=== PATIENT | female | born 1945 | race Caucasian/White ===

== ENCOUNTER 2018-01-13 13:06 | Inpatient (IN) ==
--- OUTSIDE RECORDS SUMMARY | 2018-01-13 13:41 | External Medical Summary | Continuity of Care Document ---
:1945 Author Organization [facility] Allergies Active Description Code Type Severity Reaction Onset Reported/ Identified Relationship Clinical to Patient Status Yes CEPHALEXIN 2716 DRUG Low Nausea 11/18/2016 Yes EXENATIDE 91701 DRUG Low Nausea 11/18/2016 Yes PENICILLINS 476 DRUG Low Rash 11/18/2016 Yes PHENOL 3172 DRUG Low Nausea 11/18/2016 Yes ROSIGLITAZON 7789 DRUG Low Rash 11/18/2016 E Yes CEPHALEXIN 2716 DRUG Low Nausea 11/18/2016 Yes EXENATIDE 82091 DRUG Low Nausea 11/18/2016 Yes PENICILLINS 476 DRUG Low Rash 11/18/2016 Yes PHENOL 3172 DRUG Low Nausea 11/18/2016 Yes ROSIGLITAZON 7789 DRUG Low Rash 11/18/2016 E Medications Medication Packaging Start Date Stop Date Route Dosage Sig Tablet 06/11/2016 03/08/2017 650 mg sodium take 1 bicarbonate 650 (one) mg tablet Tablet by Oral route two times per day for 90 days Problems Date Dx Attending Type Code Diagnosis Diagnosed By Coded 05/06/2015 OT 250.00 05/06/2015 OT 397.0 05/06/2015 OT 416.8 05/06/2015 OT 424.0 05/06/2015 OT 443.9 05/06/2015 OT 729.5 05/06/2015 OT 782.3 04/22/2016 D63.1 Anemia in chronic ROB, [place] kidney disease 04/22/2016 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, [place]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 04/22/2016 E55.9 Vitamin D ROB, [place] deficiency, unspecified 04/22/2016 E87.5 Hyperkalemia ROB, [place] 04/22/2016 E87.70 Fluid overload, ROB, [place] unspecified 04/22/2016 F17.200 Nicotine ROB, [place] dependence, unspecified, uncomplicated 04/22/2016 I12.9 Hypertensive ROB, [place] chronic kidney disease with stage 1 through stage 4 chronic kidney disease, or unspecified chronic kidney disease 04/22/2016 N18.3 Chronic kidney SUDARSHAN RIVASM disease, stage 3 (moderate) 11/18/2016 V1 N18.4 Chronic kidney disease, stage 4 (severe) ([facility]) 11/18/2016 V1 N18.4 Chronic kidney disease, stage 4 (severe) ([facility]) 11/18/2016 V1 N18.4 Chronic kidney disease, stage 4 (severe) ([facility]) 11/18/2016 DORA RENDON V1 N18.4 Chronic kidney disease, stage 4 (severe) ([facility]) 01/18/2017 V1 E11.22 Type 2 diabetes mellitus with diabetic chronic kidney disease ([facility]) 01/18/2017 V1 N18.4 Chronic kidney disease, stage 4 (severe) ([facility]) 01/18/2017 V1 Z79.4 alf (current) use of insulin ([facility]) 02/08/2017 V1 D63.1 02/08/2017 V1 E11.22 02/08/2017 V1 N18.3 02/08/2017 V1 N18.4 02/08/2017 V1 N18.9 02/08/2017 V1 Z79.4 02/09/2017 V1 D63.1 02/09/2017 V1 E11.22 02/09/2017 V1 N18.3 02/09/2017 V1 N18.4 02/09/2017 V1 N18.9 02/09/2017 V1 Z79.4 02/19/2017 V1 D63.1 Anemia in chronic kidney disease 02/19/2017 V1 N18.9 Chronic kidney disease, unspecified 02/19/2017 V1 D63.1 Anemia in chronic kidney disease 02/19/2017 V1 N18.3 Chronic kidney disease, stage 3 (moderate) 02/19/2017 V1 N18.9 Chronic kidney disease, unspecified 02/23/2017 V1 D63.1 Anemia in chronic kidney disease 02/23/2017 V1 N18.3 Chronic kidney disease, stage 3 (moderate) 02/23/2017 V1 N18.9 Chronic kidney disease, unspecified 03/05/2017 V1 D63.1 Anemia in chronic kidney disease 03/05/2017 V1 N18.3 Chronic kidney disease, stage 3 (moderate) 03/05/2017 V1 D63.1 Anemia in chronic kidney disease 03/05/2017 V1 N18.3 Chronic kidney disease, stage 3 (moderate) 03/09/2017 V1 D63.1 Anemia in chronic kidney disease 03/09/2017 V1 N18.3 Chronic kidney disease, stage 3 (moderate) 03/19/2017 V1 D63.1 Anemia in chronic kidney disease 03/19/2017 V1 N18.9 Chronic kidney disease, unspecified 03/19/2017 V1 D63.1 Anemia in chronic kidney disease 03/19/2017 V1 N18.3 Chronic kidney disease, stage 3 (moderate) 03/19/2017 V1 N18.9 Chronic kidney disease, unspecified 03/19/2017 V1 D63.1 Anemia in chronic kidney disease 03/19/2017 V1 N18.3 Chronic kidney disease, stage 3 (moderate) 03/19/2017 V1 N18.9 Chronic kidney disease, unspecified 03/19/2017 V1 D63.1 Anemia in chronic kidney disease 03/19/2017 V1 N18.3 Chronic kidney disease, stage 3 (moderate) 03/19/2017 V1 N18.9 Chronic kidney disease, unspecified 03/19/2017 V1 D63.1 Anemia in chronic kidney disease 03/23/2017 V1 D63.1 Anemia in chronic kidney disease 03/23/2017 V1 D63.1 Anemia in chronic kidney disease 03/23/2017 V1 N18.3 Chronic kidney disease, stage 3 (moderate) 03/23/2017 V1 N18.9 Chronic kidney disease, unspecified 03/26/2017 V1 D63.1 Anemia in chronic kidney disease 03/30/2017 V1 D63.1 Anemia in chronic kidney disease 04/01/2017 V1 D63.1 Anemia in chronic kidney disease 04/01/2017 V1 N18.9 Chronic kidney disease, unspecified 04/01/2017 V1 D63.1 Anemia in chronic kidney disease 04/01/2017 V1 N18.3 Chronic kidney disease, stage 3 (moderate) 04/01/2017 V1 N18.9 Chronic kidney disease, unspecified 04/01/2017 V1 D63.1 Anemia in chronic kidney disease 04/01/2017 V1 N18.3 Chronic kidney disease, stage 3 (moderate) 04/01/2017 V1 N18.9 Chronic kidney disease, unspecified 04/01/2017 V1 D63.1 Anemia in chronic kidney disease 04/05/2017 V1 D63.1 Anemia in chronic kidney disease 04/05/2017 V1 D63.1 Anemia in chronic kidney disease 04/05/2017 V1 N18.3 Chronic kidney disease, stage 3 (moderate) 04/05/2017 V1 N18.9 Chronic kidney disease, unspecified 04/08/2017 V1 D63.1 Anemia in chronic kidney disease 04/08/2017 V1 D63.1 Anemia in chronic kidney disease 04/12/2017 V1 D63.1 Anemia in chronic kidney disease 04/15/2017 V1 D63.1 Anemia in chronic kidney disease 04/15/2017 V1 N18.9 Chronic kidney disease, unspecified 04/15/2017 V1 D63.1 Anemia in chronic kidney disease 04/15/2017 V1 N18.9 Chronic kidney disease, unspecified 04/19/2017 V1 D63.1 Anemia in chronic kidney disease 04/19/2017 V1 N18.9 Chronic kidney disease, unspecified 04/29/2017 V1 D63.1 Anemia in chronic kidney disease 04/29/2017 V1 N18.9 Chronic kidney disease, unspecified 04/29/2017 V1 D63.1 Anemia in chronic kidney disease 04/29/2017 V1 N18.3 Chronic kidney disease, stage 3 (moderate) 04/29/2017 V1 N18.9 Chronic kidney disease, unspecified 05/03/2017 V1 D63.1 Anemia in chronic kidney disease 05/03/2017 V1 N18.3 Chronic kidney disease, stage 3 (moderate) 05/03/2017 V1 N18.9 Chronic kidney disease, unspecified 05/13/2017 V1 D63.1 Anemia in chronic kidney disease 05/13/2017 V1 N18.9 Chronic kidney disease, unspecified 05/13/2017 V1 D63.1 Anemia in chronic kidney disease 05/13/2017 V1 N18.3 Chronic kidney disease, stage 3 (moderate) 05/13/2017 V1 N18.9 Chronic kidney disease, unspecified 05/13/2017 V1 D63.1 Anemia in chronic kidney disease 05/13/2017 V1 N18.3 Chronic kidney disease, stage 3 (moderate) 05/13/2017 V1 N18.9 Chronic kidney disease, unspecified 05/13/2017 V1 D63.1 Anemia in chronic kidney disease 05/14/2017 V1 D63.1 Anemia in chronic kidney disease 05/17/2017 V1 D63.1 Anemia in chronic kidney disease 05/17/2017 V1 D63.1 Anemia in chronic kidney disease 05/17/2017 V1 N18.3 Chronic kidney disease, stage 3 (moderate) 05/17/2017 V1 N18.9 Chronic kidney disease, unspecified 05/20/2017 V1 D63.1 Anemia in chronic kidney disease 05/24/2017 V1 D63.1 Anemia in chronic kidney disease 05/27/2017 V1 D63.1 Anemia in chronic kidney disease 05/27/2017 V1 N18.4 Chronic kidney disease, stage 4 (severe) ([facility]) 05/27/2017 V1 D63.1 Anemia in chronic kidney disease 05/31/2017 V1 D63.1 Anemia in chronic kidney disease 05/31/2017 V1 D63.1 Anemia in chronic kidney disease 05/31/2017 V1 N18.4 Chronic kidney disease, stage 4 (severe) ([facility]) 06/03/2017 V1 D63.1 Anemia in chronic kidney disease 06/07/2017 V1 D63.1 Anemia in chronic kidney disease 06/10/2017 V1 D63.1 Anemia in chronic kidney disease 06/10/2017 V1 N18.3 Chronic kidney disease, stage 3 (moderate) 06/10/2017 V1 N18.9 Chronic kidney disease, unspecified 06/10/2017 V1 D63.1 Anemia in chronic kidney disease 06/10/2017 V1 D63.1 Anemia in chronic kidney disease 06/10/2017 V1 N18.9 Chronic kidney disease, unspecified 06/10/2017 V1 D63.1 Anemia in chronic kidney disease 06/10/2017 V1 N18.3 Chronic kidney disease, stage 3 (moderate) 06/10/2017 V1 N18.9 Chronic kidney disease, unspecified 06/10/2017 V1 D63.1 Anemia in chronic kidney disease 06/10/2017 V1 N18.3 Chronic kidney disease, stage 3 (moderate) 06/10/2017 V1 N18.9 Chronic kidney disease, unspecified 06/10/2017 V1 D63.1 Anemia in chronic kidney disease 06/10/2017 V1 D63.1 Anemia in chronic kidney disease 06/10/2017 V1 N18.3 Chronic kidney disease, stage 3 (moderate) 06/10/2017 V1 N18.9 Chronic kidney disease, unspecified 06/10/2017 V1 D63.1 Anemia in chronic kidney disease 07/20/2017 V1 D63.1 Anemia in chronic kidney disease 07/20/2017 V1 D63.1 Anemia in chronic kidney disease 07/20/2017 V1 N18.9 Chronic kidney disease, unspecified 07/20/2017 V1 N18.9 Chronic kidney disease, unspecified 07/20/2017 V1 N18.9 Chronic kidney disease, unspecified 07/20/2017 V1 N18.9 Chronic kidney disease, unspecified 07/20/2017 V1 N18.9 Chronic kidney disease, unspecified 07/20/2017 V1 N18.9 Chronic kidney disease, unspecified 07/20/2017 V1 N18.9 Chronic kidney disease, unspecified 07/20/2017 V1 N18.9 Chronic kidney disease, unspecified 07/20/2017 V1 D64.9 Anemia, unspecified 07/20/2017 V1 D64.9 Anemia, unspecified 07/20/2017 V1 D64.9 Anemia, unspecified 07/20/2017 V1 D64.9 Anemia, unspecified 07/20/2017 V1 D64.9 Anemia, unspecified 07/28/2017 V1 D63.1 Anemia in chronic kidney disease 07/28/2017 V1 N18.3 Chronic kidney disease, stage 3 (moderate) 07/28/2017 V1 N18.9 Chronic kidney disease, unspecified 07/28/2017 V1 D63.1 Anemia in chronic kidney disease 07/28/2017 V1 N18.3 Chronic kidney disease, stage 3 (moderate) 07/28/2017 V1 N18.9 Chronic kidney disease, unspecified 08/04/2017 V1 E11.22 Type 2 diabetes mellitus with diabetic chronic kidney disease ([facility]) 08/04/2017 V1 N18.6 End stage renal disease ([facility]) 08/04/2017 V1 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 ([facility]) 08/04/2017 V1 D64.9 Anemia, unspecified 08/04/2017 V1 N18.9 Chronic kidney disease, unspecified 08/04/2017 V1 E11.22 Type 2 diabetes mellitus with diabetic chronic kidney disease ([facility]) 08/04/2017 V1 N18.6 End stage renal disease ([facility]) 08/04/2017 V1 Z79.4 alf (current) use of insulin ([facility]) 08/11/2017 V1 E11.22 Type 2 diabetes mellitus with diabetic chronic kidney disease ([facility]) 08/11/2017 V1 N18.6 End stage renal disease ([facility]) 08/11/2017 V1 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 [place] 08/11/2017 V1 E11.22 Type 2 diabetes mellitus with diabetic chronic kidney disease ([facility]) 08/11/2017 V1 N18.6 End stage renal disease ([facility]) 08/11/2017 V1 Z79.4 alf (current) use of insulin [place] [place] 08/19/2017 DORA RENDON V2 [id number] Shortness of Breath 08/19/2017 DORA RENDON V2 244495 Shortness of Breath 08/19/2017 DORA RENDON V2 220414 Shortness of Breath 08/19/2017 DORA RENDON D63.1 Anemia in chronic kidney disease 08/19/2017 DORA RENDON V1 E11.22 Type 2 diabetes mellitus with diabetic chronic kidney disease ([facility]) 08/19/2017 DORA RENDON V1 N18.3 Chronic kidney disease, stage 3 (moderate) 08/19/2017 DORA RENDON V1 N18.6 End stage renal disease ([facility]) 08/19/2017 DORA RENDON N18.9 Chronic kidney disease, unspecified 08/19/2017 DORA RENDON V1 Z79.4 alf (current) use [place] insulin [place] [place] 08/19/2017 DORA RENDON D63.1 Anemia in chronic kidney disease 08/19/2017 DORA RENDON V1 E11.22 Type 2 diabetes mellitus with diabetic chronic kidney disease ([facility]) 08/19/2017 DORA RENDON V1 N18.3 Chronic kidney disease, stage 3 (moderate) 08/19/2017 DORA RENDON V1 N18.6 End stage renal disease ([facility]) 08/19/2017 DORA RENDON V1 N18.9 Chronic kidney disease, unspecified 08/19/2017 DORA RENDON V1 Z79.4 alf (current) use [place] insulin [place] [place] 08/19/2017 DORA RENDON D63.1 Anemia in chronic kidney disease 08/19/2017 DORA RENDON V1 E11.22 Type 2 diabetes mellitus with diabetic chronic kidney disease ([facility]) 08/19/2017 DORA RENDON J44.1 Chronic obstructive pulmonary disease with (acute) exacerbation ([facility]) 08/19/2017 DORA RENDON V1 N18.3 Chronic kidney disease, stage 3 (moderate) 08/19/2017 DORA RENDON V1 N18.6 End stage renal disease ([facility]) 08/19/2017 DORA RENDON V1 N18.9 Chronic kidney disease, unspecified 08/19/2017 DORA RENDON V1 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 ([facility]) 08/19/2017 DORA RENDON V1 D63.1 Anemia in chronic kidney disease 08/19/2017 DORA RENDON V1 E11.22 Type 2 diabetes mellitus with diabetic chronic kidney disease ([facility]) 08/19/2017 DORA ERNDON J44.1 Chronic obstructive pulmonary disease with (acute) exacerbation ([facility]) 08/19/2017 DORA RENDON V1 N18.3 Chronic kidney disease, stage 3 (moderate) 08/19/2017 DORA RENDON V1 N18.6 End stage renal disease ([facility]) 08/19/2017 DORA RENDON N18.9 Chronic kidney disease, unspecified 08/19/2017 DORA RENDON 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 ([facility]) 08/19/2017 DORA RENDON V1 D63.1 Anemia in chronic kidney disease 08/19/2017 DORA RENDON V1 E11.22 Type 2 diabetes mellitus with diabetic chronic kidney disease ([facility]) 08/19/2017 DORA RENDON J44.1 Chronic obstructive pulmonary disease with (acute) exacerbation ([facility]) 08/19/2017 DORA RENDON V1 N18.3 Chronic kidney disease, stage 3 (moderate) 08/19/2017 DORA RENDON V1 N18.6 End stage renal disease ([facility]) 08/19/2017 DORA RNEDON V1 N18.9 Chronic kidney disease, unspecified 08/19/2017 DORA RENDON V1 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 ([facility]) 08/19/2017 DORA RENDON V1 D63.1 Anemia in chronic kidney disease 08/19/2017 DORA RENDON V1 E11.22 Type 2 diabetes mellitus with diabetic chronic kidney disease ([facility]) 08/19/2017 ROSIN, DORA V1 J44.1 Chronic obstructive pulmonary disease with (acute) exacerbation ([facility]) 08/19/2017 DORA RENDON V1 N18.3 Chronic kidney disease, stage 3 (moderate) 08/19/2017 DORA RENDON V1 N18.6 End stage renal disease ([facility]) 08/19/2017 DORA RENDON V1 N18.9 Chronic kidney disease, unspecified 08/19/2017 DORA RENDON V1 Z79.4 alf (current) use of insulin ([facility]) 08/19/2017 DORA RENDON V1 D63.1 Anemia in chronic kidney disease 08/19/2017 DORA RENDON V1 E11.22 Type 2 diabetes mellitus with diabetic chronic kidney disease ([facility]) 08/19/2017 DORA RENDON J44.1 Chronic obstructive pulmonary disease with (acute) exacerbation ([facility]) 08/19/2017 DORA RENDON V1 N18.3 Chronic kidney disease, stage 3 (moderate) 08/19/2017 DORA RENDON V1 N18.6 End stage renal disease ([facility]) 08/19/2017 DORA RENDON N18.9 Chronic kidney disease, unspecified 08/19/2017 DORA RENDON V1 Z79.4 alf (current) use of insulin ([facility]) 08/20/2017 DORA RENDON V1 D63.1 Anemia in chronic kidney disease 08/20/2017 DORA RENDON V1 E11.22 Type 2 diabetes mellitus with diabetic chronic kidney disease ([facility]) 08/20/2017 DORA RENDON V1 J44.1 Chronic obstructive pulmonary disease with (acute) exacerbation ([facility]) 08/20/2017 DORA RENDON V1 N18.3 Chronic kidney disease, stage 3 (moderate) 08/20/2017 DORA RENDON V1 N18.6 End stage renal disease ([facility]) 08/20/2017 DORA RENDON V1 N18.9 Chronic kidney disease, unspecified 08/20/2017 DORA RENDON V1 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 ([facility]) 08/20/2017 DORA RENDON V1 D63.1 Anemia in chronic kidney disease 08/20/2017 DORA RENDON V1 E11.22 Type 2 diabetes mellitus with diabetic chronic kidney disease ([facility]) 08/20/2017 ROSIN, ODRA V1 J44.1 Chronic obstructive pulmonary disease with (acute) exacerbation ([facility]) 08/20/2017 DORA RENDON V1 N18.3 Chronic kidney disease, stage 3 (moderate) 08/20/2017 DORA RENDON V1 N18.6 End stage renal disease ([facility]) 08/20/2017 DORA RENDON V1 N18.9 Chronic kidney disease, unspecified 08/20/2017 DORA RENDON V1 Z79.4 alf (current) use of insulin ([facility]) 08/20/2017 DORA RENDON V1 D63.1 Anemia in chronic kidney disease 08/20/2017 DORA RENDON V1 E11.22 Type 2 diabetes mellitus with diabetic chronic kidney disease ([facility]) 08/20/2017 DORA RENDON J44.1 Chronic obstructive pulmonary disease with (acute) exacerbation ([facility]) 08/20/2017 DORA RENDON V1 N18.3 Chronic kidney disease, stage 3 (moderate) 08/20/2017 DORA RENDON V1 N18.6 End stage renal disease ([facility]) 08/20/2017 DORA RENDON N18.9 Chronic kidney disease, unspecified 08/20/2017 DORA RENDON Z79.4 alf (current) use of insulin ([facility]) 08/20/2017 DORA RENDON V1 D63.1 Anemia in chronic kidney disease 08/20/2017 DORA RENDON V1 E11.22 Type 2 diabetes mellitus with diabetic chronic kidney disease ([facility]) 08/20/2017 DORA RENDON J44.1 Chronic obstructive pulmonary disease with (acute) exacerbation ([facility]) 08/20/2017 DORA RENDON V1 N18.3 Chronic kidney disease, stage 3 (moderate) 08/20/2017 DORA RENDON V1 N18.6 End stage renal disease ([facility]) 08/20/2017 DORA RENDON V1 N18.9 Chronic kidney disease, unspecified 08/20/2017 DORA RENDON V1 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 ([facility]) 08/20/2017 DORA RENDON V1 D63.1 Anemia in chronic kidney disease 08/20/2017 DORA RENDON V1 E11.22 Type 2 diabetes mellitus with diabetic chronic kidney disease ([facility]) 08/20/2017 ROSIN, DORA V1 J44.1 Chronic obstructive pulmonary disease with (acute) exacerbation ([facility]) 08/20/2017 DORA RENDON V1 N18.3 Chronic kidney disease, stage 3 (moderate) 08/20/2017 DORA RENDON V1 N18.6 End stage renal disease ([facility]) 08/20/2017 DORA RENDON V1 N18.9 Chronic kidney disease, unspecified 08/20/2017 DROA RENDON V1 Z79.4 alf (current) use of insulin ([facility]) 08/20/2017 DORA RENDON V1 D63.1 Anemia in chronic kidney disease 08/20/2017 DORA RENDON V1 E11.22 Type 2 diabetes mellitus with diabetic chronic kidney disease ([facility]) 08/20/2017 DORA RENDON J44.1 Chronic obstructive pulmonary disease with (acute) exacerbation ([facility]) 08/20/2017 DORA RENDON N18.3 Chronic kidney disease, stage 3 (moderate) 08/20/2017 DORA RENDON V1 N18.6 End stage renal disease ([facility]) 08/20/2017 DORA RENDON N18.9 Chronic kidney disease, unspecified 08/20/2017 DORA RENDON Z79.4 alf (current) use of insulin ([facility]) 08/20/2017 DORA RENDON D63.1 Anemia in chronic kidney disease 08/20/2017 DORA RENDON E11.22 Type 2 diabetes mellitus with diabetic chronic kidney disease ([facility]) 08/20/2017 DORA RENDON J44.1 Chronic obstructive pulmonary disease with (acute) exacerbation ([facility]) 08/20/2017 DORA RENDON V1 N18.3 Chronic kidney disease, stage 3 (moderate) 08/20/2017 DORA RENDON V1 N18.6 End stage renal disease ([facility]) 08/20/2017 DORA RENDON V1 N18.9 Chronic kidney disease, unspecified 08/20/2017 DORA RENDON 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 ([facility]) 08/21/2017 DORA RENDON V1 D63.1 Anemia in chronic kidney disease 08/21/2017 DORA RENDON V1 E11.22 Type 2 diabetes mellitus with diabetic chronic kidney disease ([facility]) 08/21/2017 DORA RENDON J44.1 Chronic obstructive pulmonary disease with (acute) exacerbation ([facility]) 08/21/2017 DORA RENDON V1 N18.3 Chronic kidney disease, stage 3 (moderate) 08/21/2017 DORA RENDON V1 N18.6 End stage renal disease ([facility]) 08/21/2017 DORA RENDON V1 N18.9 Chronic kidney disease, unspecified 08/21/2017 DORA RENDON Z79.4 alf (current) use of insulin ([facility]) 08/21/2017 DORA RENDON D63.1 Anemia in chronic kidney disease 08/21/2017 DORA RENDON V1 E11.22 Type 2 diabetes mellitus with diabetic chronic kidney disease ([facility]) 08/21/2017 DORA RENDON J44.1 Chronic obstructive pulmonary disease with (acute) exacerbation ([facility]) 08/21/2017 DORA RENDON N18.3 Chronic kidney disease, stage 3 (moderate) 08/21/2017 DORA RENDON N18.6 End stage renal disease ([facility]) 08/21/2017 DORA RENDON N18.9 Chronic kidney disease, unspecified 08/21/2017 DORA RENDON 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 ([facility]) 08/21/2017 DORA RENDON D63.1 Anemia in chronic kidney disease 08/21/2017 DORA RENDON E11.22 Type 2 diabetes mellitus with diabetic chronic kidney disease ([facility]) 08/21/2017 DORA RENDON J44.1 Chronic obstructive pulmonary disease with (acute) exacerbation ([facility]) 08/21/2017 DORA RENDON N18.3 Chronic kidney disease, stage 3 (moderate) 08/21/2017 DORA RENDON V1 N18.6 End stage renal disease ([facility]) 08/21/2017 DORA RENDON V1 N18.9 Chronic kidney disease, unspecified 08/21/2017 DORA RENDON 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 ([facility]) 08/22/2017 DORA RENDON V1 D63.1 Anemia in chronic kidney disease 08/22/2017 DORA RENDON V1 E11.22 Type 2 diabetes mellitus with diabetic chronic kidney disease ([facility]) 08/22/2017 DORA RENDON J44.1 Chronic obstructive pulmonary disease with (acute) exacerbation [facility] [facility] 08/22/2017 DORA RENDON N18.3 Chronic kidney disease, stage 3 (moderate) 08/22/2017 DORA RENDON V1 N18.6 End stage renal disease ([facility]/HCC) 08/22/2017 DORA RENDON N18.9 Chronic kidney disease, unspecified 08/22/2017 DORA RENDON Z79.4 alf (current) use of insulin ([facility]) 08/22/2017 DORA RENDON D63.1 Anemia in chronic kidney disease 08/22/2017 DORA RENDON V1 E11.22 Type 2 diabetes mellitus with diabetic chronic kidney disease ([facility]) 08/22/2017 DORA RENDON J44.1 Chronic obstructive pulmonary disease with (acute) exacerbation ([facility]) 08/22/2017 DORA RENDON N18.3 Chronic kidney disease, stage 3 (moderate) 08/22/2017 DORA RENDON N18.6 End stage renal disease ([facility]) 08/22/2017 DORA RENDON N18.9 Chronic kidney disease, unspecified 08/22/2017 DORA RENDON Z79.4 alf (current) use of insulin ([facility]) 08/22/2017 DORA RENDON D63.1 Anemia in chronic kidney disease 08/22/2017 DORA RENDON E11.22 Type 2 diabetes mellitus with diabetic chronic kidney disease ([facility]) 08/22/2017 DORA RENDON J44.1 Chronic obstructive pulmonary disease with (acute) exacerbation ([facility]) 08/22/2017 DORA RENDON N18.3 Chronic kidney disease, stage 3 (moderate) 08/22/2017 DORA RENDON V1 N18.6 End stage renal disease ([facility]/HCC) 08/22/2017 DORA RENDON N18.9 Chronic kidney disease, unspecified 08/22/2017 DORA RENDON 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 ([facility]) 08/23/2017 DORA RENDON V1 D63.1 Anemia in chronic kidney disease 08/23/2017 DORA RENDON V1 E11.22 Type 2 diabetes mellitus with diabetic chronic kidney disease ([facility]/HCC) 08/23/2017 DORA RENDON J44.1 Chronic obstructive pulmonary disease with (acute) exacerbation ([facility]) 08/23/2017 DORA RENDON V1 N18.3 Chronic kidney disease, stage 3 (moderate) 08/23/2017 DORA RENDON V1 N18.6 End stage renal disease ([facility]/HCC) 08/23/2017 DORA RENDON V1 N18.9 Chronic kidney disease, unspecified 08/23/2017 DORA RENDON 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 ([facility]) 08/23/2017 DORA RENDON V1 D63.1 Anemia in chronic kidney disease 08/23/2017 DORA RENDON V1 E11.22 Type 2 diabetes mellitus with diabetic chronic kidney disease ([facility]) 08/23/2017 DORA RENDON J44.1 Chronic obstructive pulmonary disease with (acute) exacerbation ([facility]) 08/23/2017 DORA RENDON N18.3 Chronic kidney disease, stage 3 (moderate) 08/23/2017 DORA RENDON N18.6 End stage renal disease ([facility]) 08/23/2017 DORA RENDON N18.9 Chronic kidney disease, unspecified 08/23/2017 DORA RENDON Z79.4 alf (current) use of insulin ([facility]) 08/23/2017 DORA RENDON N18.4 Chronic kidney disease, stage 4 (severe) ([facility]) 08/23/2017 DORA RENDON V1 D63.1 Anemia in chronic kidney disease 08/23/2017 DORA RENDON V1 E11.22 Type 2 diabetes mellitus with diabetic chronic kidney disease ([facility]) 08/23/2017 DORA RENDON J44.1 Chronic obstructive pulmonary disease with (acute) exacerbation ([facility]) 08/23/2017 DORA RENDON N18.3 Chronic kidney disease, stage 3 (moderate) 08/23/2017 DORA RENDON V1 N18.6 End stage renal disease ([facility]) 08/23/2017 DROA RENDON V1 N18.9 Chronic kidney disease, unspecified 08/23/2017 DORA RENDON 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 ([facility]) 08/23/2017 DORA RENDON V1 D63.1 Anemia in chronic kidney disease 08/23/2017 DORA RENDON E11.22 Type 2 diabetes mellitus with diabetic chronic kidney disease ([facility]/HCC) 08/23/2017 DORA RENDON J44.1 Chronic obstructive pulmonary disease with (acute) exacerbation ([facility]) 08/23/2017 DORA RENDON N18.3 Chronic kidney disease, stage 3 (moderate) 08/23/2017 DORA RENDON V1 N18.6 End stage renal disease ([facility]/HCC) 08/23/2017 DORA RENDON N18.9 Chronic kidney disease, unspecified 08/23/2017 DORA RENDON 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 ([facility]) 08/23/2017 DORA RENDON V1 D63.1 Anemia in chronic kidney disease 08/23/2017 DORA RENDON V1 E11.22 Type 2 diabetes mellitus with diabetic chronic kidney disease ([facility]/HCC) 08/23/2017 DORA RENDON J44.1 Chronic obstructive pulmonary disease with (acute) exacerbation ([facility]) 08/23/2017 DORA RENDON N18.3 Chronic kidney disease, stage 3 (moderate) 08/23/2017 DORA RENDON V1 N18.6 End stage renal disease ([facility]) 08/23/2017 DORA RENDON N18.9 Chronic kidney disease, unspecified 08/23/2017 DORA RENDON 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 ([facility]) 08/24/2017 DORA RENDON D63.1 Anemia in chronic kidney disease 08/24/2017 DORA RENDON E11.22 Type 2 diabetes mellitus with diabetic chronic kidney disease ([facility]/HCC) 08/24/2017 DORA RENDON J44.1 Chronic obstructive pulmonary disease with (acute) exacerbation ([facility]) 08/24/2017 DORA RENDON V1 N18.3 Chronic kidney disease, stage 3 (moderate) 08/24/2017 DORA RENDON V1 N18.6 End stage renal disease ([facility]/HCC) 08/24/2017 DORA RENDON V1 N18.9 Chronic kidney disease, unspecified 08/24/2017 DORA RENDON V1 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 ([facility]) 08/24/2017 DORA RENDON V1 D63.1 Anemia in chronic kidney disease 08/24/2017 DORA RENDON E11.22 Type 2 diabetes mellitus with diabetic chronic kidney disease ([facility]/HCC) 08/24/2017 DORA RENDON J44.1 Chronic obstructive pulmonary disease with (acute) exacerbation ([facility]) 08/24/2017 DORA RENDON V1 N18.3 Chronic kidney disease, stage 3 (moderate) 08/24/2017 DORA RENDON V1 N18.6 End stage renal disease ([facility]/HCC) 08/24/2017 DORA RENDON N18.9 Chronic kidney disease, unspecified 08/24/2017 DROA RENDON V1 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 ([facility]) 08/24/2017 DORA RENDON V1 D63.1 Anemia in chronic kidney disease 08/24/2017 DORA RENDON V1 E11.22 Type 2 diabetes mellitus with diabetic chronic kidney disease ([facility]) 08/24/2017 DORA RENDON J44.1 Chronic obstructive pulmonary disease with (acute) exacerbation ([facility]) 08/24/2017 DORA RENDON V1 N18.3 Chronic kidney disease, stage 3 (moderate) 08/24/2017 DORA RENDON V1 N18.6 End stage renal disease ([facility]) 08/24/2017 DORA RENDON N18.9 Chronic kidney disease, unspecified 08/24/2017 DORA RENDON Z79.4 alf (current) use of insulin ([facility]) 08/24/2017 DORA RENDON V1 D63.1 Anemia in chronic kidney disease 08/24/2017 DORA RENDON E11.22 Type 2 diabetes mellitus with diabetic chronic kidney disease ([facility]/HCC) 08/24/2017 DORA RENDON J44.1 Chronic obstructive pulmonary disease with (acute) exacerbation ([facility]) 08/24/2017 DORA RENDON V1 N18.3 Chronic kidney disease, stage 3 (moderate) 08/24/2017 DORA RENDON V1 N18.6 End stage renal disease ([facility]/HCC) 08/24/2017 DORA RENDON V1 N18.9 Chronic kidney disease, unspecified 08/24/2017 DORA RENDON V1 Z79.4 alf (current) use of insulin ([facility]) 08/24/2017 V1 D63.1 Anemia in chronic kidney disease 08/24/2017 V1 D63.1 Anemia in chronic kidney disease 08/24/2017 V1 D63.1 Anemia in chronic kidney disease 08/24/2017 V1 D63.1 Anemia in chronic kidney disease 08/24/2017 V1 D63.1 Anemia in chronic kidney disease 08/24/2017 DORA RENDON V1 N18.4 Chronic kidney disease, stage 4 (severe) ([facility]) 08/24/2017 V1 N18.4 Chronic kidney disease, stage 4 (severe) ([facility]) 08/24/2017 V1 N18.4 Chronic kidney disease, stage 4 (severe) ([facility]) 08/24/2017 V1 N18.4 Chronic kidney disease, stage 4 (severe) ([facility]) 08/24/2017 V1 N18.4 Chronic kidney disease, stage 4 (severe) ([facility]) 08/24/2017 V1 N18.4 Chronic kidney disease, stage 4 (severe) ([facility]) 09/13/2017 V1 E11.22 Type 2 diabetes mellitus with diabetic chronic kidney disease ([facility]) 09/13/2017 V1 N18.6 End stage renal disease ([facility]) 09/13/2017 V1 Z79.4 alf (current) use of insulin ([facility]) 09/13/2017 V1 D63.1 Anemia in chronic kidney disease 09/13/2017 V1 D64.9 Anemia, unspecified 09/13/2017 V1 N18.9 Chronic kidney disease, unspecified 09/13/2017 V1 E11.22 Type 2 diabetes mellitus with diabetic chronic kidney disease ([facility]) 09/13/2017 V1 N18.6 End stage renal disease ([facility]) 09/13/2017 V1 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 ([facility]) 09/13/2017 V1 D63.1 Anemia in chronic kidney disease 09/16/2017 V1 D63.1 Anemia in chronic kidney disease 09/16/2017 V1 D64.9 Anemia, unspecified 09/16/2017 V1 N18.9 Chronic kidney disease, unspecified 09/20/2017 V1 D64.9 Anemia, unspecified 09/20/2017 V1 N18.9 Chronic kidney disease, unspecified 09/20/2017 V1 D64.9 Anemia, unspecified 09/20/2017 V1 N18.9 Chronic kidney disease, unspecified 09/22/2017 V1 D50.9 Iron deficiency anemia, unspecified 09/22/2017 V1 D50.9 Iron deficiency anemia, unspecified 09/22/2017 V1 D50.9 Iron deficiency anemia, unspecified 09/22/2017 V1 D50.9 Iron deficiency anemia, unspecified 09/27/2017 V1 N18.9 Chronic kidney disease, unspecified 10/04/2017 V1 D63.1 Anemia in chronic kidney disease 10/04/2017 V1 E11.22 Type 2 diabetes mellitus with diabetic chronic kidney disease ([facility]/HCC) 10/04/2017 V1 N18.3 Chronic kidney disease, stage 3 (moderate) 10/04/2017 V1 N18.6 End stage renal disease ([facility]/HCC) 10/04/2017 V1 N18.9 Chronic kidney disease, unspecified 10/04/2017 V1 Z79.4 alf (current) use of insulin ([facility]) 10/04/2017 V1 D50.9 Iron deficiency anemia, unspecified 10/04/2017 V1 D63.1 Anemia in chronic kidney disease 10/04/2017 V1 N18.9 Chronic kidney disease, unspecified 10/04/2017 V1 D63.1 Anemia in chronic kidney disease 10/04/2017 V1 E11.22 Type 2 diabetes mellitus with diabetic chronic kidney disease ([facility]) 10/04/2017 V1 N18.3 Chronic kidney disease, stage 3 (moderate) 10/04/2017 V1 N18.6 End stage renal disease ([facility]) 10/04/2017 V1 N18.9 Chronic kidney disease, unspecified 10/04/2017 V1 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 ([facility]) 10/04/2017 V1 D63.1 Anemia in chronic kidney disease 10/11/2017 V1 E11.22 Type 2 diabetes mellitus with diabetic chronic kidney disease ([facility]) 10/11/2017 V1 N18.6 End stage renal disease ([facility]) 10/11/2017 V1 Z79.4 alf (current) use [place] 10/11/2017 V1 N18.9 Chronic kidney disease, unspecified 10/11/2017 V1 E11.22 Type 2 diabetes mellitus with diabetic chronic kidney disease ([facility]) 10/11/2017 V1 N18.6 End stage renal disease ([facility]) 10/11/2017 V1 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 (CMS/HCC) Procedures Code Description [place] [address] Office or DAVIN RIVAS 05/22/2016 other outpatient visit for the evaluation and management of an established patient, which <section xmlns="urn:hl7-org:v3" xmlns:xsi="http://www.[employer].org/ 2000/XMLSchema-instance"> <templateId root=" [id number]" /> <templateId root=" [id number]" /> <code codeSystemName=" LOINC" codeSystem="[id number]" code="41986-4&quot ; displayName="Results" /> <title>Results</title> &lt ;text> <table> <thead> <tr> <th& gt;Test</th> <th>Result</th> <th>Range </th> </tr> </thead> <tbody> &lt ;tr> <th colspan="10">Prot+CreatU (Random) - 09:30</th> </tr> <tr> <td> Creatinine, Urine</td> <td>47.9 mg/dL</td> & lt;td>Not Estab.</td> </tr> <tr> &lt ;td>Protein,Total,Urine</td> <td>17.2 mg/dL</td> <td>Not Estab.</td> </tr> <tr> <td>Protein/Creat Ratio</td> <td>359 mg/g creat&lt ;/td> <td>0-200</td> </tr> <tr> <th colspan="10">CBC With Platelet and Differential - :41</th> </tr> <tr> <td> Hematocrit (HCT)</td> <td>27.3 %</td> <td>37.0-47.0</td> </tr> <tr> & lt;td>Hemoglobin (Hgb)</td> <td>8.5 G/DL</td> <td>12.0-16.0</td> </tr> <tr> <td>WBC</td> <td>9.9 K/UL</td> &lt ;td>4.8-10.8</td></tr> <tr> <th colspan= "10">Creatinine, Serum - 04/15/1611:41</th> </tr&gt ; <tr> <td>Creatinine, Serum</td> &lt ;td>2.1 </td> <td>0.6-1.4</td> </tr> <tr> <th colspan="10">GFR, Estimated - 11:41</th> </tr> <tr> <td>eGFR&lt ;/td> <td>24.35 ML/MIN</td> <td>> 60</td> </tr> <tr> <th colspan=&quot ;10">Potassium (K), Serum - 04/15/16 11:41</th> </tr&gt ; <tr> <td>Potassium (K), Serum</td> <td& gt;5.4 MEQ/L</td> <td>3.2-5.2</td> </tr&gt ; <tr> <th colspan="10">PTH (Parathyroid Hormone) - 04/15/16 11:41</th> </tr> <tr> <td>PTH, Intact</td> <td>131 PG/ML</td> <td>9.0-78.0</td> </tr> <tr> <th colspan="10">Vitamin D, 25-Hydroxy - 04/15/16 11:41</ th> </tr> <tr> <td>Vitamin D,25-Hydroxy</ td> <td>24.1 NG/ML</td> <td>25-80</td& gt; </tr> <tr> <th colspan="10"& gt;[place]/CR ratio - 04/15/16 11:41</th> </tr> & lt;tr> <td>Creatinine, Random U</td> <td> 47.9 MG/DL</td> <td>NRG</td> </tr> <tr> <td>Protein,Total, Rdm U</td> <td> 17.2 MG/DL</td> <td>NRG</td> </tr> <tr> <td>Protein/Creat Ratio</td> <td& gt;359 </td> <td>NRG</td> </tr> & lt;tr> <th colspan="10">GFR, Estimated - 04/15/16 11 :43</th> </tr> <tr> <td>eGFR</ td> <td>24.76 ML/MIN</td> <td>>60& lt;/td> </tr> <tr> <th colspan="10& quot;>Creatinine, Serum - 04/15/16 11:43</th> </tr> <tr> <td>Creatinine, Serum</td> <td> 2.1 </td> <td>0.6-1.4</td> </tr> < tr> <th colspan="10">CBC With Platelet and Differential - 04/15/16 11:43</th> </tr> <tr> <td>Hematocrit (HCT)</td> <td>29.1 %& lt;/td> <td>37.0-47.0</td> </tr> &lt ;tr> <td>Hemoglobin (Hgb)</td> <td>9.1 G/ DL</td> <td>12.0-16.0</td> </tr> <tr> <td>WBC</td> <td>9.0 K/UL</td& gt; <td>4.8-10.8</td> </tr> <tr> <th colspan="10">Potassium (K), Serum - 04/15/16 11:43</ th> </tr> <tr> <td>Potassium (K), Serum</td> <td>5.2 MEQ/L</td> <td>3.2- 5.2</td> </tr> <tr> <th colspan=& quot;10">CBC With Platelet and Differential - 04/15/16 11:44</th> </tr> <tr> <td>Hematocrit (HCT)</td > <td>30.3 %</td> <td>37.0-47.0& lt;/td> </tr> <tr> <td>Hemoglobin (Hgb)< /td> <td>9.5G/DL</td> <td>12.0-16.0</ td> </tr> <tr> <td>WBC</td> & lt;td>7.8 K/UL</td> <td>4.8-10.8</td> </ tr> <tr> <th colspan="10">Creatinine, Serum - 04/15/16 11:44</th> </tr> <tr> <td>Creatinine, Serum</td> <td>1.6 </td> <td>0.6-1.4</td> </tr> <tr> & lt;th colspan="10">GFR, Estimated - 04/15/16 11:44</th> </tr> <tr> <td>eGFR</td> &lt ;td>36.84ML/MIN</td> <td>>60</td> & lt;/tr> <tr> <th colspan="10">Potassium (K), Serum - 04/15/16 11:44</th> </tr> <tr> <td>Potassium (K), Serum</td> <td>4.5 MEQ/L</td&gt ; <td>3.2-5.2</td> </tr> <tr> <th colspan="10">GFR, Estimated - 04/15/16 11:46</th& gt; </tr> <tr> <td>eGFR</td> <td>35.89 ML/MIN</td> <td>>60</td&gt ; </tr> <tr> <th colspan="10"&gt ;Creatinine, Serum - 04/15/16 11:46</th> </tr> <tr& gt; <td>Creatinine, Serum</td> <td>1.6 </ td> <td>0.6-1.4</td> </tr> <tr&gt ; <th colspan="10">CBC With Platelet and Differential - 04/15/16 11:46</th> </tr> <tr> <td >Hematocrit (HCT)</td> <td>31.4 %</td> <td>37.0-47.0</td> </tr> <tr> <td>Hemoglobin (Hgb)</td> <td>9.8 G/DL</td> <td>12.0-16.0</td> </tr><tr> < td>WBC</td> <td>8.8 K/UL</td> <td> 4.8-10.8</td> </tr> <tr> <th colspan ="10">Potassium (K), Serum - 04/15/16 11:46</th> </ tr> <tr> <td>Potassium (K), Serum</td> <td>4.7 MEQ/L</td> <td>3.2-5.2</td> </tr> <tr> <th colspan="10">CBC WithPlatelet and Differential - 04/15/16 11:47</th> </tr> <tr> <td>Hematocrit (HCT)</td> <td& gt;31.0 %</td> <td>37.0-47.0</td> < /tr> <tr> <td>Hemoglobin (Hgb)</td> <td>9.6 G/DL</td> <td>12.0-16.0</td> </tr> <tr> <td>WBC</td> <td& gt;9.0 K/UL</td><td>4.8-10.8</td> </tr> & lt;tr> <th colspan="10">Creatinine, Serum - 11:47</th> </tr> <tr> <td> Creatinine, Serum</td> <td>1.7 </td> <td& gt;0.6-1.4</td> </tr> <tr> <th colspan="10">GFR, Estimated - 04/15/16 11:47</th> < /tr> <tr> <td>eGFR</td> <td> 32.78 ML/MIN</td> <td>>60</td> </tr& gt; <tr> <th colspan="10">Potassium (K), Serum - 04/15/16 11:47</th> </tr> <tr> <td>Potassium (K), Serum</td> <td>4.3 MEQ/L</td> <td>3.2-5.2</td> </tr> <tr> & lt;th colspan="10">Prot+CreatU (Random) - 09/09/16 08:40</th&gt ; </tr> <tr> <td>Creatinine, Urine</ td> <td>71.4 mg/dL</td> <td>Not Estab.&lt ;/td> </tr> <tr> <td>Protein,Total, Urine</td> <td>29.9 mg/dL</td> <td>Not Estab.</td> </tr> <tr> <td> Protein/Creat Ratio</td> <td>419 mg/g creat</td> <td>0-200</td> </tr> <tr> & lt;th colspan="10">CBC WITH DIFFERENTIAL REFLEX MANUAL DIFF - 02/19 07:32</th> </tr> <tr> <td> Hemoglobin</td> <td>11.5 g/dL</td> <td&gt ;11.9-16.3</td> </tr> <tr> <td> Hematocrit</td> <td>36.2 %</td> < td>37.0-47.7</td> </tr> <tr> <td& gt;RDW Red Cell Distr Width</td> <td>16.6 %</td& gt; <td>12.3-15.9</td> </tr> <tr&gt ; <td>Lymphocytes Absolute</td> <td>1.7 10*3 /uL</td> <td>1.1-3.7</td> </tr> & lt;tr> <td>Monocytes Absolute</td> <td>0.8 10*3/ uL</td> <td>0.3-0.9</td> </tr> & lt;tr> <td>Eosinophils Absolute</td> <td> 0.6 10*3/uL</td> <td>0.0-0.5</td> </tr> <tr> <td>Basophils Absolute</td> &lt ;td>0.1 10*3/uL</td> <td>0.0-0.1</td> </ tr> <tr> <td>Neutrophils %</td>< td>67 %</td> <td /> </tr> & lt;tr> <td>Lymphocytes %</td> <td>18 & #37;</td> <td /> </tr> <tr> <td>Monocytes %</td> <td>8 %</td&gt ; <td /> </tr> <tr> <td> Eosinophils %</td> <td>6 %</td> <td /> </tr> <tr> <td> Basophils %</td> <td>1 %</td> < td /> </tr> <tr> <td>Neutrophils Absolute& lt;/td> <td>6.25 10*3/uL</td> <td>1.70- 7.10</td> </tr> <tr> <td>MCH Mean Cell Hemoglobin</td> <td>29.9 pg</td> & lt;td>26.7-33.1</td> </tr> <tr> <td&gt ;MCHC Mean Cell Hgb Conc</td> <td>31.8 g/dL</td> <td>31.1-35.3</td> </tr> <tr> <td>MCV Mean Cell Volume</td> <td>94 fL</td&gt ; <td>81-97</td> </tr> <tr> <td>MPV Mean Platelet Volume</td> <td>9.6 fL< /td> <td /> </tr> <tr> < td>Platelet Count</td> <td>161 10*3/uL</td> & lt;td>150-400</td> </tr> <tr> <td >RBC Red Blood Count</td> <td>3.85 10*6/uL</td> <td>4.11-5.63</td> </tr> <tr> <td>WBC White Blood Count</td> <td>9.3 10*3/uL& lt;/td> <td>3.7-11.1</td> </tr> < tr> <th colspan="10">RENAL FUNCTION PANEL - 07:32</th> </tr> <tr> <td>BUN: Creatinine Ratio</td> <td>27 </td> <td&gt ;6-25</td> </tr> <tr> <td>Anion Gap</td> <td>9 </td> <td>6-18</td& gt; </tr> <tr> <td>BUN Urea Nitrogen</td& gt; <td>48 mg/dL</td> <td>6-24</td> </tr> <tr> <td>CO2 Carbon Dioxide</td > <td>26 mmol/L</td> <td>20-30</td&gt ; </tr> <tr> <td>Creatinine</td>& lt;td>1.75 mg/dL</td> <td>0.53-1.26</td> & lt;/tr> <tr> <td>Potassium</td> & lt;td>4.3 mmol/L</td> <td>3.5-5.1</td> < /tr> <tr> <td>Sodium</td> <td> 137 mmol/L</td> <td>136-145</td> </tr> <tr> <td>Chloride</td> <td>106 mmol/ L</td> <td>96-111</td> </tr> <tr> <td>Phosphorous</td> <td>4.2 mg/dL</td&gt ; <td>2.5-4.9</td> </tr> <tr> <td>Glucose</td> <td>101 mg/dL</td> <td>70-99</td> </tr> <tr> &lt ;td>Calcium</td> <td>9.2 mg/dL</td> < td>8.3-10.1</td> </tr> <tr> <td& gt;GFR Glomerular Filtration Rate</td> <td>28.9 mL/min/ 1.73m*2</td> <td>>60.0</td> </tr&gt ; <tr> <td>Albumin</td> <td>3.7 g/dL& lt;/td> <td>3.2-4.6</td> </tr> < tr> <th colspan="10">IRON AND TIBC - 02/19/17 07:32& lt;/th> </tr> <tr> <td>Iron Level&lt ;/td> <td>41 ug/dL</td> <td>21-156</td > </tr> <tr> <td>TIBC Iron Binding Capacity</td> <td>346 ug/dL</td> <td>250-450&lt ;/td> </tr> <tr> <td>Iron, &#37 ; Saturation</td> <td>12 %</td> < td>15-50</td> </tr> <tr> <th colspan="10">CBC WITH DIFFERENTIAL REFLEX MANUAL DIFF - 03/05/17 08 :23</th> </tr> <tr> <td> Hemoglobin</td> <td>11.4 g/dL</td> <td&gt ;11.9-16.3</td> </tr> <tr> <td> Hematocrit</td> <td>35.2 %</td> < td>37.0-47.7</td> </tr> <tr> <td& gt;RDW Red Cell Distr Width</td> <td>16.8 %</td> <td>12.3-15.9</td> </tr> <tr> <td>Lymphocytes Absolute</td> <td>1.8 10*3/uL&lt ;/td> <td>1.1-3.7</td> </tr> <tr& gt; <td>Monocytes Absolute</td> <td>0.8 10*3 /uL</td> <td>0.3-0.9</td> </tr> & lt;tr> <td>Eosinophils Absolute</td> <td> 0.6 10*3/uL</td> <td>0.0-0.5</td> </tr> <tr> <td>Basophils Absolute</td> <td& gt;0.0 10*3/uL</td> <td>0.0-0.1</td> </tr& gt; <tr> <td>Neutrophils %</td> <td>68 %</td> <td /> </tr> & lt;tr> <td>Lymphocytes %</td> <td&gt ;18 %</td> <td /> </tr> <tr& gt; <td>Monocytes %</td> <td>9 & #37;</td> <td /> </tr> <tr> & lt;td>Eosinophils %</td> <td>6 %</td& gt; <td /> </tr> <tr> <td& gt;Basophils %</td> <td>0 %</td> <td /> </tr> <tr> <td> Neutrophils Absolute</td> <td>6.58 10*3/uL</td> <td>1.70-7.10</td> </tr> <tr> <td>MCH Mean Cell Hemoglobin</td> <td>30.6 pg</ td> <td>26.7-33.1</td> </tr> <tr> <td>MCHC MeanCell Hgb Conc</td> <td>32.4 g/dL </td> <td>31.1-35.3</td> </tr> & lt;tr> <td>MCV Mean Cell Volume</td><td>94 fL</ td> <td>81-97</td> </tr> <tr> <td>MPV Mean Platelet Volume</td> <td>9.7 fL& lt;/td> <td /> </tr> <tr> & lt;td>Platelet Count</td> <td>179 10*3/uL</td> & lt;td>150-400</td> </tr> <tr> <td >RBC Red Blood Count</td> <td>3.73 10*6/uL</td> <td>4.11-5.63</td> </tr> <tr> <td>WBCWhite Blood Count</td> <td>9.8 10*3/uL& lt;/td> <td>3.7-11.1</td> </tr> < tr> <th colspan="10">RENAL FUNCTION PANEL - 08:23</th> </tr> <tr> <td>BUN: Creatinine Ratio</td> <td>32 </td> <td&gt ;6-25</td> </tr> <tr> <td>Anion Gap</td> <td>10 </td> <td>6-18</td& gt; </tr> <tr> <td>BUN UreaNitrogen< /td> <td>65 mg/dL</td> <td>6-24</td&gt ;</tr> <tr> <td>CO2 Carbon Dioxide</td> <td>26mmol/L</td> <td>20-30</td> </tr> <tr> <td>Creatinine</td> <td>2.04 mg/dL</td> <td>0.53-1.26</td> </tr> <tr> <td>Potassium</td> <td>4.5 mmol/L</td> <td>3.5-5.1</td> </tr> <tr> <td>Sodium</td> & lt;td>137 mmol/L</td> <td>136-145</td> < /tr> <tr> <td>Chloride</td> <td>106 mmol/L</td> <td>96-111</td> </tr> <tr> <td>Phosphorous</td> <td>5.0 mg /dL</td> <td>2.5-4.9</td> </tr> & lt;tr> <td>Glucose</td> <td>123 mg/dL</ td> <td>70-99</td> </tr><tr> <td>Calcium</td> <td>9.0 mg/dL</td> <td>8.3-10.1</td> </tr> <tr> < td>GFR Glomerular Filtration Rate</td> <td>24.0 mL/min/ 1.73m*2</td> <td>>60.0</td> </tr&gt ; <tr> <td>Albumin</td> <td> 3.8 g/dL</td> <td>3.2-4.6</td> </tr> <tr> <th colspan="10">IRON AND TIBC - 08:23</th> </tr> <tr> <td> Iron Level</td> <td>55 ug/dL</td> <td> 21-156</td> </tr> <tr> <td>TIBC Iron Binding Capacity</td> <td>363 ug/dL</td> <td>250-450</td> </tr> <tr> & lt;td>Iron, % Saturation</td> <td>15 %& lt;/td> <td>15-50</td> </tr> <tr&gt ; <th colspan="10">CBC - 03/19/17 09:02</th> </tr> <tr> <td>Hemoglobin</td> <td>10.7 g/dL</td> <td>11.9-16.3</td> </tr> <tr> <td>Hematocrit</td> <td>33.8 %</td> <td>37.0-47.7</td&gt ; </tr> <tr> <td>RDW Red Cell Distr Width</td> <td>17.4 %</td> <td> 12.3-15.9</td> </tr> <tr> <td> MCH Mean Cell Hemoglobin</td> <td>30.1 pg</td> <td>26.7-33.1</td> </tr> <tr> <td>MCHC Mean Cell Hgb Conc</td> <td>31.7 g/dL</ td> <td>31.1-35.3</td> </tr> <tr& gt; <td>MCV Mean Cell Volume</td> <td>95 fL& lt;/td> <td>81-97</td> </tr> <tr&gt ; <td>MPV Mean Platelet Volume</td> <td> 10.1 fL</td> <td /> </tr> <tr> <td>Platelet Count</td> <td>197 10*3/uL</ td> <td>150-400</td> </tr> <tr&gt ; <td>RBC Red Blood Count</td> <td>3.5610*6/ uL</td> <td>4.11-5.63</td> </tr> <tr> <td>WBC White Blood Count</td> <td>9.0 10*3/uL</td> <td>3.7-11.1</td> </tr> <tr> <th colspan="10">CBC - 04/01/17 08:30& lt;/th> </tr> <tr> <td>Hemoglobin&lt ;/td> <td>10.5 g/dL</td> <td>11.9-16.3&lt ;/td></tr> <tr> <td>Hematocrit</td> <td>33.4 %</td> <td>37.0-47.7</td > </tr> <tr><td>RDW Red Cell Distr Width</ td> <td>18.2 %</td> <td>12.3-15.9 </td> </tr> <tr> <td>MCH Mean Cell Hemoglobin</td> <td>30.6 pg</td> <td >26.7-33.1</td> </tr> <tr> <td> MCHC Mean Cell Hgb Conc</td> <td>31.4 g/dL</td> <td>31.1-35.3</td> </tr> <tr> <td>MCV Mean Cell Volume</td> <td>97 fL</td&gt ; <td>81-97</td> </tr> <tr> <td>MPV Mean Platelet Volume</td> <td>9.7 fL< /td> <td /> </tr> <tr> <td> Platelet Count</td> <td>213 10*3/uL</td> <td >150-400</td> </tr> <tr> <td> RBC Red Blood Count</td> <td>3.43 10*6/uL</td> <td>4.11-5.63</td> </tr> <tr> <td>WBC White Blood Count</td> <td>10.1 10*3/uL</td> <td>3.7-11.1</td> </tr> <tr> <th colspan="10">RENAL FUNCTION PANEL - 04/01/17 08:30< /th> </tr> <tr> <td>BUN:Creatinine Ratio</td> <td>25 </td> <td>6-25</ td> </tr> <tr> <td>Anion Gap</td> <td>11 </td> <td>6-18</td> </tr& gt; <tr> <td>BUN Urea Nitrogen</td> & lt;td>44 mg/dL</td> <td>6-24</td> </tr& gt; <tr> <td>CO2 Carbon Dioxide</td> <td& gt;28 mmol/L</td> <td>20-30</td> </tr> <tr> <td>Creatinine</td> <td>1.74 mg/ dL</td> <td>0.53-1.26</td> </tr> <tr& gt; <td>Potassium</td> <td>4.4 mmol/L</td > <td>3.5-5.1</td> </tr> <tr> <td>Sodium</td> <td>138 mmol/L</td> & lt;td>136-145</td> </tr> <tr> <td& gt;Chloride</td> <td>103 mmol/L</td> <td> 96-111</td> </tr> <tr> <td> Phosphorous</td> <td>5.1 mg/dL</td> <td& gt;2.5-4.9</td> </tr> <tr> <td> Glucose</td> <td>129 mg/dL</td> <td>70 -99</td> </tr> <tr> <td>Calcium& lt;/td> <td>9.2 mg/dL</td> <td>8.3-10.1& lt;/td> </tr> <tr> <td>GFR Glomerular Filtration Rate</td> <td>29.1 mL/min/1.73m*2< /td> <td>>60.0</td> </tr> < tr> <td>Albumin</td> <td>3.5 g/dL</td& gt; <td>3.2-4.6</td> </tr> <tr> <th colspan="10">CBC WITH DIFFERENTIAL REFLEX MANUAL DIFF - 08:41</th> </tr> <tr> <td> Hemoglobin</td> <td>11.3 g/dL</td> <td>11.9- 16.3</td> </tr> <tr> <td> Hematocrit</td> <td>36.3 %</td> < td>37.0-47.7</td> </tr> <tr> <td> RDW Red Cell Distr Width</td> <td>17.8 %</td&gt ; <td>12.3-15.9</td> </tr> <tr> <td>Lymphocytes Absolute</td> <td>1.8 10*3/ uL</td> <td>1.1-3.7</td> </tr> < tr> <td>Monocytes Absolute</td> <td>0.9 10*3/uL</td> <td>0.3-0.9</td> </tr> <tr> <td>Eosinophils Absolute</td> < td>0.6 10*3/uL</td> <td>0.0-0.5</td> </ tr> <tr> <td>Basophils Absolute</td> <td>0.0 10*3/uL</td> <td>0.0-0.1</td> </ tr> <tr> <td>Neutrophils %</td> <td>64 %</td> <td /> </tr&gt ; <tr> <td>Lymphocytes %</td> <td>20 %</td> <td /> </tr> <tr> <td>Monocytes %</td> < td>10 %</td> <td /> </tr> & lt;tr> <td>Eosinophils %</td> <td&gt ;6 %</td> <td /> </tr> <tr& gt; <td>Basophils %</td> <td>0 & #37;</td> <td /> </tr> <tr> <td>Neutrophils Absolute</td> <td>6.06 10*3/uL& lt;/td> <td>1.70-7.10</td> </tr> &lt ;tr> <td>MCH Mean Cell Hemoglobin</td> <td>30.0 pg</td> <td>26.7-33.1</td> </tr> <tr> <td>MCHC Mean Cell HgbConc</td> <td& gt;31.1 g/dL</td> <td>31.1-35.3</td> </tr> <tr> <td>MCV Mean Cell Volume</td> < td>96 fL</td> <td>81-97</td> </tr> <tr> <td>MPV Mean Platelet Volume</td> <td>9.3 fL</td> <td /> </tr> & lt;tr> <td>Platelet Count</td> <td>228 10 *3/uL</td> <td>150-400</td> </tr> <tr> <td>RBC Red Blood Count</td> <td&gt ;3.77 10*6/uL</td> <td>4.11-5.63</td> </tr> <tr> <td>WBC White Blood Count</td> < td>9.4 10*3/uL</td> <td>3.7-11.1</td> </ tr> <tr> <th colspan="10">CBC - 08:24</th> </tr> <tr> <td> Hemoglobin</td> <td>10.8 g/dL</td> <td&gt ;11.9-16.3</td> </tr> <tr> <td> Hematocrit</td> <td>35.3 %</td> < td>37.0-47.7</td> </tr> <tr> <td& gt;RDW Red Cell Distr Width</td> <td>17.4 %</td& gt; <td>12.3-15.9</td> </tr> <tr&gt ; <td>MCH Mean Cell Hemoglobin</td> <td>30.2 pg< /td> <td>26.7-33.1</td> </tr> <tr > <td>MCHC Mean Cell Hgb Conc</td> <td> 30.6 g/dL</td> <td>31.1-35.3</td> </tr> <tr> <td>MCVMean Cell Volume</td> & lt;td>99 fL</td> <td>81-97</td> </tr> <tr> <td>MPV Mean Platelet Volume</td> <td>9.8 fL</td> <td /> </tr> & lt;tr> <td>Platelet Count</td> <td>175 10 *3/uL</td> <td>150-400</td> </tr> <tr> <td>RBC Red Blood Count</td> <td> 3.58 10*6/uL</td> <td>4.11-5.63</td> </tr& gt; <tr> <td>WBC White Blood Count</td> & lt;td>10.2 10*3/uL</td> <td>3.7-11.1</td> & lt;/tr> <tr> <th colspan="10">CBC - 07/18 07:46</th> </tr> <tr> <td> Hemoglobin</td> <td>10.4 g/dL</td> <td&gt ;11.9-16.3</td> </tr> <tr> <td> Hematocrit</td> <td>32.8 %</td> < td>37.0-47.7</td> </tr><tr> <td>RDW Red Cell Distr Width</td> <td>17.7 %</td> <td>12.3-15.9</td> </tr> <tr> <td>MCH Mean Cell Hemoglobin</td> <td>30.4 pg&lt ;/td> <td>26.7-33.1</td> </tr> < tr> <td>MCHC Mean Cell Hgb Conc</td> <td> 31.7 g/dL</td> <td>31.1-35.3</td> </tr> <tr> <td>MCV Mean Cell Volume</td> & lt;td>96 fL</td> <td>81-97</td> </tr&gt ; <tr> <td>MPV Mean Platelet Volume</td> <td>9.1 fL</td> <td /> </tr> < tr> <td>Platelet Count</td> <td>187 10*3/ uL</td> <td>150-400</td> </tr> & lt;tr> <td>RBC Red Blood Count</td> <td>3.42 10*6/ uL</td> <td>4.11-5.63</td> </tr> <tr> <td>WBC White Blood Count</td> <td& gt;9.8 10*3/uL</td> <td>3.7-11.1</td> </tr& gt; <tr> <th colspan="10">CBC WITH DIFFERENTIAL REFLEX MANUAL DIFF - 05/27/17 08:06</th> </tr> <tr> <td>Hemoglobin</td> <td> 10.2 g/dL</td> <td>11.9-16.3</td> </tr> <tr> <td>Hematocrit</td> <td>33.6 & amp;#37;</td> <td>37.0-47.7</td> </tr> <tr> <td>RDW Red Cell Distr Width</td> <td >17.4 %</td> <td>12.3-15.9</td> </tr> <tr> <td>Lymphocytes Absolute</td> & lt;td>1.6 10*3/uL</td> <td>1.1-3.7</td> </ tr> <tr> <td>Monocytes Absolute</td> <td>0.9 10*3/uL</td> <td>0.3-0.9</td> </tr> <tr> <td>Eosinophils Absolute</td&gt ; <td>0.5 10*3/uL</td><td>0.0-0.5</td> & lt;/tr> <tr> <td>Basophils Absolute</td> <td>0.0 10*3/uL</td> <td>0.0-0.1</td>& lt;/tr> <tr> <td>Neutrophils %</td&gt ; <td>62 %</td> <td /> </ tr> <tr> <td>Lymphocytes %</td> <td>20 %</td> <td /> </tr> <tr> <td>Monocytes %</td> &lt ;td>11 %</td> <td /> </tr> & lt;tr> <td>Eosinophils %</td> <td&gt ;7 %</td> <td /> </tr> <tr&gt ; <td>Basophils %</td> <td>1 &# 37;</td> <td /> </tr> <tr> <td>Neutrophils Absolute</td> <td>5.01 10*3/uL&lt ;/td> <td>1.70-7.10</td> </tr> < tr> <td>MCH Mean Cell Hemoglobin</td> <td&gt ;29.5 pg</td> <td>26.7-33.1</td> </tr> <tr> <td>MCHC Mean Cell Hgb Conc</td> <td>30.4 g/dL</td> <td>31.1-35.3</td> </tr> <tr> <td>MCV Mean Cell Volume</td> <td>97 fL</td> <td>81-97</td> </tr > <tr> <td>MPV Mean Platelet Volume</td> <td>8.8 fL</td> <td /> </tr> <tr> <td>Platelet Count</td> <td> 216 10*3/uL</td> <td>150-400</td> </tr> <tr> <td>RBC Red Blood Count</td> & lt;td>3.46 10*6/uL</td> <td>4.11-5.63</td></tr& gt; <tr> <td>WBC White Blood Count</td> <td>8.1 10*3/uL</td> <td>3.7-11.1</td> </tr> <tr> <th colspan="10">RENAL FUNCTION PANEL - 05/27/17 08:06</th> </tr> <tr> <td>BUN:Creatinine Ratio</td> <td>27 </ td> <td>6-25</td> </tr> <tr> <td>Anion Gap</td> <td>14 </td> <td>6-18</td> </tr> <tr> < td>BUN Urea Nitrogen</td> <td>57 mg/dL</td> <td>6-24</td> </tr> <tr> < td>CO2 Carbon Dioxide</td> <td>24 mmol/L</td> <td>20-30</td> </tr> <tr> & lt;td>Creatinine</td> <td>2.13 mg/dL</td> <td>0.53-1.26</td> </tr> <tr> & lt;td>Potassium</td> <td>4.9 mmol/L</td> <td>3.5-5.1</td> </tr> <tr> < td>Sodium</td><td>138 mmol/L</td> <td>136- 145</td> </tr> <tr> <td>Chloride& lt;/td> <td>105 mmol/L</td> <td>96-111&lt ;/td> </tr> <tr> <td>Phosphorous< /td> <td>4.9 mg/dL</td> <td>2.5-4.9</td > </tr> <tr> <td>Glucose</td> <td>118 mg/dL</td><td>70-99</td> </tr&gt ; <tr> <td>Calcium</td> <td> 8.7 mg/dL</td> <td>8.3-10.1</td> </tr> <tr> <td>GFR Glomerular Filtration Rate</td> <td>22.6mL/min/1.73m*2</td> <td>>60.0&lt ;/td> </tr> <tr> <td>Albumin</td& gt; <td>3.6 g/dL</td> <td>3.2-4.6</td&gt ; </tr> <tr> <th colspan="10"&gt ;IRON - 05/27/17 08:06</th> </tr> <tr> <td>Iron Level</td> <td>24 ug/dL</td> <td>21-156</td> </tr> <tr> < th colspan="10">CBC - 06/10/17 08:07</th> </tr> <tr> <td>Hemoglobin</td> <td> 10.3 g/dL</td> <td>11.9-16.3</td> </tr> <tr> <td>Hematocrit</td> <td> 33.0 %</td> <td>37.0-47.7</td> </tr > <tr> <td>RDW Red Cell Distr Width</td> <td>16.5 %</td> <td>12.3-15.9</td& gt; </tr> <tr> <td>MCH Mean Cell Hemoglobin</td> <td>29.6pg</td> <td> 26.7-33.1</td> </tr> <tr> <td> MCHC Mean Cell Hgb Conc</td> <td>31.2 g/dL</td> <td>31.1-35.3</td> </tr> <tr> <td>MCV Mean Cell Volume</td> <td>95 fL</td&gt ; <td>81-97</td> </tr> <tr> <td>MPV Mean Platelet Volume</td> <td>9.1 fL</ td> <td /> </tr> <tr> < td>Platelet Count</td> <td>188 10*3/uL</td> <td>150-400</td> </tr> <tr> & lt;td>RBC Red Blood Count</td> <td>3.48 10*6/uL</td& gt; <td>4.11-5.63</td> </tr> <tr&gt ; <td>WBC White Blood Count</td> <td>9.7 10*3/uL& lt;/td> <td>3.7-11.1</td> </tr> < tr> <th colspan="10">CBC WITH DIFFERENTIAL REFLEX MANUAL DIFF - 07/16/17 08:57</th> </tr><tr> & lt;td>Nucleated RBC</td> <td>0 /100 WBCs</td> <td /> </tr> <tr> <td>Hemoglobin& lt;/td> <td>10.0 g/dL</td> <td>11.9-16.3</td > </tr><tr> <td>Hematocrit</td> <td>32.2 %</td> <td>37.0-47.7</td> </tr> <tr> <td>Lymphocytes Absolute</td > <td>1.4 10*3/uL</td> <td>1.1-3.7</td > </tr> <tr> <td>Monocytes Absolute& lt;/td> <td>0.9 10*3/uL</td> <td>0.3-0.9& lt;/td> </tr> <tr> <td>Eosinophils Absolute</td> <td>0.6 10*3/uL</td> <td>0.0- 0.5</td> </tr> <tr> <td> Basophils Absolute</td> <td>0.1 10*3/uL</td> <td>0.0-0.1</td> </tr> <tr> <td& gt;Neutrophils %</td> <td>68 %</td> <td /> </tr> <tr> <td> Lymphocytes %</td> <td>15 %</td> <td /> </tr> <tr> <td> Monocytes %</td> <td>10 %</td> <td /> </tr> <tr> <td> Eosinophils %</td> <td>7 %</td> <td /> </tr> <tr> <td> Basophils %</td> <td>1 %</td> <td /> </tr> <tr> <td> Neutrophils Absolute</td> <td>6.29 10*3/uL</td> <td>1.70-7.10</td> </tr> <tr> <td>MCH Mean Cell Hemoglobin</td> <td>29.2 pg</ td> <td>26.7-33.1</td> </tr> <tr& gt; <td>MCHC Mean Cell Hgb Conc</td> <td> 31.1 g/dL</td> <td>31.1-35.3</td> </tr> <tr> <td>MCV Mean Cell Volume</td> < td>94 fL</td> <td>81-97</td> </tr> <tr> <td>MPV Mean Platelet Volume</td> <td>11.0 fL</td> <td /> </tr> & lt;tr> <td>Platelet Count</td> <td>215 10 *3/uL</td> <td>150-400</td> </tr> <tr& gt; <td>RBC Red Blood Count</td> <td>3.42 10 *6/uL</td> <td>4.11-5.63</td> </tr> <tr> <td>WBC White Blood Count</td> <td& gt;9.2 10*3/uL</td> <td>3.7-11.1</td> </tr& gt; <tr> <td>Immature Granulocytes % (Auto)& lt;/td> <td>0.3 %</td> <td /> </tr> <tr> <td>Immature Granulocytes Absolute</td> <td>0.03 10*3/uL</td> <td& gt;<0.1</td> </tr> <tr> <td& gt;RDW-SD</td><td>57.1 fL</td> <td>37.1-49.8&lt ;/td> </tr> <tr> <th colspan="10& quot;>COMPREHENSIVE METABOLIC PANEL - 07/16/17 08:57</th> </ tr> <tr> <td>BUN:Creatinine Ratio</td>< td>31 </td> <td>6-25</td> </tr> <tr> <td>Globulin</td> <td>3.7 g/dL</ td> <td>2.2-4.2</td> </tr> <tr&gt ; <td>Anion Gap</td> <td>14 </td> <td>6-18</td> </tr> <tr> <td> Alkaline Phosphatase</td> <td>99 U/L</td> & lt;td>20-125</td> </tr> <tr> <td& gt;ALT Alanine Aminotransferase</td> <td>34 U/L</td> <td>12-78</td> </tr> <tr> <td>AST Aspartate Amino Transferase</td> <td>17 U /L</td> <td>7-37</td> </tr> < tr> <td>BUN Urea Nitrogen</td> <td>58 mg/ dL</td> <td>6-24</td> </tr> < tr> <td>CO2 Carbon Dioxide</td> <td>23 mmol/L& lt;/td> <td>20-30</td> </tr> <tr& gt; <td>Creatinine</td> <td>1.87 mg/dL</ td> <td>0.53-1.26</td> </tr> <tr& gt; <td>Protein Total</td> <td>7.5 g/dL</ td> <td>6.4-8.2</td> </tr> <tr&gt ; <td>Bilirubin Total</td> <td>0.3 mg/dL< /td> <td>0.2-1.2</td> </tr> <tr& gt; <td>Potassium</td> <td>5.1 mmol/L</td > <td>3.5-5.1</td> </tr> <tr> <td>Sodium</td> <td>138 mmol/L</td> <td>136-145</td> </tr> <tr> <td>Chloride</td> <td>106 mmol/L</td> <td>96-111</td> </tr> <tr> &lt ;td>Glucose</td> <td>117 mg/dL</td> < td>70-99</td> </tr> <tr> <td> Calcium</td> <td>8.9 mg/dL</td> <td> 8.3-10.1</td> </tr> <tr> <td>GFR Glomerular Filtration Rate</td> <td>26.5 mL/min/1.73m*2< /td> <td>>60.0</td></tr> <tr> <td>Albumin</td> <td>3.8 g/dL</td> <td>3.2-4.6</td> </tr> <tr> <td>Albumin:Globulin Ratio</td> <td>1.0 </td& gt; <td>0.8-2.0</td> </tr> <tr> <th colspan="10">CHOLESTEROL TOTAL SERUM - 07/16/17 08: 57</th> </tr> <tr> <td> Cholesterol Total</td> <td>160 mg/dL</td> & lt;td>0-199</td> </tr> <tr> <th colspan= "10">HEMOGLOBIN A1C - 07/16/17 08:57</th> </tr> <tr> <td>Hemoglobin A1C</td> <td> 5.8 %</td> <td>4.0-5.6</td> </tr&gt ; <tr> <td>eAG Estimated Ave Glucose</td> <td>120 mg/dL</td> <td /> </tr> & lt;tr> <th colspan="10">CHOLESTEROL LDL DIRECT - 08:57</th> </tr> <tr> <td>LDL Cholesterol Direct Measure</td> <td>74 mg/dL</td> <td /> </tr> <tr> <th colspan=" 10">RENAL FUNCTION PANEL - 07/28/17 08:33</th> </tr> <tr> <td>BUN:Creatinine Ratio</td> & lt;td>29 </td> <td>6-25</td> </tr> <tr> <td>Anion Gap</td> <td>14 &lt ;/td> <td>6-18</td> </tr> <tr&gt ; <td>BUN Urea Nitrogen</td> <td>57 mg/dL&lt ;/td> <td>6-24</td> </tr> <tr&gt ; <td>CO2 Carbon Dioxide</td> <td>21 mmol/L& lt;/td> <td>20-30</td> </tr> <tr& gt; <td>Creatinine</td> <td>1.96 mg/dL</td& gt; <td>0.53-1.26</td> </tr> <tr&gt ; <td>Potassium</td> <td>4.9 mmol/L</td> <td>3.5-5.1</td> </tr> <tr> <td>Sodium</td> <td>137 mmol/L</td> <td>136-145</td> </tr> <tr> &lt ;td>Chloride</td> <td>107 mmol/L</td> < td>96-111</td> </tr> <tr> <td> Phosphorous</td> <td>4.6 mg/dL</td> <td>2.5- 4.9</td> </tr> <tr> <td>Glucose& lt;/td> <td>116 mg/dL</td> <td>70-99</ td> </tr> <tr> <td>Calcium</td&gt ; <td>8.8 mg/dL</td> <td>8.3-10.1</td> </tr> <tr> <td>GFR Glomerular Filtration Rate</td> <td>25.0 mL/min/1.73m*2</td> < td>>60.0</td> </tr> <tr> < td>Albumin</td> <td>3.5 g/dL</td> <td> 3.2-4.6</td> </tr><tr> <th colspan="10 ">CBC WITH DIFFERENTIAL REFLEX MANUAL DIFF - 08/04/17 08:23</th> </tr> <tr> <td>Hemoglobin</td> <td>8.9 g/dL</td> <td>11.9-16.3</td> </tr> <tr> <td>Hematocrit</td> &lt ;td>29.4 %</td> <td>37.0-47.7</td> &lt ;/tr> <tr> <td>RDW Red Cell Distr Width</td&gt ; <td>16.2 %</td> <td>12.3-15.9</ td> </tr> <tr> <td>Lymphocytes Absolute</td> <td>1.5 10*3/uL</td> <td> 1.1-3.7</td> </tr> <tr> <td> Monocytes Absolute</td> <td>0.9 10*3/uL</td> <td>0.3-0.9</td> </tr> <tr> &lt ;td>Eosinophils Absolute</td> <td>0.7 10*3/uL</td&gt ; <td>0.0-0.5</td> </tr> <tr> <td>Basophils Absolute</td> <td>0.1 10*3/uL</td& gt; <td>0.0-0.1</td> </tr><tr> <td>Neutrophils %</td> <td>66 %</ td> <td /> </tr> <tr> < td>Lymphocytes %</td> <td>16 %</td&gt ; <td /> </tr> <tr> <td> Monocytes %</td> <td>10 %</td> <td /> </tr> <tr> <td> Eosinophils %</td> <td>8 %</td> <td /> </tr> <tr> <td> Basophils %</td> <td>1 %</td> <td /> </tr> <tr> <td> Neutrophils Absolute</td> <td>6.32 10*3/uL</td> <td>1.70-7.10</td> </tr> <tr> <td>MCH Mean Cell Hemoglobin</td><td>28.5 pg</td> <td>26.7-33.1</td> </tr> <tr> <td>[facility] Mean Cell Hgb Conc</td> <td>30.3 g/dL&lt ;/td> <td>31.1-35.3</td> </tr> <tr& gt; <td>MCV Mean Cell Volume</td> <td>94 fL& lt;/td> <td>81-97</td> </tr> <tr> <td>MPV Mean Platelet Volume</td> <td>8.6 fL </td> <td /> </tr> <tr> <td>Platelet Count</td> <td>216 10*3/uL</td> <td>150-400</td> </tr> <tr> <td>RBC Red Blood Count</td> <td>3.12 10*6/uL</td> <td>4.11-5.63</td> </tr><tr> & lt;td>WBC White Blood Count</td> <td>9.5 10*3/uL</td& gt; <td>3.7-11.1</td> </tr> <tr> <th colspan="10">CBC WITH DIFFERENTIAL REFLEX MANUAL DIFF - 08/11/17 08:09</th> </tr> <tr> & lt;td>Hemoglobin</td> <td>8.5 g/dL</td> & lt;td>11.9-16.3</td> </tr> <tr> < td>Hematocrit</td> <td>28.2 %</td> <td>37.0-47.7</td> </tr> <tr> <td>RDW Red Cell Distr Width</td> <td>16.6 %</ td> <td>12.3-15.9</td> </tr> <tr& gt; <td>Lymphocytes Absolute</td> <td>1.6 10 *3/uL</td> <td>1.1-3.7</td> </tr> <tr> <td>Monocytes Absolute</td> <td&gt ;0.9 10*3/uL</td> <td>0.3-0.9</td> </tr&gt ; <tr> <td>Eosinophils Absolute</td> & lt;td>0.6 10*3/uL</td> <td>0.0-0.5</td> &lt ;/tr> <tr> <td>Basophils Absolute</td> <td>0.1 10*3/uL</td> <td>0.0-0.1</td> </tr> <tr> <td>Neutrophils %</td&gt ; <td>62 %</td> <td /> </tr> <tr> <td>Lymphocytes %</td> <td>20 %</td> <td /> </tr> <tr> <td>Monocytes %</td> <td& gt;11 %</td> <td /> </tr> <tr& gt; <td>Eosinophils %</td> <td>7 & amp;#37;</td> <td /> </tr> <tr> <td>Basophils %</td> <td>1 % </td> <td /> </tr> <tr> & lt;td>Neutrophils Absolute</td> <td>5.07 10*3/uL</td& gt; <td>1.70-7.10</td> </tr> <tr&gt ; <td>[facility] Mean Cell Hemoglobin</td> <td> 28.3 pg</td> <td>26.7-33.1</td> </tr> <tr> <td>[facility] Mean Cell Hgb Conc</td> < td>30.1 g/dL</td> <td>31.1-35.3</td> </ tr> <tr> <td>MCV Mean Cell Volume</td> &lt ;td>94 fL</td> <td>81-97</td> </tr> <tr> <td>MPV Mean Platelet Volume</td> <td>8.9 fL</td> <td /> </tr> <tr&gt ; <td>Platelet Count</td> <td>230 10*3/uL</td& gt; <td>150-400</td> </tr><tr> <td>RBC Red Blood Count</td> <td>3.00 10*6/uL</td& gt; <td>4.11-5.63</td> </tr> <tr&gt ; <td>WBC White Blood Count</td> <td>8.2 10* 3/uL</td> <td>3.7-11.1</td> </tr> <tr> <th colspan="10">CBC WITH DIFFERENTIAL REFLEX MANUAL DIFF - 08/19/17 22:13</th> </tr> <tr& gt; <td>Hemoglobin</td> <td>8.5 g/dL</td> <td>11.9-16.3</td> </tr> <tr> <td>Hematocrit</td> <td>27.9 %</td&gt ; <td>37.0-47.7</td> </tr><tr> <td>RDW Red Cell Distr Width</td> <td>16.4 %& lt;/td> <td>12.3-15.9</td> </tr> &lt ;tr> <td>Lymphocytes Absolute</td> <td> 0.8 10*3/uL</td> <td>1.1-3.7</td> </tr> <tr> <td>Monocytes Absolute</td> &lt ;td>1.4 10*3/uL</td> <td>0.3-0.9</td> </ tr> <tr> <td>Eosinophils Absolute</td> <td>0.5 10*3/uL</td> <td>0.0-0.5</td> </tr> <tr> <td>Basophils Absolute</td&gt ; <td>0.0 10*3/uL</td> <td>0.0-0.1</td&gt ; </tr> <tr> <td>Neutrophils %& lt;/td> <td>75 %</td> <td /> </tr> <tr> <td>Lymphocytes %</td& gt; <td>7 %</td> <td /> </tr> <tr> <td>Monocytes %</td> &lt ;td>13 %</td> <td /> </tr> & lt;tr> <td>Eosinophils %</td> <td&gt ;4 %</td> <td /> </tr> <tr> <td>Basophils %</td> <td>0 %& lt;/td> <td /> </tr> <tr> & lt;td>Neutrophils Absolute</td> <td>8.22 10*3/uL</td& gt; <td>1.70-7.10</td> </tr> <tr> <td>[facility] MeanCell Hemoglobin</td> <td>28.2 pg&lt ;/td> <td>26.7-33.1</td> </tr> < tr> <td>[facility] Mean Cell Hgb Conc</td> <td>30.5 g/ dL</td> <td>31.1-35.3</td> </tr> <tr> <td>MCV Mean Cell Volume</td> <td&gt ;93 fL</td> <td>81-97</td> </tr> < tr> <td>MPV Mean Platelet Volume</td> <td&gt ;9.0 fL</td> <td /> </tr> <tr> <td>Platelet Count</td> <td>220 10*3/uL</td > <td>150-400</td> </tr> <tr> <td>RBC Red Blood Count</td> <td>3.01 10*6/ uL</td> <td>4.11-5.63</td> </tr> <tr> <td>WBC White Blood Count</td> <td> 11.0 10*3/uL</td> <td>3.7-11.1</td> </tr&gt ; <tr> <th colspan="10">BNP PROBRAIN NATRIURETIC PEPTIDE - 08/19/17 22:13</th> </tr> <tr > <td>BNP Pro Brain Natriuretic Peptide</td> & lt;td>1260 pg/mL</td> <td><=125</td> </tr> <tr> <th colspan="10">CBC WITH DIFFERENTIAL REFLEX MANUAL DIFF - 08/19/17 22:40</th> </tr& gt; <tr> <td>Hemoglobin</td> <td& gt;8.4 g/dL</td> <td>11.9-16.3</td> </tr&gt ; <tr> <td>Hematocrit</td> <td> 27.9 %</td> <td>37.0-47.7</td> </tr > <tr> <td>RDW Red Cell Distr Width</td> <td>16.4 %</td> <td>12.3-15.9</td& gt; </tr> <tr> <td>Lymphocytes Absolute </td> <td>0.9 10*3/uL</td> <td>1.1-3.7 </td> </tr> <tr> <td>Monocytes Absolute</td><td>1.4 10*3/uL</td> <td>0.3-0.9& lt;/td> </tr> <tr> <td>Eosinophils Absolute</td> <td>0.4 10*3/uL</td> <td> 0.0-0.5</td> </tr> <tr> <td> Basophils Absolute</td> <td>0.0 10*3/uL</td> <td>0.0-0.1</td> </tr> <tr> &lt ;td>Neutrophils %</td> <td>75 %</td& gt; <td /> </tr> <tr> <td& gt;Lymphocytes %</td> <td>8 %</td> <td /> </tr> <tr> <td> Monocytes %</td><td>13 %</td> <td /> </tr> <tr> <td>Eosinophils %</ td> <td>4 %</td> <td /> & lt;/tr> <tr> <td>Basophils %</td> <td>0 %</td> <td /> </tr> <tr> <td>Neutrophils Absolute</td> <td>8.30 10*3/uL</td> <td>1.70-7.10</td> </tr> <tr> <td>[facility] Mean Cell Hemoglobin</td> <td>27.9 pg</td> <td>26.7-33.1</td> </tr& gt; <tr> <td>[facility] Mean Cell Hgb Conc</td> <td>30.1 g/dL</td> <td>31.1-35.3</td> </tr> <tr> <td>MCV Mean Cell Volume</td > <td>93 fL</td> <td>81-97</td> </tr> <tr> <td>MPV Mean Platelet Volume& lt;/td> <td>9.7 fL</td> <td /> &lt ;/tr> <tr> <td>Platelet Count</td> <td>231 10*3/uL</td> <td>150-400</td> </tr > <tr> <td>RBC Red Blood Count</td> <td>3.01 10*6/uL</td> <td>4.11-5.63</td> </tr> <tr> <td>WBC White Blood Count</ td> <td>11.1 10*3/uL</td> <td>3.7-11.1&lt ;/td> </tr> <tr> <th colspan="10& quot;>RENAL FUNCTION PANEL - 08/19/17 22:40</th> </tr> & lt;tr> <td>BUN:Creatinine Ratio</td> <td> 27 </td> <td>6-25</td> </tr> < tr> <td>Anion Gap</td> <td>16 </td&gt ; <td>6-18</td> </tr> <tr> & lt;td>BUN Urea Nitrogen</td> <td>47 mg/dL</td> <td>6-24</td> </tr> <tr> & lt;td>CO2 Carbon Dioxide</td> <td>25 mmol/L</td> <td>20-30</td> </tr> <tr> <td>Creatinine</td><td>1.74 mg/dL</td> < td>0.53-1.26</td> </tr> <tr> <td& gt;Potassium</td> <td>4.7 mmol/L</td> <td >3.5-5.1</td> </tr> <tr> <td> Sodium</td> <td>141 mmol/L</td> <td>136- 145</td> </tr> <tr> <td>Chloride</ td> <td>105 mmol/L</td> <td>96-111</td> </tr> <tr> <td>Phosphorous</td> <td>3.5 mg/dL</td> <td>2.5-4.9</td> </tr> <tr> <td>Glucose</td> <td>116 mg/dL</td> <td>70-99</td> </ tr> <tr> <td>Calcium</td> <td& gt;8.9 mg/dL</td> <td>8.3-10.1</td> </tr&gt ; <tr> <td>GFR Glomerular Filtration Rate</td&gt ; <td>28.9 mL/min/1.73m*2</td> <td>> 60.0</td> </tr> <tr> <td>Albumin</td > <td>3.7 g/dL</td> <td>3.2-4.6</td&gt ; </tr> <tr> <th colspan="10"&gt ;IRON - 08/19/17 22:40</th> </tr> <tr> <td>Iron Level</td> <td>23 ug/dL</td> <td>21-156</td> </tr> <tr> < th colspan="10">POC GLUCOMETER - 08/19/17 23:57</th> & lt;/tr> <tr> <td>Glucose Meter (POC)</td> <td>134 mg/dL</td> <td>70-99</td> & lt;/tr> <tr> <th colspan="10">POC GLUCOMETER - 08/20/17 06:21</th></tr> <tr> &lt ;td>Glucose Meter (POC)</td> <td>276 mg/dL</td> <td>70-99</td> </tr> <tr><th colspan="10">POC GLUCOMETER - 08/20/17 11:11</th> < /tr> <tr> <td>Glucose Meter (POC)</td> & lt;td>246 mg/dL</td> <td>70-99</td> </tr > <tr> <th colspan="10">POC GLUCOMETER - 08/20/17 16:52</th> </tr> <tr> <td> Glucose Meter (POC)</td> <td>245 mg/dL</td> <td>70-99</td> </tr> <tr> <th colspan="10">POC GLUCOMETER - 08/20/17 21:21</th> < /tr> <tr> <td>Glucose Meter (POC)</td> <td>362 mg/dL</td> <td>70-99</td> </tr> <tr> <th colspan="10">POC GLUCOMETER - 08/21/17 05:54</th> </tr> <tr> <td>Glucose Meter (POC)</td> <td>282 mg/dL</ td> <td>70-99</td> </tr> <tr> <th colspan="10">CBC WITH DIFFERENTIAL REFLEX MANUAL DIFF - 08/21/17 07:04</th> </tr> <tr> & lt;td>Hemoglobin</td> <td>8.5 g/dL</td> & lt;td>11.9-16.3</td> </tr> <tr> < td>Hematocrit</td> <td>28.0 %</td> <td>37.0-47.7</td> </tr> <tr> <td>RDW Red Cell Distr Width</td> <td>16.7 %& lt;/td> <td>12.3-15.9</td> </tr> &lt ;tr> <td>Lymphocytes Absolute</td> <td> 0.5 10*3/uL</td> <td>1.1-3.7</td> </tr> <tr> <td>Monocytes Absolute</td> &lt ;td>0.6 10*3/uL</td> <td>0.3-0.9</td> </ tr> <tr> <td>Eosinophils Absolute</td> <td>0.0 10*3/uL</td> <td>0.0-0.5</td> </tr> <tr> <td>Basophils Absolute</td& gt; <td>0.0 10*3/uL</td> <td>0.0-0.1</td& gt; </tr> <tr> <td>Neutrophils &#37 ;</td> <td>90 %</td> <td /> </tr> <tr> <td>Lymphocytes %< /td> <td>4 %</td> <td /> & lt;/tr> <tr> <td>Monocytes %</td> <td>6 %</td> <td /> </tr& gt; <tr> <td>Eosinophils %</td> <td>0 %</td> <td /> </tr> <tr> <td>Basophils %</td> < td>0 %</td> <td /> </tr> &lt ;tr> <td>Neutrophils Absolute</td> <td> 9.50 10*3/uL</td> <td>1.70-7.10</td> </tr& gt; <tr> <td>[facility] Mean Cell Hemoglobin</td> <td>28.1 pg</td> <td>26.7-33.1</td> </tr> <tr> <td>[facility] Mean Cell Hgb Conc</td> <td>30.4 g/dL</td> <td>31.1-35.3</td> </tr> <tr> <td>MCV Mean Cell Volume</ td> <td>92 fL</td> <td>81-97</td> </tr> <tr> <td>MPV Mean Platelet Volume </td> <td>9.7 fL</td> <td /> </tr& gt; <tr> <td>Platelet Count</td> < td>250 10*3/uL</td> <td>150-400</td> </ tr> <tr> <td>RBC Red Blood Count</td> <td>3.03 10*6/uL</td> <td>4.11-5.63</td> </tr> <tr> <td>WBC White Blood Count</ td> <td>10.6 10*3/uL</td> <td>3.7-11.1&lt ;/td> </tr> <tr> <th colspan="10& quot;>BNP PROBRAIN NATRIURETIC PEPTIDE - 08/21/17 07:04</th> &lt ;/tr> <tr> <td>BNP Pro Brain Natriuretic Peptide& lt;/td> <td>3171 pg/mL</td> <td><= 125</td> </tr> <tr> <th colspan=& quot;10">RETICULOCYTE COUNT - 08/21/17 07:04</th> </tr> <tr> <td>Reticulocyte Absolute</td> & lt;td>120 10*9/L</td> <td>20-94</td> </ tr> <tr> <td>Reticulocyte %</td> <td>3.9 %</td> <td>0.5-1.6</td> & lt;/tr> <tr> <td>Immature Reticulocyte Fraction& lt;/td> <td>29.9 </td> <td>5.0-18.0</ td> </tr> <tr> <td>Reticulocyte Hemoglobin</td> <td>26.6 pg</td> <td>30.0-41.0 </td> </tr> <tr> <th colspan=" 10">POC GLUCOMETER - 08/21/17 11:11</th> </tr> <tr> <td>Glucose Meter (POC)</td> <td& gt;330mg/dL</td> <td>70-99</td> </tr> <tr> <th colspan="10">POC GLUCOMETER - 17:03</th> </tr> <tr> <td> Glucose Meter (POC)</td> <td>207 mg/dL</td> & lt;td>70-99</td> </tr> <tr> <th colspan="10">POC GLUCOMETER - 08/21/17 21:26</th> < /tr> <tr> <td>Glucose Meter (POC)</td> < td>302 mg/dL</td> <td>70-99</td> </tr&gt ; <tr> <th colspan="10">POC GLUCOMETER - 08/22/17 02:12</th> </tr> <tr> <td& gt;Glucose Meter (POC)</td> <td>208 mg/dL</td> <td>70-99</td> </tr> <tr> < th colspan="10">POC GLUCOMETER - 08/22/17 06:01</th> & lt;/tr> <tr> <td>Glucose Meter (POC)</td> <td>279 mg/dL</td> <td>70-99</td> </tr> <tr> <th colspan="10">CBC WITH DIFFERENTIAL REFLEX MANUAL DIFF- 08/22/17 06:14</th> </tr& gt; <tr> <td>Hemoglobin</td> <td& gt;9.1 g/dL</td> <td>11.9-16.3</td> </tr&gt ; <tr> <td>Hematocrit</td> <td> 29.2 %</td> <td>37.0-47.7</td> </tr > <tr> <td>RDW Red Cell Distr Width</td> <td>16.6 %</td> <td>12.3-15.9</td& gt; </tr> <tr> <td>Lymphocytes Absolute </td> <td>0.4 10*3/uL</td> <td>1.1-3.7 </td> </tr> <tr> <td>Monocytes Absolute</td> <td>0.7 10*3/uL</td> <td&gt ;0.3-0.9</td> </tr> <tr> <td> Eosinophils Absolute</td> <td>0.0 10*3/uL</td> <td>0.0-0.5</td> </tr> <tr> & lt;td>Basophils Absolute</td> <td>0.0 10*3/uL</td&gt ; <td>0.0-0.1</td> </tr> <tr> <td>Neutrophils %</td> <td>93 % </td> <td /> </tr> <tr> <td>Lymphocytes %</td> <td>3 %</td > <td /> </tr> <tr> <td& gt;Monocytes %</td> <td>4 %</td> <td /> </tr> <tr> <td> Eosinophils %</td> <td>0 %</td> <td /> </tr> <tr> <td> Basophils %</td> <td>0 %</td> <td /> </tr> <tr> <td> Neutrophils Absolute</td> <td>14.66 10*3/uL</td> <td>1.70-7.10</td> </tr> <tr> <td>MCH Mean Cell Hemoglobin</td> <td>28.2 pg</td& gt; <td>26.7-33.1</td> </tr><tr> <td>MCHC Mean Cell Hgb Conc</td> <td>31.2 g/dL< /td> <td>31.1-35.3</td> </tr> <tr > <td>MCV Mean Cell Volume</td> <td>90 fL </td> <td>81-97</td> </tr> <tr > <td>MPV Mean Platelet Volume</td> <td>9.3 fL&lt ;/td> <td /> </tr> <tr> &lt ;td>Platelet Count</td> <td>292 10*3/uL</td> <td>150-400</td> </tr> <tr> <td>RBC Red Blood Count</td> <td>3.23 10*6/uL</td&gt ; <td>4.11-5.63</td> </tr> <tr> <td>WBC White Blood Count</td> <td>15.8 10*3/ uL</td> <td>3.7-11.1</td> </tr> & lt;tr> <th colspan="10">BNP PROBRAIN NATRIURETIC PEPTIDE - 08/22/17 06:14</th> </tr> <tr> <td>BNP Pro Brain Natriuretic Peptide</td> <td> 2101 pg/mL</td> <td><=125</td> </tr& gt; <tr> <th colspan="10">POC GLUCOMETER - 08/22/17 11:12</th> </tr> <tr> <td >Glucose Meter (POC)</td> <td>295 mg/dL</td> <td>70-99</td> </tr> <tr> & lt;th colspan="10">POC GLUCOMETER - 08/22/17 17:11</th> </tr><tr> <td>Glucose Meter (POC)</td> <td>252 mg/dL</td> <td>70-99</td> & lt;/tr> <tr> <th colspan="10">POC GLUCOMETER - 08/22/17 21:02</th> </tr> <tr> &lt ;td>Glucose Meter (POC)</td> <td>283 mg/dL</td> <td>70-99</td> </tr> <tr> <th colspan="10">POCGLUCOMETER - 08/23/17 06:11</th> </tr> <tr> <td>Glucose Meter (POC)</td > <td>112 mg/dL</td> <td>70-99</td&gt ; </tr> <tr> <th colspan="10"> CBC WITH DIFFERENTIALREFLEX MANUAL DIFF - 08/23/17 06:43</th> </ tr> <tr> <td>Hemoglobin</td> < td>9.2 g/dL</td> <td>11.9-16.3</td> </tr > <tr> <td>Hematocrit</td> <td& gt;29.9 %</td> <td>37.0-47.7</td> < /tr> <tr> <td>RDW Red Cell Distr Width</td> <td>16.7 %</td> <td>12.3-15.9</td& gt; </tr> <tr> <td>Lymphocytes Absolute </td> <td>1.3 10*3/uL</td> <td>1.1-3.7 </td> </tr> <tr> <td>Monocytes Absolute</td> <td>2.0 10*3/uL</td> <td&gt ;0.3-0.9</td> </tr> <tr> <td> Eosinophils Absolute</td> <td>0.0 10*3/uL</td> <td>0.0-0.5</td> </tr> <tr> < td>Basophils Absolute</td> <td>0.0 10*3/uL</td> <td>0.0-0.1</td> </tr> <tr> <td>Neutrophils %</td> <td>79 %&lt ;/td> <td /> </tr> <tr> &lt ;td>Lymphocytes %</td> <td>8 %</td&gt ; <td /> </tr> <tr> <td> Monocytes %</td> <td>13 %</td> <td /> </tr> <tr><td>Eosinophils & #37;</td> <td>0 %</td> <td/> </tr> <tr> <td>Basophils %</ td> <td>0 %</td> <td /> </tr&gt ; <tr> <td>Neutrophils Absolute</td> <td&gt ;12.02 10*3/uL</td> <td>1.70-7.10</td> </tr > <tr> <td>MCH Mean Cell Hemoglobin</td> <td>28.2 pg</td> <td>26.7-33.1</td> &lt ;/tr> <tr> <td>MCHC Mean Cell Hgb Conc</td&gt ; <td>30.8 g/dL</td> <td>31.1-35.3</td&gt ; </tr> <tr> <td>MCV Mean Cell Volume&lt ;/td> <td>92 fL</td> <td>81-97</td&gt ; </tr> <tr> <td>MPV Mean Platelet Volume</td> <td>9.3 fL</td> <td /> </tr> <tr> <td>Platelet Count</td> <td>286 10*3/uL</td> <td>150-400</td> </tr> <tr> <td>RBC Red Blood Count</td&gt ; <td>3.26 10*6/uL</td> <td>4.11-5.63</td > </tr> <tr> <td>WBC White Blood Count</td> <td>15.3 10*3/uL</td> <td> 3.7-11.1</td> </tr> <tr> <th colspan ="10">BNP PROBRAIN NATRIURETIC PEPTIDE - 08/23/17 06:43</th> </tr> <tr> <td>BNP Pro Brain Natriuretic Peptide</td> <td>1373 pg/mL</td> <td><=125</td> </tr> <tr> <th colspan="10">POC GLUCOMETER - 08/23/17 11:38</th> </tr> <tr> <td>Glucose Meter (POC)</ td> <td>319 mg/dL</td> <td>70-99</td> </tr> <tr> <th colspan="10"> POC GLUCOMETER - 08/23/17 17:20</th> </tr> <tr> <td>Glucose Meter (POC)</td> <td>329 mg/dL</td& gt; <td>70-99</td> </tr> <tr> &lt ;th colspan="10">POC GLUCOMETER - 08/23/17 20:43</th> </tr> <tr> <td>Glucose Meter (POC)</td> <td>400 mg/dL</td> <td>70-99</td> & lt;/tr> <tr> <th colspan="10">POC GLUCOMETER - 08/24/17 06:03</th> </tr> <tr> & lt;td>Glucose Meter (POC)</td> <td>73 mg/dL</td> <td>70-99</td> </tr> <tr> <th colspan="10">CBC WITH DIFFERENTIAL REFLEX MANUAL DIFF - 08/24/17 06:45</th> </tr> <tr> <td& gt;Hemoglobin</td> <td>8.7 g/dL</td> <td& gt;11.9-16.3</td> </tr> <tr> <td> Hematocrit</td> <td>28.6 %</td> <td& gt;37.0-47.7</td> </tr> <tr> <td> RDW Red Cell Distr Width</td> <td>16.9 %</td&gt ; <td>12.3-15.9</td> </tr> <tr> <td>Lymphocytes Absolute</td> <td>1.3 10*3/uL</ td> <td>1.1-3.7</td> </tr> <tr&gt ; <td>Monocytes Absolute</td> <td>1.8 10*3/ uL</td> <td>0.3-0.9</td> </tr> & lt;tr> <td>Eosinophils Absolute</td> <td> 0.0 10*3/uL</td> <td>0.0-0.5</td> </tr> <tr><td>Basophils Absolute</td> <td> 0.0 10*3/uL</td> <td>0.0-0.1</td> </tr> <tr> <td>Neutrophils %</td> <td>70 %</td> <td /> </tr> <tr> <td>Lymphocytes %</td> < td>12 %</td> <td /> </tr> & lt;tr> <td>Monocytes %</td> <td> 18 %</td> <td /> </tr><tr> <td>Eosinophils %</td> <td>0 %& lt;/td> <td /> </tr> <tr> & lt;td>Basophils %</td> <td>0 %</td&gt ; <td /> </tr> <tr> <td> Neutrophils Absolute</td> <td>7.18 10*3/uL</td> <td>1.70-7.10</td> </tr> <tr> <td>MCH Mean Cell Hemoglobin</td> <td>27.8 pg</ td> <td>26.7-33.1</td> </tr> <tr& gt; <td>MCHC Mean Cell Hgb Conc</td> <td> 30.4 g/dL</td> <td>31.1-35.3</td> </tr> <tr> <td>MCV Mean Cell Volume</td> & lt;td>91 fL</td> <td>81-97</td> </tr&gt ; <tr> <td>MPVMean Platelet Volume</td> <td>9.1 fL</td> <td /> </tr> <tr> <td>Platelet Count</td> <td>277 10*3/uL</td> <td>150-400</td> </tr> <tr> <td>RBC Red Blood Count</td> <td >3.13 10*6/uL</td> <td>4.11-5.63</td> </ tr> <tr> <td>WBC White Blood Count</td> <td>10.3 10*3/uL</td> <td>3.7-11.1</td> </tr> <tr> <th colspan="10"> COMPREHENSIVE METABOLIC PANEL - 08/24/17 06:45</th> </tr> <tr> <td>BUN:Creatinine Ratio</td> < td>43 </td> <td>6-25</td> </tr> & lt;tr> <td>Globulin</td> <td>3.4 g/dL< /td> <td>2.2-4.2</td> </tr> <tr> <td>Anion Gap</td> <td>14 </td> & lt;td>6-18</td> </tr> <tr> <td> Alkaline Phosphatase</td> <td>73 U/L</td> < td>20-125</td> </tr> <tr> <td> ALT Alanine Aminotransferase</td> <td>42 U/L</td> <td>12-78</td> </tr> <tr> <td>AST Aspartate Amino Transferase</td> <td>29 U/L& lt;/td> <td>7-37</td> </tr> <tr& gt; <td>BUN Urea Nitrogen</td> <td>91 mg/dL& lt;/td> <td>6-24</td> </tr> <tr> <td>CO2 Carbon Dioxide</td> <td>27 mmol/L</ td> <td>20-30</td> </tr> <tr> <td>Creatinine</td> <td>2.13 mg/dL</td& gt; <td>0.53-1.26</td> </tr> <tr&gt ; <td>Protein Total</td> <td>6.8 g/dL</td > <td>6.4-8.2</td> </tr> <tr> <td>Bilirubin Total</td> <td>0.3 mg/dL</ td> <td>0.2-1.2</td> </tr> <tr&gt ; <td>Potassium</td> <td>4.7 mmol/L</td&gt ; <td>3.5-5.1</td> </tr> <tr> <td>Sodium</td><td>142 mmol/L</td> < td>136-145</td> </tr> <tr> <td&gt ;Chloride</td> <td>106 mmol/L</td> <td&gt ;96-111</td> </tr> <tr> <td> Glucose</td> <td>104 mg/dL</td> <td>70-99& lt;/td> </tr> <tr> <td>Calcium</ td> <td>9.0 mg/dL</td> <td>8.3-10.1</ td> </tr> <tr> <td>GFR Glomerular Filtration Rate</td> <td>22.6 mL/min/1.73m*2</td> <td>>60.0</td> </tr> <tr> <td>Albumin</td> <td>3.4 g/dL</td> <td>3.2-4.6</td> </tr> <tr> <td>Albumin:Globulin Ratio</td> <td>1.0 </td> <td>0.8-2.0</td> </tr> <tr> <th colspan="10">POC GLUCOMETER - 08/24/17 11:37</th&gt ; </tr> <tr> <td>Glucose Meter (POC)&lt ;/td> <td>229 mg/dL</td> <td>70-99</td > </tr> <tr> <th colspan="10" >POC GLUCOMETER- 08/24/17 17:10</th> </tr> <tr& gt; <td>Glucose Meter (POC)</td> <td>179 mg/ dL</td> <td>70-99</td> </tr> < tr> <th colspan="10">POC GLUCOMETER - 08/24/17 20:56 </th> </tr> <tr> <td>Glucose Meter (POC)</td> <td>230 mg/dL</td> <td>70- 99</td> </tr> <tr> <th colspan=&quot ;10">POC GLUCOMETER - 08/25/17 05:43</th> </tr> <tr> <td>Glucose Meter (POC)</td> <td& gt;163 mg/dL</td> <td>70-99</td> </tr> <tr> <th colspan="10">POC GLUCOMETER - 11:28</th> </tr><tr> <td>Glucose Meter (POC)</td> <td>160 mg/dL</td> <td&gt ;70-99</td> </tr> <tr> <th colspan=& quot;10">POC GLUCOMETER - 08/25/17 17:11</th> </tr> <tr> <td>Glucose Meter (POC)</td> <td> 169 mg/dL</td> <td>70-99</td> </tr> <tr> <th colspan="10">POCGLUCOMETER - 20:34</th> </tr> <tr> <td> Glucose Meter (POC)</td> <td>207 mg/dL</td> <td>70-99</td> </tr> <tr> <th colspan="10">POC GLUCOMETER - 08/26/17 05:44</th> < /tr> <tr> <td>Glucose Meter (POC)</td> <td>157 mg/dL</td> <td>70-99</td> </tr> <tr> <th colspan="10">POC GLUCOMETER - 08/26/17 11:31</th> </tr> <tr> <td>Glucose Meter (POC)</td> <td>294 mg/dL</ td> <td>70-99</td> </tr> <tr> <th colspan="10">POC GLUCOMETER - 08/26/17 17:16</ th> </tr> <tr> <td>Glucose Meter ( POC)</td> <td>109 mg/dL</td> <td>70-99 </td> </tr> <tr> <th colspan=" 10">POC GLUCOMETER - 08/26/17 20:53</th> </tr> <tr> <td>Glucose Meter (POC)</td> <td& gt;244 mg/dL</td> <td>70-99</td> </tr> & lt;tr> <th colspan="10">POC GLUCOMETER - 08/27/17 05 :41</th> </tr> <tr> <td>Glucose Meter (POC)</td> <td>180 mg/dL</td> <td& gt;70-99</td> </tr> <tr> <th colspan ="10">POC GLUCOMETER - 08/27/17 11:05</th> </tr&gt ; <tr> <td>Glucose Meter (POC)</td> & lt;td>259 mg/dL</td> <td>70-99</td></tr> <tr> <th colspan="10">POC GLUCOMETER - 08/27 17:08</th> </tr> <tr> <td> Glucose Meter (POC)</td> <td>164 mg/dL</td> & lt;td>70-99</td> </tr> <tr> <th colspan= "10">POC GLUCOMETER - 08/27/17 20:15</th> </tr> <tr> <td>Glucose Meter (POC)</td> <td& gt;219 mg/dL</td> <td>70-99</td> </tr> <tr> <th colspan="10">POC GLUCOMETER - 08/28/17 05:18</th> </tr> <tr> <td>Glucose Meter (POC)</td> <td>171 mg/dL</td> <td& gt;70-99</td> </tr> <tr> <th colspan ="10">POC GLUCOMETER - 08/28/17 11:04</th> </tr&gt ; <tr> <td>Glucose Meter (POC)</td> < td>263 mg/dL</td> <td>70-99</td> </tr&gt ; <tr> <th colspan="10">POC GLUCOMETER - 08/28/17 16:06</th> </tr> <tr> <td& gt;Glucose Meter (POC)</td> <td>118 mg/dL</td> <td>70-99</td> </tr> <tr> &lt ;th colspan="10">POC GLUCOMETER - 08/28/17 21:34</th> </tr> <tr> <td>Glucose Meter (POC)</td> <td>241 mg/dL</td> <td>70-99</td> </tr> <tr> <th colspan="10"> POC GLUCOMETER - 08/29/17 05:40</th> </tr> <tr> <td>Glucose Meter (POC)</td> <td>154 mg/dL</td& gt; <td>70-99</td> </tr> <tr> <th colspan="10">POC GLUCOMETER - 08/29/17 10:43</th& gt; </tr> <tr> <td>Glucose Meter (POC)& lt;/td> <td>175 mg/dL</td> <td>70-99</ td> </tr> <tr> <th colspan="10& quot;>POC GLUCOMETER - 08/29/17 16:24</th> </tr> & lt;tr> <td>Glucose Meter (POC)</td> <td> 147 mg/dL</td> <td>70-99</td> </tr> & lt;tr> <th colspan="10">POC GLUCOMETER - 08/29/17 20 :30</th> </tr> <tr> <td>Glucose Meter (POC)</td> <td>151 mg/dL</td> <td& gt;70-99</td> </tr> <tr> <th colspan ="10">POC GLUCOMETER - 08/30/17 05:33</th> </tr&gt ; <tr> <td>Glucose Meter (POC)</td> & lt;td>161 mg/dL</td> <td>70-99</td> </tr&gt ; <tr> <th colspan="10">COMPREHENSIVE METABOLIC PANEL - 08/30/17 07:59</th> </tr> <tr&gt ; <td>BUN:Creatinine Ratio</td> <td>25 </ td> <td>6-25</td> </tr> <tr> <td>Globulin</td> <td>3.7 g/dL</td> <td>2.2-4.2</td> </tr> <tr> <td>Anion Gap</td> <td>13 </td> & lt;td>6-18</td> </tr> <tr> <td&gt ;Alkaline Phosphatase</td> <td>79 U/L</td> & lt;td>20-125</td> </tr> <tr> <td& gt;ALT Alanine Aminotransferase</td> <td>31 U/L</td> <td>12-78</td> </tr> <tr> <td>AST Aspartate Amino Transferase</td> <td>15 U /L</td> <td>7-37</td> </tr> <tr > <td>BUN Urea Nitrogen</td> <td>39 mg/dL </td> <td>6-24</td> </tr> <tr& gt; <td>CO2 Carbon Dioxide</td> <td>24 mmol/ L</td> <td>20-30</td> </tr> <tr& gt; <td>Creatinine</td> <td>1.53mg/dL</td > <td>0.53-1.26</td> </tr> <tr&gt ; <td>Protein Total</td> <td>6.8 g/dL</td> <td>6.4-8.2</td> </tr> <tr> <td>Bilirubin Total</td> <td>0.4 mg/dL</td> <td>0.2-1.2</td> </tr> <tr> & lt;td>Potassium</td> <td>6.7 mmol/L</td> <td>3.5-5.1</td> </tr> <tr> < td>Sodium</td> <td>136 mmol/L</td> <td& gt;136-145</td> </tr> <tr> <td> Chloride</td> <td>106 mmol/L</td> <td>96-111& lt;/td> </tr> <tr> <td>Glucose</ td> <td>153 mg/dL</td> <td>70-99</td& gt; </tr> <tr> <td>Calcium</td> <td>8.7 mg/dL</td> <td>8.3-10.1</td> &lt ;/tr> <tr> <td>GFR Glomerular Filtration Rate< /td> <td>33.7 mL/min/1.73m*2</td> <td>& amp;gt;60.0</td> </tr> <tr> <td> Albumin</td> <td>3.1 g/dL</td> <td>3.2-4.6& lt;/td> </tr> <tr> <td>Albumin: Globulin Ratio</td> <td>0.8 </td> <td>0.8- 2.0</td> </tr> <tr> <th colspan=& quot;10">SMEAR REVIEW - 08/30/17 07:59</th> </tr> <tr> <td>Platelet Estimate</td> <td& gt;Normal </td> <td>Normal</td> </tr> <tr> <td>Stomatocytes</td> <td>1 + </td> <td>(none)</td> </tr> &lt ;tr> <td>Platelet Morphology</td> <td>Normal </td> <td/> </tr> <tr> & lt;td>White Blood Count Morphology</td> <td>Normal </ td> <td /> </tr> <tr> <td&gt ;Elliptocytes</td> <td>1+ </td> <td>( none)</td> </tr> <tr> <th colspan=& quot;10">POC GLUCOMETER - 08/30/17 11:12</th> </tr> <tr> <td>Glucose Meter(POC)</td> < td>142 mg/dL</td> <td>70-99</td> </tr&gt ; <tr> <th colspan="10">POTASSIUM SERUM - 08/30/17 15:03</th> </tr> <tr> <td& gt;Potassium</td> <td>5.7 mmol/L</td> <td >3.5-5.1</td> </tr> <tr> <th colspan="10">POC GLUCOMETER - 08/30/17 16:59</th> < /tr> <tr> <td>Glucose Meter (POC)</td> <td>139 mg/dL</td> <td>70-99</td> </tr> <tr> <th colspan="10">POC GLUCOMETER - 08/30/17 20:25</th> </tr> <tr> <td>Glucose Meter (POC)</td> <td>295 mg/dL</ td> <td>70-99</td> </tr> <tr> <th colspan="10">POC GLUCOMETER - 08/31/17 05:22</th&gt ; </tr> <tr> <td>Glucose Meter (POC)&lt ;/td> <td>63 mg/dL</td> <td>70-99</td& gt; </tr> <tr> <th colspan="10"& gt;CBC WITH DIFFERENTIAL REFLEX MANUAL DIFF - 08/31/17 06:16</th> & lt;/tr> <tr> <td>Hemoglobin</td> < td>7.9 g/dL</td> <td>11.9-16.3</td> </tr > <tr> <td>Hematocrit</td> <td>26.2 %</td> <td>37.0-47.7</td> </tr> <tr> <td>RDW Red Cell Distr Width</td> & lt;td>16.2 %</td> <td>12.3-15.9</td> </tr> <tr> <td>Lymphocytes Absolute</td& gt; <td>1.1 10*3/uL</td> <td>1.1-3.7</td& gt; </tr> <tr> <td>Monocytes Absolute& lt;/td> <td>1.6 10*3/uL</td> <td>0.3-0.9& lt;/td> </tr> <tr> <td>Eosinophils Absolute</td> <td>0.1 10*3/uL</td> <td&gt ;0.0-0.5</td> </tr> <tr> <td> Basophils Absolute</td> <td>0.0 10*3/uL</td> <td>0.0-0.1</td> </tr> <tr> &lt ;td>Neutrophils %</td> <td>84 %</td& gt; <td /> </tr> <tr> <td& gt;Lymphocytes %</td> <td>7 %</td> <td /> </tr> <tr> <td> Monocytes %</td> <td>9 %</td> <td /> </tr> <tr> <td> Eosinophils %</td> <td>1 %</td> <td /> </tr> <tr> <td>Basophils & amp;#37;</td> <td>0 %</td> <td /& gt; </tr> <tr> <td>Neutrophils Absolute </td> <td>14.46 10*3/uL</td> <td>1.70- 7.10</td> </tr> <tr> <td>MCH Mean Cell Hemoglobin</td> <td>27.6 pg</td> & lt;td>26.7-33.1</td> </tr> <tr> < td>MCHC Mean Cell Hgb Conc</td> <td>30.2 g/dL</td> <td>31.1-35.3</td> </tr> <tr> & lt;td>MCV Mean Cell Volume</td> <td>92 fL</td> <td>81-97</td> </tr> <tr> & lt;td>MPV Mean Platelet Volume</td> <td>9.7 fL</td&gt ; <td /> </tr> <tr> <td> Platelet Count</td> <td>219 10*3/uL</td> &lt ;td>150-400</td> </tr> <tr> <td& gt;RBC Red Blood Count</td> <td>2.86 10*6/uL</td> <td>4.11-5.63</td> </tr> <tr> <td>WBC White Blood Count</td> <td>17.3 10*3/uL& lt;/td> <td>3.7-11.1</td> </tr> < tr> <th colspan="10">COMPREHENSIVE METABOLIC PANEL - 08/31/17 06:16</th> </tr> <tr> <td >BUN:Creatinine Ratio</td> <td>23 </td> & lt;td>6-25</td> </tr> <tr> <td&gt ;Globulin</td> <td>3.6 g/dL</td> <td> 2.2-4.2</td> </tr> <tr> <td> Anion Gap</td> <td>10 </td> <td>6-18& lt;/td> </tr> <tr> <td>Alkaline Phosphatase</td> <td>69 U/L</td> <td>20-125&lt ;/td> </tr> <tr> <td>ALT Alanine Aminotransferase</td> <td>29 U/L</td> <td >12-78</td> </tr> <tr> <td>AST Aspartate Amino Transferase</td> <td>13 U/L</td> & lt;td>7-37</td> </tr> <tr> <td&gt ;BUN Urea Nitrogen</td> <td>41 mg/dL</td> & lt;td>6-24</td> </tr> <tr> <td&gt ;CO2 Carbon Dioxide</td> <td>28 mmol/L</td> <td>20-30</td> </tr> <tr> <td& gt;Creatinine</td> <td>1.79 mg/dL</td> < td>0.53-1.26</td> </tr> <tr> <td& gt;Protein Total</td> <td>6.4 g/dL</td> < td>6.4-8.2</td> </tr> <tr> <td> Bilirubin Total</td> <td>0.3 mg/dL</td> < td>0.2-1.2</td> </tr> <tr> <td> Potassium</td> <td>3.7 mmol/L</td> <td&gt ;3.5-5.1</td> </tr> <tr> <td> Sodium</td> <td>140 mmol/L</td> <td> 136-145</td> </tr> <tr> <td> Chloride</td> <td>106 mmol/L</td> <td> 96-111</td> </tr> <tr> <td> Glucose</td> <td>95 mg/dL</td> <td>70- 99</td> </tr> <tr> <td>Calcium&lt ;/td> <td>8.3 mg/dL</td> <td>8.3-10.1< /td> </tr> <tr> <td>GFR Glomerular Filtration Rate</td> <td>27.9 mL/min/1.73m*2</td> <td>>60.0</td> </tr> <tr> <td>Albumin</td> <td>2.8 g/dL</td> <td>3.2-4.6</td> </tr> <tr> <td& gt;Albumin:Globulin Ratio</td> <td>0.8 </td> <td>0.8-2.0</td> </tr> <tr> &lt ;th colspan="10">POCGLUCOMETER - 08/31/17 11:31</th> & lt;/tr> <tr> <td>Glucose Meter (POC)</td> <td>198 mg/dL</td> <td>70-99</td> </tr> <tr> <th colspan="10">POC GLUCOMETER - 08/31/17 17:04</th> </tr> <tr> <td>Glucose Meter (POC)</td> <td>93 mg/dL</ td> <td>70-99</td> </tr> <tr> <th colspan="10">POC GLUCOMETER - 08/31/17 20:07</th > </tr> <tr> <td>Glucose Meter (POC) </td> <td>263 mg/dL</td> <td>70-99< /td> </tr> <tr> <th colspan="10& quot;>POC GLUCOMETER - 09/01/17 06:00</th> </tr> & lt;tr> <td>Glucose Meter (POC)</td> <td> 176 mg/dL</td> <td>70-99</td> </tr> <tr> <th colspan="10">CBC WITH DIFFERENTIAL REFLEX MANUAL DIFF - 09/01/17 06:54</th> </tr> <tr& gt; <td>Hemoglobin</td> <td>9.3 g/dL</td& gt; <td>11.9-16.3</td> </tr> <tr&gt ; <td>Hematocrit</td> <td>30.2 %< /td> <td>37.0-47.7</td> </tr> <tr > <td>RDW Red Cell Distr Width</td> <td> 15.9 %</td> <td>12.3-15.9</td> </tr > <tr> <td>Lymphocytes Absolute</td> <td>1.0 10*3/uL</td> <td>1.1-3.7</td> </tr> <tr> <td>Monocytes Absolute</td&gt ; <td>1.7 10*3/uL</td> <td>0.3-0.9</td&gt ; </tr> <tr> <td>Eosinophils Absolute& lt;/td> <td>0.1 10*3/uL</td> <td>0.0-0.5& lt;/td> </tr> <tr> <td>Basophils Absolute</td> <td>0.0 10*3/uL</td> <td&gt ;0.0-0.1</td> </tr> <tr> <td> Neutrophils %</td> <td>81 %</td> <td /> </tr> <tr> <td> Lymphocytes %</td> <td>7 %</td> <td /> </tr> <tr> <td> Monocytes %</td> <td>11 %</td> <td /> </tr> <tr> <td> Eosinophils %</td> <td>1 %</td> <td /> </tr> <tr> <td> Basophils %</td> <td>0 %</td> <td /> </tr> <tr> <td> Neutrophils Absolute</td> <td>11.96 10*3/uL</td> <td>1.70-7.10</td> </tr> <tr> <td>MCH Mean Cell Hemoglobin</td> <td>27.7 pg< /td> <td>26.7-33.1</td> </tr> <tr& gt; <td>MCHCMean Cell Hgb Conc</td> <td> 30.8 g/dL</td> <td>31.1-35.3</td> </tr> <tr> <td>MCV Mean Cell Volume</td> <td >90 fL</td> <td>81-97</td> </tr> <tr> <td>MPV Mean Platelet Volume</td> & lt;td>9.7 fL</td> <td /> </tr> <tr> <td>Platelet Count</td> <td>232 10*3/uL</td > <td>150-400</td> </tr> <tr> <td>RBC Red Blood Count</td> <td>3.36 10*6/uL&lt ;/td> <td>4.11-5.63</td> </tr> < tr> <td>WBC White Blood Count</td> <td> 14.8 10*3/uL</td> <td>3.7-11.1</td> </tr&gt ; <tr> <th colspan="10">BASIC METABOLIC PANEL - 09/01/17 06:54</th> </tr> <tr> <td>BUN:Creatinine Ratio</td> <td>21 </td> <td>6-25</td> </tr> <tr> < td>Anion Gap</td> <td>11 </td> <td> 6-18</td> </tr> <tr> <td>BUN Urea Nitrogen</td> <td>41 mg/dL</td> <td& gt;6-24</td> </tr> <tr> <td>CO2 Carbon Dioxide</td> <td>29 mmol/L</td> < td>20-30</td> </tr> <tr> <td> Creatinine</td> <td>1.98 mg/dL</td> <td& gt;0.53-1.26</td> </tr> <tr> <td> Potassium</td> <td>3.5 mmol/L</td> <td>3.5- 5.1</td> </tr> <tr> <td>Sodium&lt ;/td> <td>139 mmol/L</td> <td>136-145< /td> </tr> <tr> <td>Chloride</td& gt; <td>103 mmol/L</td> <td>96-111</td> </tr> <tr> <td>Glucose</td> & lt;td>168 mg/dL</td> <td>70-99</td> </tr > <tr> <td>Calcium</td> <td> 8.5 mg/dL</td> <td>8.3-10.1</td> </tr> <tr> <td>GFR Glomerular Filtration Rate</td> <td>24.7 mL/min/1.73m*2</td> <td>>60.0&lt ;/td> </tr> <tr> <th colspan="10& quot;>POC GLUCOMETER - 09/01/17 11:20</th> </tr> & lt;tr> <td>Glucose Meter (POC)</td> <td> 217 mg/dL</td> <td>70-99</td> </tr> <tr> <th colspan="10">POC GLUCOMETER - 17:06</th> </tr> <tr> <td> Glucose Meter (POC)</td> <td>120 mg/dL</td> < td>70-99</td> </tr> <tr> <th colspan="10">POC GLUCOMETER - 09/01/17 20:47</th> < /tr> <tr> <td>Glucose Meter (POC)</td> <td>232 mg/dL</td> <td>70-99</td> </tr> <tr> <th colspan="10">POC GLUCOMETER - 09/02/17 05:35</th> </tr> <tr> <td>Glucose Meter (POC)</td> <td>145 mg/dL</ td> <td>70-99</td> </tr> <tr> <th colspan="10">POC GLUCOMETER - 09/02/1810:31</th> </tr> <tr> <td>Glucose Meter (POC)< /td> <td>365 mg/dL</td> <td>70-99</td& gt; </tr> <tr> <th colspan="10"> POC GLUCOMETER - 09/02/17 16:48</th> </tr> <tr> <td>Glucose Meter (POC)</td> <td>127 mg/dL&lt ;/td> <td>70-99</td> </tr> <tr&gt ; <th colspan="10">POC GLUCOMETER - 09/03/17 06:19</th& gt; </tr> <tr> <td>Glucose Meter (POC)& lt;/td> <td>159 mg/dL</td> <td>70-99</ td> </tr> <tr> <th colspan="10& quot;>POC GLUCOMETER - 09/03/17 11:21</th> </tr> & lt;tr> <td>Glucose Meter (POC)</td> <td> 284 mg/dL</td> <td>70-99</td> </tr> <tr> <th colspan="10">POC GLUCOMETER - 16:46</th> </tr> <tr> <td> Glucose Meter (POC)</td> <td>187 mg/dL</td> <td>70-99</td> </tr> <tr> <th colspan="10">POC GLUCOMETER- 09/03/17 21:45</th> </ tr> <tr> <td>Glucose Meter (POC)</td> <td>213 mg/dL</td> <td>70-99</td> & lt;/tr> <tr> <th colspan="10">POC GLUCOMETER - 09/04/17 06:32</th> </tr> <tr> <td>Glucose Meter (POC)</td> <td>160 mg/dL</td&gt ; <td>70-99</td> </tr> <tr> <th colspan="10">POC GLUCOMETER - 09/04/17 11:21</th&gt ; </tr> <tr> <td>Glucose Meter (POC)&lt ;/td> <td>255 mg/dL</td> <td>70-99</td > </tr> <tr> <th colspan="10" >POC GLUCOMETER - 09/04/17 16:53</th> </tr><tr> <td>Glucose Meter (POC)</td> <td>155 mg/dL</ td> <td>70-99</td> </tr> <tr> <th colspan="10">POC GLUCOMETER - 09/04/17 21:07</th > </tr> <tr> <td>Glucose Meter (POC)</td& gt; <td>288 mg/dL</td> <td>70-99</td> </tr> <tr> <th colspan="10"> POCGLUCOMETER - 09/05/17 06:10</th> </tr> <tr> <td>Glucose Meter (POC)</td> <td>205 mg/dL& lt;/td> <td>70-99</td> </tr> <tr& gt; <th colspan="10">POC GLUCOMETER - 09/05/17 11:21&lt ;/th> </tr> <tr> <td>Glucose Meter ( POC)</td> <td>300 mg/dL</td> <td>70-99 </td> </tr> <tr> <th colspan=" 10">POC GLUCOMETER - 09/05/17 17:27</th> </tr> <tr> <td>Glucose Meter (POC)</td> <td& gt;243 mg/dL</td> <td>70-99</td> </tr> <tr> <th colspan="10">POC GLUCOMETER - 11/17 21:26</th> </tr> <tr> <td> Glucose Meter (POC)</td> <td>239 mg/dL</td> <td>70-99</td> </tr> <tr> <th colspan="10">POC GLUCOMETER - 09/06/17 06:50</th> < /tr> <tr> <td>Glucose Meter (POC)</td> <td>280 mg/dL</td> <td>70-99</td> </tr& gt; <tr> <th colspan="10">CBC WITH DIFFERENTIAL REFLEX MANUAL DIFF - 09/06/17 09:28</th> </tr> & lt;tr> <td>Hemoglobin</td> <td>10.0 g/dL& lt;/td> <td>11.9-16.3</td> </tr> <tr> <td>Hematocrit</td> <td>32.4 %</ td> <td>37.0-47.7</td></tr> <tr> <td>RDW Red Cell Distr Width</td> <td>15.6 &amp ;#37;</td> <td>12.3-15.9</td> </tr> <tr> <td>Lymphocytes Absolute</td> < td>0.9 10*3/uL</td> <td>1.1-3.7</td> </tr&gt ; <tr> <td>MonocytesAbsolute</td> &lt ;td>1.1 10*3/uL</td> <td>0.3-0.9</td> </tr > <tr> <td>Eosinophils Absolute</td> <td>0.1 10*3/uL</td> <td>0.0-0.5</td> </tr> <tr> <td>Basophils Absolute</td&gt ; <td>0.0 10*3/uL</td> <td>0.0-0.1</td> </tr> <tr> <td>Neutrophils %</td&gt ; <td>84 %</td> <td /> </ tr> <tr> <td>Lymphocytes %</td> <td>7 %</td> <td /> </tr&gt ; <tr> <td>Monocytes %</td> & lt;td>8 %</td> <td /> </tr> <tr> <td>Eosinophils %</td> <td& gt;1 %</td> <td /> </tr> <tr > <td>Basophils%</td> <td>0 & #37;</td> <td /> </tr> <tr> <td>Neutrophils Absolute</td> <td>11.27 10*3/uL& lt;/td> <td>1.70-7.10</td> </tr> &lt ;tr><td>MCH Mean Cell Hemoglobin</td> <td>27.0 pg& lt;/td> <td>26.7-33.1</td> </tr> &lt ;tr> <td>MCHC Mean Cell Hgb Conc</td> <td&gt ;30.9 g/dL</td> <td>31.1-35.3</td> </tr&gt ; <tr> <td>MCV Mean Cell Volume</td> <td>88 fL</td> <td>81-97</td> </tr&gt ; <tr> <td>MPV Mean Platelet Volume</td> <td>9.2 fL</td> <td /> </tr> <tr> <td>Platelet Count</td> <td>309 10*3/uL</td> <td>150-400</td> </tr> <tr> <td>RBC Red Blood Count</td> <td> 3.70 10*6/uL</td> <td>4.11-5.63</td> </tr& gt; <tr> <td>WBC White BloodCount</td> <td>13.4 10*3/uL</td> <td>3.7-11.1</td> </tr> <tr> <th colspan="10"> COMPREHENSIVE METABOLICPANEL - 09/06/17 09:28</th> </tr> <tr> <td>BUN:Creatinine Ratio</td> < td>24 </td> <td>6-25</td> </tr> <tr> <td>Globulin</td> <td>4.5 g/dL </td> <td>2.2-4.2</td> </tr> < tr> <td>Anion Gap</td> <td>13 </td&gt ; <td>6-18</td> </tr> <tr> <td>Alkaline Phosphatase</td> <td>80 U/L</td& gt; <td>20-125</td> </tr> <tr> <td>ALT Alanine Aminotransferase</td> <td>10 U/L</td> <td>12-78</td> </tr> &lt ;tr> <td>AST Aspartate Amino Transferase</td> & lt;td>17 U/L</td> <td>7-37</td> </tr&gt ; <tr> <td>BUN Urea Nitrogen</td> &lt ;td>66 mg/dL</td> <td>6-24</td> </tr&gt ; <tr> <td>CO2 Carbon Dioxide</td> & lt;td>32 mmol/L</td> <td>20-30</td> </tr& gt; <tr> <td>Creatinine</td> <td& gt;2.76 mg/dL</td> <td>0.53-1.26</td> </tr& gt; <tr> <td>Protein Total</td> <td> 7.4 g/dL</td> <td>6.4-8.2</td> </tr> <tr> <td>Bilirubin Total</td> <td>0.3 mg/dL</td> <td>0.2-1.2</td> </tr> <tr> <td>Potassium</td> <td>3.8 mmol /L</td> <td>3.5-5.1</td> </tr> & lt;tr> <td>Sodium</td> <td>134 mmol/L< /td> <td>136-145</td> </tr> <tr> <td>Chloride</td> <td>93 mmol/L</td> <td>96-111</td> </tr> <tr> &lt ;td>Glucose</td> <td>298 mg/dL</td> < td>70-99</td> </tr> <tr> <td> Calcium</td> <td>9.1 mg/dL</td> <td>8.3-10.1& lt;/td> </tr> <tr> <td>GFR Glomerular Filtration Rate</td> <td>16.5 mL/min/1.73m*2< /td> <td>>60.0</td> </tr> &lt ;tr> <td>Albumin</td> <td>2.9 g/dL</td> <td>3.2-4.6</td> </tr> <tr> <td>Albumin:Globulin Ratio</td> <td>0.6 </td > <td>0.8-2.0</td> </tr> <tr> <th colspan="10">POC GLUCOMETER - 09/06/17 11:11</th&gt ; </tr> <tr><td>Glucose Meter (POC)</td> <td>213 mg/dL</td> <td>70-99</td> </tr> <tr> <th colspan="10">POC GLUCOMETER - 09/06/17 17:18</th> </tr> <tr> <td>GlucoseMeter (POC)</td> <td>152 mg/dL</ td> <td>70-99</td> </tr> <tr> <th colspan="10">POC GLUCOMETER - 09/06/17 21:10</th& gt; </tr> <tr> <td>Glucose Meter (POC)& lt;/td> <td>378 mg/dL</td> <td>70-99</ td> </tr> <tr> <th colspan="10" >POC GLUCOMETER - 09/06/17 22:53</th> </tr> <tr& gt; <td>Glucose Meter (POC)</td> <td>168 mg/ dL</td> <td>70-99</td> </tr> < tr> <th colspan="10">POC GLUCOMETER - 09/07/17 01:25& lt;/th> </tr> <tr> <td>Glucose Meter (POC)</td> <td>31 mg/dL</td> <td&gt ;70-99</td> </tr> <tr> <th colspan=& quot;10">POC GLUCOMETER - 09/07/17 02:25</th> </tr> <tr> <td>Glucose Meter (POC)</td> &lt ;td>113 mg/dL</td> <td>70-99</td> </tr& gt; <tr> <th colspan="10">POC GLUCOMETER - 09/07/17 06:19</th> </tr> <tr> <td >Glucose Meter (POC)</td> <td>145 mg/dL</td> <td>70-99</td> </tr> <tr> & lt;th colspan="10">POC GLUCOMETER - 09/07/17 11:24</th> </tr> <tr> <td>Glucose Meter (POC)</td& gt; <td>334 mg/dL</td> <td>70-99</td> </tr> <tr> <th colspan="10"> POC GLUCOMETER - 09/07/17 17:19</th> </tr> <tr> <td>Glucose Meter (POC)</td> <td>263 mg/dL</ td> <td>70-99</td> </tr> <tr> <th colspan="10">POC GLUCOMETER - 09/07/17 20:28</ th></tr> <tr> <td>Glucose Meter (POC)</ td> <td>266 mg/dL</td> <td>70-99</td& gt; </tr> <tr><th colspan="10">POC GLUCOMETER - 09/08/17 03:11</th> </tr> <tr> & lt;td>Glucose Meter (POC)</td> <td>198 mg/dL</td> <td>70-99</td> </tr> <tr> <th colspan="10">POC GLUCOMETER - 09/08/17 05:28</th> </tr> <tr> <td>Glucose Meter (POC)</td&gt ; <td>183 mg/dL</td> <td>70-99</td> </tr> <tr> <th colspan="10"> BASIC METABOLIC PANEL - 09/08/17 06:14</th> </tr> < tr> <td>BUN:Creatinine Ratio</td> <td>30 </td> <td>6-25</td> </tr> <tr& gt; <td>Anion Gap</td> <td>9 </td> <td>6-18</td> </tr> <tr> & lt;td>BUN Urea Nitrogen</td> <td>84 mg/dL</td> <td>6-24</td> </tr> <tr> & lt;td>CO2 Carbon Dioxide</td> <td>33 mmol/L</td> <td>20-30</td> </tr> <tr> <td>Creatinine</td> <td>2.81 mg/dL</td> <td>0.53-1.26</td> </tr> <tr> <td>Potassium</td> <td>3.5 mmol/L</td> <td>3.5-5.1</td> </tr> <tr> <td> Sodium</td> <td>135 mmol/L</td> <td> 136-145</td> </tr> <tr> <td> Chloride</td> <td>97 mmol/L</td> <td> 96-111</td> </tr> <tr> <td>Glucose&lt ;/td> <td>168 mg/dL</td> <td>70-99</td> </tr> <tr> <td>Calcium</td> <td>9.1 mg/dL</td> <td>8.3-10.1</td> & lt;/tr> <tr> <td>GFR Glomerular Filtration Rate< /td> <td>16.2 mL/min/1.73m*2</td> <td>& amp;gt;60.0</td> </tr> <tr> <th colspan="10">SMEAR REVIEW - 09/13/17 09:41</th> </ tr> <tr> <td>Platelet Estimate</td> <td>Normal </td> <td>Normal</td> < /tr> <tr> <td>Hypersegmented Neutrophils</td& gt; <td> </td> <td>(none)</td> </tr> <tr> <td>Polychromasia</td> <td>Present </td> <td>(none)</td> & lt;/tr> <tr> <td>Stomatocytes</td> <td>1+ </td> <td>(none)</td> </tr&gt ; <tr> <td>Target Cells</td> <td>1+ < /td> <td>(none)</td> </tr> <tr&gt ; <td>Teardrops</td> <td> </td> <td>(none)</td> </tr> <tr> < td>White Blood Count Morphology</td> <td>Normal </td& gt; <td /> </tr> <tr> <td> Microcytes</td> <td>2+ </td> <td>(none )</td> </tr> <tr> <td>Enlarged Platelets</td> <td>Present </td> <td>(none)& lt;/td> </tr> <tr> <th colspan="10 ">RENAL FUNCTION PANEL - 09/13/17 09:41</th> </tr> <tr> <td>BUN:Creatinine Ratio</td> <td&gt ;32 </td> <td>6-25</td> </tr> &lt ;tr> <td>Anion Gap</td> <td>11 </td&gt ; <td>6-18</td> </tr> <tr> & lt;td>BUN Urea Nitrogen</td> <td>63 mg/dL</td> <td>6-24</td> </tr> <tr> & lt;td>CO2 Carbon Dioxide</td> <td>30 mmol/L</td> <td>20-30</td> </tr> <tr> <td>Creatinine</td><td>1.94 mg/dL</td> < td>0.53-1.26</td> </tr> <tr> <td& gt;Potassium</td> <td>4.7 mmol/L</td> <td >3.5-5.1</td> </tr> <tr> <td> Sodium</td> <td>137 mmol/L</td> <td>136- 145</td> </tr> <tr> <td>Chloride</ td> <td>101 mmol/L</td> <td>96-111</td> </tr> <tr> <td>Phosphorous</td> <td>3.3 mg/dL</td> <td>2.5-4.9</td> </tr> <tr> <td>Glucose</td> <td>184 mg/dL</td> <td>70-99</td> </ tr> <tr> <td>Calcium</td> <td& gt;9.0 mg/dL</td> <td>8.3-10.1</td> </tr&gt ; <tr> <td>GFR Glomerular Filtration Rate</td&gt ; <td>25.3 mL/min/1.73m*2</td> <td>> 60.0</td> </tr> <tr> <td>Albumin</td > <td>3.0 g/dL</td> <td>3.2-4.6</td&gt ; </tr> <tr> <th colspan="10"&gt ;CBC WITH DIFFERENTIAL REFLEX MANUAL DIFF - 09/20/17 09:02</th> &lt ;/tr> <tr> <td>Hemoglobin</td> &lt ;td>8.3 g/dL</td> <td>11.9-16.3</td> </ tr> <tr> <td>Hematocrit</td> < td>28.4 %</td> <td>37.0-47.7</td> & lt;/tr> <tr> <td>RDW Red Cell Distr Width</td& gt; <td>16.6 %</td> <td>12.3-15.9&lt ;/td> </tr> <tr> <td>Lymphocytes Absolute</td> <td>1.6 10*3/uL</td> <td>1.1- 3.7</td> </tr> <tr> <td> Monocytes Absolute</td> <td>1.2 10*3/uL</td> <td>0.3-0.9</td> </tr> <tr> <td& gt;Eosinophils Absolute</td> <td>0.3 10*3/uL</td> <td>0.0-0.5</td> </tr> <tr> <td>Basophils Absolute</td> <td>0.0 10*3/uL</td&gt ; <td>0.0-0.1</td> </tr> <tr> <td>Neutrophils %</td> <td>65 &#37 ;</td> <td /> </tr> <tr> & lt;td>Lymphocytes %</td> <td>19 %</td > <td /> </tr> <tr> <td& gt;Monocytes %</td> <td>13 %</td> <td /> </tr> <tr> <td> Eosinophils %</td> <td>3 %</td> <td /> </tr> <tr> <td> Basophils %</td> <td>1 %</td> <td /> </tr> <tr> <td> Neutrophils Absolute</td> <td>5.64 10*3/uL</td> <td>1.70-7.10</td> </tr> <tr> <td>MCH Mean Cell Hemoglobin</td> <td>25.9 pg</ td> <td>26.7-33.1</td> </tr> <tr& gt; <td>MCHC Mean Cell Hgb Conc</td> <td> 29.2 g/dL</td> <td>31.1-35.3</td> </tr> <tr> <td>MCV Mean Cell Volume</td> & lt;td>89 fL</td> <td>81-97</td> </tr&gt ; <tr> <td>MPV Mean Platelet Volume</td> <td>8.7 fL</td> <td /> </tr> & lt;tr> <td>Platelet Count</td> <td>314 10 *3/uL</td> <td>150-400</td> </tr> <tr> <td>RBC Red Blood Count</td> <td> 3.20 10*6/uL</td> <td>4.11-5.63</td> </tr& gt; <tr> <td>WBC White Blood Count</td> <td>8.7 10*3/uL</td> <td>3.7-11.1</td> &lt ;/tr> <tr> <th colspan="10"> COMPREHENSIVE METABOLIC PANEL - 02/19/18 09:02</th> </tr> <tr> <td>BUN:Creatinine Ratio</td> < td>21 </td> <td>6-25</td> </tr> <tr> <td>Globulin</td> <td>4.1 g/dL </td> <td>2.2-4.2</td> </tr> < tr> <td>Anion Gap</td> <td>13 </td&gt ; <td>6-18</td> </tr> <tr> <td>Alkaline Phosphatase</td> <td>86 U/L</td& gt; <td>20-125</td> </tr> <tr> <td>ALT Alanine Aminotransferase</td> <td>27 U/L</td> <td>12-78</td> </tr> &lt ;tr> <td>AST Aspartate Amino Transferase</td> & lt;td>19 U/L</td> <td>7-37</td> </tr&gt ; <tr> <td>BUN Urea Nitrogen</td> <td >38 mg/dL</td> <td>6-24</td> </tr> <tr> <td>CO2 Carbon Dioxide</td> < td>23 mmol/L</td> <td>20-30</td> </tr> <tr> <td>Creatinine</td> <td> 1.83 mg/dL</td> <td>0.53-1.26</td> </tr&gt ; <tr><td>Protein Total</td> <td>7.1 g/ dL</td> <td>6.4-8.2</td> </tr> & lt;tr> <td>Bilirubin Total</td> <td>0.2 mg/dL< /td> <td>0.2-1.2</td> </tr> <tr& gt; <td>Potassium</td> <td>4.7 mmol/L</td > <td>3.5-5.1</td> </tr> <tr> <td>Sodium</td> <td>139 mmol/L</td> <td>136-145</td> </tr> <tr> < td>Chloride</td> <td>108 mmol/L</td> <td>96- 111</td> </tr> <tr> <td>Glucose& lt;/td> <td>144 mg/dL</td> <td>70-99</ td> </tr> <tr> <td>Calcium</td> <td>8.7 mg/dL</td> <td>8.3-10.1</td> < /tr> <tr> <td>GFR Glomerular Filtration Rate</ td> <td>27.2 mL/min/1.73m*2</td> <td>&amp ;gt;60.0</td> </tr> <tr> <td> Albumin</td> <td>3.0 g/dL</td> <td>3.2-4.6&lt ;/td> </tr> <tr> <td>Albumin: Globulin Ratio</td> <td>0.7 </td> <td>0.8-2.0 </td> </tr> <tr> <th colspan=" 10">PTH, INTACT WHOLE MOLECULE - 09/20/17 09:02</th> </ tr> <tr> <td>PTH Parathyroid Hormone</td> <td>187.6 pg/mL</td> <td>9.0-78.0</td> </tr> <tr> <th colspan="10"> VITAMIN D 25 HYDROXY - 09/20/17 09:02</th> </tr> < tr> <td>Vitamin D 25-Hydroxy Total</td> <td> 28 ng/mL</td> <td>>29</td> </tr> & lt;tr> <th colspan="10">CULTURE URINE - 09/20/17 14: 02</th> </tr> <tr> <td> Microbiology</td> <td> </td> <td /> </tr> <tr> <th colspan="10"> CBC WITH DIFFERENTIAL REFLEX MANUALDIFF - 09/27/17 09:03</th> </ tr> <tr> <td>Hemoglobin</td> < td>8.0 g/dL</td> <td>11.9-16.3</td> </tr > <tr> <td>Hematocrit</td> <td& gt;27.4 %</td> <td>37.0-47.7</td> < /tr> <tr> <td>RDW Red Cell Distr Width</td&gt ; <td>17.4 %</td> <td>12.3-15.9</ td> </tr> <tr> <td>Lymphocytes Absolute</td> <td>1.7 10*3/uL</td> <td&gt ;1.1-3.7</td> </tr> <tr> <td> Monocytes Absolute</td> <td>1.0 10*3/uL</td> <td>0.3-0.9</td> </tr> <tr> <td> Eosinophils Absolute</td> <td>0.2 10*3/uL</td> <td>0.0-0.5</td> </tr> <tr> & lt;td>Basophils Absolute</td> <td>0.1 10*3/uL</td&gt ; <td>0.0-0.1</td> </tr> <tr> <td>Neutrophils %</td> <td>66 &#37 ;</td> <td /> </tr> <tr> <td>Lymphocytes %</td> <td>20 %< /td> <td /> </tr> <tr> < td>Monocytes %</td> <td>11 %</td> <td /> </tr> <tr> <td> Eosinophils %</td> <td>3 %</td> <td /></tr> <tr> <td>Basophils &amp ;#37;</td> <td>1%</td> <td /> </tr> <tr> <td>Neutrophils Absolute&lt ;/td> <td>5.68 10*3/uL</td> <td>1.70-7.10 </td> </tr> <tr> <td>MCH Mean Cell Hemoglobin</td> <td>25.9 pg</td> <td >26.7-33.1</td> </tr> <tr> <td> MCHC Mean Cell Hgb Conc</td> <td>29.2 g/dL</td> <td>31.1-35.3</td> </tr> <tr> <td>MCV Mean Cell Volume</td> <td>89 fL</td&gt ; <td>81-97</td> </tr> <tr> <td>MPV Mean Platelet Volume</td> <td>8.0 fL</ td> <td /> </tr> <tr> <td> Platelet Count</td> <td>250 10*3/uL</td> &lt ;td>150-400</td> </tr> <tr> <td& gt;RBC Red Blood Count</td> <td>3.09 10*6/uL</td> <td>4.11-5.63</td> </tr> <tr> <td>WBC White Blood Count</td> <td>8.6 10*3/uL& lt;/td> <td>3.7-11.1</td> </tr> < tr><th colspan="10">CBC WITH DIFFERENTIAL REFLEX MANUAL DIFF - 10/04/17 09:15</th> </tr> <tr> <td >Hemoglobin</td> <td>7.9 g/dL</td> <td >11.9-16.3</td> </tr> <tr> <td> Hematocrit</td> <td>27.1 %</td> < td>37.0-47.7</td> </tr> <tr> <td& gt;RDW Red Cell Distr Width</td> <td>19.9 %</td& gt; <td>12.3-15.9</td></tr> <tr> <td>Lymphocytes Absolute</td> <td>1.4 10*3/uL</ td> <td>1.1-3.7</td> </tr> <tr&gt ; <td>Monocytes Absolute</td> <td>0.9 10*3/uL< /td> <td>0.3-0.9</td> </tr> <tr& gt; <td>Eosinophils Absolute</td> <td>0.2 10 *3/uL</td> <td>0.0-0.5</td> </tr> <tr> <td>Basophils Absolute</td> <td&gt ;0.1 10*3/uL</td> <td>0.0-0.1</td> </tr&gt ; <tr><td>Neutrophils %</td> <td&gt ;74 %</td> <td /> </tr> <tr& gt; <td>Lymphocytes %</td> <td>14 &#37 ;</td> <td /> </tr> <tr> < td>Monocytes %</td> <td>9 %</td> <td /> </tr> <tr> <td> Eosinophils %</td> <td>2 %</td> <td /> </tr> <tr> <td>Basophils & #37;</td> <td>1 %</td> <td /> </tr> <tr> <td>Neutrophils Absolute&lt ;/td> <td>6.97 10*3/uL</td> <td>1.70-7.10< /td> </tr> <tr> <td>MCH Mean Cell Hemoglobin</td> <td>26.8 pg</td> <td> 26.7-33.1</td> </tr> <tr> <td> MCHC Mean Cell Hgb Conc</td> <td>29.2 g/dL</td> <td>31.1-35.3</td> </tr> <tr> <td>MCV Mean Cell Volume</td> <td>92 fL</td&gt ; <td>81-97</td> </tr> <tr> &lt ;td>MPV Mean Platelet Volume</td> <td>9.1 fL</td> <td /> </tr> <tr> <td> Platelet Count</td> <td>269 10*3/uL</td> &lt ;td>150-400</td> </tr> <tr> <td& gt;RBC Red Blood Count</td> <td>2.95 10*6/uL</td> <td>4.11-5.63</td> </tr> <tr> <td>WBC White Blood Count</td> <td>9.5 10*3/uL& lt;/td> <td>3.7-11.1</td> </tr> < tr> <th colspan="10">RENAL FUNCTION PANEL - 09:15</th> </tr> <tr> <td>BUN: Creatinine Ratio</td> <td>33 </td> <td&gt ;6-25</td> </tr> <tr> <td>Anion Gap</td> <td>14 </td> <td>6-18</td& gt; </tr> <tr> <td>BUN Urea Nitrogen&lt ;/td> <td>80 mg/dL</td> <td>6-24</td& gt; </tr> <tr> <td>CO2 Carbon Dioxide& lt;/td><td>22 mmol/L</td> <td>20-30</td> </tr> <tr> <td>Creatinine</td> <td>2.42 mg/dL</td> <td>0.53-1.26</td> </tr> <tr> <td>Potassium</td> <td>5.8 mmol/L</td> <td>3.5-5.1</td> </tr> <tr> <td>Sodium</td> < td>137 mmol/L</td> <td>136-145</td> </tr> <tr> <td>Chloride</td> <td>107 mmol/L</td> <td>96-111</td> </tr> <tr> <td>Phosphorous</td> <td>5.3 mg /dL</td> <td>2.5-4.9</td> </tr> & lt;tr> <td>Glucose</td> <td>179 mg/dL< /td> <td>70-99</td> </tr> <tr&gt ; <td>Calcium</td> <td>8.8 mg/dL</td> <td>8.3-10.1</td> </tr> <tr> <td>GFR Glomerular Filtration Rate</td> <td> 19.4 mL/min/1.73m*2</td> <td>>60.0</td> </tr> <tr> <td>Albumin</td> & lt;td>3.5 g/dL</td> <td>3.2-4.6</td> </ tr> <tr> <th colspan="10">IRON - 10/04/17 09:15</th> </tr> <tr> <td>Iron Level</td> <td>31 ug/dL</td> <td>21- 156</td> </tr> <tr> <th colspan=& quot;10">CBC WITH DIFFERENTIAL REFLEX MANUAL DIFF - 10/11/17 08:24</ th> </tr> <tr> <td>Hemoglobin</td > <td>8.0 g/dL</td> <td>11.9-16.3</td& gt; </tr> <tr> <td>Hematocrit</td&gt ; <td>28.0 %</td> <td>37.0-47.7</ td> </tr> <tr> <td>RDW Red Cell Distr Width</td> <td>22.0 %</td> <td& gt;12.3-15.9</td> </tr> <tr> <td> Lymphocytes Absolute</td> <td>1.7 10*3/uL</td> <td>1.1-3.7</td> </tr> <tr> & lt;td>Monocytes Absolute</td> <td>1.0 10*3/uL</td&gt ; <td>0.3-0.9</td> </tr> <tr> <td>Eosinophils Absolute</td> <td>0.3 10*3/uL&lt ;/td> <td>0.0-0.5</td> </tr> <tr> <td>Basophils Absolute</td> <td>0.1 10*3/uL </td> <td>0.0-0.1</td> </tr> < tr> <td>Neutrophils %</td> <td> 70 %</td> <td /> </tr> <tr> <td>Lymphocytes %</td> <td>17 &#37 ;</td> <td /> </tr> <tr> <td>Monocytes %</td> <td>10 %</ td> <td /> </tr> <tr> <td& gt;Eosinophils %</td> <td>3 %</td> <td /> </tr> <tr> <td> Basophils %</td> <td>1 %</td> <td /> </tr> <tr> <td> Neutrophils Absolute</td> <td>6.93 10*3/uL</td> <td>1.70-7.10</td> </tr> <tr> <td>MCH Mean Cell Hemoglobin</td> <td>27.1 pg</ td> <td>26.7-33.1</td> </tr> <tr> <td>MCHC Mean Cell Hgb Conc</td> <td>28.6 g /dL</td> <td>31.1-35.3</td> </tr> <tr> <td>MCV Mean Cell Volume</td> <td>95 fL </td> <td>81-97</td> </tr> <tr > <td>MPV Mean Platelet Volume</td> <td> 8.6 fL</td> <td /> </tr> <tr> &lt ;td>Platelet Count</td> <td>256 10*3/uL</td> & lt;td>150-400</td> </tr><tr> <td>RBC Red Blood Count</td> <td>2.95 10*6/uL</td> & lt;td>4.11-5.63</td> </tr> <tr> < td>WBC White Blood Count</td> <td>10.0 10*3/uL</td&gt ; <td>3.7-11.1</td> </tr> </tbody> </table> </text> <entry> <organizer moodCode=" EVN" classCode="BATTERY"> <templateId root=" 2.16.840.1.060624.10.20.22.4.1" /> <id nullFlavor="NA&quot ; /> <code codeSystem="local" code="160696" displayName="Prot+CreatU (Random)" /> <statusCode code=& quot;completed" /> <component> <observation moodCode="EVN" classCode="OBS"> <templateId root="2.16.840.1.444714.10.20.22.4.2" /> <id nullFlavor ="NA" /> <code codeSystem="local" code=" 252764" displayName="Creatinine, Urine" /> < statusCode code="completed" /> <effectiveTime value=& quot;[id number]" /> <value unit="mg/dL" xsi:type ="PQ" value="47.9" /> <referenceRange> <observationRange> <text>Not Estab.</text& gt; </observationRange> </referenceRange> </observation> </component> <component> &lt ;observation moodCode="EVN" classCode="OBS"> &lt ;templateId root="2.16.840.1.277707.10.20.22.4.2" /> < id nullFlavor="NA" /> <code codeSystem="local&quot ; code="033882" displayName="Protein,Total,Urine" /> <statusCode code="completed" /> <effectiveTime value="[id number]" /> <value unit="mg/dL" xsi:type="PQ" value="17.2" /> <referenceRange > <observationRange> <text>Not Estab.< /text> </observationRange> </referenceRange> </observation> </component> <component> & lt;observation moodCode="EVN" classCode="OBS"> & lt;templateId root="2.16.840.1.593760.10.20.22.4.2" /> &lt ;id nullFlavor="NA" /> <code codeSystem="local& quot; code="176758" displayName="Protein/Creat Ratio" /> <statusCode code="completed" /> <effectiveTime value ="138673717549" /> <value unit="mg/gcreat" xsi:type="PQ" value="359" /> < interpretationCode codeSystem="local" code="H" /> < referenceRange> <observationRange> <text> 0-200</text> </observationRange> </ referenceRange> </observation> </component> </ organizer> </entry> <entry> <organizer moodCode="EVN " classCode="BATTERY"> <templateId root=" 2.16.840.1.467183.10.20.22.4.1" /> <id nullFlavor="NA&quot ; /> <code codeSystem="local" code="033079" displayName="CBC With Platelet and Differential" /> < statusCode code="completed" /> <component> < observation moodCode="EVN" classCode="OBS"> < templateId root="2.16.840.1.761374.10.20.22.4.2" /> < id nullFlavor="NA" /> <code codeSystem="local&quot ; code="001883" displayName="Hematocrit (HCT)" /> < statusCode code="completed" /> <effectiveTime value=& quot;307989613587" /> <value unit="%" xsi: type="PQ" value="27.3" /> < interpretationCode codeSystem="local" code="*" /> & lt;referenceRange> <observationRange> <text& gt;37.0-47.0</text> </observationRange> </ referenceRange> </observation> </component> < component> <observation moodCode="EVN" classCode=" OBS"> <templateId root="2.16.840.1.040986.10.20.22.4.2& quot; /> <id nullFlavor="NA" /> <code codeSystem="local" code="905743" displayName=" Hemoglobin (Hgb)" /> <statusCode code="completed" /> <effectiveTime value="181785897660" /> < value unit="G/DL" xsi:type="PQ" value="8.5" /> <interpretationCode codeSystem="local" code="*&quot ; /> <referenceRange> <observationRange> <text>12.0-16.0</text> </observationRange&gt ; </referenceRange> </observation> </ component> <component> <observation moodCode="EVN& quot; classCode="OBS"> <templateId root=" 2.16.840.1.168224.10.20.22.4.2" /> <id nullFlavor="NA& quot; /> <code codeSystem="local" code="188410& quot; displayName="WBC" /> <statusCode code=" completed" /> <effectiveTime value="[id number]" /> <value unit="K/UL" xsi:type="PQ" value="9.9& quot; /> <referenceRange> <observationRange> <text>4.8-10.8</text> </observationRange > </referenceRange> </observation> </ component> </organizer> </entry> <entry> < organizer moodCode="EVN" classCode="BATTERY"> < templateId root="2.16.840.1.578130.10.20.22.4.1" /> <id nullFlavor="NA" /> <code codeSystem="local" code= "318792" displayName="Creatinine, Serum" /> < statusCode code="completed" /> <component> < observation moodCode="EVN" classCode="OBS"> < templateId root="2.16.840.1.156551.10.20.22.4.2" /> < id nullFlavor="NA" /> <code codeSystem="local&quot ; code="771065" displayName="Creatinine, Serum" /> <statusCode code="completed" /> <effectiveTime value=& quot;669610269832" /> <value unit="" xsi:type=& quot;PQ" value="2.1" /> <interpretationCode codeSystem="local" code="*" /> < referenceRange> <observationRange> <text>0.6- 1.4</text> </observationRange> </ referenceRange> </observation> </component> </ organizer> </entry> <entry> <organizer moodCode="EVN " classCode="BATTERY"> <templateId root=" 2.16.840.1.412997.10.20.22.4.1" /> <id nullFlavor="NA&quot ; /> <code codeSystem="local" code="975068" displayName="GFR, Estimated" /> <statusCode code=" completed" /> <component> <observation moodCode="EVN& quot; classCode="OBS"> <templateId root=" 2.16.840.1.056741.10.20.22.4.2" /> <id nullFlavor="NA& quot; /> <code codeSystem="local" code="081891" displayName="eGFR" /> <statusCode code="completed& quot; /> <effectiveTime value="771718961043" /> <value unit="ML/MIN" xsi:type="PQ" value=" 24.35" /> <interpretationCode codeSystem="local" code="*" /> <referenceRange> < observationRange> <text>>60</text> </observationRange> </referenceRange> </ observation> </component> </organizer> </entry> & lt;entry> <organizer moodCode="EVN" classCode="BATTERY& quot;> <templateId root="2.16.840.1.231980.10.20.22.4.1" /& gt; <id nullFlavor="NA" /> <code codeSystem=" local" code="739129" displayName="Potassium (K), Serum&quot ; /> <statusCode code="completed" /> <component& gt; <observation moodCode="EVN" classCode="OBS"&gt ; <templateId root="2.16.840.1.666992.10.20.22.4.2" /> <id nullFlavor="NA" /> <code codeSystem=& quot;local" code="798592" displayName="Potassium (K), Serum& quot; /> <statusCode code="completed" /> < effectiveTime value="843256332530" /> <value unit=&quot ;MEQ/L" xsi:type="PQ" value="5.4" /> < interpretationCode codeSystem="local" code="*" /> &lt ;referenceRange> <observationRange> <text&gt ;3.2-5.2</text> </observationRange> </ referenceRange> </observation> </component> </ organizer> </entry> <entry> <organizer moodCode="EVN " classCode="BATTERY"> <templateId root=" 2.16.840.1.248570.10.20.22.4.1" /> <id nullFlavor="NA&quot ; /> <code codeSystem="local" code="103207" displayName="PTH (Parathyroid Hormone)" /> <statusCode code=& quot;completed" /> <component> <observation moodCode="EVN" classCode="OBS"> <templateId root="2.16.840.1.951593.10.20.22.4.2" /> <id nullFlavor ="NA" /> <code codeSystem="local" code=" 721779" displayName="PTH, Intact" /> <statusCode code="completed" /> <effectiveTime value=" 703202637436" /> <value unit="PG/ML" xsi:type=& quot;PQ" value="131" /> <interpretationCode codeSystem="local" code="*" /> < referenceRange> <observationRange> <text> 9.0-78.0</text> </observationRange> </ referenceRange> </observation> </component> </ organizer> </entry> <entry> <organizer moodCode="EVN " classCode="BATTERY"> <templateId root=" 2.16.840.1.473988.10.20.22.4.1" /> <id nullFlavor="NA&quot ; /> <code codeSystem="local" code="694681" displayName="Vitamin D, 25-Hydroxy" /> <statusCodecode=& quot;completed" /> <component> <observation moodCode="EVN" classCode="OBS"> <templateId root="2.16.840.1.099005.10.20.22.4.2" /> <id nullFlavor ="NA" /> <code codeSystem="local" code=" 113071" displayName="Vitamin D,25-Hydroxy" /> < statusCode code="completed" /> <effectiveTime value=& quot;723400092585" /> <value unit="NG/ML" xsi:type=& quot;PQ" value="24.1" /> <interpretationCode codeSystem=& quot;local" code="*" /> <referenceRange> <observationRange> <text>25-80</text> </observationRange> </referenceRange> </ observation> </component> </organizer> </entry> & lt;entry> <organizer moodCode="EVN" classCode="BATTERY& quot;> <templateId root="2.16.840.1.164056.10.20.22.4.1" /& gt; <id nullFlavor="NA" /> <code codeSystem=" local" code="141332" displayName="[place]/CR ratio&quot ; /> <statusCode code="completed" /> <component& gt; <observation moodCode="EVN" classCode="OBS"&gt ; <templateId root="2.16.840.1.665868.10.20.22.4.2" /> <id nullFlavor="NA" /> <code codeSystem=& quot;local" code="780921" displayName="Creatinine, Random U& quot; /> <statusCode code="completed" /> & lt;effectiveTime value="411397113424" /> <value unit=& quot;MG/DL" xsi:type="PQ" value="47.9" /> & lt;referenceRange> <observationRange> <text& gt;NRG</text> </observationRange> </referenceRange> </observation> </component> <component> <observation moodCode="EVN" classCode="OBS"> <templateId root="2.16.840.1.075776.10..22.4.2" /> <id nullFlavor="NA" /> <code codeSystem=" local" code="323613" displayName="Protein,Total, Rdm U&quot ; /> <statusCode code="completed" /> < effectiveTime value="030102297469" /> <value unit=&quot ;MG/DL" xsi:type="PQ" value="17.2" /> < referenceRange> <observationRange> <text> NRG</text> </observationRange> </ referenceRange> </observation> </component> < component> <observation moodCode="EVN" classCode=" OBS"> <templateId root="2.16.840.1.999384.10.20.22.4.2& quot; /> <id nullFlavor="NA" /> <code codeSystem="local" code="788255" displayName="Protein/ Creat Ratio" /> <statusCode code="completed" /&gt ; <effectiveTime value="487716996699" /> < value unit="" xsi:type="PQ" value="359" /> <referenceRange> <observationRange> & lt;text>NRG</text> </observationRange> </ referenceRange> </observation> </component> </ organizer> </entry> <entry> <organizer moodCode="EVN " classCode="BATTERY"> <templateId root=" 2.16.840.1.052439.10.20.22.4.1" /> <id nullFlavor="NA&quot ; /> <code codeSystem="local" code="211487" displayName="GFR, Estimated" /> <statusCode code=" completed" /> <component> <observation moodCode=& quot;EVN" classCode="OBS"><templateId root=" 2.16.840.1.328813.10.20.22.4.2" /> <id nullFlavor="NA& quot; /> <code codeSystem="local" code="786748& quot; displayName="eGFR" /> <statusCode code=" completed" /> <effectiveTime value="840308021288" /> <value unit="ML/MIN" xsi:type="PQ" value=& quot;24.76" /> <interpretationCode codeSystem="local& quot; code="*" /> <referenceRange> < observationRange> <text>>60</text> </ observationRange> </referenceRange> </observation&gt ; </component> </organizer> </entry> <entry> <organizer moodCode="EVN" classCode="BATTERY"> <templateId root="2.16.840.1.413616.10.20.22.4.1" /> < id nullFlavor="NA" /> <code codeSystem="local" code="220110" displayName="Creatinine, Serum" /> &lt ;statusCode code="completed" /> <component> < observation moodCode="EVN" classCode="OBS"> < templateId root="2.16.840.1.419780.10.20.22.4.2" /> < id nullFlavor="NA" /> <code codeSystem="local" code= "192675" displayName="Creatinine, Serum" /> < statusCode code="completed" /> <effectiveTime value=& quot;604158458879" /> <value unit="" xsi:type=& quot;PQ" value="2.1" /> <interpretationCode codeSystem="local" code="*" /> < referenceRange> <observationRange> <text> 0.6-1.4</text> </observationRange> </ referenceRange> </observation> </component> </ organizer> </entry> <entry> <organizer moodCode="EVN " classCode="BATTERY"> <templateId root=" 2.16.840.1.759823.10.20.22.4.1" /> <id nullFlavor="NA&quot ; /> <code codeSystem="local" code="574644" displayName="CBC With Platelet and Differential" /> < statusCode code="completed" /> <component> < observation moodCode="EVN" classCode="OBS"> < templateId root="2.16.840.1.526919.10.20.22.4.2" /> < id nullFlavor="NA" /><code codeSystem="local" code=& quot;653532" displayName="Hematocrit (HCT)" /> < statusCode code="completed" /> <effectiveTime value=& quot;224221832466" /> <value unit="%" xsi: type="PQ" value="29.1" /> < interpretationCode codeSystem="local" code="*" /> <referenceRange> <observationRange> < text>37.0-47.0</text> </observationRange> &lt ;/referenceRange> </observation> </component> < component> <observation moodCode="EVN" classCode=" OBS"> <templateId root="2.16.840.1.619441.10.20.22.4.2& quot; /> <id nullFlavor="NA" /> <code codeSystem="local" code="605365" displayName=" Hemoglobin (Hgb)" /> <statusCode code="completed" /> <effectiveTime value="388245366438" /> & lt;value unit="G/DL" xsi:type="PQ" value="9.1" /& gt; <interpretationCode codeSystem="local" code="*& quot; /> <referenceRange> <observationRange> <text>12.0-16.0</text> </observationRange > </referenceRange> </observation> </ component> <component> <observation moodCode="EVN& quot; classCode="OBS"> <templateId root=" 2.16.840.1.374142.10.20.22.4.2" /> <id nullFlavor="NA&quot ; /> <code codeSystem="local" code="512114" displayName="WBC" /> <statusCode code="completed& quot;/> <effectiveTime value="030603413655" /> <value unit="K/UL" xsi:type="PQ" value="9.0& quot; /> <referenceRange> <observationRange> <text>4.8-10.8</text> </observationRange> </referenceRange> </observation> </component& gt; </organizer> </entry> <entry> <organizer moodCode="EVN" classCode="BATTERY"> <templateId root="2.16.840.1.868521.10.20.22.4.1" /> <id nullFlavor=" NA" /> <code codeSystem="local" code="524070&quot ; displayName="Potassium (K), Serum" /> <statusCode code=& quot;completed" /> <component> <observation moodCode="EVN" classCode="OBS"> <templateId root="2.16.840.1.300001.10.20.22.4.2" /> <id nullFlavor ="NA" /> <code codeSystem="local" code=" 811356" displayName="Potassium (K), Serum" /> < statusCode code="completed" /> <effectiveTime value=& quot;315157861702" /> <value unit="MEQ/L" xsi:type ="PQ" value="5.2" /> <referenceRange> <observationRange> <text>3.2-5.2</text> </observationRange> </referenceRange> < /observation> </component> </organizer> </entry> <entry> <organizer moodCode="EVN" classCode="BATTERY& quot;> <templateId root="2.16.840.1.625771.10.20.22.4.1" /& gt; <id nullFlavor="NA" /> <code codeSystem=" local" code="612280" displayName="CBC With Platelet and Differential" /> <statusCode code="completed" /> <component> <observation moodCode="EVN"classCode=& quot;OBS"> <templateId root=" 2.16.840.1.145813.10.20.22.4.2" /> <id nullFlavor="NA& quot; /> <code codeSystem="local" code="991624& quot; displayName="Hematocrit (HCT)" /> <statusCode code="completed" /> <effectiveTime value=" 156228843994" /><value unit="%" xsi:type="PQ& quot; value="30.3" /> <interpretationCode codeSystem=& quot;local" code="*" /> <referenceRange> <observationRange> <text>37.0-47.0</text>& lt;/observationRange> </referenceRange> </ observation> </component> <component> < observation moodCode="EVN" classCode="OBS"> < templateId root="2.16.840.1.817966.10.20.22.4.2" /> < id nullFlavor="NA" /> <code codeSystem="local&quot ; code="387274" displayName="Hemoglobin (Hgb)" /> <statusCode code="completed" /> <effectiveTime value="424731298565" /> <value unit="G/DL" xsi:type="PQ" value="9.5" /> < interpretationCode codeSystem="local" code="*" /> <referenceRange> <observationRange> < text>12.0-16.0</text> </observationRange> < /referenceRange> </observation> </component> &lt ;component> <observation moodCode="EVN" classCode=" OBS"> <templateId root="2.16.840.1.698838.10.20.22.4.2& quot; /> <id nullFlavor="NA" /> <code codeSystem="local" code="439365" displayName="WBC&quot ; /> <statusCode code="completed" /> < effectiveTime value="435034159527" /> <value unit=&quot ;K/UL" xsi:type="PQ" value="7.8" /> < referenceRange> <observationRange> <text>4.8-10.8& lt;/text> </observationRange> </referenceRange& gt; </observation> </component> </organizer> & lt;/entry> <entry> <organizer moodCode="EVN" classCode ="BATTERY"> <templateId root=" 2.16.840.1.498721.10.20.22.4.1" /> <id nullFlavor="NA&quot ; /> <code codeSystem="local" code="165366" displayName="Creatinine,Serum" /> <statusCode code=" completed" /> <component><observation moodCode="EVN& quot; classCode="OBS"> <templateId root=" 2.16.840.1.802177.10.20.22.4.2" /> <id nullFlavor="NA& quot; /> <code codeSystem="local" code="176111" displayName="Creatinine, Serum" /> <statusCode code=& quot;completed" /> <effectiveTime value="768233202453& quot; /> <value unit="" xsi:type="PQ" value=& quot;1.6" /> <interpretationCode codeSystem="local&quot ; code="*"/> <referenceRange> < observationRange> <text>0.6-1.4</text> & lt;/observationRange> </referenceRange> </ observation> </component> </organizer> </entry> & lt;entry> <organizer moodCode="EVN" classCode="BATTERY& quot;> <templateId root="2.16.840.1.747806.10.20.22.4.1" /& gt; <id nullFlavor="NA" /> <code codeSystem=" local" code="809274" displayName="GFR, Estimated" /> <statusCode code="completed" /> <component> & lt;observation moodCode="EVN" classCode="OBS"> & lt;templateId root="2.16.840.1.576234.10.20.22.4.2" /> &lt ;id nullFlavor="NA" /> <code codeSystem="local& quot; code="876380" displayName="eGFR" /> < statusCode code="completed" /> <effectiveTime value=& quot;980449483267" /> <value unit="ML/MIN" xsi:type=& quot;PQ" value="36.84" /> <interpretationCode codeSystem=& quot;local" code="*" /> <referenceRange> <observationRange> <text>>60</text> </observationRange> </referenceRange> </ observation> </component> </organizer> </entry> & lt;entry> <organizer moodCode="EVN" classCode="BATTERY& quot;> <templateId root="2.16.840.1.552590.10.20.22.4.1" /& gt; <id nullFlavor="NA" /> <code codeSystem=" local" code="193664" displayName="Potassium (K), Serum&quot ; /> <statusCode code="completed" /> <component& gt; <observation moodCode="EVN" classCode="OBS"&gt ; <templateId root="2.16.840.1.382602.10.20.22.4.2"/> <id nullFlavor="NA" /> <code codeSystem=& quot;local"code="626545" displayName="Potassium (K), Serum& quot; /> <statusCode code="completed" /> & lt;effectiveTime value="787848715423" /> <value unit="MEQ /L" xsi:type="PQ" value="4.5" /> < referenceRange> <observationRange> <text> 3.2-5.2</text> </observationRange> </ referenceRange> </observation> </component> </ organizer> </entry> <entry> <organizer moodCode="EVN " classCode="BATTERY"> <templateId root=" 2.16.840.1.413968.10.20.22.4.1" /> <id nullFlavor="NA&quot ; /> <code codeSystem="local" code="164588" displayName="GFR, Estimated" /> <statusCode code=" completed" /> <component> <observation moodCode=& quot;EVN" classCode="OBS"> <templateId root=" 2.16.840.1.237371.10.20.22.4.2"/> <id nullFlavor="NA& quot; /> <code codeSystem="local"code="350999&quot ; displayName="eGFR" /> <statusCode code=" completed" /> <effectiveTime value="738814503880" /> <value unit="ML/MIN" xsi:type="PQ" value=& quot;35.89" /> <interpretationCode codeSystem="local& quot; code="*" /> <referenceRange> < observationRange> <text>>60</text> </observationRange> </referenceRange> </ observation> </component> </organizer> </entry> & lt;entry> <organizer moodCode="EVN" classCode="BATTERY& quot;> <templateId root="2.16.840.1.990017.10.20.22.4.1" /& gt; <id nullFlavor="NA" /> <code codeSystem="local " code="743222" displayName="Creatinine, Serum" /> <statusCode code="completed" /> <component> <observation moodCode="EVN" classCode="OBS"> <templateId root="2.16.840.1.823977.10.20.22.4.2" /> <idnullFlavor="NA" /> <code codeSystem=" local" code="030860" displayName="Creatinine, Serum" /& gt; <statusCode code="completed"/> < effectiveTime value="498817161435" /> <value unit=&quot ;" xsi:type="PQ" value="1.6" /> < interpretationCode codeSystem="local" code="*" /> <referenceRange> <observationRange> < text>0.6-1.4</text> </observationRange> </ referenceRange> </observation> </component> </ organizer> </entry> <entry> <organizer moodCode="EVN " classCode="BATTERY"> <templateId root=" 2.16.840.1.207883.10.20.22.4.1" /> <id nullFlavor="NA&quot ; /> <code codeSystem="local" code="718134" displayName="CBC With Platelet and Differential" /> < statusCode code="completed" /> <component> < observation moodCode="EVN" classCode="OBS"> < templateId root="2.16.840.1.803906.10.20.22.4.2" /> < id nullFlavor="NA" /> <code codeSystem="local&quot ; code="164134" displayName="Hematocrit (HCT)" /> <statusCode code="completed" /> <effectiveTime value="517812234129" /> <value unit="%& quot; xsi:type="PQ" value="31.4" /> < interpretationCode codeSystem="local" code="*" /> <referenceRange> <observationRange> < text>37.0-47.0</text> </observationRange> < /referenceRange> </observation> </component> &lt ;component> <observation moodCode="EVN" classCode=" OBS"> <templateId root="2.16.840.1.391247.10.20.22.4.2& quot; /> <id nullFlavor="NA" /> <code codeSystem="local" code="680730" displayName=" Hemoglobin (Hgb)" /> <statusCode code="completed" /> <effectiveTime value="246872223011" /> & lt;value unit="G/DL" xsi:type="PQ" value="9.8" /& gt; <interpretationCode codeSystem="local" code="*& quot; /> <referenceRange> <observationRange> <text>12.0-16.0</text> </observationRange> </referenceRange> </observation> </component&gt ; <component> <observation moodCode="EVN" classCode="OBS"> <templateId root=" 2.16.840.1.216974.10.20.22.4.2" /> <id nullFlavor="NA& quot; /> <code codeSystem="local" code="323373& quot; displayName="WBC" /> <statusCode code=" completed" /> <effectiveTime value="207583155069" /> <value unit="K/UL" xsi:type="PQ" value=& quot;8.8" /> <referenceRange> < observationRange> <text>4.8-10.8</text> & lt;/observationRange> </referenceRange> </ observation> </component> </organizer> </entry> & lt;entry> <organizer moodCode="EVN" classCode="BATTERY& quot;> <templateId root="2.16.840.1.436851.10.20.22.4.1" /& gt; <id nullFlavor="NA" /> <code codeSystem=" local" code="112157" displayName="Potassium (K), Serum&quot ; /><statusCode code="completed" /> <component> <observation moodCode="EVN" classCode="OBS"> <templateId root="2.16.840.1.797448.10.20.22.4.2" /> <id nullFlavor="NA" /> <code codeSystem=" local" code="054834" displayName="Potassium (K), Serum&quot ; /> <statusCode code="completed" /> < effectiveTime value="111613567342" /> <value unit=&quot ;MEQ/L" xsi:type="PQ" value="4.7"/> < referenceRange> <observationRange> <text> 3.2-5.2</text> </observationRange> </ referenceRange> </observation> </component> </ organizer> </entry> <entry> <organizer moodCode="EVN " classCode="BATTERY"> <templateId root=" 2.16.840.1.408849.10.20.22.4.1" /> <id nullFlavor="NA&quot ; /> <code codeSystem="local" code="844028" displayName="CBC With Platelet and Differential" /> < statusCode code="completed" /> <component> < observation moodCode="EVN" classCode="OBS"> < templateId root="2.16.840.1.410257.10.20.22.4.2" /> < id nullFlavor="NA" /> <code codeSystem="local" code=& quot;629249" displayName="Hematocrit (HCT)" /> < statusCode code="completed" /> <effectiveTime value=& quot;817297211375" /> <value unit="%" xsi: type="PQ" value="31.0" /> < interpretationCode codeSystem="local" code="*" /> <referenceRange> <observationRange> < text>37.0-47.0</text> </observationRange> &lt ;/referenceRange> </observation> </component> < component> <observation moodCode="EVN" classCode=" OBS"> <templateId root="2.16.840.1.368022.10.20.22.4.2& quot; /> <id nullFlavor="NA" /> <code codeSystem="local" code="373398" displayName=" Hemoglobin (Hgb)" /> <statusCode code="completed" /> <effectiveTime value="446422126729" /> & lt;value unit="G/DL" xsi:type="PQ" value="9.6" /& gt; <interpretationCode codeSystem="local" code="*& quot; /> <referenceRange> <observationRange> <text>12.0-16.0</text> </ observationRange> </referenceRange> </observation&gt ; </component> <component> <observation moodCode=& quot;EVN" classCode="OBS"> <templateId root=" 2.16.840.1.117705.10.20.22.4.2" /> <id nullFlavor="NA& quot; /> <code codeSystem="local" code="734745& quot; displayName="WBC" /> <statusCode code=" completed" /> <effectiveTime value="133079671783" /> <value unit="K/UL" xsi:type="PQ" value=& quot;9.0" /> <referenceRange> <observationRange&gt ; <text>4.8-10.8</text> </ observationRange> </referenceRange> </observation&gt ; </component></organizer> </entry> <entry> & lt;organizer moodCode="EVN" classCode="BATTERY"> &lt ;templateId root="2.16.840.1.286911.10.20.22.4.1" /> <id nullFlavor="NA" /> <code codeSystem="local" code= "105744" displayName="Creatinine, Serum" /> < statusCode code="completed" /> <component> < observation moodCode="EVN" classCode="OBS"> < templateId root="2.16.840.1.597624.10.20.22.4.2" /> < id nullFlavor="NA" /> <code codeSystem="local&quot ; code="387051" displayName="Creatinine, Serum" /> <statusCode code="completed" /> <effectiveTime value="136776285564" /> <value unit="" xsi: type="PQ" value="1.7" /> <interpretationCode codeSystem="local" code="*" /> < referenceRange> <observationRange> <text> 0.6-1.4</text> </observationRange> </referenceRange& gt; </observation> </component> </organizer>&lt ;/entry> <entry> <organizer moodCode="EVN" classCode=& quot;BATTERY"> <templateId root=" 2.16.840.1.366519.10.20.22.4.1" /> <id nullFlavor="NA&quot ; /> <code codeSystem="local" code="259178" displayName="GFR, Estimated" /> <statusCode code=" completed" /> <component> <observation moodCode=& quot;EVN" classCode="OBS"> <templateId root=" 2.16.840.1.725029.10.20.22.4.2" /> <id nullFlavor="NA& quot; /> <code codeSystem="local" code="420141& quot; displayName="eGFR" /> <statusCode code=" completed" /> <effectiveTime value="171332395607" /> <value unit="ML/MIN" xsi:type="PQ" value=& quot;32.78" /> <interpretationCode codeSystem="local& quot; code="*" /> <referenceRange> < observationRange> <text>>60</text> </observationRange> </referenceRange> </ observation> </component> </organizer> </entry> & lt;entry> <organizer moodCode="EVN" classCode="BATTERY& quot;> <templateIdroot="2.16.840.1.271935.10.20.22.4.1" /& gt; <id nullFlavor="NA" /> <code codeSystem="local " code="967928" displayName="Potassium (K), Serum" /&gt ; <statusCode code="completed" /> <component> <observation moodCode="EVN" classCode="OBS"> <templateId root="2.16.840.1.588469.10.20.22.4.2" /> <id nullFlavor="NA" /><code codeSystem="local&quot ; code="524263" displayName="Potassium (K), Serum" /> <statusCode code="completed" /> < effectiveTime value="156994262155" /> <value unit=&quot ;MEQ/L" xsi:type="PQ" value="4.3" /> < referenceRange> <observationRange> <text>3.2-5.2& lt;/text> </observationRange> </referenceRange& gt; </observation> </component> </organizer> & lt;/entry> <entry> <organizer moodCode="EVN" classCode ="BATTERY"> <templateId root=" 2.16.840.1.927140.10.20.22.4.1" /> <id nullFlavor="NA&quot ; /> <code codeSystem="local" code="054056" displayName="Prot+CreatU (Random)" /> <statusCode code=& quot;completed" /> <component> <observation moodCode=& quot;EVN" classCode="OBS"> <templateId root=" 2.16.840.1.845670.10.20.22.4.2" /> <id nullFlavor="NA& quot; /> <code codeSystem="local" code="678728" displayName="Creatinine, Urine" /> <statusCode code=& quot;completed" /> <effectiveTime value="991334923257& quot; /> <value unit="mg/dL" xsi:type="PQ" value="71.4" /> <referenceRange> < observationRange> <text>Not Estab.</text> < /observationRange> </referenceRange> </observation& gt; </component> <component> <observation moodCode="EVN" classCode="OBS"> <templateId root="2.16.840.1.498323.10.20.22.4.2" /> <id nullFlavor ="NA" /> <code codeSystem="local" code=" 296738" displayName="Protein,Total,Urine" /> < statusCode code="completed" /> <effectiveTime value=& quot;020912366347" /> <value unit="mg/dL" xsi:type ="PQ" value="29.9" /> <referenceRange> <observationRange> <text>Not Estab.</text> </observationRange> </referenceRange> </ observation> </component> <component> < observation moodCode="EVN" classCode="OBS"> < templateId root="2.16.840.1.776828.10.20.22.4.2" /> < id nullFlavor="NA" /> <code codeSystem="local&quot ; code="382679" displayName="Protein/Creat Ratio" /> <statusCode code="completed" /> < effectiveTime value="841303767247" /> <value unit=&quot ;mg/gcreat" xsi:type="PQ" value="419" /> & lt;interpretationCode codeSystem="local" code="H" /> <referenceRange> <observationRange> & lt;text>0-200</text> </observationRange> < /referenceRange> </observation> </component> </ organizer> </entry> <entry> <organizer moodCode="EVN " classCode="BATTERY"> <templateId root=" 2.16.840.1.335089.10.20.22.4.1" /> <id nullFlavor="NA&quot ; /> <code codeSystem="local" code="ULF8469E" displayName="CBC WITH DIFFERENTIAL REFLEX MANUAL DIFF" /> < statusCode code="completed" /> <component> < observation moodCode="EVN" classCode="OBS"> < templateId root="2.16.840.1.696353.10.20.22.4.2" /> < id nullFlavor="NA" /> <code codeSystem="local" code="HGB" displayName="Hemoglobin" /> < statusCode code="completed" /> <effectiveTime value=& quot;908020515321" /> <value unit="g/dL" xsi:type= "PQ" value="11.5" /> <interpretationCode codeSystem="local" code="L" /> < referenceRange> <observationRange> <text> 11.9-16.3</text> </observationRange> </ referenceRange> </observation> </component> < component> <observation moodCode="EVN" classCode=" OBS"> <templateId root="2.16.840.1.042864.10.20.22.4.2& quot; /> <id nullFlavor="NA" /> <code codeSystem="local" code="HCT" displayName="Hematocrit& quot; /> <statusCode code="completed" /> & lt;effectiveTime value="602391476908" /> <value unit="&amp ;#37;" xsi:type="PQ" value="36.2" />< interpretationCode codeSystem="local" code="L" /> <referenceRange> <observationRange> < text>37.0-47.7</text> </observationRange> </ referenceRange> </observation> </component> < component> <observation moodCode="EVN" classCode=" OBS"> <templateId root="2.16.840.1.261008.10.20.22.4.2& quot; /> <id nullFlavor="NA" /> <code codeSystem="local" code="RDW" displayName="RDW Red Cell Distr Width" /> <statusCode code="completed" /> <effectiveTime value="134035461104" /> & lt;value unit="%" xsi:type="PQ" value="16.6& quot; /> <interpretationCode codeSystem="local" code=& quot;H" /> <referenceRange> <observationRange> <text>12.3-15.9</text> </observationRange > </referenceRange> </observation> </ component> <component> <observation moodCode="EVN&quot ; classCode="OBS"> <templateId root=" 2.16.840.1.734225.10.20.22.4.2" /> <id nullFlavor="NA& quot; /> <code codeSystem="local" code="LYMPAB& quot; displayName="Lymphocytes Absolute" /> < statusCode code="completed" /> <effectiveTime value=&quot ;233210478631" /> <value unit="10*3/uL" xsi:type=& quot;PQ" value="1.7" /> <referenceRange>< observationRange> <text>1.1-3.7</text> & lt;/observationRange> </referenceRange> </ observation> </component> <component> < observation moodCode="EVN" classCode="OBS">< templateId root="2.16.840.1.588526.10.20.22.4.2" /> < id nullFlavor="NA" /> <code codeSystem="local&quot ; code="MONOAB" displayName="Monocytes Absolute" /> <statusCode code="completed" /><effectiveTime value=& quot;628108216528" /> <value unit="10*3/uL" xsi: type="PQ" value="0.8" /> <referenceRange> <observationRange> <text>0.3-0.9</text& gt; </observationRange> </referenceRange> & lt;/observation> </component> <component> < observation moodCode="EVN" classCode="OBS"> < templateId root="[id number]" /> < id nullFlavor="NA" /> <code codeSystem="local&quot ; code="EOSAB" displayName="Eosinophils Absolute" /> <statusCode code="completed" /> < effectiveTime value="[id number]" /> <value unit=&quot ;10*3/uL" xsi:type="PQ" value="0.6" /> < interpretationCode codeSystem="local" code="H" /> <referenceRange> <observationRange> <text&gt ;0.0-0.5</text> </observationRange> </ referenceRange> </observation> </component> < component> <observation moodCode="EVN" classCode=" OBS"> <templateId root="[id number]& quot; /> <id nullFlavor="NA" /> <code codeSystem="local" code="BASOAB" displayName=" Basophils Absolute" /> <statusCode code="completed&quot ; /> <effectiveTime value="079999655502" /> <value unit="10*3/uL" xsi:type="PQ" value="0.1& quot; /> <referenceRange> <observationRange>& lt;text>0.0-0.1</text> </observationRange> & lt;/referenceRange> </observation> </component> <component> <observation moodCode="EVN" classCode=& quot;OBS"> <templateId root=" 2.16.840.1.371884.10.20.22.4.2" /> <id nullFlavor="NA& quot; /> <code codeSystem="local" code="NEUTRO& quot; displayName="Neutrophils %" /> < statusCode code="completed" /> <effectiveTime value=& quot;884977685526" /> <value unit="%" xsi: type="PQ" value="67" /> <referenceRange> <observationRange> <text /> </ observationRange> </referenceRange> </observation&gt ; </component> <component> <observation moodCode ="EVN" classCode="OBS"> <templateId root=& quot;2.16.840.1.758584.10..22.4.2" /> <id nullFlavor=&quot ;NA" /> <code codeSystem="local" code="LYMP& quot; displayName="Lymphocytes %" /> < statusCodecode="completed" /> <effectiveTime value=& quot;355470530052" /> <value unit="%" xsi:type= "PQ" value="18" /> <referenceRange> < observationRange> <text /> </ observationRange> </referenceRange> </observation&gt ; </component> <component> <observation moodCode ="EVN" classCode="OBS"> <templateId root=& quot;2.16.840.1.153640.10..22.4.2" /> <id nullFlavor=&quot ;NA" /> <code codeSystem="local" code="MONO& quot; displayName="Monocytes %" /> <statusCode code="completed" /> <effectiveTime value=" 171113435654" /> <value unit="%" xsi:type= "PQ" value="8" /> <referenceRange> <observationRange> <text /> </ observationRange> </referenceRange> </observation> </component> <component> <observation moodCode=& quot;EVN" classCode="OBS"> <templateId root=" 2.16.840.1.786645.10..22.4.2" /> <id nullFlavor="NA& quot;/> <code codeSystem="local" code="EOS" displayName="Eosinophils %" /> <statusCode code ="completed" /> <effectiveTime value="464012206389 " /> <value unit="%" xsi:type="PQ& quot; value="6" /> <referenceRange> < observationRange> <text /> </ observationRange> </referenceRange> </observation&gt ; </component> <component> <observation moodCode ="EVN" classCode="OBS"> <templateId root=& quot;2.16.840.1.417451.10.20.22.4.2" /> <id nullFlavor=&quot ;NA" /> <code codeSystem="local" code="BASO& quot; displayName="Basophils %" /> <statusCode code="completed" /> <effectiveTime value=" 399384529528" /> <value unit="%" xsi:type= "PQ" value="1" /> <referenceRange> <observationRange> <text /> </ observationRange> </referenceRange> </observation&gt ; </component> <component> <observation moodCode ="EVN" classCode="OBS"> <templateId root=& quot;2.16.840.1.345952.10.20.22.4.2"/> <id nullFlavor=" NA" /> <code codeSystem="local"code="NEUTROAB " displayName="Neutrophils Absolute" /> < statusCodecode="completed" /> <effectiveTime value=& quot;768157178072" /> <value unit="10*3/uL" xsi:type=& quot;PQ" value="6.25" /> <referenceRange> &lt ;observationRange> <text>1.70-7.10</text> </observationRange> </referenceRange> </ observation> </component> <component> < observation moodCode="EVN" classCode="OBS"> < templateId root="2.16.840.1.271431.10..22.4.2" /> < id nullFlavor="NA" /> <code codeSystem="local&quot ; code="MCH" displayName="MCH Mean Cell Hemoglobin" /> <statusCode code="completed" /> < effectiveTime value="991152452788" /> <value unit="pg& quot; xsi:type="PQ" value="29.9" /> < referenceRange> <observationRange> <text> 26.7-33.1</text> </observationRange> </ referenceRange> </observation> </component> < component> <observation moodCode="EVN" classCode=" OBS"> <templateId root="2.16.840.1.116328.10.20.22.4.2& quot; /> <id nullFlavor="NA" /> <code codeSystem="local" code="MCHC" displayName="MCHC Mean Cell Hgb Conc" /> <statusCode code="completed" /& gt; <effectiveTime value="949168611890" /> &lt ;value unit="g/dL" xsi:type="PQ" value="31.8" /&gt ; <referenceRange> <observationRange> <text>31.1-35.3</text> </observationRange> & lt;/referenceRange> </observation> </component> <component> <observation moodCode="EVN" classCode=& quot;OBS"> <templateId root=" 2.16.840.1.814885.10.20.22.4.2" /> <id nullFlavor="NA" /& gt; <code codeSystem="local" code="MCV" displayName="MCV Mean Cell Volume" /> <statusCode code= "completed" /> <effectiveTime value="327507059481& quot; /> <value unit="fL" xsi:type="PQ" value ="94" /> <referenceRange> < observationRange> <text>81-97</text> < /observationRange> </referenceRange> </observation& gt; </component> <component> <observation moodCode ="EVN" classCode="OBS"> <templateId root=" 2.16.840.1.528395.10..22.4.2" /> <id nullFlavor="NA& quot; /> <code codeSystem="local" code="MPV" displayName="MPV Mean Platelet Volume" /> <statusCode code="completed" /> <effectiveTime value=" 644292284553" /> <value unit="fL" xsi:type=" PQ" value="9.6" /> <referenceRange> <observationRange> <text /> </ observationRange> </referenceRange> </observation&gt ; </component> <component> <observation moodCode=" EVN" classCode="OBS"> <templateId root=" 2.16.840.1.930073.10.20.22.4.2" /> <id nullFlavor="NA& quot; /> <code codeSystem="local" code="PLT" displayName="Platelet Count" /> <statusCode code=" completed" /> <effectiveTime value="269837268430" /> <value unit="10*3/uL" xsi:type="PQ" value= "161" /> <referenceRange> < observationRange> <text>150-400</text> </ observationRange> </referenceRange> </observation&gt ; </component> <component> <observation moodCode ="EVN" classCode="OBS"> <templateId root=& quot;2.16.840.1.903727.10.20.22.4.2" /> <id nullFlavor=&quot ;NA" /> <code codeSystem="local" code="RBC& quot; displayName="RBC Red Blood Count" /> <statusCode code="completed" /> <effectiveTime value=" 631461037883" /> <value unit="10*6/uL" xsi:type=& quot;PQ" value="3.85" /> <interpretationCode codeSystem="local" code="L" /> <referenceRange& gt; <observationRange> <text>4.11-5.63</ text> </observationRange> </referenceRange> </observation> </component> <component> <observation moodCode="EVN" classCode="OBS"> <templateId root="2.16.840.1.778540.10.20.22.4.2" /> <id nullFlavor="NA" /> <code codeSystem=" local" code="WBC" displayName="WBC White Blood Count" / > <statusCode code="completed" /> < effectiveTime value="979139450188" /> <value unit="10 *3/uL" xsi:type="PQ" value="9.3" /> < referenceRange> <observationRange> <text> 3.7-11.1</text> </observationRange> </ referenceRange> </observation> </component> </ organizer> </entry> <entry> <organizer moodCode="EVN " classCode="BATTERY"> <templateId root=" 2.16.840.1.584164.10.20.22.4.1" /> <id nullFlavor="NA&quot ; /> <code codeSystem="local" code="RENAL" displayName="RENAL FUNCTION PANEL" /> <statusCode code=& quot;completed" /> <component> <observation moodCode="EVN" classCode="OBS"> <templateId root="2.16.840.1.217975.10.20.22.4.2" /> <id nullFlavor ="NA" /> <code codeSystem="local" code=" BUNCREAT" displayName="BUN:Creatinine Ratio" /> < statusCode code="completed" /> <effectiveTime value=& quot;836203795893" /> <value unit="" xsi:type=& quot;PQ" value="27" /> <interpretationCode codeSystem=& quot;local" code="H" /> <referenceRange> <observationRange> <text>6-25</text> </ observationRange> </referenceRange> </observation&gt ; </component> <component> <observation moodCode ="EVN" classCode="OBS"> <templateId root=& quot;2.16.840.1.275186.10.20.22.4.2" /> <id nullFlavor=&quot ;NA" /> <code codeSystem="local" code=" ANIONGAP" displayName="Anion Gap" /> <statusCode code="completed" /> <effectiveTime value=" 307769873770" /> <value unit="" xsi:type="PQ& quot; value="9" /> <referenceRange> < observationRange> <text>6-18</text> </ observationRange> </referenceRange> </observation&gt ; </component> <component> <observation moodCode ="EVN" classCode="OBS"> <templateId root=& quot;2.16.840.1.741021.10.20.22.4.2" /> <id nullFlavor=&quot ;NA" /> <code codeSystem="local" code="BUN& quot; displayName="BUN Urea Nitrogen" /> <statusCode code="completed" /> <effectiveTime value=" 244773067655" /> <value unit="mg/dL" xsi:type=& quot;PQ" value="48" /> <interpretationCode codeSystem="local" code="H" /> < referenceRange> <observationRange> <text>6-24</text > </observationRange> </referenceRange> </observation> </component> <component> &lt ;observation moodCode="EVN" classCode="OBS"> &lt ;templateId root="2.16.840.1.447673.10..22.4.2" /> < id nullFlavor="NA" /> <code codeSystem="local&quot ; code="CO2" displayName="CO2 Carbon Dioxide" /> < statusCode code="completed" /> <effectiveTime value=& quot;184805040013" /> <value unit="mmol/L" xsi: type="PQ" value="26" /> <referenceRange> <observationRange> <text>20-30</text> </observationRange> </referenceRange> & lt;/observation> </component> <component> < observation moodCode="EVN" classCode="OBS"> < templateId root="2.16.840.1.882304.10..22.4.2" /> < id nullFlavor="NA" /> <code codeSystem="local&quot ; code="CREAT" displayName="Creatinine" /> < statusCode code="completed" /> <effectiveTime value=& quot;572851944564" /><value unit="mg/dL" xsi:type="PQ& quot; value="1.75" /> <interpretationCode codeSystem=& quot;local" code="H" /> <referenceRange> <observationRange> <text>0.53-1.26</text> </observationRange> </referenceRange> &lt ;/observation> </component> <component> < observation moodCode="EVN" classCode="OBS"> < templateId root="2.16.840.1.636520.10.20.22.4.2" /> < id nullFlavor="NA" /> <code codeSystem="local&quot ; code="K" displayName="Potassium" /> < statusCode code="completed" /> <effectiveTime value=" 672513602089" /> <value unit="mmol/L" xsi:type=& quot;PQ" value="4.3" /> <referenceRange> <observationRange> <text>3.5-5.1</text> </observationRange> </referenceRange> </ observation> </component> <component> < observation moodCode="EVN" classCode="OBS"> < templateId root="2.16.840.1.659267.10.20.22.4.2" /> < id nullFlavor="NA" /> <code codeSystem="local&quot ; code="NA" displayName="Sodium" /> < statusCode code="completed" /> <effectiveTime value=& quot;971937005631" /> <value unit="mmol/L" xsi: type="PQ" value="137" /> <referenceRange> <observationRange> <text>136-145</text> </observationRange> </referenceRange> </ observation> </component> <component> < observation moodCode="EVN" classCode="OBS"> < templateId root="2.16.840.1.025879.10.20.22.4.2" /> < id nullFlavor="NA" /> <code codeSystem="local&quot ; code="CL" displayName="Chloride" /> < statusCode code="completed" /> <effectiveTime value=& quot;583774984159" /> <value unit="mmol/L" xsi: type="PQ" value="106" /> <referenceRange> <observationRange> <text>96-111</text&gt ; </observationRange> </referenceRange> & lt;/observation> </component> <component> < observation moodCode="EVN" classCode="OBS"> < templateId root="2.16.840.1.656558.10.20.22.4.2" /> < id nullFlavor="NA" /> <code codeSystem="local&quot ; code="PHOS" displayName="Phosphorous" /> < statusCode code="completed" /> <effectiveTime value=& quot;917392211498" /> <value unit="mg/dL" xsi:type ="PQ" value="4.2" /> <referenceRange> <observationRange> <text>2.5-4.9</text> </observationRange> </referenceRange> </ observation> </component> <component> < observation moodCode="EVN" classCode="OBS"> < templateId root="2.16.840.1.081581.10.20.22.4.2" /> <id nullFlavor="NA" /> <code codeSystem="local" code="GLU" displayName="Glucose" /> < statusCode code="completed" /> <effectiveTime value=& quot;873595530073" /> <value unit="mg/dL" xsi:type ="PQ" value="101" /> <interpretationCode codeSystem="local" code="H" /> < referenceRange> <observationRange> <text> 70-99</text> </observationRange></referenceRange> </observation> </component> <component> & lt;observation moodCode="EVN" classCode="OBS"> & lt;templateId root="2.16.840.1.765044.10.20.22.4.2" /> &lt ;id nullFlavor="NA" /> <code codeSystem="local&quot ; code="CA" displayName="Calcium" /> < statusCode code="completed" /> <effectiveTime value=& quot;362127442228" /> <value unit="mg/dL" xsi:type ="PQ" value="9.2" /> <referenceRange> <observationRange> <text>8.3-10.1</text> </observationRange> </referenceRange> &lt ;/observation> </component> <component> < observation moodCode="EVN" classCode="OBS"> < templateId root="2.16.840.1.322118.10.20.22.4.2" /> < id nullFlavor="NA" /> <code codeSystem="local&quot ; code="GFR" displayName="GFR Glomerular Filtration Rate" /& gt; <statusCode code="completed" /> < effectiveTime value="870114768976" /> <value unit=&quot ;mL/min/1.73m*2" xsi:type="PQ" value="28.9" /> <interpretationCode codeSystem="local" code="L" /&gt ; <referenceRange> <observationRange> <text>>60.0</text> </observationRange> </referenceRange> </observation> </component& gt; <component> <observation moodCode="EVN" classCode="OBS"> <templateId root=" 2.16.840.1.103410.10.20.22.4.2" /> <id nullFlavor="NA& quot; /> <code codeSystem="local" code="ALB" displayName="Albumin" /> <statusCode code=" completed" /> <effectiveTime value="980954400625" /> <value unit="g/dL" xsi:type="PQ" value=& quot;3.7" /> <referenceRange> <observationRange> <text>3.2-4.6</text> </observationRange& gt; </referenceRange> </observation> </ component> </organizer> </entry> <entry> < organizer moodCode="EVN" classCode="BATTERY"> < templateId root="2.16.840.1.522483.10.20.22.4.1" /> <id nullFlavor="NA" /> <code codeSystem="local" code= "IRONTIBC" displayName="IRON AND TIBC" /> < statusCode code="completed" /> <component> < observation moodCode="EVN" classCode="OBS"> < templateId root="2.16.840.1.532799.10.20.22.4.2" /> < id nullFlavor="NA" /> <code codeSystem="local&quot ; code="IRON" displayName="Iron Level" /> < statusCode code="completed" /> <effectiveTime value=& quot;249231822250" /> <value unit="ug/dL" xsi:type ="PQ" value="41" /> <referenceRange> <observationRange> <text>21-156</text> & lt;/observationRange> </referenceRange> </ observation> </component> <component> < observation moodCode="EVN" classCode="OBS"> < templateId root="2.16.840.1.920115.10.20.22.4.2" /> < id nullFlavor="NA" /> <code codeSystem="local&quot ; code="TIBC" displayName="TIBC Iron Binding Capacity" /&gt ; <statusCode code="completed" /> < effectiveTime value="514106541026" /> <value unit=&quot ;ug/dL" xsi:type="PQ" value="346" /> < referenceRange> <observationRange> <text> 250-450</text> </observationRange> </ referenceRange> </observation> </component> < component> <observation moodCode="EVN" classCode=" OBS"> <templateId root="2.16.840.1.806007.10..22.4.2& quot; /> <id nullFlavor="NA" /> <code codeSystem="local" code="FESAT" displayName="Iron, &amp ;#37; Saturation" /> <statusCode code="completed" /> <effectiveTime value="955487768526" /> & lt;value unit="%" xsi:type="PQ" value="12&quot ; /> <interpretationCode codeSystem="local" code=" L" /> <referenceRange> <observationRange> <text>15-50</text> </observationRange> </referenceRange> </observation> </component&gt ; </organizer> </entry> <entry> <organizer moodCode ="EVN" classCode="BATTERY"> <templateId root=& quot;2.16.840.1.704700.10.20.22.4.1" /> <id nullFlavor="NA& quot; /> <code codeSystem="local" code="[id number]&quot ; displayName="CBC WITH DIFFERENTIAL REFLEX MANUAL DIFF" /> & lt;statusCode code="completed" /> <component> &lt ;observation moodCode="EVN" classCode="OBS"> &lt ;templateId root="2.16.840.1.143102.10.20.22.4.2" /> < id nullFlavor="NA" /> <code codeSystem="local&quot ; code="HGB" displayName="Hemoglobin" /> < statusCode code="completed" /> <effectiveTime value=& quot;854229296240" /> <value unit="g/dL" xsi:type= "PQ" value="11.4" /> <interpretationCode codeSystem="local" code="L" /> < referenceRange> <observationRange> <text>11.9-16.3& lt;/text> </observationRange> </referenceRange& gt; </observation> </component> <component> <observation moodCode="EVN" classCode="OBS"> <templateId root="2.16.840.1.654714.10.20.22.4.2" /> & lt;id nullFlavor="NA" /> <code codeSystem="local& quot; code="HCT" displayName="Hematocrit" /> &lt ;statusCode code="completed" /> <effectiveTime value=& quot;681585959521" /> <value unit="%" xsi: type="PQ" value="35.2" /> < interpretationCode codeSystem="local" code="L" /> <referenceRange> <observationRange> <text& gt;37.0-47.7</text> </observationRange> </ referenceRange> </observation> </component> < component> <observation moodCode="EVN" classCode=" OBS"> <templateId root="2.16.840.1.248214.10.20.22.4.2& quot; /> <id nullFlavor="NA" /> <code codeSystem="local" code="RDW" displayName="RDW Red Cell Distr Width" /> <statusCode code="completed" /> <effectiveTime value="161814143261" /> & lt;value unit="%" xsi:type="PQ" value="16.8& quot; /> <interpretationCode codeSystem="local" code=& quot;H" /> <referenceRange> < observationRange> <text>12.3-15.9</text> </observationRange> </referenceRange> </observation > </component> <component> <observation moodCode="EVN" classCode="OBS"> <templateId root="2.16.840.1.383690.10.20.22.4.2" /> <id nullFlavor ="NA" /> <code codeSystem="local" code=" LYMPAB" displayName="Lymphocytes Absolute" /> < statusCode code="completed" /> <effectiveTime value=& quot;774531842266" /> <value unit="10*3/uL" xsi: type="PQ" value="1.8" /> <referenceRange> <observationRange> <text>1.1-3.7</text& gt; </observationRange> </referenceRange></ observation> </component> <component> < observation moodCode="EVN" classCode="OBS"> < templateId root="2.16.840.1.368834.10..22.4.2" /> < id nullFlavor="NA" /> <code codeSystem="local&quot ; code="MONOAB" displayName="Monocytes Absolute" /> <statusCode code="completed" /> <effectiveTime value="907181952687" /> <value unit="10*3/uL&quot ; xsi:type="PQ" value="0.8" /> < referenceRange> <observationRange> <text> 0.3-0.9</text> </observationRange> </ referenceRange> </observation> </component> < component> <observation moodCode="EVN" classCode=" OBS"> <templateId root="2.16.840.1.585318.10..22.4.2& quot; /> <id nullFlavor="NA" /> <code codeSystem="local" code="EOSAB" displayName=" Eosinophils Absolute" /> <statusCode code="completed& quot; /> <effectiveTime value="392951417784" /> <value unit="10*3/uL" xsi:type="PQ" value="0.6 " /> <interpretationCode codeSystem="local" code=" H" /> <referenceRange> <observationRange&gt ; <text>0.0-0.5</text> </observationRange> </referenceRange> </observation> </component& gt; <component> <observation moodCode="EVN" classCode="OBS"> <templateId root=" 2.16.840.1.377068.10.20.22.4.2" /> <id nullFlavor="NA" /&gt ; <code codeSystem="local" code="BASOAB" displayName="Basophils Absolute" /> <statusCode code=& quot;completed" /> <effectiveTime value="858528318889& quot; /> <value unit="10*3/uL" xsi:type="PQ" value="0.0" /> <referenceRange> < observationRange> <text>0.0-0.1</text> & lt;/observationRange> </referenceRange> </ observation> </component> <component> < observation moodCode="EVN" classCode="OBS"> < templateId root="2.16.840.1.905180.10..22.4.2" /> < idnullFlavor="NA" /> <code codeSystem="local&quot ; code="NEUTRO" displayName="Neutrophils %" /> <statusCode code="completed" /> < effectiveTime value="666704369373" /> <value unit=&quot ;%" xsi:type="PQ" value="68" /> &lt ;referenceRange> <observationRange> <text /& gt; </observationRange> </referenceRange> </observation> </component> <component> &lt ;observation moodCode="EVN" classCode="OBS"> &lt ;templateId root="2.16.840.1.318652.10..22.4.2" /> < id nullFlavor="NA" /> <code codeSystem="local&quot ; code="LYMP" displayName="Lymphocytes %" /> <statusCode code="completed" /> < effectiveTime value="745722872410" /> <value unit=&quot ;%" xsi:type="PQ" value="18" /> &lt ;referenceRange> <observationRange> <text /& gt; </observationRange> </referenceRange> </observation> </component> <component> &lt ;observation moodCode="EVN" classCode="OBS"> &lt ;templateId root="2.16.840.1.424567.10.20.22.4.2" /> < id nullFlavor="NA" /> <code codeSystem="local&quot ; code="MONO" displayName="Monocytes %" /> <statusCode code="completed" /> <effectiveTime value="688135211024" /> <value unit="%& quot; xsi:type="PQ" value="9" /> < referenceRange> <observationRange> <text /& gt; </observationRange> </referenceRange> </observation> </component> <component> &lt ;observation moodCode="EVN" classCode="OBS"> &lt ;templateId root="2.16.840.1.570019.10.20.22.4.2" /> < id nullFlavor="NA" /> <code codeSystem="local&quot ; code="EOS" displayName="Eosinophils %" /> <statusCode code="completed" /> <effectiveTime value="898267917574" /> <value unit="%" xsi:type="PQ" value="6" /> <referenceRange> <observationRange> <text /> </ observationRange> </referenceRange> </observation&gt ; </component> <component> <observation moodCode ="EVN" classCode="OBS"> <templateId root=& quot;2.16.840.1.659344.10.20.22.4.2" /> <id nullFlavor=&quot ;NA" /> <code codeSystem="local" code="BASO& quot; displayName="Basophils %" /> <statusCode code="completed" /> <effectiveTime value=" 710937124480" /> <value unit="%" xsi:type= "PQ" value="0" /> <referenceRange> <observationRange> <text /> </ observationRange> </referenceRange> </observation> </component> <component> <observation moodCode=& quot;EVN" classCode="OBS"> <templateId root=" 2.16.840.1.090644.10.20.22.4.2" /> <id nullFlavor="NA& quot; /> <code codeSystem="local" code="NEUTROAB& quot; displayName="Neutrophils Absolute" /> < statusCode code="completed" /> <effectiveTime value=& quot;466111908208" /> <value unit="10*3/uL" xsi: type="PQ" value="6.58" /> <referenceRange&gt ; <observationRange> <text>1.70-7.10</ text> </observationRange> </referenceRange> </observation> </component> <component> & lt;observation moodCode="EVN" classCode="OBS"> & lt;templateId root="2.16.840.1.485008.10.20.22.4.2" /> &lt ;id nullFlavor="NA"/> <code codeSystem="local&quot ; code="MCH" displayName="MCH MeanCell Hemoglobin" /> <statusCode code="completed" /> < effectiveTime value="930245040859" /> <value unit=&quot ;pg" xsi:type="PQ" value="30.6" /> < referenceRange> <observationRange> <text> 26.7-33.1</text> </observationRange> </ referenceRange> </observation> </component> < component> <observation moodCode="EVN" classCode="OBS& quot;> <templateId root="2.16.840.1.605640.10.20.22.4.2&quot ; /> <id nullFlavor="NA" /> <code codeSystem="local" code="MCHC" displayName="MCHC Mean CellHgb Conc" /> <statusCode code="completed" /&gt ; <effectiveTime value="310685098104" /> < value unit="g/dL" xsi:type="PQ" value="32.4" /&gt ; <referenceRange> <observationRange> <text>31.1-35.3</text> </observationRange> </referenceRange> </observation> </component&gt ; <component> <observation moodCode="EVN" classCode="OBS"> <templateId root=" 2.16.840.1.125032.10..22.4.2" /> <id nullFlavor="NA& quot; /> <code codeSystem="local" code="MCV" displayName="MCV Mean Cell Volume" /> <statusCode code= "completed" /> <effectiveTime value="672038532592& quot; /> <value unit="fL" xsi:type="PQ" value ="94" /> <referenceRange> < observationRange> <text>81-97</text> </ observationRange> </referenceRange> </observation&gt ; </component> <component> <observation moodCode ="EVN" classCode="OBS"> <templateId root=& quot;2.16.840.1.684290.10..22.4.2" /> <id nullFlavor=&quot ;NA" /> <code codeSystem="local" code="MPV& quot; displayName="MPV Mean Platelet Volume" /> < statusCode code="completed" /> <effectiveTime value=& quot;105300424485" /> <value unit="fL" xsi:type=& quot;PQ" value="9.7" /> <referenceRange> <observationRange> <text /> </ observationRange> </referenceRange> </observation&gt ; </component> <component> <observation moodCode ="EVN" classCode="OBS"> <templateId root=& quot;2.16.840.1.299698.10.20.22.4.2" /> <id nullFlavor=&quot ;NA" /> <code codeSystem="local" code="PLT& quot; displayName="Platelet Count" /> <statusCode code= "completed" /> <effectiveTime value="207737172230& quot; /> <valueunit="10*3/uL" xsi:type="PQ" value="179" /> <referenceRange> < observationRange> <text>150-400</text></ observationRange> </referenceRange> </observation&gt ; </component> <component> <observation moodCode ="EVN" classCode="OBS"> <templateId root=& quot;2.16.840.1.481971.10.20.22.4.2" /> <id nullFlavor=&quot ;NA" /> <code codeSystem="local" code="RBC& quot; displayName="RBC Red Blood Count" /> <statusCode code="completed" /> <effectiveTime value=" 626068546441" /> <value unit="10*6/uL" xsi:type=& quot;PQ" value="3.73" /> <interpretationCode codeSystem="local" code="L" /> < referenceRange> <observationRange> <text> 4.11-5.63</text> </observationRange> </ referenceRange> </observation> </component> < component> <observation moodCode="EVN" classCode=" OBS"> <templateId root="2.16.840.1.921773.10.20.22.4.2& quot; /> <id nullFlavor="NA" /> <code codeSystem="local" code="WBC" displayName="WBC White Blood Count" /> <statusCode code="completed" /&gt ; <effectiveTime value="125790729548" /> < value unit="10*3/uL" xsi:type="PQ" value="9.8" /& gt; <referenceRange> <observationRange> <text>3.7-11.1</text> </observationRange> </referenceRange> </observation> </component> </organizer> </entry> <entry> <organizer moodCode=& quot;EVN" classCode="BATTERY"> <templateId root=" 2.16.840.1.421881.10.20.22.4.1" /> <id nullFlavor="NA&quot ; /> <code codeSystem="local" code="RENAL" displayName="RENAL FUNCTION PANEL" /> <statusCode code=& quot;completed" /> <component> <observation moodCode="EVN" classCode="OBS"> <templateId root=& quot;2.16.840.1.601219.10.20.22.4.2" /> <id nullFlavor=&quot ;NA" /> <code codeSystem="local" code=" BUNCREAT" displayName="BUN:Creatinine Ratio" /> < statusCode code="completed" /> <effectiveTime value=" 768274707776" /> <value unit="" xsi:type="PQ& quot; value="32" /> <interpretationCode codeSystem=& quot;local" code="H" /> <referenceRange> <observationRange> <text>6-25</text> </observationRange> </referenceRange> </ observation> </component> <component> < observation moodCode="EVN" classCode="OBS"> < templateId root="2.16.840.1.922892.10.20.22.4.2" /> < id nullFlavor="NA" /> <code codeSystem="local&quot ; code="ANIONGAP" displayName="Anion Gap" /> &lt ;statusCode code="completed" /> <effectiveTime value=& quot;529942341879" /> <value unit="" xsi:type=& quot;PQ" value="10" /> <referenceRange> <observationRange> <text>6-18</text> </observationRange> </referenceRange> </ observation> </component> <component> < observation moodCode="EVN" classCode="OBS"> < templateId root="2.16.840.1.443725.10.20.22.4.2" /> < id nullFlavor="NA" /> <code codeSystem="local&quot ; code="BUN" displayName="BUN Urea Nitrogen" /> <statusCode code="completed" /> <effectiveTime value ="593197404355" /> <value unit="mg/dL" xsi:type= "PQ" value="65" /> <interpretationCode codeSystem="local" code="H" /> < referenceRange> <observationRange> <text> 6-24</text> </observationRange> </ referenceRange> </observation> </component> < component> <observation moodCode="EVN" classCode=" OBS"> <templateId root="2.16.840.1.021924.10.20.22.4.2& quot; /> <id nullFlavor="NA" /> <code codeSystem="local" code="CO2" displayName="CO2 Carbon Dioxide" /> <statusCode code="completed" /> <effectiveTime value="778697072592" /> < value unit="mmol/L" xsi:type="PQ" value="26" /&gt ; <referenceRange> <observationRange> < text>20-30</text> </observationRange> </ referenceRange> </observation> </component> < component> <observation moodCode="EVN" classCode=" OBS"><templateId root="2.16.840.1.211173.10.20.22.4.2" /&gt ; <id nullFlavor="NA" /> <code codeSystem=& quot;local" code="CREAT" displayName="Creatinine" /&gt ; <statusCode code="completed" /> < effectiveTime value="221830750361" /> <value unit=&quot ;mg/dL" xsi:type="PQ" value="2.04" /> < interpretationCode codeSystem="local"code="H" /> <referenceRange> <observationRange> <text> 0.53-1.26</text> </observationRange> </ referenceRange> </observation> </component> < component> <observation moodCode="EVN" classCode=" OBS"> <templateId root="2.16.840.1.956904.10.20.22.4.2& quot; /> <id nullFlavor="NA" /> <code codeSystem="local" code="K" displayName="Potassium&quot ; /> <statusCode code="completed" /> < effectiveTime value="985109462483" /> <value unit=&quot ;mmol/L" xsi:type="PQ" value="4.5" /> < referenceRange> <observationRange> <text> 3.5-5.1</text> </observationRange> </ referenceRange> </observation> </component> < component> <observation moodCode="EVN" classCode=" OBS"> <templateId root="2.16.840.1.622626.10.20.22.4.2& quot; /> <id nullFlavor="NA" /> <code codeSystem="local" code="NA" displayName="Sodium" /> <statusCode code="completed" /> < effectiveTime value="290759825580" /> <value unit=&quot ;mmol/L" xsi:type="PQ" value="137" /> < referenceRange> <observationRange> <text> 136-145</text> </observationRange> </referenceRange&gt ; </observation> </component> <component> <observation moodCode="EVN" classCode="OBS"> <templateId root="2.16.840.1.559220.10.20.22.4.2" /> <id nullFlavor="NA" /> <code codeSystem=" local" code="CL" displayName="Chloride" /> <statusCode code="completed" /> <effectiveTime value=& quot;173033986352" /> <value unit="mmol/L" xsi: type="PQ" value="106" /> <referenceRange> <observationRange> <text>96-111</text&gt ; </observationRange> </referenceRange> & lt;/observation> </component> <component> < observation moodCode="EVN" classCode="OBS"> < templateId root="2.16.840.1.902513.10.20.22.4.2" /> < id nullFlavor="NA" /> <code codeSystem="local&quot ; code="PHOS" displayName="Phosphorous" /> < statusCode code="completed" /> <effectiveTime value=& quot;502325498582" /> <value unit="mg/dL" xsi:type ="PQ" value="5.0" /> <interpretationCode codeSystem="local" code="H" /> < referenceRange> <observationRange> <text>2.5-4.9</ text> </observationRange> </referenceRange> </observation> </component> <component> <observation moodCode="EVN" classCode="OBS"> <templateId root="2.16.840.1.654839.10.20.22.4.2" /> <id nullFlavor="NA" /> <code codeSystem=" local" code="GLU" displayName="Glucose" /> <statusCode code="completed" /> <effectiveTime value ="338081124116" /> <value unit="mg/dL" xsi: type="PQ" value="123" /> <interpretationCode codeSystem="local" code="H" /> < referenceRange> <observationRange> <text> 70-99</text> </observationRange> </referenceRange&gt ; </observation> </component> <component> <observation moodCode="EVN" classCode="OBS"> <templateId root="2.16.840.1.355505.10.20.22.4.2" /> < id nullFlavor="NA" /> <code codeSystem="local&quot ; code="CA" displayName="Calcium" /> < statusCode code="completed" /> <effectiveTime value=& quot;867999694488" /> <value unit="mg/dL" xsi:type ="PQ" value="9.0" /> <referenceRange> <observationRange> <text>8.3-10.1</text> </observationRange> </referenceRange> & lt;/observation> </component> <component> < observation moodCode="EVN" classCode="OBS">< templateId root="2.16.840.1.115231.10.20.22.4.2" /> < id nullFlavor="NA" /> <code codeSystem="local&quot ; code="GFR" displayName="GFR Glomerular Filtration Rate" /& gt; <statusCode code="completed" /> < effectiveTime value="362492765244" /> <value unit=&quot ;mL/min/1.73m*2" xsi:type="PQ" value="24.0" /> <interpretationCode codeSystem="local" code="L" /&gt ; <referenceRange> <observationRange> <text>>60.0</text> </observationRange> </referenceRange> </observation> </component > <component> <observation moodCode="EVN" classCode="OBS"> <templateId root=" 2.16.840.1.012144.10.20.22.4.2" /> <id nullFlavor="NA& quot; /> <code codeSystem="local" code="ALB" displayName="Albumin" /> <statusCode code=" completed" /> <effectiveTime value="999829264591" /> <value unit="g/dL" xsi:type="PQ" value=& quot;3.8" /> <referenceRange> < observationRange> <text>3.2-4.6</text> < /observationRange> </referenceRange> </observation& gt; </component> </organizer> </entry> <entry&gt ; <organizer moodCode="EVN" classCode="BATTERY"> <templateId root="2.16.840.1.632707.10.20.22.4.1" /> & lt;id nullFlavor="NA" /> <code codeSystem="local&quot ; code="IRONTIBC" displayName="IRON AND TIBC" /> &lt ;statusCode code="completed" /> <component> < observation moodCode="EVN" classCode="OBS"> < templateId root="2.16.840.1.717209.10.20.22.4.2" /> < id nullFlavor="NA" /> <code codeSystem="local" code="IRON" displayName="Iron Level" /> < statusCode code="completed" /> <effectiveTime value=& quot;566177957409" /> <value unit="ug/dL" xsi:type ="PQ" value="55" /> <referenceRange> <observationRange><text>21-156</text> </ observationRange> </referenceRange> </observation&gt ; </component> <component> <observation moodCode ="EVN" classCode="OBS"> <templateId root=& quot;2.16.840.1.339607.10..22.4.2" /> <id nullFlavor=&quot ;NA" /> <code codeSystem="local" code="TIBC& quot; displayName="TIBC Iron Binding Capacity" /> < statusCode code="completed" /> <effectiveTime value=& quot;486376603126" /> <value unit="ug/dL" xsi:type ="PQ" value="363" /> <referenceRange> <observationRange> <text>250-450</text> </observationRange> </referenceRange> </ observation> </component> <component> < observation moodCode="EVN" classCode="OBS"> < templateId root="2.16.840.1.687978.10.20.22.4.2" /> < id nullFlavor="NA" /> <code codeSystem="local&quot ; code="FESAT" displayName="Iron, % Saturation" /&gt ; <statusCode code="completed" /> < effectiveTime value="488023617629" /> <value unit=&quot ;%" xsi:type="PQ" value="15" /> &lt ;referenceRange> <observationRange> <text&gt ;15-50</text> </observationRange> </ referenceRange> </observation> </component> </ organizer> </entry> <entry> <organizer moodCode="EVN& quot; classCode="BATTERY"> <templateId root=" 2.16.840.1.355391.10.20.22.4.1" /> <id nullFlavor="NA&quot ; /> <code codeSystem="local" code="HEMOGRAM" displayName="CBC" /> <statusCode code="completed&quot ; /> <component> <observation moodCode="EVN" classCode="OBS"> <templateId root=" 2.16.840.1.428156.10.20.22.4.2" /> <id nullFlavor="NA& quot; /> <code codeSystem="local" code="HGB" displayName="Hemoglobin" /> <statusCode code=" completed" /> <effectiveTime value="638832796240" /> <value unit="g/dL" xsi:type="PQ" value=" 10.7" /><interpretationCode codeSystem="local" code="L " /> <referenceRange> <observationRange&gt ; <text>11.9-16.3</text> </observationRange> </referenceRange> </observation> </component& gt; <component> <observation moodCode="EVN" classCode="OBS"> <templateId root=" 2.16.840.1.783787.10.20.22.4.2" /> <id nullFlavor="NA& quot; /> <code codeSystem="local" code="HCT" displayName="Hematocrit" /> <statusCode code=" completed" /> <effectiveTime value="709092606379" /> <value unit="%" xsi:type="PQ" value="33.8" /> <interpretationCode codeSystem=" local" code="L" /> <referenceRange> <observationRange> <text>37.0-47.7</text> </observationRange> </referenceRange> </ observation> </component> <component> < observation moodCode="EVN" classCode="OBS"> < templateId root="2.16.840.1.789819.10.20.22.4.2" /> < id nullFlavor="NA" /> <code codeSystem="local&quot ; code="RDW" displayName="RDW Red Cell Distr Width" /> <statusCode code="completed" /> < effectiveTime value="320101303674" /> <value unit=&quot ;%" xsi:type="PQ" value="17.4" /> & lt;interpretationCode codeSystem="local" code="H" /> <referenceRange> <observationRange> &lt ;text>12.3-15.9</text> </observationRange> & lt;/referenceRange> </observation> </component> <component> <observation moodCode="EVN" classCode=& quot;OBS"> <templateId root=" 2.16.840.1.075668.10.20.22.4.2" /> <id nullFlavor="NA& quot; /> <code codeSystem="local" code="MCH" displayName="MCH Mean Cell Hemoglobin" /> <statusCode code="completed" /> <effectiveTime value=" 209843537593" /> <value unit="pg" xsi:type=" PQ" value="30.1" /> <referenceRange> <observationRange> <text>26.7-33.1</text> & lt;/observationRange> </referenceRange> </ observation> </component> <component> < observation moodCode="EVN" classCode="OBS"> < templateId root="2.16.840.1.272016.10.20.22.4.2" /> < id nullFlavor="NA" /> <code codeSystem="local&quot ; code="MCHC" displayName="MCHC Mean Cell Hgb Conc" /> <statusCode code="completed" /> < effectiveTime value="253507565755" /> <value unit=&quot ;g/dL" xsi:type="PQ" value="31.7" /> < referenceRange> <observationRange> <text>31.1-35.3< /text> </observationRange> </referenceRange> </observation> </component> <component> <observation moodCode="EVN" classCode="OBS"> <templateId root="2.16.840.1.915255.10.20.22.4.2" /> <id nullFlavor="NA" /> <code codeSystem=" local" code="MCV" displayName="MCV Mean Cell Volume" /& gt; <statusCode code="completed" /> < effectiveTime value="632519926084" /> <value unit=&quot ;fL" xsi:type="PQ" value="95" /> < referenceRange> <observationRange> <text> 81-97</text> </observationRange> </ referenceRange> </observation> </component> < component> <observation moodCode="EVN" classCode=" OBS"> <templateId root="2.16.840.1.538071.10.20.22.4.2& quot; /> <id nullFlavor="NA" /> <code codeSystem="local" code="MPV" displayName="MPV Mean Platelet Volume" /> <statusCode code="completed" / > <effectiveTime value="217458534805"/> &lt ;value unit="fL" xsi:type="PQ" value="10.1" /> <referenceRange> <observationRange> & lt;text /> </observationRange> </referenceRange> </observation> </component> <component> & lt;observation moodCode="EVN" classCode="OBS"> & lt;templateId root="2.16.840.1.344623.10.20.22.4.2" /> &lt ;id nullFlavor="NA" /> <code codeSystem="local& quot; code="PLT" displayName="Platelet Count" /> <statusCode code="completed"/> <effectiveTime value="166983381182" /> <value unit="10*3/uL&quot ; xsi:type="PQ" value="197" /> < referenceRange> <observationRange> <text>150- 400</text> </observationRange> </ referenceRange> </observation> </component> < component> <observation moodCode="EVN" classCode=" OBS"> <templateId root="2.16.840.1.748568.10.20.22.4.2& quot; /> <id nullFlavor="NA" /> <code codeSystem="local" code="RBC" displayName="RBC Red Blood Count" /> <statusCode code="completed" /&gt ; <effectiveTime value="590428338148" /> <value unit="10*6/uL" xsi:type="PQ" value="3.56" /> <interpretationCode codeSystem="local" code="L" / > <referenceRange> <observationRange> <text>4.11-5.63</text> </observationRange> & lt;/referenceRange> </observation> </component> <component> <observation moodCode="EVN" classCode=" OBS"> <templateIdroot="2.16.840.1.182579.10.20.22.4.2& quot; /> <id nullFlavor="NA" /> <code codeSystem="local" code="WBC" displayName="WBC White Blood Count" /> <statusCode code="completed" /&gt ; <effectiveTime value="524638436944" /> < value unit="10*3/uL" xsi:type="PQ" value="9.0" /& gt; <referenceRange> <observationRange> <text>3.7-11.1</text> </observationRange> </referenceRange> </observation> </component& gt; </organizer> </entry> <entry> <organizer moodCode="EVN" classCode="BATTERY"> <templateId root= "2.16.840.1.597671.10.20.22.4.1" /> <id nullFlavor="NA " /> <code codeSystem="local" code="HEMOGRAM&quot ; displayName="CBC" /> <statusCode code="completed& quot; /> <component> <observation moodCode="EVN& quot; classCode="OBS"> <templateId root=" 2.16.840.1.883768.10.20.22.4.2" /> <id nullFlavor="NA& quot; /> <code codeSystem="local" code="HGB" displayName="Hemoglobin" /> <statusCode code=" completed" /> <effectiveTime value="102262441204" /> <value unit="g/dL" xsi:type="PQ" value=& quot;10.5" /> <interpretationCode codeSystem="local& quot; code="L" /> <referenceRange> < observationRange> <text>11.9-16.3</text> </observationRange> </referenceRange> </ observation> </component> <component> < observation moodCode="EVN" classCode="OBS"> < templateId root="2.16.840.1.378087.10.20.22.4.2" /> < id nullFlavor="NA" /> <code codeSystem="local&quot ; code="HCT" displayName="Hematocrit" /> < statusCode code="completed" /> <effectiveTime value=& quot;131533477551" /> <value unit="%" xsi: type="PQ" value="33.4" /> < interpretationCode codeSystem="local" code="L" /> <referenceRange> <observationRange> < text>37.0-47.7</text> </observationRange> &lt ;/referenceRange> </observation> </component> & lt;component> <observation moodCode="EVN" classCode=&quot ;OBS"> <templateId root="2.16.840.1.790775.10.20.22.4.2 " /> <id nullFlavor="NA" /> <code codeSystem="local" code="RDW" displayName="RDW Red Cell Distr Width" /> <statusCode code="completed" /> <effectiveTime value="547869515726" /> & lt;value unit="%" xsi:type="PQ" value="18.2& quot; /> <interpretationCode codeSystem="local" code=& quot;H" /> <referenceRange> < observationRange> <text>12.3-15.9</text> </observationRange> </referenceRange> </ observation> </component> <component> < observation moodCode="EVN" classCode="OBS">< templateId root="2.16.840.1.214393.10.20.22.4.2" /> < id nullFlavor="NA" /> <code codeSystem="local&quot ; code="MCH" displayName="MCH Mean Cell Hemoglobin" /> <statusCode code="completed" /> <effectiveTime value="743791563874" /> <value unit="pg" xsi: type="PQ" value="30.6" /> <referenceRange&gt ; <observationRange> <text>26.7-33.1</ text> </observationRange> </referenceRange> </observation> </component> <component> <observation moodCode="EVN" classCode="OBS"> <templateId root="2.16.840.1.255246.10.20.22.4.2" /> <id nullFlavor="NA" /> <code codeSystem=" local" code="MCHC" displayName="MCHCMean Cell Hgb Conc&quot ; /> <statusCode code="completed" /> < effectiveTime value="727766583786" /> <value unit=&quot ;g/dL" xsi:type="PQ" value="31.4" /> < referenceRange> <observationRange> <text> 31.1-35.3</text> </observationRange> </ referenceRange> </observation> </component> < component> <observation moodCode="EVN" classCode=" OBS"> <templateId root="2.16.840.1.274895.10.20.22.4.2& quot; /> <id nullFlavor="NA" /> <code codeSystem="local" code="MCV" displayName="MCV Mean Cell Volume" /> <statusCode code="completed" /&gt ; <effectiveTime value="508781720728" /> < value unit="fL" xsi:type="PQ" value="97" /> <referenceRange> <observationRange> < text>81-97</text> </observationRange> </ referenceRange> </observation> </component> < component> <observation moodCode="EVN" classCode=" OBS"> <templateId root="2.16.840.1.682111.10.20.22.4.2& quot; /> <id nullFlavor="NA" /> <code codeSystem="local" code="MPV" displayName="MPV Mean Platelet Volume" /> <statusCode code="completed" / > <effectiveTime value="442538357670" /> & lt;value unit="fL" xsi:type="PQ" value="9.7" /&gt ; <referenceRange> <observationRange> <text /> </observationRange> </ referenceRange> </observation> </component> < component> <observation moodCode="EVN" classCode=" OBS"> <templateId root="2.16.840.1.584079.10.20.22.4.2& quot; /> <id nullFlavor="NA" /> <code codeSystem="local" code="PLT" displayName="Platelet Count" /> <statusCode code="completed" /> <effectiveTime value="069950956567" /><value unit=" 10*3/uL" xsi:type="PQ" value="213" /> < referenceRange> <observationRange> <text> 150-400</text> </observationRange> </ referenceRange> </observation> </component> < component> <observation moodCode="EVN" classCode=" OBS"> <templateId root="2.16.840.1.300444.10.20.22.4.2& quot; /> <id nullFlavor="NA" /> <code codeSystem="local" code="RBC" displayName="RBC Red Blood Count" /> <statusCode code="completed" /&gt ; <effectiveTime value="761060940474" /> < valueunit="10*6/uL" xsi:type="PQ" value="3.43" /& gt; <interpretationCode codeSystem="local" code="L& quot; /> <referenceRange> <observationRange> <text>4.11-5.63</text> </observationRange> </referenceRange> </observation> </component > <component> <observation moodCode="EVN" classCode="OBS"> <templateId root=" 2.16.840.1.100729.10.20.22.4.2" /> <id nullFlavor="NA& quot; /> <code codeSystem="local" code="WBC" displayName="WBC White Blood Count" /> <statusCode code ="completed" /> <effectiveTime value="290734000077& quot; /> <value unit="10*3/uL" xsi:type="PQ" value="10.1" /> <referenceRange><observationRange > <text>3.7-11.1</text> </ observationRange> </referenceRange> </observation&gt ; </component> </organizer> </entry> <entry> <organizer moodCode="EVN" classCode="BATTERY"> <templateId root="2.16.840.1.175915.10.20.22.4.1" /> < id nullFlavor="NA" /> <code codeSystem="local" code="RENAL" displayName="RENAL FUNCTION PANEL" /> & lt;statusCode code="completed" /> <component> &lt ;observation moodCode="EVN" classCode="OBS"> &lt ;templateId root="2.16.840.1.130577.10.20.22.4.2" /> < id nullFlavor="NA" /> <code codeSystem="local&quot ; code="BUNCREAT" displayName="BUN:Creatinine Ratio" /> <statusCode code="completed" /> < effectiveTime value="868721429873" /> <value unit=&quot ;" xsi:type="PQ" value="25" /> < referenceRange> <observationRange> <text>6-25</ text> </observationRange> </referenceRange> </observation> </component> <component> <observation moodCode="EVN" classCode="OBS"> <templateId root="2.16.840.1.932815.10.20.22.4.2" /> <id nullFlavor="NA" /> <code codeSystem=" local" code="ANIONGAP" displayName="Anion Gap" /> <statusCode code="completed" /> < effectiveTime value="208835269370" /> <value unit=&quot ;" xsi:type="PQ" value="11" /> < referenceRange> <observationRange> <text> 6-18</text> </observationRange> </ referenceRange> </observation> </component> < component> <observation moodCode="EVN" classCode=" OBS"> <templateId root="2.16.840.1.467179.10.20.22.4.2& quot; /> <id nullFlavor="NA" /> <code codeSystem="local" code="BUN" displayName="BUN Urea Nitrogen" /> <statusCode code="completed" /> <effectiveTime value="298465906700" /> < value unit="mg/dL" xsi:type="PQ" value="44" /> <interpretationCode codeSystem="local" code="H&quot ; /> <referenceRange> <observationRange> <text>6-24</text> </observationRange> </referenceRange> </observation> </component& gt; <component> <observation moodCode="EVN" classCode="OBS"> <templateId root=" 2.16.840.1.622675.10.20.22.4.2" /> <id nullFlavor="NA& quot; /> <code codeSystem="local" code="CO2" displayName="CO2 Carbon Dioxide" /> <statusCode code=& quot;completed" /> <effectiveTime value="004637080726& quot; /> <value unit="mmol/L" xsi:type="PQ" value=& quot;28" /> <referenceRange> < observationRange> <text>20-30</text> </ observationRange> </referenceRange> </observation&gt ; </component> <component> <observation moodCode ="EVN" classCode="OBS"> <templateId root=& quot;2.16.840.1.966389.10.20.22.4.2" /> <id nullFlavor="NA& quot; /> <code codeSystem="local" code="CREAT&quot ; displayName="Creatinine" /> <statusCode code=" completed" /> <effectiveTime value="508292399344" /> <value unit="mg/dL" xsi:type="PQ" value=& quot;1.74" /> <interpretationCode codeSystem="local& quot; code="H" /> <referenceRange> < observationRange> <text>0.53-1.26</text> </observationRange> </referenceRange> </ observation> </component> <component> < observation moodCode="EVN" classCode="OBS"> < templateId root="2.16.840.1.290134.10..22.4.2" /> < id nullFlavor="NA" /> <code codeSystem="local&quot ; code="K" displayName="Potassium" /> < statusCode code="completed" /> <effectiveTime value=& quot;525480642816" /> <value unit="mmol/L" xsi: type="PQ" value="4.4" /> <referenceRange> <observationRange> <text>3.5-5.1</text> </observationRange> </referenceRange> &lt ;/observation> </component> <component> < observation moodCode="EVN" classCode="OBS"> < templateId root="2.16.840.1.331733.10..22.4.2" /> < id nullFlavor="NA" /> <code codeSystem="local&quot ; code="NA" displayName="Sodium" /><statusCode code=& quot;completed" /> <effectiveTime value="046789771745& quot; /> <value unit="mmol/L" xsi:type="PQ" value="138" /> <referenceRange> < observationRange> <text>136-145</text> & lt;/observationRange> </referenceRange> </ observation> </component> <component> < observation moodCode="EVN" classCode="OBS"> < templateId root="2.16.840.1.764732.10..22.4.2" /> < id nullFlavor="NA" /> <code codeSystem="local&quot ; code="CL" displayName="Chloride" /> < statusCode code="completed" /> <effectiveTime value=& quot;607331886302" /> <value unit="mmol/L" xsi: type="PQ" value="103" /> <referenceRange> <observationRange> <text>96-111</text&gt ; </observationRange> </referenceRange> </ observation> </component> <component> < observation moodCode="EVN" classCode="OBS"> < templateId root="2.16.840.1.500036.10.20.22.4.2" /> <id nullFlavor="NA" /> <code codeSystem="local" code="PHOS" displayName="Phosphorous" /> < statusCode code="completed"/> <effectiveTime value=& quot;738716322841" /> <value unit="mg/dL" xsi:type ="PQ" value="5.1" /> <interpretationCode codeSystem="local" code="H" /> < referenceRange> <observationRange> <text> 2.5-4.9</text> </observationRange> </ referenceRange> </observation> </component> < component> <observation moodCode="EVN" classCode=" OBS"> <templateId root="2.16.840.1.892662.10.20.22.4.2& quot; /> <id nullFlavor="NA"/> <code codeSystem="local" code="GLU" displayName="Glucose&quot ; /> <statusCode code="completed" /> < effectiveTime value="571017521205" /> <value unit=&quot ;mg/dL" xsi:type="PQ" value="129" /> < interpretationCode codeSystem="local" code="H" /> <referenceRange> <observationRange> < text>70-99</text> </observationRange> </ referenceRange> </observation> </component> < component> <observation moodCode="EVN" classCode=" OBS"> <templateId root="2.16.840.1.780979.10.20.22.4.2& quot; /> <id nullFlavor="NA" /> <code codeSystem="local" code="CA" displayName="Calcium&quot ; /> <statusCode code="completed" /> < effectiveTime value="055931655044" /> <value unit=&quot ;mg/dL" xsi:type="PQ" value="9.2" /> < referenceRange> <observationRange> <text> 8.3-10.1</text> </observationRange> </ referenceRange> </observation> </component> < component> <observation moodCode="EVN" classCode=" OBS"> <templateId root="2.16.840.1.220677.10.20.22.4.2& quot; /> <id nullFlavor="NA" /> <code codeSystem="local" code="GFR" displayName="GFR Glomerular Filtration Rate" /> <statusCode code=" completed" /> <effectiveTime value="894437756770" /> <value unit="mL/min/1.73m*2" xsi:type="PQ&quot ; value="29.1" /> <interpretationCode codeSystem="local& quot; code="L" /> <referenceRange> < observationRange> <text>>60.0</text> &lt ;/observationRange> </referenceRange> </observation& gt; </component> <component> <observation moodCode="EVN" classCode="OBS"> <templateId root="2.16.840.1.115784.10.20.22.4.2" /> <id nullFlavor=" NA" /> <code codeSystem="local" code="ALB& quot; displayName="Albumin" /> <statusCode code=" completed" /> <effectiveTime value="553955126608" /> <value unit="g/dL" xsi:type="PQ" value=& quot;3.5" /> <referenceRange><observationRange> <text>3.2-4.6</text> </observationRange&gt ; </referenceRange> </observation> </ component> </organizer> </entry> <entry> < organizer moodCode="EVN" classCode="BATTERY"> < templateId root="2.16.840.1.290690.10.20.22.4.1" /> <id nullFlavor="NA" /> <code codeSystem="local" code= "[id number]" displayName="CBC WITH DIFFERENTIAL REFLEX MANUAL DIFF& quot; /> <statusCode code="completed" /> < component> <observation moodCode="EVN" classCode=" OBS"> <templateId root="2.16.840.1.356356.10.20.22.4.2& quot; /> <id nullFlavor="NA" /> <code codeSystem="local" code="HGB" displayName="Hemoglobin& quot; /> <statusCode code="completed" /> & lt;effectiveTime value="698042755465" /> <value unit=& quot;g/dL" xsi:type="PQ" value="11.3" /> & lt;interpretationCode codeSystem="local" code="L" /> <referenceRange><observationRange> <text> 11.9-16.3</text> </observationRange> </ referenceRange> </observation> </component> < component> <observation moodCode="EVN" classCode=" OBS"> <templateId root="2.16.840.1.833160.10.20.22.4.2" /& gt; <id nullFlavor="NA" /> <code codeSystem ="local" code="HCT" displayName="Hematocrit" /&gt ; <statusCode code="completed" /> < effectiveTime value="146126628078" /> <value unit=&quot ;%" xsi:type="PQ" value="36.3" /> & lt;interpretationCode codeSystem="local" code="L" /> <referenceRange> <observationRange> < text>37.0-47.7</text> </observationRange> &lt ;/referenceRange> </observation> </component> & lt;component> <observation moodCode="EVN" classCode=&quot ;OBS"> <templateId root="2.16.840.1.537119.10.20.22.4.2 " /> <id nullFlavor="NA" /> <code codeSystem="local" code="RDW" displayName="RDW Red Cell Distr Width" /> <statusCode code="completed" /> <effectiveTime value="131328371282" /> & lt;value unit="%" xsi:type="PQ"value="17.8&quot ; /> <interpretationCode codeSystem="local" code=" H" /> <referenceRange> <observationRange&gt ; <text>12.3-15.9</text> </ observationRange> </referenceRange> </observation> </component> <component> <observation moodCode=& quot;EVN" classCode="OBS"> <templateId root=" 2.16.840.1.958368.10.20.22.4.2" /> <id nullFlavor="NA& quot; /> <code codeSystem="local" code="LYMPAB& quot; displayName="Lymphocytes Absolute" /> <statusCode code= "completed" /> <effectiveTime value="104434519505& quot; /> <value unit="10*3/uL" xsi:type="PQ" value="1.8" /> <referenceRange> < observationRange> <text>1.1-3.7</text> & lt;/observationRange> </referenceRange> </ observation> </component> <component> < observation moodCode="EVN" classCode="OBS"> < templateId root="2.16.840.1.900139.10.20.22.4.2" /> < id nullFlavor="NA" /> <code codeSystem="local&quot ; code="MONOAB" displayName="Monocytes Absolute" /> <statusCode code="completed" /> <effectiveTime value="088644051580" /> <value unit="10*3/uL&quot ; xsi:type="PQ" value="0.9" /> < referenceRange> <observationRange> <text> 0.3-0.9</text> </observationRange> </ referenceRange> </observation> </component> < component> <observation moodCode="EVN" classCode=" OBS"> <templateId root="2.16.840.1.971072.10.20.22.4.2& quot; /> <id nullFlavor="NA" /> <code codeSystem="local" code="EOSAB" displayName=" Eosinophils Absolute" /> <statusCode code="completed& quot; /> <effectiveTime value="181139610982" /> <value unit="10*3/uL" xsi:type="PQ" value="0.6& quot; /> <interpretationCode codeSystem="local" code="H& quot; /> <referenceRange> <observationRange> <text>0.0-0.5</text> </observationRange> </referenceRange> </observation> </component&gt ; <component> <observation moodCode="EVN" classCode="OBS"> <templateId root=" 2.16.840.1.959675.10.20.22.4.2" /><id nullFlavor="NA" /&gt ; <code codeSystem="local" code="BASOAB" displayName="Basophils Absolute" /> <statusCode code=& quot;completed" /> <effectiveTime value="217704154589& quot; /> <value unit="10*3/uL" xsi:type="PQ" value="0.0" /> <referenceRange> < observationRange> <text>0.0-0.1</text> & lt;/observationRange> </referenceRange> </ observation> </component> <component> < observation moodCode="EVN" classCode="OBS"> < templateId root="2.16.840.1.768264.10.20.22.4.2" /> < id nullFlavor="NA" /> <code codeSystem="local&quot ; code="NEUTRO" displayName="Neutrophils %" /> <statusCode code="completed" /> < effectiveTime value="610943457724" /> <value unit=&quot ;%" xsi:type="PQ" value="64" /> &lt ;referenceRange> <observationRange> <text /& gt; </observationRange> </referenceRange> </observation> </component> <component> < observation moodCode="EVN" classCode="OBS"> < templateId root="2.16.840.1.909592.10..22.4.2" /> < id nullFlavor="NA" /> <code codeSystem="local&quot ; code="LYMP" displayName="Lymphocytes %" /> <statusCode code="completed" /> < effectiveTime value="035329782548" /> <value unit=&quot ;%" xsi:type="PQ" value="20" /> &lt ;referenceRange> <observationRange> <text /& gt; </observationRange> </referenceRange> </observation> </component> <component> &lt ;observation moodCode="EVN" classCode="OBS"> &lt ;templateId root="2.16.840.1.768321.10..22.4.2" /> < id nullFlavor="NA" /> <code codeSystem="local&quot ; code="MONO" displayName="Monocytes %" /> <statusCode code="completed" /> <effectiveTime value="832459020629" /> <value unit="%& quot; xsi:type="PQ" value="10" /> < referenceRange> <observationRange> <text /& gt; </observationRange> </referenceRange> </observation> </component> <component> &lt ;observation moodCode="EVN" classCode="OBS"> &lt ;templateId root="2.16.840.1.360706.10.20.22.4.2" /> < id nullFlavor="NA" /> <code codeSystem="local&quot ; code="EOS" displayName="Eosinophils %" /> <statusCode code="completed" /> <effectiveTime value="058961962366" /> <value unit="%" xsi:type="PQ" value="6" /> <referenceRange> <observationRange> <text /> </ observationRange> </referenceRange> </observation&gt ; </component> <component> <observation moodCode ="EVN" classCode="OBS"> <templateId root=& quot;2.16.840.1.457173.10.20.22.4.2" /> <id nullFlavor=&quot ;NA" /> <code codeSystem="local" code="BASO& quot; displayName="Basophils %" /> <statusCode code="completed" /> <effectiveTime value=" 526028636507" /> <value unit="%" xsi:type= "PQ" value="0" /> <referenceRange> <observationRange> <text /> </ observationRange> </referenceRange> </observation> </component> <component> <observation moodCode=& quot;EVN" classCode="OBS"> <templateId root=" 2.16.840.1.576987.10.20.22.4.2" /> <id nullFlavor="NA& quot; /> <code codeSystem="local" code="NEUTROAB& quot; displayName="Neutrophils Absolute" /> < statusCode code="completed" /> <effectiveTime value=& quot;397172589725" /> <value unit="10*3/uL" xsi: type="PQ" value="6.06" /> <referenceRange&gt ; <observationRange> <text>1.70-7.10</ text> </observationRange> </referenceRange> </observation> </component> <component> & lt;observation moodCode="EVN" classCode="OBS"> & lt;templateId root="2.16.840.1.728402.10.20.22.4.2" /> &lt ;id nullFlavor="NA"/> <code codeSystem="local&quot ; code="MCH" displayName="MCH MeanCell Hemoglobin" /> <statusCode code="completed" /> < effectiveTime value="583785659255" /> <value unit=&quot ;pg" xsi:type="PQ" value="30.0" /> < referenceRange> <observationRange> <text> 26.7-33.1</text> </observationRange> </ referenceRange> </observation> </component> < component> <observation moodCode="EVN" classCode="OBS& quot;> <templateId root="2.16.840.1.822747.10.20.22.4.2&quot ; /> <id nullFlavor="NA" /> <code codeSystem="local" code="MCHC" displayName="MCHC Mean CellHgb Conc" /> <statusCode code="completed" /&gt ; <effectiveTime value="744595911532" /> < value unit="g/dL" xsi:type="PQ" value="31.1" /&gt ; <referenceRange> <observationRange> <text>31.1-35.3</text> </observationRange> </referenceRange> </observation> </component&gt ; <component> <observation moodCode="EVN" classCode="OBS"> <templateId root=" 2.16.840.1.819245.10.20.22.4.2" /> <id nullFlavor="NA& quot; /> <code codeSystem="local" code="MCV" displayName="MCV Mean Cell Volume" /> <statusCode code= "completed" /> <effectiveTime value="419692947026& quot; /> <value unit="fL" xsi:type="PQ" value ="96" /> <referenceRange> < observationRange> <text>81-97</text> </ observationRange> </referenceRange> </observation&gt ; </component> <component> <observation moodCode ="EVN" classCode="OBS"> <templateId root=& quot;2.16.840.1.722673.10..22.4.2" /> <id nullFlavor=&quot ;NA" /> <code codeSystem="local" code="MPV& quot; displayName="MPV Mean Platelet Volume" /> < statusCode code="completed" /> <effectiveTime value=& quot;202607852071" /> <value unit="fL" xsi:type=& quot;PQ" value="9.3" /> <referenceRange> <observationRange> <text /> </ observationRange> </referenceRange> </observation&gt ; </component> <component> <observation moodCode ="EVN" classCode="OBS"> <templateId root=& quot;2.16.840.1.193085.10..22.4.2" /> <id nullFlavor=&quot ;NA" /> <code codeSystem="local" code="PLT& quot; displayName="Platelet Count" /> <statusCode code= "completed" /> <effectiveTime value="533416561879& quot; /> <valueunit="10*3/uL" xsi:type="PQ" value="228" /> <referenceRange> < observationRange> <text>150-400</text></ observationRange> </referenceRange> </observation&gt ; </component> <component> <observation moodCode ="EVN" classCode="OBS"> <templateId root=& quot;2.16.840.1.359081.10.20.22.4.2" /> <id nullFlavor=&quot ;NA" /> <code codeSystem="local" code="RBC& quot; displayName="RBC Red Blood Count" /> <statusCode code="completed" /> <effectiveTime value=" 880252607833" /> <value unit="10*6/uL" xsi:type=& quot;PQ" value="3.77" /> <interpretationCode codeSystem="local" code="L" /> < referenceRange> <observationRange> <text> 4.11-5.63</text> </observationRange> </ referenceRange> </observation> </component> < component> <observation moodCode="EVN" classCode=" OBS"> <templateId root="2.16.840.1.144859.10.20.22.4.2& quot; /> <id nullFlavor="NA" /> <code codeSystem="local" code="WBC" displayName="WBC White Blood Count" /> <statusCode code="completed" /&gt ; <effectiveTime value="190404039846" /> < value unit="10*3/uL" xsi:type="PQ" value="9.4" /& gt; <referenceRange> <observationRange> <text>3.7-11.1</text> </observationRange> </referenceRange> </observation> </component> </organizer> </entry> <entry> <organizer moodCode=& quot;EVN" classCode="BATTERY"> <templateId root=" 2.16.840.1.574987.10.20.22.4.1" /> <id nullFlavor="NA&quot ; /> <code codeSystem="local" code="HEMOGRAM" displayName="CBC" /> <statusCode code="completed&quot ; /> <component> <observation moodCode="EVN" classCode="OBS"> <templateId root=" 2.16.840.1.359817.10.20.22.4.2" /> <id nullFlavor="NA& quot; /> <code codeSystem="local" code="HGB" displayName="Hemoglobin" /> <statusCode code=" completed" /> <effectiveTime value="970668550653" /> <value unit="g/dL" xsi:type="PQ" value=& quot;10.8" /> <interpretationCode codeSystem="local& quot; code="L" /> <referenceRange> < observationRange> <text>11.9-16.3</text> </observationRange> </referenceRange> </observation&gt ; </component> <component> <observation moodCode ="EVN" classCode="OBS"> <templateId root=& quot;2.16.840.1.619258.10.20.22.4.2" /> <id nullFlavor=&quot ;NA" /> <code codeSystem="local" code="HCT& quot; displayName="Hematocrit" /> <statusCode code=& quot;completed" /> <effectiveTime value="929604264257& quot; /> <value unit="%" xsi:type="PQ" value="35.3" /> <interpretationCode codeSystem="local& quot; code="L" /> <referenceRange> < observationRange> <text>37.0-47.7</text> < /observationRange> </referenceRange> </observation& gt; </component> <component> <observation moodCode="EVN" classCode="OBS"> <templateId root="2.16.840.1.077560.10.20.22.4.2" /> <id nullFlavor=&quot ;NA" /> <code codeSystem="local" code="RDW& quot; displayName="RDW Red Cell Distr Width" /> < statusCode code="completed" /> <effectiveTime value=& quot;330314746169" /> <value unit="%" xsi: type="PQ" value="17.4" /> < interpretationCode codeSystem="local" code="H" /> <referenceRange> <observationRange> < text>12.3-15.9</text> </observationRange> &lt ;/referenceRange> </observation> </component> & lt;component> <observation moodCode="EVN" classCode=&quot ;OBS"> <templateId root="2.16.840.1.359564.10.20.22.4.2 " /> <id nullFlavor="NA" /> <code codeSystem="local" code="MCH" displayName="MCH Mean Cell Hemoglobin" /> <statusCode code="completed"/& gt; <effectiveTime value="015418676529" /> &lt ;value unit="pg" xsi:type="PQ" value="30.2" /> <referenceRange> <observationRange> < text>26.7-33.1</text> </observationRange> &lt ;/referenceRange> </observation> </component> < component> <observation moodCode="EVN" classCode=" OBS"> <templateId root="2.16.840.1.220909.10.20.22.4.2&quot ; /> <id nullFlavor="NA" /> <code codeSystem="local" code="MCHC" displayName="MCHC Mean Cell Hgb Conc" /> <statusCode code="completed" /& gt; <effectiveTime value="885057006154" /> < value unit="g/dL" xsi:type="PQ" value="30.6" /&gt ; <interpretationCode codeSystem="local" code="L&quot ; /> <referenceRange> <observationRange> <text>31.1-35.3</text> </observationRange&gt ; </referenceRange> </observation> </component> <component> <observation moodCode="EVN" classCode=& quot;OBS"> <templateIdroot=" 2.16.840.1.208990.10.20.22.4.2" /> <id nullFlavor="NA& quot; /> <code codeSystem="local" code="MCV" displayName="MCV Mean CellVolume" /> <statusCode code=& quot;completed" /> <effectiveTime value="302946399507& quot; /> <value unit="fL" xsi:type="PQ" value ="99" /> <interpretationCode codeSystem="local& quot; code="H" /> <referenceRange> < observationRange> <text>81-97</text> < /observationRange> </referenceRange></observation> </component> <component> <observation moodCode=" EVN" classCode="OBS"> <templateId root=" 2.16.840.1.525829.10..22.4.2" /> <id nullFlavor="NA& quot; /> <code codeSystem="local" code="MPV" displayName="MPV Mean Platelet Volume" /><statusCode code=" completed" /> <effectiveTime value="597886934966" /> <value unit="fL" xsi:type="PQ" value=&quot ;9.8" /> <referenceRange> <observationRange > <text /> </observationRange> </ referenceRange> </observation> </component> < component> <observation moodCode="EVN" classCode=" OBS"> <templateId root="2.16.840.1.871343.10.20.22.4.2& quot; /> <id nullFlavor="NA" /> <code codeSystem="local" code="PLT" displayName="Platelet Count" /> <statusCode code="completed" /> <effectiveTime value="060775698107" /> <value unit="10*3/uL" xsi:type="PQ" value="175" /> <referenceRange> <observationRange> & lt;text>150-400</text> </observationRange> & lt;/referenceRange> </observation> </component> <component> <observation moodCode="EVN" classCode=& quot;OBS"> <templateId root=" 2.16.840.1.051589.10.20.22.4.2" /> <id nullFlavor="NA& quot; /> <code codeSystem="local" code="RBC" displayName="RBC Red Blood Count" /> <statusCode code=& quot;completed" /> <effectiveTime value="553206903000& quot; /> <value unit="10*6/uL" xsi:type="PQ" value="3.58" /> <interpretationCode codeSystem=" local" code="L" /> <referenceRange> <observationRange> <text>4.11-5.63</text> </observationRange> </referenceRange> </ observation> </component> <component> < observation moodCode="EVN" classCode="OBS"> < templateId root="2.16.840.1.039086.10..22.4.2" /> < id nullFlavor="NA" /> <code codeSystem="local&quot ; code="WBC" displayName="WBC WhiteBlood Count" /> <statusCode code="completed" /> <effectiveTime value="260879698723" /> <value unit="10*3/uL&quot ; xsi:type="PQ" value="10.2" /> < referenceRange> <observationRange> <text> 3.7-11.1</text> </observationRange> </ referenceRange> </observation> </component> </ organizer> </entry> <entry> <organizer moodCode="EVN " classCode="BATTERY"> <templateId root=" 2.16.840.1.438864.10.20.22.4.1" /> <id nullFlavor="NA&quot ; /> <code codeSystem="local" code="HEMOGRAM" displayName="CBC" /> <statusCode code="completed&quot ; /> <component> <observation moodCode="EVN" classCode="OBS"> <templateId root=" 216.840.1.631543.10.20.22.4.2" /> <id nullFlavor="NA& quot; /> <code codeSystem="local" code="HGB" displayName="Hemoglobin"/> <statusCode code=" completed" /> <effectiveTime value="656305153367" /> <value unit="g/dL" xsi:type="PQ" value=& quot;10.4" /> <interpretationCode codeSystem="local& quot; code="L" /> <referenceRange> < observationRange> <text>11.9-16.3</text> </observationRange> </referenceRange> </ observation> </component> <component> < observation moodCode="EVN" classCode="OBS"> < templateId root="2.16.840.1.479373.10.20.22.4.2" /> < id nullFlavor="NA" /> <code codeSystem="local&quot ; code="HCT" displayName="Hematocrit" /> < statusCode code="completed" /> <effectiveTime value=& quot;391066737140" /> <value unit="%" xsi:type=& quot;PQ" value="32.8" /> <interpretationCode codeSystem="local" code="L" /> < referenceRange> <observationRange> <text> 37.0-47.7</text> </observationRange> </referenceRange&gt ; </observation> </component> <component> <observation moodCode="EVN" classCode="OBS"> <templateId root="2.16.840.1.573993.10.20.22.4.2" /> <id nullFlavor="NA" /> <code codeSystem=" local" code="RDW" displayName="RDW Red Cell Distr Width&quot ; /> <statusCode code="completed" /> < effectiveTime value="164048538351" /> <value unit=&quot ;%" xsi:type="PQ" value="17.7" /> & lt;interpretationCode codeSystem="local" code="H" /> <referenceRange> <observationRange> <text&gt ;12.3-15.9</text> </observationRange> </ referenceRange> </observation> </component> < component> <observation moodCode="EVN" classCode=" OBS"> <templateId root="2.16.840.1.590551.10.20.22.4.2&quot ; /> <id nullFlavor="NA" /> <code codeSystem="local" code="MCH" displayName="MCH Mean Cell Hemoglobin" /> <statusCode code="completed" / > <effectiveTime value="414873445481" /> < value unit="pg" xsi:type="PQ" value="30.4" /> <referenceRange> <observationRange> <text>26.7-33.1</text> </observationRange> </referenceRange> </observation> </component> <component> <observation moodCode="EVN" classCode="OBS"> <templateId root=" 2.16.840.1.201371.10.20.22.4.2" /> <id nullFlavor="NA& quot; /> <code codeSystem="local" code="MCHC&quot ; displayName="MCHC Mean Cell Hgb Conc" /> <statusCode code="completed" /> <effectiveTime value="787124741410&quot ; /> <value unit="g/dL" xsi:type="PQ" value=& quot;31.7" /> <referenceRange> < observationRange> <text>31.1-35.3</text> </observationRange> </referenceRange> </ observation> </component> <component> < observation moodCode="EVN" classCode="OBS"> < templateId root="2.16.840.1.137173.10.20.22.4.2" /> < id nullFlavor="NA" /> <code codeSystem="local&quot ; code="MCV" displayName="MCV Mean Cell Volume" /> <statusCode code="completed" /> <effectiveTime value="038927727748" /> <value unit="fL" xsi: type="PQ" value="96" /> <referenceRange> <observationRange> <text>81-97</text> </observationRange> </referenceRange> & lt;/observation> </component> <component> < observation moodCode="EVN" classCode="OBS"> < templateId root="2.16.840.1.871528.10..22.4.2" /> < id nullFlavor="NA" /> <code codeSystem="local" code=& quot;MPV" displayName="MPV Mean Platelet Volume" /> & lt;statusCode code="completed" /> <effectiveTime value= "490458455280" /> <value unit="fL" xsi:type=& quot;PQ" value="9.1" /> <referenceRange> <observationRange> <text /> </ observationRange> </referenceRange> </observation&gt ; </component> <component> <observation moodCode ="EVN" classCode="OBS"> <templateId root=& quot;2.16.840.1.273302.10.20.22.4.2" /> <id nullFlavor=&quot ;NA" /> <code codeSystem="local" code="PLT& quot; displayName="Platelet Count" /> <statusCodecode=& quot;completed" /> <effectiveTime value="452531663349& quot; /> <value unit="10*3/uL" xsi:type="PQ" value ="187" /><referenceRange> <observationRange&gt ; <text>150-400</text> </observationRange > </referenceRange> </observation> </ component> <component> <observation moodCode="EVN& quot; classCode="OBS"> <templateId root=" 2.16.840.1.701047.10.20.22.4.2" /> <id nullFlavor="NA& quot; /> <code codeSystem="local" code="RBC" displayName="RBC Red Blood Count" /> <statusCode code=& quot;completed" /> <effectiveTime value="400092295724& quot; /> <value unit="10*6/uL" xsi:type="PQ" value="3.42" /> <interpretationCode codeSystem=" local" code="L" /> <referenceRange> & lt;observationRange> <text>4.11-5.63</text> </observationRange> </referenceRange> </ observation> </component> <component> < observation moodCode="EVN" classCode="OBS"> < templateId root="2.16.840.1.878356.10.20.22.4.2" /> < id nullFlavor="NA" /> <code codeSystem="local&quot ; code="WBC" displayName="WBC White Blood Count" /> <statusCode code="completed" /> <effectiveTime value="471647699156" /> <value unit="10*3/uL&quot ; xsi:type="PQ" value="9.8" /> < referenceRange> <observationRange> <text>3.7-11.1 </text> </observationRange> </referenceRange& gt; </observation> </component> </organizer> & lt;/entry> <entry> <organizer moodCode="EVN" classCode ="BATTERY"> <templateId root=" 2.16.840.1.648230.10.20.22.4.1" /> <id nullFlavor="NA" /& gt; <code codeSystem="local" code="[id number]" displayName="CBC WITH DIFFERENTIAL REFLEX MANUAL DIFF" /> < statusCode code="completed" /> <component> < observation moodCode="EVN" classCode="OBS"> < templateId root="2.16.840.1.234812.10..22.4.2" /> < id nullFlavor="NA" /> <code codeSystem="local&quot ; code="HGB" displayName="Hemoglobin" /> < statusCode code="completed" /> <effectiveTime value=& quot;409359197563" /> <value unit="g/dL" xsi:type= "PQ" value="10.2" /> <interpretationCode codeSystem="local" code="L" /> < referenceRange> <observationRange> <text>11.9- 16.3</text> </observationRange> </ referenceRange> </observation> </component> < component> <observation moodCode="EVN" classCode=" OBS"> <templateId root="2.16.840.1.596037.10.20.22.4.2&quot ; /> <id nullFlavor="NA" /> <code codeSystem="local" code="HCT" displayName="Hematocrit& quot; /> <statusCode code="completed" /> & lt;effectiveTime value="260791302945" /> <value unit=& quot;%" xsi:type="PQ" value="33.6" /> <interpretationCode codeSystem="local" code="L" /&gt ; <referenceRange> <observationRange> <text>37.0-47.7</text> </observationRange> </referenceRange> </observation> </component&gt ; <component> <observation moodCode="EVN" classCode="OBS"> <templateId root=" 2.16.840.1.377135.10.20.22.4.2" /> <id nullFlavor="NA& quot; /> <code codeSystem="local" code="RDW" displayName="RDW Red Cell Distr Width" /> <statusCode code="completed" /> <effectiveTime value=" 565257621981" /> <value unit="%" xsi:type= "PQ" value="17.4" /> <interpretationCode codeSystem="local" code="H" /> < referenceRange> <observationRange> <text> 12.3-15.9</text> </observationRange> </ referenceRange> </observation> </component> < component> <observation moodCode="EVN" classCode=" OBS"> <templateId root="2.16.840.1.758311.10.20.22.4.2& quot; /> <id nullFlavor="NA" /> <code codeSystem="local" code="LYMPAB" displayName=" Lymphocytes Absolute" /> <statusCode code="completed&quot ; /> <effectiveTime value="898102302480" /> <value unit="10*3/uL" xsi:type="PQ" value="1.6& quot; /> <referenceRange> <observationRange> <text>1.1-3.7</text> </observationRange& gt; </referenceRange> </observation> </component& gt; <component> <observation moodCode="EVN" classCode="OBS"> <templateId root=" 2.16.840.1.702650.10.20.22.4.2" /> <id nullFlavor="NA& quot; /> <code codeSystem="local" code="MONOAB& quot; displayName="Monocytes Absolute" /><statusCode code=" completed" /> <effectiveTime value="767941084938" /> <value unit="10*3/uL" xsi:type="PQ" value= "0.9"/> <referenceRange> < observationRange> <text>0.3-0.9</text> & lt;/observationRange> </referenceRange> </ observation> </component> <component> < observation moodCode="EVN" classCode="OBS"> < templateId root="2.16.840.1.079968.10.20.22.4.2" /> < id nullFlavor="NA" /> <code codeSystem="local&quot ; code="EOSAB" displayName="Eosinophils Absolute" /> <statusCode code="completed" /> < effectiveTime value="133001645409" /> <value unit=&quot ;10*3/uL" xsi:type="PQ" value="0.5" /> < referenceRange> <observationRange> <text> 0.0-0.5</text> </observationRange> </ referenceRange> </observation> </component> < component> <observation moodCode="EVN" classCode=" OBS"> <templateId root="2.16.840.1.318580.10.20.22.4.2& quot; /> <id nullFlavor="NA" /> <code codeSystem="local" code="BASOAB" displayName=" Basophils Absolute" /> <statusCodecode="completed&quot ; /> <effectiveTime value="238040317300" /> < value unit="10*3/uL" xsi:type="PQ" value="0.0" /& gt;<referenceRange> <observationRange> < text>0.0-0.1</text> </observationRange> </ referenceRange> </observation> </component> < component> <observation moodCode="EVN" classCode=" OBS"> <templateId root="2.16.840.1.785203.10.20.22.4.2& quot; /> <id nullFlavor="NA" /> <code codeSystem="local" code="NEUTRO" displayName=" Neutrophils %" /> <statusCode code="completed& quot; /> <effectiveTime value="435888931949" />< value unit="%" xsi:type="PQ" value="62" /& gt; <referenceRange> <observationRange> <text /> </observationRange> </ referenceRange> </observation> </component> < component> <observation moodCode="EVN" classCode=" OBS"> <templateId root="2.16.840.1.939667.10.20.22.4.2& quot; /> <id nullFlavor="NA" /> <code codeSystem="local" code="LYMP" displayName=" Lymphocytes %" /> <statusCode code="completed& quot; /> <effectiveTime value="917729255783" /> <value unit="%" xsi:type="PQ" value=" 20" /> <referenceRange> <observationRange> <text /> </observationRange> </ referenceRange> </observation> </component> < component> <observation moodCode="EVN" classCode=" OBS"> <templateId root="2.16.840.1.560433.10..22.4.2& quot; /> <id nullFlavor="NA" /> <code codeSystem="local" code="MONO" displayName="Monocytes& amp;#37;" /> <statusCode code="completed" /> <effectiveTime value="008527313187" /> < value unit="%" xsi:type="PQ" value="11" /& gt; <referenceRange> <observationRange> <text /> </observationRange> </ referenceRange> </observation> </component> < component> <observation moodCode="EVN" classCode=" OBS"> <templateId root="2.16.840.1.331388.10..22.4.2& quot; /> <id nullFlavor="NA" /> <code codeSystem="local" code="EOS" displayName="Eosinophils %" /> <statusCode code="completed" /> <effectiveTime value="247916567356" /> <value unit="%" xsi:type="PQ" value="7" /> <referenceRange> <observationRange> & lt;text /> </observationRange> </referenceRange& gt; </observation> </component> <component> <observation moodCode="EVN" classCode="OBS"> <templateId root="2.16.840.1.323159.10.20.22.4.2" /> <id nullFlavor="NA" /> <code codeSystem=&quot ;local" code="BASO" displayName="Basophils %" / > <statusCode code="completed" /> < effectiveTime value="800438589852" /> <value unit=&quot ;%" xsi:type="PQ" value="1" /> < referenceRange> <observationRange> <text /& gt; </observationRange> </referenceRange> </observation> </component> <component> &lt ;observation moodCode="EVN" classCode="OBS"> &lt ;templateId root="2.16.840.1.410898.10.20.22.4.2" /> < id nullFlavor="NA" /> <code codeSystem="local&quot ; code="NEUTROAB" displayName="Neutrophils Absolute" /> <statusCode code="completed" /> < effectiveTime value="556966926218" /> <value unit=&quot ;10*3/uL" xsi:type="PQ" value="5.01" /> &lt ;referenceRange> <observationRange> <text>1.70 -7.10</text> </observationRange> </ referenceRange> </observation> </component> < component> <observation moodCode="EVN" classCode=" OBS"> <templateId root="2.16.840.1.595448.10.20.22.4.2& quot; /> <id nullFlavor="NA" /> <code codeSystem="local" code="MCH" displayName="MCH Mean Cell Hemoglobin" /> <statusCode code="completed" / > <effectiveTime value="179013928604" /> & lt;value unit="pg" xsi:type="PQ" value="29.5" /&gt ; <referenceRange><observationRange> <text& gt;26.7-33.1</text> </observationRange> </ referenceRange> </observation> </component> < component> <observation moodCode="EVN" classCode=" OBS"> <templateId root="2.16.840.1.230294.10.20.22.4.2" /& gt; <id nullFlavor="NA" /> <code codeSystem ="local" code="MCHC" displayName="MCHC Mean Cell Hgb Conc" /> <statusCode code="completed" /> & lt;effectiveTime value="608792078949" /> <value unit=& quot;g/dL"xsi:type="PQ" value="30.4" /> &lt ;interpretationCode codeSystem="local" code="L" /> <referenceRange> <observationRange> < text>31.1-35.3</text> </observationRange> &lt ;/referenceRange> </observation> </component> & lt;component> <observation moodCode="EVN" classCode="OBS& quot;> <templateId root="2.16.840.1.119434.10.20.22.4.2&quot ; /> <id nullFlavor="NA" /> <code codeSystem="local" code="MCV" displayName="MCV Mean Cell Volume" /> <statusCode code="completed" /&gt ; <effectiveTime value="375915384349" /> < value unit="fL" xsi:type="PQ" value="97" /> <referenceRange> <observationRange> <text& gt;81-97</text> </observationRange> </ referenceRange> </observation> </component> < component> <observation moodCode="EVN" classCode=" OBS"> <templateId root="2.16.840.1.220828.10.20.22.4.2& quot; /> <id nullFlavor="NA" /> <code codeSystem="local" code="MPV" displayName="MPV Mean Platelet Volume" /> <statusCode code="completed" / > <effectiveTime value="562729701602" /> & lt;value unit="fL" xsi:type="PQ" value="8.8" /&gt ; <referenceRange> <observationRange> <text /> </observationRange> </ referenceRange> </observation> </component> < component> <observation moodCode="EVN" classCode=" OBS"> <templateId root="2.16.840.1.349280.10.20.22.4.2& quot;/> <id nullFlavor="NA" /> <code codeSystem="local"code="PLT" displayName="Platelet Count" /> <statusCode code="completed" /> <effectiveTime value="959365704147" /> <value unit="10*3/uL" xsi:type="PQ" value="216" /> <referenceRange> <observationRange> & lt;text>150-400</text> </observationRange> </ referenceRange> </observation> </component> < component> <observation moodCode="EVN" classCode=" OBS"> <templateId root="2.16.840.1.507143.10.20.22.4.2& quot; /><id nullFlavor="NA" /> <code codeSystem=& quot;local" code="RBC" displayName="RBC Red Blood Count&quot ; /> <statusCode code="completed" /> < effectiveTime value="111673472193" /> <value unit=&quot ;10*6/uL" xsi:type="PQ" value="3.46" /> &lt ;interpretationCode codeSystem="local" code="L" /> <referenceRange> <observationRange> < text>4.11-5.63</text> </observationRange> &lt ;/referenceRange> </observation> </component> & lt;component> <observation moodCode="EVN" classCode=&quot ;OBS"> <templateId root="2.16.840.1.984599.10.20.22.4.2" /& gt; <id nullFlavor="NA" /> <code codeSystem ="local" code="WBC" displayName="WBC White Blood Count& quot; /> <statusCode code="completed" /> < effectiveTime value="357890552147" /> <value unit=&quot ;10*3/uL" xsi:type="PQ" value="8.1" /> < referenceRange> <observationRange> <text> 3.7-11.1</text> </observationRange> </ referenceRange> </observation> </component> </ organizer> </entry> <entry> <organizer moodCode="EVN " classCode="BATTERY"> <templateId root=" 2.16.840.1.735295.10.20.22.4.1" /> <id nullFlavor="NA&quot ; /> <code codeSystem="local" code="RENAL" displayName="RENAL FUNCTION PANEL" /> <statusCode code=& quot;completed" /> <component> <observation moodCode=& quot;EVN" classCode="OBS"> <templateId root=" 2.16.840.1.121164.10.20.22.4.2" /> <id nullFlavor="NA& quot; /> <code codeSystem="local" code="BUNCREAT& quot; displayName="BUN:Creatinine Ratio" /> < statusCode code="completed" /> <effectiveTime value=& quot;369284985553" /> <value unit="" xsi:type=& quot;PQ" value="27" /> <interpretationCode codeSystem="local" code="H" /> < referenceRange> <observationRange> <text> 6-25</text> </observationRange> </ referenceRange> </observation> </component> < component> <observation moodCode="EVN" classCode=" OBS"> <templateId root="2.16.840.1.076275.10.20.22.4.2& quot; /> <id nullFlavor="NA" /> <code codeSystem ="local" code="ANIONGAP" displayName="Anion Gap" / > <statusCode code="completed" /> < effectiveTime value="400168651898" /> <value unit=&quot ;" xsi:type="PQ" value="14" /> < referenceRange> <observationRange> <text> 6-18</text> </observationRange> </ referenceRange> </observation> </component> < component> <observation moodCode="EVN" classCode=" OBS"> <templateId root="2.16.840.1.019619.10.20.22.4.2& quot; /> <id nullFlavor="NA" /> <code codeSystem="local" code="BUN" displayName="BUN Urea Nitrogen" /> <statusCode code="completed" /> <effectiveTime value="415972103316" /> < value unit="mg/dL" xsi:type="PQ" value="57" /> <interpretationCode codeSystem="local" code="H" /> <referenceRange> <observationRange> <text>6-24</text></observationRange> </ referenceRange> </observation> </component> < component> <observation moodCode="EVN" classCode=" OBS"> <templateId root="2.16.840.1.990739.10.20.22.4.2& quot; /> <id nullFlavor="NA" /> <code codeSystem="local" code="CO2" displayName="CO2 Carbon Dioxide" /> <statusCode code="completed" /> <effectiveTime value="072975630651" /> < value unit="mmol/L" xsi:type="PQ" value="24" /&gt ; <referenceRange> <observationRange> &lt ;text>20-30</text> </observationRange> </ referenceRange> </observation> </component>< component> <observation moodCode="EVN" classCode=" OBS"> <templateId root="2.16.840.1.101817.10.20.22.4.2" /> <id nullFlavor="NA" /> <code codeSystem="local" code="CREAT" displayName="Creatinine " /> <statusCode code="completed" /> & lt;effectiveTime value="779177703796" /> <value unit=& quot;mg/dL" xsi:type="PQ" value="2.13" /> & lt;interpretationCode codeSystem="local" code="H" /> <referenceRange> <observationRange> < text>0.53-1.26</text> </observationRange> &lt ;/referenceRange> </observation> </component> & lt;component> <observation moodCode="EVN" classCode=&quot ;OBS"> <templateId root="2.16.840.1.543931.10.20.22.4.2 " /> <id nullFlavor="NA" /> <code codeSystem="local" code="K" displayName="Potassium&quot ; /> <statusCode code="completed" /> < effectiveTime value="730690010803" /> <value unit=&quot ;mmol/L" xsi:type="PQ" value="4.9" /> < referenceRange> <observationRange> <text> 3.5-5.1</text> </observationRange> </ referenceRange> </observation> </component> < component> <observation moodCode="EVN" classCode=" OBS"> <templateId root="2.16.840.1.420700.10.20.22.4.2& quot; /> <id nullFlavor="NA" /> <code codeSystem="local" code="NA" displayName="Sodium" /> <statusCode code="completed" /> < effectiveTime value="872186648655" /> <value unit=&quot ;mmol/L" xsi:type="PQ" value="138" /> < referenceRange> <observationRange> <text> 136-145</text> </observationRange> </ referenceRange> </observation> </component> < component> <observation moodCode="EVN" classCode=" OBS"> <templateId root="2.16.840.1.266855.10..22.4.2& quot; /> <id nullFlavor="NA" /> <code codeSystem="local" code="CL" displayName="Chloride&quot ; /> <statusCode code="completed" /> < effectiveTime value="998145416284" /> <value unit=&quot ;mmol/L" xsi:type="PQ" value="105" /> < referenceRange> <observationRange> <text>96-111&lt ;/text> </observationRange> </referenceRange&gt ; </observation> </component> <component> <observation moodCode="EVN" classCode="OBS"> &lt ;templateId root="2.16.840.1.039482.10.20.22.4.2" /> < id nullFlavor="NA" /> <code codeSystem="local&quot ; code="PHOS" displayName="Phosphorous" /> < statusCode code="completed" /> <effectiveTime value=& quot;696255956978" /> <value unit="mg/dL" xsi:type ="PQ" value="4.9" /> <referenceRange> <observationRange> <text>2.5-4.9</text> </observationRange> </referenceRange> &lt ;/observation> </component> <component> < observation moodCode="EVN" classCode="OBS"> < templateId root="2.16.840.1.059431.10.20.22.4.2" /> < id nullFlavor="NA" /> <code codeSystem="local" code="GLU" displayName="Glucose" /> < statusCode code="completed" /> <effectiveTime value=& quot;157195421156" /> <value unit="mg/dL" xsi:type ="PQ" value="118" /> <interpretationCode codeSystem="local" code="H" /> < referenceRange> <observationRange> <text> 70-99</text> </observationRange> </ referenceRange> </observation> </component> < component> <observation moodCode="EVN" classCode=" OBS"> <templateId root="2.16.840.1.517255.10.20.22.4.2& quot; /> <id nullFlavor="NA" /> <code codeSystem="local" code="CA" displayName="Calcium&quot ; /> <statusCode code="completed" /> < effectiveTime value="455150837625" /> <value unit=&quot ;mg/dL" xsi:type="PQ" value="8.7" /> < referenceRange> <observationRange> <text> 8.3-10.1</text></observationRange> </referenceRange> </observation> </component> <component> <observation moodCode="EVN" classCode="OBS"> <templateId root="2.16.840.1.623407.10.20.22.4.2" /> <id nullFlavor="NA" /> <code codeSystem=" local" code="GFR" displayName="GFR Glomerular Filtration Rate" /> <statusCode code="completed" /> <effectiveTime value="731912108799" /> <value unit="mL/min/1.73m*2" xsi:type="PQ" value="22.6" / > <interpretationCode codeSystem="local" code="L& quot; /> <referenceRange> <observationRange> <text>>60.0</text> </ observationRange> </referenceRange> </observation&gt ; </component> <component> <observation moodCode ="EVN" classCode="OBS"> <templateId root=& quot;2.16.840.1.598286.10.20.22.4.2" /> <id nullFlavor=&quot ;NA" /> <code codeSystem="local" code="ALB& quot; displayName="Albumin" /> <statusCode code=" completed" /> <effectiveTime value="298614510389" /> <value unit="g/dL" xsi:type="PQ" value=" 3.6" /> <referenceRange> <observationRange& gt; <text>3.2-4.6</text> </ observationRange> </referenceRange> </observation&gt ; </component> </organizer> </entry> <entry> <organizer moodCode="EVN" classCode="BATTERY"> <templateId root="2.16.840.1.337377.10.20.22.4.1" /> < id nullFlavor="NA" /> <code codeSystem="local" code="IRON" displayName="IRON" /> <statusCode code="completed" /> <component> <observation moodCode="EVN" classCode="OBS"> <templateId root="2.16.840.1.044151.10.20.22.4.2" /> <id nullFlavor ="NA" /> <code codeSystem="local" code=" IRON" displayName="Iron Level" /> <statusCode code ="completed" /> <effectiveTime value="378721200253 " /> <value unit="ug/dL" xsi:type="PQ" value="24" /> <referenceRange> < observationRange> <text>21-156</text> </ observationRange> </referenceRange> </observation&gt ; </component> </organizer> </entry> <entry> <organizer moodCode="EVN" classCode="BATTERY"> <templateId root="2.16.840.1.846431.10.20.22.4.1" /> < id nullFlavor="NA" /> <code codeSystem="local" code="HEMOGRAM" displayName="CBC" /> <statusCode code="completed" /> <component> <observation moodCode="EVN" classCode="OBS"> <templateId root="2.16.840.1.303897.10.20.22.4.2" /> <id nullFlavor ="NA" /> <codecodeSystem="local" code=" HGB" displayName="Hemoglobin" /> <statusCode code= "completed" /> <effectiveTime value="037390530562& quot; /> <value unit="g/dL" xsi:type="PQ" value="10.3" /> <interpretationCode codeSystem=" local" code="L" /> <referenceRange> <observationRange> <text>11.9-16.3</text> </observationRange> </referenceRange> </ observation> </component> <component> < observation moodCode="EVN" classCode="OBS"> < templateId root="2.16.840.1.264317.10.20.22.4.2" /> < id nullFlavor="NA" /> <code codeSystem="local&quot ; code="HCT" displayName="Hematocrit" /> < statusCode code="completed" /> <effectiveTime value=& quot;888633877260" /> <value unit="%" xsi: type="PQ" value="33.0" /> < interpretationCode codeSystem="local" code="L" /> <referenceRange> <observationRange> <text> 37.0-47.7</text> </observationRange> </ referenceRange> </observation> </component>< component> <observation moodCode="EVN" classCode=" OBS"> <templateId root="2.16.840.1.433316.10.20.22.4.2" /> <id nullFlavor="NA" /> <code codeSystem="local" code="RDW" displayName="RDW Red Cell Distr Width" /> <statusCode code="completed" /> <effectiveTime value="365042117414" /> < value unit="%" xsi:type="PQ" value="16.5" /> <interpretationCode codeSystem="local" code="H& quot; /> <referenceRange> <observationRange> <text>12.3-15.9</text> </ observationRange> </referenceRange> </observation> </component> <component> <observation moodCode=& quot;EVN" classCode="OBS"> <templateId root=" 2.16.840.1.195521.10.20.22.4.2" /> <id nullFlavor="NA& quot; /> <code codeSystem="local" code="MCH" displayName="MCH Mean Cell Hemoglobin" /> <statusCode code="completed" /> <effectiveTime value=" 718375043673" /> <value unit="pg" xsi:type=" PQ" value="29.6" /> <referenceRange> <observationRange> <text>26.7-33.1</text> </observationRange> </referenceRange> </ observation> </component> <component> < observation moodCode="EVN" classCode="OBS"> < templateId root="2.16.840.1.134477.10..22.4.2" /> < id nullFlavor="NA" /> <code codeSystem="local" code="MCHC" displayName="MCHC Mean Cell Hgb Conc" /> <statusCode code="completed" /> < effectiveTime value="507565661948" /> <value unit=&quot ;g/dL" xsi:type="PQ" value="31.2" /> < referenceRange> <observationRange> <text> 31.1-35.3</text> </observationRange> </ referenceRange> </observation> </component> < component> <observation moodCode="EVN" classCode=" OBS"> <templateId root="2.16.840.1.950829.10..22.4.2& quot; /> <id nullFlavor="NA" /> <code codeSystem ="local" code="MCV" displayName="MCV Mean Cell Volume& quot; /> <statusCode code="completed" /> & lt;effectiveTime value="746271462777" /> <value unit=& quot;fL" xsi:type="PQ" value="95" /> < referenceRange> <observationRange><text>81-97</text > </observationRange> </referenceRange> </observation> </component> <component> &lt ;observation moodCode="EVN" classCode="OBS"> &lt ;templateId root="2.16.840.1.928759.10.20.22.4.2" /> < id nullFlavor="NA" /> <code codeSystem="local&quot ; code="MPV" displayName="MPV Mean Platelet Volume" /> <statusCode code="completed" /> <effectiveTime value="466606374188" /> <value unit="fL" xsi: type="PQ" value="9.1" /> <referenceRange> <observationRange> <text /> < /observationRange> </referenceRange> </observation& gt; </component> <component> <observation moodCode="EVN" classCode="OBS"> <templateId root="2.16.840.1.995057.10.20.22.4.2" /> <id nullFlavor ="NA" /> <code codeSystem="local" code=" PLT" displayName="Platelet Count" /> <statusCode code="completed" /> <effectiveTime value=" 390922928349" /> <value unit="10*3/uL" xsi:type=& quot;PQ" value="188" /> <referenceRange> <observationRange> <text>150-400</text> </observationRange> </referenceRange> </ observation> </component> <component> < observation moodCode="EVN" classCode="OBS"> < templateId root="2.16.840.1.655382.10.20.22.4.2" /> < id nullFlavor="NA" /> <code codeSystem="local&quot ; code="RBC" displayName="RBC Red Blood Count" /> <statusCode code="completed" /> <effectiveTime value="038686940577" /> <value unit="10*6/uL&quot ; xsi:type="PQ" value="3.48" /> < interpretationCode codeSystem="local" code="L" /> <referenceRange> <observationRange> < text>4.11-5.63</text> </observationRange> &lt ;/referenceRange> </observation> </component> & lt;component> <observation moodCode="EVN" classCode=&quot ;OBS"> <templateId root="2.16.840.1.852736.10.20.22.4.2 " /> <id nullFlavor="NA" /> <code codeSystem="local" code="WBC" displayName="WBC White Blood Count" /> <statusCode code="completed" /&gt ; <effectiveTime value="469758208022" /> < value unit="10*3/uL" xsi:type="PQ" value="9.7" /& gt; <referenceRange> <observationRange> <text>3.7-11.1</text> </observationRange> </referenceRange> </observation> </component> </organizer> </entry> <entry> <organizer moodCode=& quot;EVN" classCode="BATTERY"> <templateId root=" 2.16.840.1.966083.10.20.22.4.1" /> <id nullFlavor="NA&quot ; /> <code codeSystem="local" code="EJM1331" displayName="CBC WITH DIFFERENTIAL REFLEX MANUAL DIFF" /> < statusCode code="completed" /> <component> < observation moodCode="EVN" classCode="OBS"> < templateId root="2.16.840.1.843756.10..22.4.2" /> <id nullFlavor="NA" /> <code codeSystem="local" code="NRBC" displayName="Nucleated RBC" /> < statusCode code="completed" /> <effectiveTime value=& quot;433853828152" /> <value unit="/100WBCs" xsi: type="PQ" value="0" /> <referenceRange> <observationRange> <text /> </ observationRange> </referenceRange> </observation> </component> <component> <observation moodCode=& quot;EVN" classCode="OBS"> <templateId root=" 2.16.840.1.846852.10.20.22.4.2" /> <id nullFlavor="NA& quot;/> <code codeSystem="local" code="HGB" displayName="Hemoglobin" /> <statusCode code=" completed" /> <effectiveTime value="715118445809" /> <value unit="g/dL" xsi:type="PQ" value=& quot;10.0" /> <interpretationCode codeSystem="local& quot; code="L" /> <referenceRange> < observationRange> <text>11.9-16.3</text> </observationRange> </referenceRange> </observation&gt ; </component> <component> <observation moodCode ="EVN" classCode="OBS"> <templateId root=& quot;2.16.840.1.099432.10.20.22.4.2" /> <id nullFlavor=&quot ;NA" /> <code codeSystem="local" code="HCT& quot; displayName="Hematocrit" /> <statusCode code=& quot;completed" /> <effectiveTime value="651813090801& quot; /> <value unit="%" xsi:type="PQ&quot ; value="32.2" /> <interpretationCode codeSystem=" local" code="L" /> <referenceRange> <observationRange> <text>37.0-47.7</text> </observationRange> </referenceRange> </ observation></component> <component> <observation moodCode="EVN" classCode="OBS"> <templateId root="2.16.840.1.038026.10.20.22.4.2" /> <id nullFlavor=& quot;NA" /> <code codeSystem="local" code=" LYMPAB" displayName="Lymphocytes Absolute" /> < statusCode code="completed" /> <effectiveTime value=& quot;174628707195" /> <value unit="10*3/uL" xsi: type="PQ" value="1.4" /> <referenceRange> <observationRange> <text>1.1-3.7</text& gt; </observationRange> </referenceRange> </ observation> </component> <component> < observation moodCode="EVN" classCode="OBS"> < templateId root="2.16.840.1.487760.10.20.22.4.2" /> < id nullFlavor="NA" /> <code codeSystem="local&quot ; code="MONOAB" displayName="Monocytes Absolute" /> <statusCode code="completed" /> <effectiveTime value="233878317760" /> <value unit="10*3/uL&quot ; xsi:type="PQ" value="0.9" /> < referenceRange> <observationRange> <text> 0.3-0.9</text> </observationRange> </ referenceRange> </observation> </component> < component> <observation moodCode="EVN" classCode=" OBS"> <templateId root="2.16.840.1.071397.10.20.22.4.2& quot; /> <id nullFlavor="NA" /> <code codeSystem="local" code="EOSAB" displayName=" Eosinophils Absolute" /> <statusCode code="completed& quot;/> <effectiveTime value="596763799821" /> <value unit="10*3/uL" xsi:type="PQ" value="0.6& quot; /> <interpretationCode codeSystem="local" code=& quot;H" /> <referenceRange> < observationRange> <text>0.0-0.5</text> & lt;/observationRange> </referenceRange> </observation& gt; </component> <component> <observation moodCode="EVN" classCode="OBS"> <templateId root="2.16.840.1.610606.10.20.22.4.2" /> <id nullFlavor ="NA" /> <code codeSystem="local" code=" BASOAB" displayName="Basophils Absolute" /> < statusCode code="completed" /> <effectiveTime value=& quot;821974002183" /> <value unit="10*3/uL" xsi: type="PQ" value="0.1" /> <referenceRange> <observationRange> <text>0.0-0.1</text& gt; </observationRange></referenceRange> </ observation> </component> <component> < observation moodCode="EVN" classCode="OBS"> < templateId root="2.16.840.1.355303.10.20.22.4.2" /> < id nullFlavor="NA" /> <code codeSystem="local&quot ; code="NEUTRO" displayName="Neutrophils%" /> <statusCode code="completed" /> < effectiveTime value="410932022274" /> <value unit=&quot ;%" xsi:type="PQ" value="68" /> &lt ;referenceRange> <observationRange> <text /& gt; </observationRange> </referenceRange> </observation> </component> <component> &lt ;observation moodCode="EVN" classCode="OBS"> &lt ;templateId root="2.16.840.1.242003.10.20.22.4.2" /> < id nullFlavor="NA" /> <code codeSystem="local&quot ; code="LYMP" displayName="Lymphocytes %" /> <statusCode code="completed" /> <effectiveTime value="400939045643" /> <value unit="%& quot; xsi:type="PQ" value="15" /> < referenceRange> <observationRange> <text /& gt; </observationRange> </referenceRange> </observation> </component> <component> &lt ;observation moodCode="EVN"classCode="OBS"> < templateId root="2.16.840.1.588778.10..22.4.2" /> < id nullFlavor="NA" /> <code codeSystem="local&quot ; code="MONO" displayName="Monocytes %" /> <statusCode code="completed" /> <effectiveTime value="641477581000" /> <value unit="%" xsi: type="PQ" value="10" /> <referenceRange> <observationRange> <text /> </ observationRange> </referenceRange> </observation&gt ; </component> <component> <observation moodCode ="EVN" classCode="OBS"> <templateId root=& quot;2.16.840.1.952948.10.20.22.4.2" /> <id nullFlavor=&quot ;NA" /> <code codeSystem="local" code="EOS& quot; displayName="Eosinophils %" /> < statusCode code="completed" /> <effectiveTime value=& quot;062314011281" /> <value unit="%" xsi: type="PQ" value="7" /> <referenceRange> <observationRange> <text /> </ observationRange> </referenceRange> </observation> </component> <component> <observation moodCode=" EVN" classCode="OBS"> <templateId root=" 2.16.840.1.758909.10.20.22.4.2" /> <id nullFlavor="NA& quot; /> <code codeSystem="local" code="BASO&quot ; displayName="Basophils %" /> <statusCode code ="completed" /> <effectiveTime value="005780253806 " /> <value unit="%" xsi:type="PQ& quot; value="1" /> <referenceRange> < observationRange> <text /> </ observationRange> </referenceRange> </observation&gt ; </component> <component> <observation moodCode ="EVN" classCode="OBS"> <templateId root=& quot;2.16.840.1.155472.10.20.22.4.2" /> <id nullFlavor=&quot ;NA" /> <code codeSystem="local" code=" NEUTROAB" displayName="Neutrophils Absolute" /> < statusCode code="completed" /> <effectiveTime value=& quot;612544397906" /> <value unit="10*3/uL" xsi: type="PQ" value="6.29" /> <referenceRange&gt ; <observationRange> <text>1.70-7.10</ text> </observationRange> </referenceRange> </observation> </component> <component> <observation moodCode="EVN" classCode="OBS"> <templateId root="2.16.840.1.539085.10.20.22.4.2" /> & lt;id nullFlavor="NA" /> <code codeSystem="local& quot; code="MCH" displayName="MCH Mean Cell Hemoglobin" /&gt ; <statusCode code="completed" /> < effectiveTime value="743804023748" /> <value unit=&quot ;pg" xsi:type="PQ" value="29.2" /> < referenceRange> <observationRange> <text> 26.7-33.1</text> </observationRange> </ referenceRange> </observation> </component> < component> <observation moodCode="EVN" classCode=" OBS"> <templateId root="2.16.840.1.787466.10.20.22.4.2& quot; /> <id nullFlavor="NA" /> <code codeSystem="local" code="MCHC" displayName="MCHC Mean Cell Hgb Conc" /> <statusCode code="completed" /& gt; <effectiveTime value="336616130575" /> &lt ;value unit="g/dL" xsi:type="PQ" value="31.1" /&gt ; <referenceRange> <observationRange> <text>31.1-35.3</text> </observationRange> </referenceRange> </observation> </component&gt ; <component> <observation moodCode="EVN" classCode="OBS"> <templateId root=" 2.16.840.1.977705.10.20.22.4.2" /> <id nullFlavor="NA& quot; /> <code codeSystem="local" code="MCV" displayName="MCV Mean Cell Volume" /> <statusCode code= "completed" /> <effectiveTime value="343120878777& quot; /> <value unit="fL" xsi:type="PQ" value ="94" /> <referenceRange> < observationRange> <text>81-97</text> < /observationRange> </referenceRange> </observation& gt; </component> <component> <observation moodCode= "EVN" classCode="OBS"> <templateId root=&quot ;2.16.840.1.634737.10.20.22.4.2" /> <id nullFlavor="NA& quot; /> <code codeSystem="local" code="MPV" displayName="MPV Mean Platelet Volume" /> <statusCode code="completed" /> <effectiveTime value=" 854211904779" /> <value unit="fL" xsi:type=" PQ" value="11.0" /> <referenceRange> <observationRange> <text /> </ observationRange> </referenceRange> </observation&gt ; </component><component> <observation moodCode=&quot ;EVN" classCode="OBS"> <templateId root=" 2.16.840.1.554142.10..22.4.2" /> <id nullFlavor="NA& quot; /> <code codeSystem="local" code="PLT" displayName="Platelet Count" /> <statusCode code=" completed" /> <effectiveTime value="751742501087" /> <value unit="10*3/uL" xsi:type="PQ" value= "215" /> <referenceRange> < observationRange> <text>150-400</text> & lt;/observationRange> </referenceRange> </observation&gt ; </component> <component> <observation moodCode ="EVN" classCode="OBS"> <templateId root=& quot;2.16.840.1.116867.10.20.22.4.2" /> <id nullFlavor=&quot ;NA" /> <code codeSystem="local" code="RBC& quot; displayName="RBC Red Blood Count" /> <statusCode code="completed" /> <effectiveTime value=" 022976130772" /> <value unit="10*6/uL" xsi:type=& quot;PQ" value="3.42" /> <interpretationCode codeSystem="local" code="L" /> < referenceRange> <observationRange> <text>4.11-5.63& lt;/text> </observationRange> </referenceRange& gt; </observation> </component> <component> <observation moodCode="EVN" classCode="OBS"> <templateId root="2.16.840.1.552751.10.20.22.4.2" /> <id nullFlavor="NA" /> <code codeSystem=&quot ;local" code="WBC" displayName="WBC White Blood Count" /> <statusCode code="completed" /> < effectiveTime value="208681375904" /> <value unit=&quot ;10*3/uL" xsi:type="PQ" value="9.2" /> < referenceRange> <observationRange> <text> 3.7-11.1</text> </observationRange> </ referenceRange> </observation> </component> < component> <observation moodCode="EVN" classCode=" OBS"> <templateId root="2.16.840.1.391829.10.20.22.4.2& quot; /> <id nullFlavor="NA" /> <code codeSystem="local" code="IG" displayName="Immature Granulocytes % (Auto)" /> <statusCode code=" completed" /> <effectiveTime value="809380457188" /> <value unit="%" xsi:type="PQ"value ="0.3" /> <referenceRange> < observationRange> <text /> </observationRange> </referenceRange> </observation> </ component> <component> <observation moodCode="EVN& quot; classCode="OBS"> <templateId root=" 2.16.840.1.232714.10.20.22.4.2" /> <id nullFlavor="NA& quot; /> <code codeSystem="local" code="IGAB&quot ; displayName="Immature Granulocytes Absolute" /> < statusCode code="completed" /> <effectiveTime value=& quot;811512944888" /> <value unit="10*3/uL" xsi: type="PQ" value="0.03" /> <referenceRange&gt ; <observationRange> <text><0.1</ text> </observationRange> </referenceRange> </observation> </component> <component> <observation moodCode="EVN" classCode="OBS"> <templateId root="2.16.840.1.161057.10.20.22.4.2" /> & lt;id nullFlavor="NA" /> <code codeSystem="local& quot; code="9731938504" displayName="RDW-SD" /> <statusCode code="completed" /> <effectiveTime value ="648013213521"/> <value unit="fL" xsi:type=& quot;PQ" value="57.1" /> <interpretationCode codeSystem="local" code="H" /> < referenceRange> <observationRange> <text> 37.1-49.8</text> </observationRange> </ referenceRange> </observation> </component> </ organizer> </entry> <entry> <organizer moodCode="EVN " classCode="BATTERY"> <templateId root=" 2.16.840.1.453573.10.20.22.4.1" /> <id nullFlavor="NA&quot ; /> <code codeSystem="local" code="COMP" displayName="COMPREHENSIVE METABOLIC PANEL" /> <statusCode code="completed" /> <component> <observation moodCode="EVN" classCode="OBS"> <templateId root="2.16.840.1.352742.10.20.22.4.2" /> <id nullFlavor ="NA" /> <code codeSystem="local" code=" BUNCREAT" displayName="BUN:Creatinine Ratio" /> < statusCode code="completed" /> <effectiveTime value=& quot;682300743350"/> <value unit="" xsi:type=&quot ;PQ" value="31" /> <interpretationCode codeSystem=" local" code="H" /> <referenceRange> <observationRange> <text>6-25</text> & lt;/observationRange> </referenceRange> </ observation> </component> <component> < observation moodCode="EVN" classCode="OBS"> < templateId root="2.16.840.1.717036.10..22.4.2" /> < id nullFlavor="NA" /> <code codeSystem="local&quot ; code="GLOB" displayName="Globulin" /> < statusCode code="completed" /> <effectiveTime value=" 128217960024" /> <value unit="g/dL" xsi:type=&quot ;PQ" value="3.7" /> <referenceRange> <observationRange> <text>2.2-4.2</text> </observationRange> </referenceRange> </ observation> </component> <component> < observation moodCode="EVN" classCode="OBS"> < templateId root="2.16.840.1.757539.10.20.22.4.2" /> < id nullFlavor="NA" /> <code codeSystem="local&quot ; code="ANIONGAP" displayName="Anion Gap" /> &lt ;statusCode code="completed" /> <effectiveTime value=& quot;761087650784" /> <value unit="" xsi:type=& quot;PQ" value="14" /> <referenceRange> <observationRange> <text>6-18</text> </observationRange> </referenceRange> </ observation> </component> <component> < observation moodCode="EVN" classCode="OBS"> < templateId root="2.16.840.1.751244.10.20.22.4.2" /> < id nullFlavor="NA" /> <code codeSystem="local&quot ; code="ALKP" displayName="Alkaline Phosphatase" /> <statusCode code="completed" /> <effectiveTime value="195861935271" /> <value unit="U/L" xsi :type="PQ" value="99" /> <referenceRange> <observationRange> <text>20-125</text&gt ; </observationRange> </referenceRange> </ observation> </component> <component> < observation moodCode="EVN" classCode="OBS"> < templateId root="2.16.840.1.759848.10..22.4.2" /> < id nullFlavor="NA" /> <code codeSystem="local&quot ; code="ALT" displayName="ALT Alanine Aminotransferase" /&gt ; <statusCode code="completed" /> < effectiveTime value="309546357270" /> <value unit=&quot ;U/L" xsi:type="PQ" value="34" /> < referenceRange> <observationRange> <text> 12-78</text> </observationRange> </ referenceRange> </observation> </component> < component> <observation moodCode="EVN" classCode=" OBS"> <templateId root="2.16.840.1.601290.10..22.4.2& quot; /> <id nullFlavor="NA" /> <code codeSystem="local" code="AST" displayName="AST Aspartate Amino Transferase" /> <statusCode code="completed&quot ; /> <effectiveTime value="093889405062" /> <value unit="U/L" xsi:type="PQ" value="17" /& gt; <referenceRange> <observationRange> <text>7-37</text> </observationRange> </referenceRange> </observation> </component> <component> <observation moodCode="EVN" classCode ="OBS"> <templateId root=" 2.16.840.1.681652.10.20.22.4.2" /> <id nullFlavor="NA& quot; /> <code codeSystem="local" code="BUN" displayName="BUN Urea Nitrogen" /> <statusCode code=& quot;completed" /> <effectiveTime value="010919380636& quot; /> <value unit="mg/dL" xsi:type="PQ" value=&quot ;58" /> <interpretationCode codeSystem="local" code="H" /> <referenceRange> < observationRange> <text>6-24</text> </ observationRange> </referenceRange> </observation&gt ; </component> <component> <observation moodCode= "EVN" classCode="OBS"> <templateId root=" 2.16.840.1.260089.10.20.22.4.2" /> <id nullFlavor="NA& quot; /> <code codeSystem="local" code="CO2" displayName="CO2 Carbon Dioxide" /> <statusCode code=& quot;completed" /> <effectiveTime value="729175301460&quot ; /> <value unit="mmol/L" xsi:type="PQ" value ="23" /> <referenceRange> < observationRange> <text>20-30</text> < /observationRange> </referenceRange> </observation& gt; </component> <component> <observation moodCode="EVN" classCode="OBS"> <templateId root="2.16.840.1.287085.10.20.22.4.2" /> <id nullFlavor ="NA" /> <code codeSystem="local" code=" CREAT" displayName="Creatinine" /> <statusCode code="completed" /> <effectiveTime value=" 301415128242" /> <value unit="mg/dL" xsi:type=& quot;PQ" value="1.87" /> <interpretationCode codeSystem="local" code="H" /> < referenceRange> <observationRange> <text> 0.53-1.26</text> </observationRange> </ referenceRange> </observation> </component> < component> <observationmoodCode="EVN" classCode="OBS "> <templateId root="09.17.840.1.481473.10.20.22.4.2& quot; /> <id nullFlavor="NA" /> <code codeSystem="local" code="TP" displayName="Protein Total " /> <statusCode code="completed" /> & lt;effectiveTime value="098375670741" /> <value unit=& quot;g/dL" xsi:type="PQ" value="7.5" /> &lt ;referenceRange> <observationRange> <text&gt ;6.4-8.2</text> </observationRange> </ referenceRange> </observation> </component> < component> <observation moodCode="EVN" classCode=" OBS"> <templateId root="2.840.1.290533.10.20.22.4.2& quot; /> <id nullFlavor="NA" /> <code codeSystem="local" code="BILIT" displayName="Bilirubin Total" /> <statusCode code="completed" /> <effectiveTime value="775396892259" /> <value unit=& quot;mg/dL" xsi:type="PQ" value="0.3" /> & lt;referenceRange> <observationRange> <text& gt;0.2-1.2</text> </observationRange> </ referenceRange> </observation> </component> < component> <observation moodCode="EVN" classCode=" OBS"> <templateId root="2.16.840.1.204947.10.20.22.4.2& quot; /> <id nullFlavor="NA" /> <code codeSystem="local" code="K" displayName="Potassium&quot ; /> <statusCode code="completed" /> < effectiveTime value="423719434589" /> <value unit=&quot ;mmol/L" xsi:type="PQ" value="5.1" /> < referenceRange> <observationRange> <text>3.5- 5.1</text> </observationRange> </ referenceRange> </observation> </component> < component> <observation moodCode="EVN" classCode=" OBS"> <templateId root="2.16.840.1.142188.10.20.22.4.2& quot; /> <id nullFlavor="NA" /> <code codeSystem="local" code="NA" displayName="Sodium" /> <statusCode code="completed" /> < effectiveTime value="266691985018" /> <value unit=&quot ;mmol/L" xsi:type="PQ" value="138" /> < referenceRange> <observationRange> <text> 136-145</text> </observationRange> </ referenceRange> </observation> </component> < component> <observation moodCode="EVN" classCode="OBS& quot;> <templateId root="2.16.840.1.460919.10.20.22.4.2&quot ; /> <id nullFlavor="NA" /> <code codeSystem="local" code="CL" displayName="Chloride&quot ; /> <statusCode code="completed" /> < effectiveTime value="997527355331" /> <value unit=&quot ;mmol/L" xsi:type="PQ" value="106" /> < referenceRange> <observationRange> <text> 96-111</text> </observationRange> </ referenceRange> </observation> </component> < component> <observation moodCode="EVN" classCode=" OBS"> <templateId root="2.16.840.1.524086.10.20.22.4.2& quot; /> <id nullFlavor="NA" /> <code codeSystem="local" code="GLU" displayName="Glucose&quot ; /> <statusCode code="completed" /> < effectiveTime value="255802596914" /> <value unit=" mg/dL" xsi:type="PQ" value="117" /> < interpretationCode codeSystem="local" code="H" /> <referenceRange> <observationRange> < text>70-99</text> </observationRange> </ referenceRange> </observation> </component> < component> <observation moodCode="EVN" classCode=" OBS"> <templateId root="2.16.840.1.124605.10.20.22.4.2& quot; /> <id nullFlavor="NA" /> <code codeSystem="local" code="CA"displayName="Calcium" /> <statusCode code="completed" /> < effectiveTime value="295542146161" /> <value unit=&quot ;mg/dL" xsi:type="PQ" value="8.9" /> < referenceRange> <observationRange> <text> 8.3-10.1</text> </observationRange> </ referenceRange> </observation> </component> < component> <observation moodCode="EVN" classCode=" OBS"> <templateId root="2.16.840.1.504162.10.20.22.4.2& quot; /> <id nullFlavor="NA" /> <code codeSystem="local" code="GFR" displayName="GFR Glomerular Filtration Rate" /> <statusCode code=" completed" /> <effectiveTime value="603560289898" /> <value unit="mL/min/1.73m*2" xsi:type="PQ" value ="26.5" /> <interpretationCode codeSystem="local& quot; code="L" /> <referenceRange> < observationRange> <text>>60.0</text> </observationRange> </referenceRange> </ observation> </component> <component> < observation moodCode="EVN" classCode="OBS"> < templateId root="2.16.840.1.968269.10.20.22.4.2" /> < id nullFlavor="NA" /> <code codeSystem="local&quot ; code="ALB" displayName="Albumin" /> < statusCode code="completed" /> <effectiveTime value=& quot;308537179302" /> <value unit="g/dL" xsi:type= "PQ" value="3.8" /> <referenceRange> <observationRange> <text>3.2-4.6</text> </observationRange> </referenceRange> </ observation> </component> <component> < observation moodCode="EVN" classCode="OBS"> < templateId root="2.16.840.1.667841.10.20.22.4.2" /> < id nullFlavor="NA" /> <code codeSystem="local&quot ; code="AGRATIO" displayName="Albumin:Globulin Ratio" /> <statusCode code="completed" /> < effectiveTime value="508949182794" /> <value unit=&quot ;" xsi:type="PQ" value="1.0" /> < referenceRange> <observationRange> <text> 0.8-2.0</text> </observationRange> </ referenceRange> </observation> </component> </ organizer> </entry> <entry> <organizer moodCode="EVN " classCode="BATTERY"> <templateId root=" 2.16.840.1.691566.10.20.22.4.1" /> <id nullFlavor="NA&quot ; /> <code codeSystem="local" code="CHOL" displayName="CHOLESTEROL TOTAL SERUM" /> <statusCode code=& quot;completed" /> <component> <observation moodCode="EVN" classCode="OBS"> <templateId root="2.16.840.1.373084.10..22.4.2" /> <id nullFlavor ="NA" /> <code codeSystem="local" code=" CHOL" displayName="Cholesterol Total" /> < statusCode code="completed" /> <effectiveTime value=& quot;845784221156" /> <value unit="mg/dL" xsi:type ="PQ" value="160" /> <referenceRange> <observationRange> <text>0-199</text> </observationRange> </referenceRange> </ observation> </component> </organizer> </entry> & lt;entry> <organizer moodCode="EVN" classCode="BATTERY& quot;> <templateId root="2.16.840.1.720134.10.20.22.4.1" /& gt; <id nullFlavor="NA" /> <code codeSystem=" local" code="HGBA1C" displayName="HEMOGLOBIN A1C" /&gt ; <statusCode code="completed" /> <component> <observation moodCode="EVN" classCode="OBS"> <templateId root="2.16.840.1.075044.10.20.22.4.2" /> <id nullFlavor="NA" /> <codecodeSystem=" local" code="HA1C" displayName="Hemoglobin A1C" /> <statusCode code="completed" /> <effectiveTime value="242752474833" /> <value unit="%& quot; xsi:type="PQ" value="5.8" /> < interpretationCode codeSystem="local" code="H" /> & lt;referenceRange> <observationRange> <text& gt;4.0-5.6</text> </observationRange> </ referenceRange> </observation> </component> < component> <observation moodCode="EVN" classCode=" OBS"> <templateId root="2.16.840.1.828151.10.20.22.4.2& quot; /> <id nullFlavor="NA" /> <code codeSystem="local" code="ESTAG" displayName="eAG Estimated Ave Glucose" /> <statusCode code="completed& quot; /> <effectiveTime value="526750468923" /> <value unit="mg/dL" xsi:type="PQ" value="120& quot; /> <referenceRange> <observationRange> <text /> </observationRange> </ referenceRange> </observation> </component> </ organizer> </entry> <entry> <organizer moodCode="EVN " classCode="BATTERY"> <templateId root=" 2.16.840.1.323153.10.20.22.4.1" /> <id nullFlavor="NA&quot ; /> <code codeSystem="local" code="LDLD" displayName="CHOLESTEROL LDL DIRECT" /> <statusCode code=& quot;completed" /> <component> <observation moodCode="EVN" classCode="OBS"> <templateId root="2.16.840.1.720785.10.20.22.4.2" /> <id nullFlavor= "NA" /> <code codeSystem="local" code=" LDLD" displayName="LDL Cholesterol Direct Measure" /> <statusCodecode="completed" /> <effectiveTime value="151754810878" /> <value unit="mg/dL" xsi: type="PQ" value="74" /> <referenceRange> <observationRange> <text /> </ observationRange> </referenceRange> </observation&gt ; </component> </organizer> </entry> <entry> <organizer moodCode="EVN" classCode="BATTERY"> <templateId root="2.16.840.1.395929.10.20.22.4.1" /> < id nullFlavor="NA" /> <code codeSystem="local" code="RENAL" displayName="RENAL FUNCTION PANEL" /> & lt;statusCode code="completed" /> <component> &lt ;observation moodCode="EVN" classCode="OBS"> &lt ;templateId root="2.16.840.1.125469.10.20.22.4.2" /> <id nullFlavor="NA" /> <code codeSystem="local" code="BUNCREAT" displayName="BUN:Creatinine Ratio" /> <statusCode code="completed" /> < effectiveTime value="986225105142" /> <value unit=&quot ;" xsi:type="PQ" value="29" /> < interpretationCode codeSystem="local" code="H" /> <referenceRange> <observationRange> < text>6-25</text> </observationRange> </ referenceRange> </observation> </component> < component> <observation moodCode="EVN" classCode=" OBS"> <templateId root="2.16.840.1.533931.10.20.22.4.2& quot; /> <id nullFlavor="NA" /> <code codeSystem="local" code="ANIONGAP" displayName="Anion Gap" /> <statusCode code="completed" /> <effectiveTime value="024014673760" /> <value unit="" xsi:type="PQ" value="14" /> & lt;referenceRange> <observationRange> <text> 6-18</text> </observationRange> </ referenceRange> </observation> </component> < component> <observation moodCode="EVN" classCode=" OBS"> <templateId root="2.16.840.1.642290.10..22.4.2& quot; /> <id nullFlavor="NA" /> <code codeSystem="local" code="BUN" displayName="BUN Urea Nitrogen" /> <statusCode code="completed" /> <effectiveTime value="154321116730" /> < value unit="mg/dL" xsi:type="PQ" value="57" /> <interpretationCode codeSystem="local" code="H&quot ; /> <referenceRange> <observationRange> <text>6-24</text> </observationRange> </referenceRange> </observation> </component> <component> <observation moodCode="EVN" classCode="OBS"> <templateId root=" 2.16.840.1.126310.10.20.22.4.2"/> <id nullFlavor="NA& quot; /> <code codeSystem="local"code="CO2" displayName="CO2 Carbon Dioxide" /> <statusCode code=& quot;completed" /> <effectiveTime value="445175474591& quot; /> <value unit="mmol/L" xsi:type="PQ" value="21" /> <referenceRange> < observationRange> <text>20-30</text> </ observationRange> </referenceRange> </observation&gt ; </component> <component> <observation moodCode ="EVN" classCode="OBS"> <templateId root=& quot;2.16.840.1.211468.10.20.22.4.2" /><id nullFlavor="NA" /> <code codeSystem="local" code="CREAT" displayName="Creatinine" /> <statusCode code=" completed" /> <effectiveTime value="480402186859" /> <value unit="mg/dL" xsi:type="PQ" value=& quot;1.96" /> <interpretationCode codeSystem="local& quot; code="H" /> <referenceRange> < observationRange> <text>0.53-1.26</text> </observationRange> </referenceRange> </observation > </component> <component> <observation moodCode="EVN" classCode="OBS"> <templateId root="2.16.840.1.861223.10.20.22.4.2" /> <id nullFlavor ="NA" /> <code codeSystem="local" code=" K" displayName="Potassium" /> <statusCode code=& quot;completed" /> <effectiveTime value="837085037350& quot; /> <value unit="mmol/L" xsi:type="PQ" value="4.9" /> <referenceRange> < observationRange> <text>3.5-5.1</text> </ observationRange> </referenceRange> </observation&gt ; </component> <component> <observation moodCode ="EVN" classCode="OBS"> <templateId root=& quot;2.16.840.1.655947.10.20.22.4.2" /> <id nullFlavor=&quot ;NA" /> <code codeSystem="local" code="NA& quot; displayName="Sodium" /> <statusCode code=" completed" /> <effectiveTime value="675118694499" /> <value unit="mmol/L" xsi:type="PQ" value=& quot;137" /> <referenceRange> < observationRange> <text>136-145</text> & lt;/observationRange> </referenceRange> </ observation> </component> <component> < observation moodCode="EVN" classCode="OBS"> < templateId root="2.16.840.1.053457.10.20.22.4.2" /> < id nullFlavor="NA" /> <code codeSystem="local&quot ; code="CL" displayName="Chloride" /> < statusCode code="completed" /> <effectiveTime value=& quot;767096816551" /> <value unit="mmol/L" xsi: type="PQ" value="107" /> <referenceRange> <observationRange> <text>96-111</text&gt ; </observationRange> </referenceRange> </ observation> </component> <component> < observation moodCode="EVN" classCode="OBS"> < templateId root="2.16.840.1.030426.10..22.4.2" /> < id nullFlavor="NA" /> <code codeSystem="local&quot ; code="PHOS" displayName="Phosphorous" /> < statusCode code="completed" /> <effectiveTime value=& quot;133183341772" /> <value unit="mg/dL" xsi:type ="PQ" value="4.6" /> <referenceRange> &lt ;observationRange> <text>2.5-4.9</text> & lt;/observationRange> </referenceRange> </ observation> </component> <component> < observation moodCode="EVN" classCode="OBS"> < templateId root="2.16.840.1.684625.10.20.22.4.2" /> < id nullFlavor="NA" /> <code codeSystem="local&quot ; code="GLU" displayName="Glucose" /> < statusCode code="completed" /> <effectiveTime value=& quot;218159526674" /> <value unit="mg/dL" xsi:type ="PQ" value="116" /> <interpretationCode codeSystem="local" code="H" /> < referenceRange> <observationRange> <text>70-99</ text> </observationRange> </referenceRange> </observation> </component> <component> <observation moodCode="EVN" classCode="OBS"> <templateId root="2.16.840.1.542084.10.20.22.4.2" /> <id nullFlavor="NA" /> <code codeSystem=" local" code="CA" displayName="Calcium" /> & lt;statusCode code="completed" /> <effectiveTime value= "490750026997" /> <value unit="mg/dL" xsi: type="PQ" value="8.8" /> <referenceRange> <observationRange> <text>8.3-10.1</text> </observationRange> </referenceRange> </ observation> </component> <component> < observation moodCode="EVN" classCode="OBS"> < templateId root="2.16.840.1.136873.10.20.22.4.2"/> <id nullFlavor="NA" /> <code codeSystem="local" code="GFR" displayName="GFR Glomerular Filtration Rate" /&gt ; <statusCode code="completed" /> < effectiveTime value="470307659218" /> <value unit=&quot ;mL/min/1.73m*2" xsi:type="PQ" value="25.0" /> <interpretationCode codeSystem="local" code="L" /&gt ; <referenceRange> <observationRange> <text>>60.0</text> </observationRange> </referenceRange> </observation> </component > <component> <observation moodCode="EVN" classCode="OBS"> <templateId root=" 2.16.840.1.852695.10.20.22.4.2" /> <id nullFlavor="NA& quot; /> <code codeSystem="local" code="ALB" displayName="Albumin" /> <statusCode code=" completed" /> <effectiveTime value="089338160090" /> <value unit="g/dL" xsi:type="PQ" value=& quot;3.5" /> <referenceRange> < observationRange> <text>3.2-4.6</text> & lt;/observationRange> </referenceRange> </ observation> </component> </organizer> </entry> & lt;entry> <organizer moodCode="EVN" classCode="BATTERY& quot;> <templateId root="2.16.840.1.640632.10.20.22.4.1" /& gt; <id nullFlavor="NA" /> <code codeSystem=" local" code="[id number]" displayName="CBC WITH DIFFERENTIAL REFLEX MANUAL DIFF" /> <statusCode code="completed" /& gt; <component> <observation moodCode="EVN" classCode="OBS"> <templateId root=" 2.16.840.1.511679.10.20.22.4.2" /> <id nullFlavor="NA& quot; /> <code codeSystem="local" code="HGB" displayName="Hemoglobin" /> <statusCode code=" completed" /> <effectiveTime value="864220031950" /><value unit="g/dL" xsi:type="PQ" value="8.9& quot; /> <interpretationCode codeSystem="local" code=& quot;L" /> <referenceRange> < observationRange> <text>11.9-16.3</text> </observationRange> </referenceRange> </ observation> </component> <component> < observation moodCode="EVN" classCode="OBS"> < templateId root="2.16.840.1.812720.10.20.22.4.2" /> < id nullFlavor="NA" /> <code codeSystem="local&quot ; code="HCT" displayName="Hematocrit" /> < statusCode code="completed" /> <effectiveTime value=" 164940827703" /> <value unit="%" xsi:type= "PQ" value="29.4" /> <interpretationCode codeSystem="local" code="L" /> < referenceRange> <observationRange> <text> 37.0-47.7</text> </observationRange></referenceRange& gt; </observation> </component> <component> <observation moodCode="EVN" classCode="OBS"> <templateId root="2.16.840.1.328303.10.20.22.4.2" /> <id nullFlavor="NA" /> <code codeSystem=" local" code="RDW" displayName="RDW Red Cell Distr Width&quot ; /> <statusCode code="completed" /> < effectiveTime value="716876465572" /> <value unit=&quot ;%" xsi:type="PQ" value="16.2" /> & lt;interpretationCode codeSystem="local"code="H" /> <referenceRange> <observationRange> <text> 12.3-15.9</text> </observationRange> </ referenceRange> </observation> </component> < component> <observation moodCode="EVN" classCode=" OBS"> <templateId root="2.16.840.1.838923.10.20.22.4.2& quot; /> <id nullFlavor="NA" /> <code codeSystem="local" code="LYMPAB" displayName=" Lymphocytes Absolute"/> <statusCode code="completed& quot; /> <effectiveTime value="268680321353" /> <value unit="10*3/uL" xsi:type="PQ" value="1.5 " /> <referenceRange> <observationRange&gt ; <text>1.1-3.7</text> </observationRange> </referenceRange> </observation> </component> <component> <observationmoodCode="EVN" classCode=& quot;OBS"> <templateId root=" 2.16.840.1.451897.10.20.22.4.2" /> <id nullFlavor="NA& quot; /> <code codeSystem="local" code="MONOAB& quot; displayName="Monocytes Absolute" /> <statusCode code ="completed" /> <effectiveTime value="582176667509 " /> <value unit="10*3/uL" xsi:type="PQ&quot ; value="0.9" /> <referenceRange> < observationRange> <text>0.3-0.9</text> & lt;/observationRange> </referenceRange> </observation> </component> <component> <observation moodCode= "EVN" classCode="OBS"> <templateId root=&quot ;2.16.840.1.398393.10..22.4.2" /> <id nullFlavor="NA& quot; /> <code codeSystem="local" code="EOSAB&quot ; displayName="Eosinophils Absolute" /><statusCode code=" completed" /> <effectiveTime value="898228497047" /> <value unit="10*3/uL" xsi:type="PQ" value= "0.7"/> <interpretationCode codeSystem="local&quot ; code="H" /><referenceRange> <observationRange > <text>0.0-0.5</text> </ observationRange> </referenceRange> </observation&gt ; </component> <component> <observation moodCode ="EVN" classCode="OBS"> <templateId root=& quot;2.16.840.1.325848.10.20.22.4.2" /> <id nullFlavor=&quot ;NA" /> <code codeSystem="local" code="BASOAB " displayName="Basophils Absolute" /> <statusCode code="completed" /> <effectiveTime value=" 319979307505" /> <value unit="10*3/uL" xsi:type=& quot;PQ" value="0.1" /> <referenceRange> <observationRange> <text>0.0-0.1</text> </observationRange> </referenceRange> </ observation> </component> <component> < observation moodCode="EVN" classCode="OBS"> < templateId root="2.16.840.1.986157.10.20.22.4.2" /> <id nullFlavor="NA" /> <code codeSystem="local" code="NEUTRO" displayName="Neutrophils %" /> <statusCode code="completed" /> < effectiveTime value="974655450416" /> <value unit=&quot ;%" xsi:type="PQ" value="66" /> &lt ;referenceRange> <observationRange> <text /& gt; </observationRange> </referenceRange> </observation> </component><component> < observation moodCode="EVN" classCode="OBS"> < templateId root="2.16.840.1.379634.10.20.22.4.2" /> < id nullFlavor="NA" /> <code codeSystem="local&quot ; code="LYMP" displayName="Lymphocytes %" /> <statusCode code="completed" /> <effectiveTime value="164808526133" /> <value unit="%& quot; xsi:type="PQ" value="16" /> < referenceRange> <observationRange> <text /& gt; </observationRange> </referenceRange> </observation> </component> <component> < observation moodCode="EVN" classCode="OBS"> < templateId root="2.16.840.1.762352.10.20.22.4.2" /> < id nullFlavor="NA" /> <code codeSystem="local" code="MONO" displayName="Monocytes %" /> <statusCode code="completed" /> <effectiveTime value="421570749496" /> <value unit="%& quot; xsi:type="PQ" value="10" /> < referenceRange> <observationRange> <text /> </observationRange> </referenceRange> </ observation> </component> <component> < observation moodCode="EVN" classCode="OBS"> < templateId root="2.16.840.1.892759.10.20.22.4.2" /> < id nullFlavor="NA" /> <code codeSystem="local&quot ; code="EOS" displayName="Eosinophils %" /> <statusCode code="completed" /> <effectiveTime value="126005807375" /> <value unit="%& quot; xsi:type="PQ" value="8" /> < referenceRange> <observationRange> <text /& gt; </observationRange> </referenceRange> & lt;/observation> </component> <component> < observation moodCode="EVN" classCode="OBS"> < templateId root="2.16.840.1.785581.10..22.4.2" /> <id nullFlavor="NA" /> <code codeSystem="local" code="BASO" displayName="Basophils %" /> <statusCode code="completed" /> <effectiveTime value="889166965843" /> <value unit="%& quot; xsi:type="PQ" value="1" /> < referenceRange> <observationRange> <text /& gt; </observationRange> </referenceRange> </observation> </component> <component> &lt ;observation moodCode="EVN" classCode="OBS"> < templateId root="2.16.840.1.724113.10.20.22.4.2" /> < id nullFlavor="NA" /> <code codeSystem="local&quot ; code="NEUTROAB" displayName="Neutrophils Absolute" /> <statusCode code="completed" /> <effectiveTime value="160330181830" /> <value unit="10*3/uL&quot ; xsi:type="PQ" value="6.32" /> < referenceRange> <observationRange> <text> 1.70-7.10</text> </observationRange> </ referenceRange> </observation> </component> < component> <observation moodCode="EVN" classCode=" OBS"> <templateId root="2.16.840.1.201497.10.20.22.4.2" /& gt; <id nullFlavor="NA" /> <code codeSystem ="local" code="MCH" displayName="MCH Mean Cell Hemoglobin" /> <statusCode code="completed" /> <effectiveTime value="687368181959" /> <value unit="pg" xsi:type="PQ" value="28.5" /> <referenceRange> <observationRange> < text>26.7-33.1</text> </observationRange> &lt ;/referenceRange> </observation> </component> & lt;component> <observation moodCode="EVN" classCode=&quot ;OBS"> <templateId root="2.16.840.1.445335.10.20.22.4.2 " /> <id nullFlavor="NA" /> <code codeSystem="local" code="MCHC" displayName="MCHC Mean Cell Hgb Conc" /> <statusCode code="completed" /& gt; <effectiveTime value="794282028716" /> &lt ;value unit="g/dL" xsi:type="PQ" value="30.3" /&gt ; <interpretationCode codeSystem="local" code="L&quot ; /> <referenceRange> <observationRange> <text>31.1-35.3</text> </observationRange> </referenceRange> </observation> </component& gt; <component> <observation moodCode="EVN" classCode="OBS"> <templateId root=" 2.16.840.1.048663.10.20.22.4.2" /> <id nullFlavor="NA& quot; /> <code codeSystem="local" code="MCV" displayName="MCV Mean Cell Volume" /> <statusCode code= "completed" /> <effectiveTime value="994467517691& quot; /> <value unit="fL" xsi:type="PQ" value ="94" /> <referenceRange> < observationRange> <text>81-97</text> < /observationRange> </referenceRange> </observation> </component> <component> <observation moodCode=& quot;EVN" classCode="OBS"> <templateId root=" 2.16.840.1.352454.10..22.4.2" /> <id nullFlavor="NA& quot; /> <code codeSystem="local" code="MPV" displayName="MPV Mean Platelet Volume" /> <statusCode code=& quot;completed" /> <effectiveTime value="431878891480& quot; /> <value unit="fL" xsi:type="PQ" value ="8.6" /> <referenceRange> < observationRange> <text /> </observationRange > </referenceRange> </observation> </ component> <component> <observation moodCode="EVN& quot; classCode="OBS"> <templateId root=" 2.16.840.1.988100.10.20.22.4.2" /> <id nullFlavor="NA&quot ; /> <code codeSystem="local" code="PLT" displayName="Platelet Count" /> <statusCode code=" completed" /> <effectiveTime value="513503372132" /> <value unit="10*3/uL" xsi:type="PQ" value= "216" /> <referenceRange> < observationRange> <text>150-400</text> & lt;/observationRange> </referenceRange> </ observation> </component> <component> < observation moodCode="EVN" classCode="OBS"> < templateId root="2.16.840.1.969332.10.20.22.4.2" /> < id nullFlavor="NA" /> <code codeSystem="local&quot ; code="RBC" displayName="RBC Red Blood Count" /> <statusCode code="completed" /> <effectiveTime value="958850634802" /> <value unit="10*6/uL&quot ; xsi:type="PQ" value="3.12" /> < interpretationCode codeSystem="local" code="L" /> <referenceRange> <observationRange> < text>4.11-5.63</text> </observationRange> < /referenceRange> </observation> </component> &lt ;component> <observation moodCode="EVN" classCode=" OBS"> <templateId root="2.16.840.1.187789.10.20.22.4.2& quot; /> <id nullFlavor="NA" /> <code codeSystem="local" code="WBC" displayName="WBC White Blood Count" /> <statusCode code="completed" /&gt ; <effectiveTime value="688549308263" /> < value unit="10*3/uL" xsi:type="PQ" value="9.5" /& gt; <referenceRange> <observationRange> <text>3.7-11.1</text> </observationRange> & lt;/referenceRange> </observation> </component> & lt;/organizer></entry> <entry> <organizer moodCode=" EVN" classCode="BATTERY"> <templateId root=" 2.16.840.1.620158.10.20.22.4.1" /> <id nullFlavor="NA&quot ; /> <code codeSystem="local" code="[id number]" displayName="CBC WITH DIFFERENTIAL REFLEX MANUAL DIFF" /> < statusCode code="completed" /> <component> < observation moodCode="EVN" classCode="OBS"> < templateId root="216.840.1.043477.10..22.4.2" /> < id nullFlavor="NA" /> <code codeSystem="local&quot ; code="HGB" displayName="Hemoglobin" /> < statusCode code="completed" /> <effectiveTime value=& quot;020660081576" /> <value unit="g/dL" xsi:type= "PQ" value="8.5" /> <interpretationCode codeSystem="local" code="L" /> < referenceRange> <observationRange> <text> 11.9-16.3</text> </observationRange> </ referenceRange> </observation> </component> < component> <observation moodCode="EVN" classCode=" OBS"> <templateId root="2.16.840.1.184068.10.20.22.4.2& quot; /> <id nullFlavor="NA" /> <code codeSystem="local" code="HCT" displayName="Hematocrit& quot; /> <statusCode code="completed" /> & lt;effectiveTime value="202208261492" /> <value unit=& quot;%" xsi:type="PQ"value="28.2" /> <interpretationCode codeSystem="local" code="L" /> <referenceRange> <observationRange> <text>37.0-47.7</text> </observationRange> </referenceRange> </observation> </component> <component> <observation moodCode="EVN" classCode= "OBS"> <templateId root=" 2.16.840.1.629888.10.20.22.4.2" /> <id nullFlavor="NA& quot; /> <code codeSystem="local" code="RDW" displayName="RDW Red Cell Distr Width" /> <statusCode code=& quot;completed" /> <effectiveTime value="737901933623& quot; /> <value unit="%" xsi:type="PQ&quot ; value="16.6" /> <interpretationCode codeSystem=" local" code="H" /> <referenceRange> & lt;observationRange> <text>12.3-15.9</text> </observationRange> </referenceRange> </ observation> </component> <component> < observation moodCode="EVN" classCode="OBS"> < templateId root="2.16.840.1.782381.10.20.22.4.2" /> < id nullFlavor="NA" /> <code codeSystem="local&quot ; code="LYMPAB" displayName="Lymphocytes Absolute" /> <statusCode code="completed" /> < effectiveTime value="415443386455" /> <value unit=" 10*3/uL" xsi:type="PQ" value="1.6" /> < referenceRange> <observationRange> <text> 1.1-3.7</text> </observationRange> </ referenceRange> </observation> </component> < component> <observation moodCode="EVN" classCode=" OBS"> <templateId root="2.16.840.1.683937.10.20.22.4.2& quot;/> <id nullFlavor="NA" /> <code codeSystem="local"code="MONOAB" displayName="Monocytes Absolute" /> <statusCode code="completed" /> <effectiveTime value="490361972106" /> <value unit=& quot;10*3/uL" xsi:type="PQ" value="0.9" /> <referenceRange> <observationRange> <text >0.3-0.9</text> </observationRange> </ referenceRange> </observation> </component> < component> <observation moodCode="EVN" classCode=" OBS"> <templateId root="2.16.840.1.531651.10.20.22.4.2& quot; /> <id nullFlavor="NA" /> <code codeSystem="local" code="EOSAB" displayName=" Eosinophils Absolute" /> <statusCode code="completed& quot; /> <effectiveTime value="459212344556" /> <value unit="10*3/uL" xsi:type="PQ" value="0.6 " /> <interpretationCode codeSystem="local" code=& quot;H" /> <referenceRange> <observationRange& gt; <text>0.0-0.5</text> </ observationRange> </referenceRange> </observation&gt ; </component> <component> <observation moodCode=& quot;EVN" classCode="OBS"> <templateId root=" 2.16.840.1.951569.10.20.22.4.2" /> <id nullFlavor="NA& quot; /> <code codeSystem="local" code="BASOAB& quot; displayName="Basophils Absolute" /> <statusCode code="completed" /> <effectiveTime value=" 327710601728" /> <value unit="10*3/uL" xsi:type=& quot;PQ" value="0.1" /> <referenceRange>< observationRange> <text>0.0-0.1</text> & lt;/observationRange> </referenceRange> </ observation> </component> <component> < observation moodCode="EVN" classCode="OBS">< templateId root="2.16.840.1.207399.10.20.22.4.2" /> < id nullFlavor="NA" /> <code codeSystem="local&quot ; code="NEUTRO" displayName="Neutrophils %" /> <statusCode code="completed" /> <effectiveTime value="064217598015" /> <value unit="%& quot; xsi:type="PQ" value="62" /> < referenceRange> <observationRange> <text /& gt; </observationRange> </referenceRange> </observation> </component> <component> &lt ;observation moodCode="EVN" classCode="OBS"> &lt ;templateId root="2.16.840.1.296029.10.20.22.4.2" /> < id nullFlavor="NA" /> <code codeSystem="local" code= "LYMP" displayName="Lymphocytes %" /> & lt;statusCode code="completed" /> <effectiveTime value= "756514476001" /> <value unit="%" xsi :type="PQ" value="20" /> <referenceRange> <observationRange> <text /> </ observationRange> </referenceRange> </observation> </component> <component> <observation moodCode=" EVN" classCode="OBS"> <templateId root=" 2.16.840.1.334552.10.20.22.4.2" /> <id nullFlavor="NA& quot; /> <code codeSystem="local" code="MONO&quot ; displayName="Monocytes %" /> <statusCode code ="completed" /> <effectiveTime value="384093810860 " /> <value unit="%" xsi:type="PQ& quot; value="11" /> <referenceRange> < observationRange> <text /> </observationRange& gt; </referenceRange> </observation> </component& gt; <component> <observation moodCode="EVN" classCode="OBS"> <templateId root=" 2.16.840.1.725779.10.20.22.4.2" /> <id nullFlavor="NA&quot ; /> <code codeSystem="local" code="EOS" displayName="Eosinophils %" /> <statusCode code ="completed" /> <effectiveTime value="870427354946 " /> <value unit="%" xsi:type="PQ& quot; value="7" /> <referenceRange> < observationRange> <text /> </ observationRange> </referenceRange> </observation&gt ; </component> <component> <observation moodCode ="EVN" classCode="OBS"> <templateId root=" 2.16.840.1.408229.10.20.22.4.2" /> <id nullFlavor="NA& quot; /> <code codeSystem="local" code="BASO&quot ; displayName="Basophils %" /> <statusCode code ="completed" /> <effectiveTime value="691221788527" / > <value unit="%" xsi:type="PQ" value ="1" /> <referenceRange> < observationRange> <text /> </ observationRange> </referenceRange> </observation&gt ; </component> <component> <observation moodCode ="EVN" classCode="OBS"> <templateId root=& quot;2.16.840.1.873070.10.20.22.4.2" /> <id nullFlavor=&quot ;NA" /> <code codeSystem="local" code="NEUTROAB" displayName="Neutrophils Absolute" /> <statusCode code= "completed" /> <effectiveTime value="648943243410& quot; /> <value unit="10*3/uL" xsi:type="PQ" value="5.07" /> <referenceRange> < observationRange> <text>1.70-7.10</text> &lt ;/observationRange> </referenceRange> </observation& gt; </component> <component> <observation moodCode="EVN" classCode="OBS"> <templateId root="2.16.840.1.477031.10.20.22.4.2" /> <id nullFlavor ="NA" /><code codeSystem="local" code="MCH" displayName="MCH Mean Cell Hemoglobin" /> <statusCode code="completed" /> <effectiveTime value=" 409273681526" /> <value unit="pg" xsi:type=" PQ" value="28.3" /> <referenceRange> <observationRange> <text>26.7-33.1</text> < /observationRange> </referenceRange> </observation& gt; </component> <component> <observation moodCode="EVN" classCode="OBS"> <templateId root="2.16.840.1.190104.10.20.22.4.2" /> <id nullFlavor ="NA" /> <code codeSystem="local" code=" MCHC" displayName="MCHC Mean Cell Hgb Conc"/> < statusCode code="completed" /> <effectiveTime value=& quot;548629336772" /> <value unit="g/dL" xsi:type= "PQ" value="30.1" /> <interpretationCode codeSystem="local" code="L" /> < referenceRange> <observationRange> <text> 31.1-35.3</text> </observationRange> </ referenceRange> </observation> </component> < component> <observation moodCode="EVN" classCode=" OBS"> <templateId root="2.16.840.1.222012.10.20.22.4.2& quot; /> <id nullFlavor="NA" /> <code codeSystem="local" code="MCV" displayName="MCV Mean Cell Volume" /> <statusCode code="completed" /&gt ; <effectiveTime value="835577295547" /> < value unit="fL" xsi:type="PQ" value="94" />< referenceRange> <observationRange> <text> 81-97</text> </observationRange> </ referenceRange> </observation> </component> < component> <observation moodCode="EVN" classCode=" OBS"> <templateId root="2.16.840.1.173881.10.20.22.4.2& quot; /> <id nullFlavor="NA" /> <code codeSystem="local" code="MPV" displayName="MPV Mean Platelet Volume" /> <statusCode code="completed" / > <effectiveTime value="724623100676" /> & lt;value unit="fL" xsi:type="PQ" value="8.9" /&gt ; <referenceRange> <observationRange> <text /> </observationRange> </ referenceRange> </observation> </component>< component> <observation moodCode="EVN" classCode=" OBS"> <templateId root="2.16.840.1.383576.10..22.4.2" /> <id nullFlavor="NA" /> <code codeSystem="local" code="PLT" displayName="Platelet Count" /> <statusCode code="completed" /> <effectiveTime value="147094041692" /> <value unit="10*3/uL" xsi:type="PQ" value="230" /> <referenceRange> <observationRange> & lt;text>150-400</text> </observationRange> </ referenceRange> </observation> </component> < component> <observation moodCode="EVN" classCode=" OBS"> <templateId root="2.16.840.1.383494.10.20.22.4.2& quot; /> <id nullFlavor="NA" /> <code codeSystem="local" code="RBC" displayName="RBC Red Blood Count" /> <statusCode code="completed" /&gt ; <effectiveTime value="571482003242" /> < value unit="10*6/uL" xsi:type="PQ" value="3.00" /& gt; <interpretationCode codeSystem="local" code="L& quot; /> <referenceRange> <observationRange> <text>4.11-5.63</text> </observationRange> </referenceRange> </observation> </component&gt ; <component> <observation moodCode="EVN" classCode="OBS"> <templateId root=" 2.16.840.1.758284.10.20.22.4.2" /> <id nullFlavor="NA& quot; /> <code codeSystem="local" code="WBC" displayName="WBC White Blood Count" /> <statusCode code ="completed" /> <effectiveTime value="852390964404 " /> <value unit="10*3/uL" xsi:type="PQ&quot ; value="8.2" /> <referenceRange> < observationRange> <text>3.7-11.1</text> & lt;/observationRange> </referenceRange> </observation > </component> </organizer> </entry> <entry&gt ; <organizer moodCode="EVN" classCode="BATTERY"> <templateId root="2.16.840.1.135923.10.20.22.4.1" /> & lt;id nullFlavor="NA" /> <code codeSystem="local" code ="[id number]" displayName="CBC WITH DIFFERENTIAL REFLEX MANUAL DIFF " /> <statusCode code="completed" /> < component> <observation moodCode="EVN" classCode=" OBS"> <templateId root="2.16.840.1.127928.10.20.22.4.2& quot; /> <id nullFlavor="NA" /> <code codeSystem="local" code="HGB" displayName="Hemoglobin& quot; /> <statusCode code="completed" /> & lt;effectiveTime value="703329410741" /> <value unit=& quot;g/dL" xsi:type="PQ" value="8.5" /> &lt ;interpretationCode codeSystem="local" code="L" /> <referenceRange> <observationRange> < text>11.9-16.3</text> </observationRange> &lt ;/referenceRange> </observation> </component> & lt;component> <observation moodCode="EVN" classCode=&quot ;OBS"> <templateId root="2.16.840.1.850852.10.20.22.4.2 " /> <id nullFlavor="NA" /> <code codeSystem="local" code="HCT" displayName="Hematocrit& quot; /> <statusCode code="completed" /> & lt;effectiveTime value="729921670745" /> <value unit=& quot;%" xsi:type="PQ" value="27.9" /> <interpretationCode codeSystem="local" code="L" /&gt ; <referenceRange> <observationRange> <text>37.0-47.7</text> </observationRange> </referenceRange> </observation> </component&gt ; <component> <observation moodCode="EVN" classCode="OBS"> <templateId root=" [id number]" /> <id nullFlavor="NA& quot; /> <code codeSystem="local" code="RDW" displayName="RDW Red Cell Distr Width" /> <statusCode code="completed" /> <effectiveTime value=" [id number]" /> <value unit="%" xsi:type= "PQ" value="16.4" /> <interpretationCode codeSystem="local" code="H" /> < referenceRange> <observationRange> <text> 12.3-15.9</text> </observationRange> </ referenceRange> </observation> </component> < component> <observation moodCode="EVN" classCode=" OBS"> <templateId root="2.16.840.1.328413.10.20.22.4.2& quot; /> <id nullFlavor="NA" /> <code codeSystem="local" code="LYMPAB" displayName=" Lymphocytes Absolute" /> <statusCode code="completed& quot; /> <effectiveTime value="920024179945" /> <value unit="10*3/uL" xsi:type="PQ" value="0.8 " /> <interpretationCode codeSystem="local" code=& quot;L" /> <referenceRange> < observationRange> <text>1.1-3.7</text> & lt;/observationRange> </referenceRange> </ observation> </component> <component> < observation moodCode="EVN" classCode="OBS"> < templateId root="2.16.840.1.486896.10.20.22.4.2" /> < id nullFlavor="NA" /> <code codeSystem="local&quot ; code="MONOAB" displayName="Monocytes Absolute" /> <statusCode code="completed" /> <effectiveTime value="589631153693" /> <value unit="10*3/uL&quot ; xsi:type="PQ" value="1.4" /> < interpretationCode codeSystem="local" code="H" /> <referenceRange> <observationRange> < text>0.3-0.9</text> </observationRange> </ referenceRange> </observation> </component> < component> <observation moodCode="EVN" classCode=" OBS"> <templateId root="2.16.840.1.052408.10.20.22.4.2& quot; /> <id nullFlavor="NA" /> <code codeSystem="local" code="EOSAB" displayName=" Eosinophils Absolute" /> <statusCode code="completed& quot; /> <effectiveTime value="192880108740" /> <value unit="10*3/uL" xsi:type="PQ" value="0.5 " /> <referenceRange> <observationRange&gt ; <text>0.0-0.5</text> </observationRange> </referenceRange> </observation> </component&gt ; <component> <observation moodCode="EVN" classCode="OBS"> <templateId root=" 2.16.840.1.939280.10.20.22.4.2" /> <id nullFlavor="NA& quot; /> <code codeSystem="local" code="BASOAB& quot; displayName="Basophils Absolute" /> <statusCode code="completed" /> <effectiveTime value=" 632164378024" /> <value unit="10*3/uL" xsi:type=& quot;PQ" value="0.0" /> <referenceRange> <observationRange> <text>0.0-0.1</text> </observationRange> </referenceRange> </ observation> </component> <component> < observation moodCode="EVN" classCode="OBS"> < templateId root="2.16.840.1.193569.10.20.22.4.2" /> < id nullFlavor="NA" /> <code codeSystem="local&quot ; code="NEUTRO" displayName="Neutrophils %" /> <statusCode code="completed" /> <effectiveTime value="988480385864" /> <value unit="%& quot; xsi:type="PQ" value="75" /> < referenceRange> <observationRange> <text /& gt; </observationRange> </referenceRange> </observation> </component> <component> &lt ;observation moodCode="EVN" classCode="OBS"> &lt ;templateId root="2.16.840.1.311175.10.20.22.4.2"/> < id nullFlavor="NA" /> <code codeSystem="local&quot ;code="LYMP" displayName="Lymphocytes %" /> <statusCode code="completed" /> <effectiveTime value="548406994123" /> <value unit="%" xsi: type="PQ" value="7" /> <referenceRange> <observationRange> <text /> </ observationRange> </referenceRange> </observation&gt ; </component> <component> <observation moodCode ="EVN" classCode="OBS"> <templateId root=& quot;2.16.840.1.978889.10.20.22.4.2" /> <id nullFlavor=&quot ;NA" /> <code codeSystem="local" code="MONO& quot; displayName="Monocytes %" /> <statusCode code="completed" /> <effectiveTime value=" 823496350338" /> <value unit="%" xsi:type= "PQ" value="13" /> <referenceRange> & lt;observationRange> <text /> </ observationRange> </referenceRange> </observation> </component> <component> <observation moodCode=" EVN" classCode="OBS"> <templateId root=" 2.16.840.1.017402.10..22.4.2" /> <id nullFlavor="NA& quot; /> <code codeSystem="local" code="EOS" displayName="Eosinophils%" /> <statusCode code= "completed" /> <effectiveTime value="028388471242& quot; /> <value unit="%" xsi:type="PQ&quot ; value="4" /> <referenceRange> < observationRange> <text /> </ observationRange> </referenceRange> </observation&gt ; </component> <component> <observation moodCode ="EVN" classCode="OBS"> <templateId root=& quot;2.16.840.1.908032.10.20.22.4.2" /> <id nullFlavor=&quot ;NA" /> <code codeSystem="local" code="BASO& quot; displayName="Basophils %" /> <statusCode code=& quot;completed" /> <effectiveTime value="438677946869& quot; /> <value unit="%" xsi:type="PQ&quot ; value="0" /> <referenceRange> < observationRange> <text /> </ observationRange> </referenceRange> </observation&gt ; </component> <component> <observation moodCode ="EVN" classCode="OBS"> <templateId root=& quot;2.16.840.1.194937.10.20.22.4.2" /> <id nullFlavor=&quot ;NA" /> <code codeSystem="local" code=" NEUTROAB" displayName="Neutrophils Absolute" /> < statusCode code="completed" /> <effectiveTime value=& quot;788859187366" /> <value unit="10*3/uL" xsi:type=&quot ;PQ" value="8.22" /> <interpretationCode codeSystem="local" code="H" /> < referenceRange> <observationRange> <text> 1.70-7.10</text></observationRange> </referenceRange&gt ; </observation> </component> <component> <observation moodCode="EVN" classCode="OBS"> <templateId root="2.16.840.1.681336.10.20.22.4.2" /> <id nullFlavor="NA" /> <code codeSystem=" local" code="MCH" displayName="MCH Mean Cell Hemoglobin&quot ; /> <statusCode code="completed" /> < effectiveTime value="591122185274" /> <value unit=&quot ;pg" xsi:type="PQ" value="28.2" /> < referenceRange> <observationRange> <text> 26.7-33.1</text> </observationRange> </ referenceRange> </observation> </component> < component> <observation moodCode="EVN" classCode=" OBS"> <templateId root="2.16.840.1.758477.10.20.22.4.2& quot; /> <id nullFlavor="NA" /> <code codeSystem="local" code="MCHC" displayName="MCHC Mean Cell Hgb Conc" /> <statusCode code="completed"/&gt ; <effectiveTime value="369547386330" /> < value unit="g/dL" xsi:type="PQ" value="30.5" /&gt ; <interpretationCode codeSystem="local" code="L&quot ; /> <referenceRange> <observationRange> <text>31.1-35.3</text> </observationRange&gt ; </referenceRange> </observation> </component > <component> <observation moodCode="EVN" classCode="OBS"> <templateId root=" 2.16.840.1.197378.10.20.22.4.2" /> <id nullFlavor="NA& quot; /> <code codeSystem="local" code="MCV" displayName="MCV Mean Cell Volume" /> <statusCode code= "completed" /> <effectiveTime value="334151837375& quot; /> <value unit="fL" xsi:type="PQ" value ="93" /> <referenceRange> < observationRange> <text>81-97</text> < /observationRange> </referenceRange> </observation& gt; </component> <component> <observation moodCode="EVN" classCode="OBS"> <templateId root="2.16.840.1.513315.10.20.22.4.2" /> <id nullFlavor ="NA" /><code codeSystem="local" code="MPV" displayName="MPV Mean Platelet Volume" /> <statusCode code="completed" /> <effectiveTime value=" 028067919465" /> <value unit="fL" xsi:type=" PQ" value="9.0" /> <referenceRange> <observationRange> <text /> </observationRange> </referenceRange> </observation> </component > <component> <observation moodCode="EVN" classCode="OBS"> <templateId root=" 2.16.840.1.399166.10.20.22.4.2" /> <id nullFlavor="NA& quot; /> <code codeSystem="local" code="PLT" displayName="Platelet Count" /> <statusCode code=" completed" /> <effectiveTime value="302862151910" /> <value unit="10*3/uL" xsi:type="PQ" value=" 220" /> <referenceRange> <observationRange& gt; <text>150-400</text> </ observationRange> </referenceRange> </observation&gt ; </component> <component> <observation moodCode= "EVN" classCode="OBS"> <templateId root=&quot ;2.16.840.1.908672.10.20.22.4.2" /> <id nullFlavor="NA& quot; /> <code codeSystem="local" code="RBC" displayName="RBC Red Blood Count" /> <statusCode code=& quot;completed" /> <effectiveTime value="765081482581& quot; /> <value unit="10*6/uL" xsi:type="PQ" value="3.01" /> <interpretationCode codeSystem=" local" code="L" /> <referenceRange> &lt ;observationRange> <text>4.11-5.63</text> </observationRange> </referenceRange> </ observation> </component> <component> < observation moodCode="EVN" classCode="OBS"> < templateId root="2.16.840.1.379778.10..22.4.2" /> < id nullFlavor="NA" /> <code codeSystem="local&quot ; code="WBC" displayName="WBC White Blood Count" /> <statusCode code="completed" /> <effectiveTime value="670433586328" /> <value unit="10*3/uL&quot ; xsi:type="PQ" value="11.0" /> < referenceRange> <observationRange> <text>3.7-11.1 </text> </observationRange> </referenceRange& gt; </observation> </component> </organizer> & lt;/entry> <entry> <organizer moodCode="EVN" classCode ="BATTERY"> <templateId root=" 2.16.840.1.358064.10.20.22.4.1" /> <id nullFlavor="NA" /& gt; <code codeSystem="local" code="BNPPRO" displayName="BNP PROBRAIN NATRIURETIC PEPTIDE" /> < statusCode code="completed" /> <component> < observation moodCode="EVN" classCode="OBS"> < templateId root="2.16.840.1.958168.10.20.22.4.2" /> <id nullFlavor="NA" /> <code codeSystem="local" code="BNPPRO" displayName="BNP Pro Brain Natriuretic Peptide&quot ; /> <statusCode code="completed" /> < effectiveTime value="023887343568" /> <value unit=" pg/mL" xsi:type="PQ" value="1260" /> < interpretationCode codeSystem="local" code="H" /> <referenceRange> <observationRange> < text><=125</text> </observationRange> < /referenceRange> </observation> </component> </ organizer> </entry> <entry> <organizer moodCode="EVN " classCode="BATTERY"> <templateId root=" 2.16.840.1.344063.10.20.22.4.1" /> <id nullFlavor="NA&quot ; /> <code codeSystem="local" code="[id number]" displayName="CBC WITH DIFFERENTIAL REFLEX MANUAL DIFF" /> < statusCode code="completed" /> <component> < observation moodCode="EVN" classCode="OBS"> < templateId root="2..840.1.137183.10..22.4.2" /> < id nullFlavor="NA" /> <code codeSystem="local&quot ; code="HGB" displayName="Hemoglobin" /> < statusCode code="completed" /> <effectiveTime value=& quot;073214155483"/> <value unit="g/dL" xsi:type=& quot;PQ" value="8.4" /> <interpretationCode codeSystem="local" code="L" /> < referenceRange> <observationRange> <text> 11.9-16.3</text> </observationRange> </ referenceRange> </observation></component> < component> <observation moodCode="EVN" classCode=" OBS"> <templateId root="2.16.840.1.002726.10.20.22.4.2& quot; /> <id nullFlavor="NA" /> <code codeSystem="local" code="HCT" displayName="Hematocrit& quot; /> <statusCode code="completed" /> & lt;effectiveTime value="578849488087" /> <value unit=& quot;%" xsi:type="PQ" value="27.9" /> <interpretationCode codeSystem="local" code="L" /&gt ; <referenceRange> <observationRange> <text>37.0-47.7</text> </observationRange> </referenceRange> </observation> </component&gt ; <component> <observation moodCode="EVN" classCode="OBS"> <templateId root=" 2.16.840.1.955335.10.20.22.4.2" /> <id nullFlavor="NA& quot; /> <code codeSystem="local" code="RDW" displayName="RDW Red Cell Distr Width" /> <statusCode code="completed" /> <effectiveTime value="679116742181& quot; /> <value unit="%" xsi:type="PQ&quot ; value="16.4" /> <interpretationCode codeSystem=" local" code="H" /> <referenceRange> <observationRange> <text>12.3-15.9</text> </observationRange></referenceRange> </observation&gt ; </component> <component> <observation moodCode=& quot;EVN" classCode="OBS"> <templateId root=" 2.16.840.1.339111.10.20.22.4.2" /> <id nullFlavor="NA& quot; /> <code codeSystem="local" code="LYMPAB&quot ; displayName="LymphocytesAbsolute" /> <statusCode code ="completed" /> <effectiveTime value="412512490404 " /> <value unit="10*3/uL" xsi:type="PQ&quot ; value="0.9" /> <interpretationCode codeSystem=" local" code="L" /> <referenceRange> <observationRange> <text>1.1-3.7</text> </ observationRange> </referenceRange> </observation&gt ; </component> <component> <observationmoodCode= "EVN" classCode="OBS"> <templateId root=&quot ;2.16.840.1.348560.10.20.22.4.2" /> <id nullFlavor="NA& quot; /> <code codeSystem="local" code="MONOAB& quot; displayName="Monocytes Absolute" /> <statusCode code ="completed" /> <effectiveTime value="824716613926 " /> <value unit="10*3/uL" xsi:type="PQ&quot ; value="1.4" /> <interpretationCode codeSystem=" local" code="H" /> <referenceRange> &lt ;observationRange> <text>0.3-0.9</text> & lt;/observationRange> </referenceRange> </ observation> </component> <component> < observation moodCode="EVN" classCode="OBS"> < templateId root="2.16.840.1.505798.10.20.22.4.2" /> < id nullFlavor="NA" /> <code codeSystem="local&quot ; code="EOSAB" displayName="Eosinophils Absolute" /> <statusCodecode="completed" /> <effectiveTime value="999219306127" /> <value unit="10*3/uL" xsi: type="PQ" value="0.4" /><referenceRange> <observationRange> <text>0.0-0.5</text> </observationRange> </referenceRange> </ observation> </component> <component> < observation moodCode="EVN" classCode="OBS"> < templateId root="2.16.840.1.416992.10.20.22.4.2" /> < id nullFlavor="NA" /> <code codeSystem="local&quot ; code="BASOAB" displayName="Basophils Absolute" /> <statusCode code="completed" /> <effectiveTime value="716091814633" /> <value unit="10*3/uL&quot ; xsi:type="PQ" value="0.0" /> < referenceRange> <observationRange> <text> 0.0-0.1</text> </observationRange> </ referenceRange> </observation> </component> < component> <observation moodCode="EVN" classCode=" OBS"> <templateId root="2.16.840.1.262372.10.20.22.4.2& quot; /> <id nullFlavor="NA" /> <code codeSystem="local" code="NEUTRO" displayName=" Neutrophils %" /> <statusCode code="completed& quot; /> <effectiveTime value="830583764214" /> <value unit="%" xsi:type="PQ" value=" 75" /> <referenceRange> <observationRange& gt; <text /> </observationRange> & lt;/referenceRange> </observation> </component>< component> <observation moodCode="EVN" classCode=" OBS"> <templateId root="2.16.840.1.862595.10.20.22.4.2" /> <id nullFlavor="NA" /> <code codeSystem="local" code="LYMP" displayName=" Lymphocytes %" /> <statusCode code="completed& quot; /> <effectiveTime value="632848944102" /> <value unit="%" xsi:type="PQ" value="8&quot ; /> <referenceRange> <observationRange> <text /> </observationRange> </ referenceRange> </observation> </component> < component><observation moodCode="EVN" classCode="OBS"& gt; <templateId root="2.16.840.1.340977.10.20.22.4.2" /&gt ; <id nullFlavor="NA" /> <code codeSystem=" local" code="MONO" displayName="Monocytes %" /& gt; <statusCode code="completed" /> < effectiveTime value="637013280518" /> <value unit=&quot ;%" xsi:type="PQ" value="13" /> &lt ;referenceRange> <observationRange> <text /> </observationRange> </referenceRange></ observation> </component> <component> < observation moodCode="EVN" classCode="OBS"> < templateId root="2.16.840.1.912836.10.20.22.4.2" /> < id nullFlavor="NA" /> <code codeSystem="local&quot ; code="EOS" displayName="Eosinophils %" /> <statusCode code="completed" /> <effectiveTime value="148191646233" /> <value unit="%& quot; xsi:type="PQ" value="4" /> < referenceRange> <observationRange> <text /& gt; </observationRange> </referenceRange> & lt;/observation></component> <component> < observation moodCode="EVN" classCode="OBS"> < templateId root="2.16.840.1.792306.10.20.22.4.2" /> <id nullFlavor="NA" /> <code codeSystem="local" code="BASO" displayName="Basophils %" /> <statusCode code="completed" /> <effectiveTime value="519631802869" /> <valueunit="%&quot ; xsi:type="PQ" value="0" /> <referenceRange& gt; <observationRange> <text /> & lt;/observationRange> </referenceRange> </ observation> </component> <component> < observation moodCode="EVN" classCode="OBS"> < templateId root="2.16.840.1.323447.10.20.22.4.2" /> < id nullFlavor="NA" /> <code codeSystem="local&quot ; code="NEUTROAB" displayName="Neutrophils Absolute" /> <statusCode code="completed" /> <effectiveTime value="418147292857" /> <value unit="10*3/uL&quot ; xsi:type="PQ" value="8.30" /> < interpretationCode codeSystem="local" code="H" /> <referenceRange> <observationRange> < text>1.70-7.10</text> </observationRange> </ referenceRange> </observation> </component> < component> <observation moodCode="EVN" classCode="OBS& quot;> <templateIdroot="2.16.840.1.616106.10.20.22.4.2&quot ; /> <id nullFlavor="NA" /> <code codeSystem="local" code="MCH" displayName="MCH Mean CellHemoglobin" /> <statusCode code="completed" /& gt; <effectiveTime value="960557296994" /> &lt ;value unit="pg" xsi:type="PQ" value="27.9" /> <referenceRange> <observationRange> <text>26.7-33.1</text> </observationRange> </referenceRange> </observation> </component&gt ; <component> <observation moodCode="EVN" classCode="OBS"> <templateId root=" 2.16.840.1.899786.10.20.22.4.2" /> <id nullFlavor="NA& quot; /> <code codeSystem="local" code="MCHC" displayName="MCHC Mean Cell Hgb Conc" /> <statusCode code="completed" /> <effectiveTime value=" 266158124581" /> <value unit="g/dL" xsi:type=&quot ;PQ"value="30.1" /> <interpretationCode codeSystem ="local" code="L" /> <referenceRange> <observationRange> <text>31.1-35.3</text&gt ; </observationRange> </referenceRange> < /observation> </component> <component> < observation moodCode="EVN" classCode="OBS"> < templateId root="2.16.840.1.719022.10..22.4.2" /> < id nullFlavor="NA" /> <code codeSystem="local&quot ; code="MCV" displayName="MCV Mean Cell Volume" /> < statusCode code="completed" /> <effectiveTime value=& quot;070406323809" /> <value unit="fL" xsi:type=& quot;PQ" value="93" /> <referenceRange> <observationRange> <text>81-97</text> </observationRange> </referenceRange> </ observation> </component> <component> < observation moodCode="EVN" classCode="OBS"> < templateId root="2.16.840.1.521799.10.20.22.4.2" /> < id nullFlavor="NA" /> <code codeSystem="local&quot ; code="MPV" displayName="MPV Mean Platelet Volume" /> <statusCode code="completed" /> < effectiveTime value="865947325069" /> <value unit=" fL" xsi:type="PQ" value="9.7" /> < referenceRange> <observationRange> <text /& gt; </observationRange> </referenceRange> </observation> </component> <component> &lt ;observation moodCode="EVN" classCode="OBS"> &lt ;templateId root="2.16.840.1.574257.10.20.22.4.2" /> < id nullFlavor="NA" /> <code codeSystem="local&quot ; code="PLT" displayName="Platelet Count" /> &lt ;statusCode code="completed" /> <effectiveTime value=&quot ;209459645936" /> <value unit="10*3/uL" xsi:type=& quot;PQ" value="231" /> <referenceRange> <observationRange> <text>150-400</text> </observationRange> </referenceRange> </ observation> </component> <component> < observation moodCode="EVN" classCode="OBS"> < templateId root="2.16.840.1.194339.10.20.22.4.2" /> < id nullFlavor="NA" /> <code codeSystem="local&quot ; code="RBC" displayName="RBC Red Blood Count" /> <statusCode code="completed" /> <effectiveTime value="725940178493" /> <value unit="10*6/uL&quot ; xsi:type="PQ" value="3.01" /> < interpretationCode codeSystem="local" code="L" /> <referenceRange> <observationRange> < text>4.11-5.63</text> </observationRange> &lt ;/referenceRange> </observation> </component> & lt;component> <observation moodCode="EVN" classCode=&quot ;OBS"> <templateId root="2.16.840.1.187431.10.20.22.4.2 " /> <id nullFlavor="NA" /> <code codeSystem="local" code="WBC" displayName="WBC White Blood Count" /> <statusCode code="completed" /&gt ; <effectiveTime value="963876982599" /> < value unit="10*3/uL" xsi:type="PQ" value="11.1" /& gt; <referenceRange> <observationRange> & lt;text>3.7-11.1</text> </observationRange> & lt;/referenceRange> </observation> </component> & lt;/organizer> </entry> <entry> <organizer moodCode=" EVN" classCode="BATTERY"> <templateId root=" 2.16.840.1.093458.10.20.22.4.1" /> <id nullFlavor="NA&quot ; /> <code codeSystem="local" code="RENAL" displayName="RENAL FUNCTION PANEL" /> <statusCode code=& quot;completed" /> <component> <observation moodCode=& quot;EVN" classCode="OBS"> <templateId root=" 2.16.840.1.015888.10.20.22.4.2" /> <id nullFlavor="NA& quot; /> <code codeSystem="local" code="BUNCREAT& quot; displayName="BUN:Creatinine Ratio" /> < statusCode code="completed" /> <effectiveTime value=& quot;209947563063" /> <value unit="" xsi:type=& quot;PQ" value="27" /> <interpretationCode codeSystem="local" code="H" /> < referenceRange> <observationRange> <text> 6-25</text> </observationRange> </ referenceRange> </observation> </component> < component> <observation moodCode="EVN" classCode=" OBS"> <templateId root="2.16.840.1.370500.10.20.22.4.2& quot; /> <id nullFlavor="NA" /> <code codeSystem="local" code="ANIONGAP" displayName="Anion Gap" /> <statusCode code="completed" /> <effectiveTime value="254583523393" /> <value unit="" xsi:type="PQ" value="16" /> & lt;referenceRange> <observationRange> <text& gt;6-18</text> </observationRange> </ referenceRange> </observation> </component> < component> <observation moodCode="EVN" classCode=" OBS"> <templateId root="2.16.840.1.453556.10.20.22.4.2& quot; /> <id nullFlavor="NA" /> <code codeSystem="local" code="BUN" displayName="BUN Urea Nitrogen" /> <statusCode code="completed" /> <effectiveTime value="536719786141" /> < value unit="mg/dL" xsi:type="PQ" value="47" /> <interpretationCode codeSystem="local" code="H&quot ; /> <referenceRange> <observationRange> <text>6-24</text> </observationRange> </referenceRange> </observation> </component& gt; <component> <observation moodCode="EVN" classCode="OBS"> <templateId root=" 2.16.840.1.321980.10.20.22.4.2" /> <id nullFlavor="NA& quot; /> <code codeSystem="local" code="CO2" displayName="CO2 Carbon Dioxide" /> <statusCode code=& quot;completed" /> <effectiveTime value="787031238655& quot; /> <value unit="mmol/L" xsi:type="PQ" value="25" /> <referenceRange> < observationRange> <text>20-30</text> < /observationRange> </referenceRange> </observation& gt; </component> <component> <observation moodCode=& quot;EVN" classCode="OBS"> <templateId root=" 2.16.840.1.612792.10.20.22.4.2" /> <id nullFlavor="NA& quot; /> <code codeSystem="local" code="CREAT" displayName="Creatinine" /> <statusCode code=" completed" /> <effectiveTime value="329505551294" /> <value unit="mg/dL" xsi:type="PQ" value=& quot;1.74" /> <interpretationCode codeSystem="local& quot; code="H"/> <referenceRange> < observationRange> <text>0.53-1.26</text> </observationRange> </referenceRange> </ observation> </component> <component> < observation moodCode="EVN" classCode="OBS"> < templateId root="2.16.840.1.011247.10..22.4.2" /> < id nullFlavor="NA" /> <code codeSystem="local&quot ; code="K" displayName="Potassium" /> < statusCode code="completed" /> <effectiveTime value=& quot;335003142548" /><value unit="mmol/L" xsi:type="PQ " value="4.7" /> <referenceRange> & lt;observationRange> <text>3.5-5.1</text> & lt;/observationRange> </referenceRange> </ observation></component> <component> <observation moodCode="EVN" classCode="OBS"> <templateId root="2.16.840.1.567691.10..22.4.2" /> <id nullFlavor=& quot;NA" /> <code codeSystem="local" code="NA " displayName="Sodium" /> <statusCode code=" completed" /> <effectiveTime value="915739680761" /> <value unit="mmol/L" xsi:type="PQ" value=& quot;141" /> <referenceRange> <observationRange> <text>136-145</text> </observationRange& gt; </referenceRange> </observation> </ component> <component> <observation moodCode="EVN& quot; classCode="OBS"> <templateId root=" 2.16.840.1.230629.10.20.22.4.2" /> <id nullFlavor="NA& quot; /> <code codeSystem="local" code="CL" displayName="Chloride" /> <statusCode code=" completed" /> <effectiveTime value="953771375550" /> <value unit="mmol/L" xsi:type="PQ" value=& quot;105" /> <referenceRange> < observationRange> <text>96-111</text> &lt ;/observationRange> </referenceRange> </observation& gt; </component> <component><observation moodCode=&quot ;EVN" classCode="OBS"> <templateId root=" 2.16.840.1.671304.10.20.22.4.2" /> <id nullFlavor="NA& quot; /> <code codeSystem="local" code="PHOS" displayName="Phosphorous" /> <statusCode code=" completed" /> <effectiveTime value="621391374679" /> <value unit="mg/dL" xsi:type="PQ" value=& quot;3.5" /> <referenceRange> < observationRange> <text>2.5-4.9</text> & lt;/observationRange> </referenceRange> </observation > </component> <component> <observation moodCode="EVN" classCode="OBS"> <templateId root="2.16.840.1.176594.10.20.22.4.2" /> <id nullFlavor ="NA" /> <code codeSystem="local" code=" GLU" displayName="Glucose" /> <statusCode code=& quot;completed" /> <effectiveTime value="574279632701& quot; /> <value unit="mg/dL" xsi:type="PQ" value="116" /> <interpretationCode codeSystem="local&quot ; code="H" /> <referenceRange> < observationRange> <text>70-99</text> </ observationRange> </referenceRange> </observation&gt ; </component> <component> <observation moodCode ="EVN" classCode="OBS"> <templateId root=& quot;2.16.840.1.826966.10.20.22.4.2" /> <id nullFlavor=&quot ;NA" /> <code codeSystem="local" code="CA& quot; displayName="Calcium" /> <statusCode code=" completed" /> <effectiveTime value="878422691392" /&gt ; <value unit="mg/dL" xsi:type="PQ" value=" 8.9" /> <referenceRange> <observationRange& gt; <text>8.3-10.1</text> </ observationRange> </referenceRange> </observation&gt ; </component> <component> <observation moodCode ="EVN" classCode="OBS"> <templateId root=& quot;2.16.840.1.653537.10.20.22.4.2" /> <id nullFlavor=&quot ;NA" /> <code codeSystem="local" code="GFR& quot; displayName="GFR Glomerular Filtration Rate" /> < statusCode code="completed" /> <effectiveTime value=" 532348952974" /> <value unit="mL/min/1.73m*2" xsi: type="PQ" value="28.9" /> < interpretationCode codeSystem="local" code="L" /> <referenceRange> <observationRange> < text>>60.0</text> </observationRange> </referenceRange> </observation> </component> <component> <observation moodCode="EVN" classCode=& quot;OBS"> <templateId root=" 2.16.840.1.885080.10.20.22.4.2" /> <id nullFlavor="NA& quot; /> <code codeSystem="local" code="ALB" displayName="Albumin" /> <statusCode code=" completed" /> <effectiveTime value="490452258169" /> <value unit="g/dL" xsi:type="PQ"value=& quot;3.7" /> <referenceRange> < observationRange> <text>3.2-4.6</text> </ observationRange> </referenceRange> </observation&gt ; </component> </organizer> </entry><entry> <organizer moodCode="EVN" classCode="BATTERY"> & lt;templateId root="2.16.840.1.937794.10.20.22.4.1" /> <id nullFlavor="NA"/> <code codeSystem="local" code=& quot;IRON" displayName="IRON" /> <statusCode code=& quot;completed" /> <component> <observation moodCode="EVN" classCode="OBS"> <templateId root="2.16.840.1.084624.10.20.22.4.2" /> <id nullFlavor ="NA" /> <codecodeSystem="local" code=" IRON" displayName="Iron Level" /><statusCode code=" completed" /> <effectiveTime value="712438587134" /> <value unit="ug/dL" xsi:type="PQ" value=& quot;23" /> <referenceRange> < observationRange> <text>21-156</text> &lt ;/observationRange> </referenceRange> </observation& gt; </component> </organizer> </entry> <entry&gt ; <organizer moodCode="EVN" classCode="BATTERY"> <templateId root="2.16.840.1.280038.10.20.22.4.1" /> & lt;id nullFlavor="NA" /> <code codeSystem="local&quot ; code="GLUPOC" displayName="POC GLUCOMETER" /> < statusCode code="completed" /> <component> < observation moodCode="EVN" classCode="OBS"> < templateId root="2.16.840.1.581818.10.20.22.4.2" /> < id nullFlavor="NA" /> <code codeSystem="local&quot ; code="9153896" displayName="Glucose Meter (POC)" /> <statusCode code="completed" /> < effectiveTime value="509056153675" /> <value unit=&quot ;mg/dL" xsi:type="PQ" value="134" /> < interpretationCode codeSystem="local" code="H" /> <referenceRange> <observationRange> < text>70-99</text> </observationRange> </ referenceRange> </observation></component> </ organizer> </entry> <entry> <organizer moodCode="EVN " classCode="BATTERY"> <templateId root=" 2.16.840.1.674452.10.20.22.4.1" /> <id nullFlavor="NA&quot ; /> <code codeSystem="local" code="GLUPOC" displayName="POC GLUCOMETER" /> <statusCode code=" completed" /> <component> <observation moodCode=& quot;EVN" classCode="OBS"> <templateId root=" 2.16.840.1.158591.10.20.22.4.2" /> <id nullFlavor="NA& quot; /> <code codeSystem="local" code="0450424& quot; displayName="Glucose Meter (POC)" /> <statusCode code="completed" /> <effectiveTime value=" 088566385823" /> <value unit="mg/dL" xsi:type="PQ&quot ; value="276" /> <interpretationCode codeSystem=" local" code="H" /> <referenceRange> <observationRange> <text>70-99</text> </observationRange> </referenceRange> </ observation> </component> </organizer> </entry> & lt;entry> <organizer moodCode="EVN" classCode="BATTERY& quot;> <templateId root="2.16.840.1.505759.10.20.22.4.1" /& gt; <id nullFlavor="NA" /> <code codeSystem=" local" code="GLUPOC" displayName="POC GLUCOMETER" /&gt ; <statusCode code="completed" /> <component> <observation moodCode="EVN" classCode="OBS"> <templateId root="2.16.840.1.130172.10.20.22.4.2" /> <id nullFlavor="NA" /> <code codeSystem=" local" code="3866785" displayName="Glucose Meter (POC)&quot ; /> <statusCode code="completed" /> < effectiveTime value="509658140969" /> <value unit=&quot ;mg/dL" xsi:type="PQ" value="246" /> < interpretationCodecodeSystem="local" code="H" /> <referenceRange> <observationRange> < text>70-99</text> </observationRange> </ referenceRange> </observation> </component> </ organizer> </entry> <entry> <organizer moodCode="EVN " classCode="BATTERY"> <templateId root=" 2.16.840.1.329007.10.20.22.4.1" /> <id nullFlavor="NA&quot ; /> <code codeSystem="local" code="GLUPOC" displayName="POC GLUCOMETER" /> <statusCode code=" completed" /> <component> <observation moodCode=& quot;EVN" classCode="OBS"> <templateId root=" 2.16.840.1.573125.10.20.22.4.2" /> <id nullFlavor="NA& quot; /> <code codeSystem="local" code="1113348& quot; displayName="Glucose Meter (POC)" /> <statusCode code="completed" /> <effectiveTime value="252440696958& quot; /> <value unit="mg/dL"xsi:type="PQ" value="245" /> <interpretationCode codeSystem=" local" code="H" /> <referenceRange> <observationRange> <text>70-99</text> </observationRange> </referenceRange> </ observation> </component> </organizer> </entry> & lt;entry> <organizer moodCode="EVN" classCode="BATTERY& quot;> <templateId root="2.16.840.1.835449.10.20.22.4.1" /> <id nullFlavor="NA" /> <code codeSystem="local " code="GLUPOC" displayName="POC GLUCOMETER" /> <statusCode code="completed" /> <component> & lt;observation moodCode="EVN" classCode="OBS"> & lt;templateIdroot="2.16.840.1.426170.10.20.22.4.2" /> < id nullFlavor="NA" /> <code codeSystem="local&quot ; code="8155458" displayName="Glucose Meter (POC)" /> <statusCode code="completed" /> < effectiveTime value="347625469023" /> <value unit=&quot ;mg/dL" xsi:type="PQ" value="362" /> < interpretationCode codeSystem="local" code="HH" /> <referenceRange> <observationRange> <text>70-99 </text> </observationRange> </referenceRange& gt; </observation> </component> </organizer> & lt;/entry> <entry> <organizer moodCode="EVN" classCode ="BATTERY"> <templateIdroot=" 2.16.840.1.362183.10.20.22.4.1" /> <id nullFlavor="NA&quot ; /> <code codeSystem="local" code="GLUPOC" displayName="POC GLUCOMETER" /> <statusCode code=" completed" /> <component> <observation moodCode=& quot;EVN" classCode="OBS"> <templateId root=" 2.16.840.1.399445.10.20.22.4.2" /> <id nullFlavor="NA& quot; /> <code codeSystem="local" code="6828261& quot; displayName="Glucose Meter (POC)"/> <statusCode code="completed" /> <effectiveTime value=" 803563282756" /> <value unit="mg/dL" xsi:type=& quot;PQ" value="282" /> <interpretationCode codeSystem="local" code="H" /> < referenceRange> <observationRange> <text> 70-99</text> </observationRange> </ referenceRange> </observation> </component> </ organizer> </entry> <entry> <organizer moodCode="EVN " classCode="BATTERY"> <templateId root=" 2.16.840.1.273362.10.20.22.4.1" /> <id nullFlavor="NA&quot ; /> <code codeSystem="local" code="[id number]" displayName="CBC WITH DIFFERENTIAL REFLEX MANUAL DIFF" /> < statusCode code="completed" /> <component> < observation moodCode="EVN" classCode="OBS"> < templateId root="2.16.840.1.898406.10.20.22.4.2" /> < id nullFlavor="NA" /> <code codeSystem="local" code="HGB" displayName="Hemoglobin" /> < statusCode code="completed" /> <effectiveTime value=& quot;592999338030" /> <value unit="g/dL" xsi:type= "PQ" value="8.5" /> <interpretationCode codeSystem="local" code="L" /> < referenceRange> <observationRange> <text> 11.9-16.3</text> </observationRange> </ referenceRange> </observation> </component> < component> <observation moodCode="EVN" classCode=" OBS"> <templateId root="2.16.840.1.143377.10.20.22.4.2& quot; /> <id nullFlavor="NA" /> <code codeSystem="local" code="HCT" displayName="Hematocrit& quot; /> <statusCode code="completed" /> & lt;effectiveTime value="" /> <value unit=& quot;%" xsi:type="PQ" value="28.0" /> <interpretationCode codeSystem="local" code="L" /&gt ; <referenceRange> <observationRange> <text>37.0-47.7</text> </observationRange> </referenceRange> </observation> </component&gt ; <component> <observation moodCode="EVN" classCode="OBS"> <templateId root=" 2.16.840.1.876892.10.20.22.4.2" /> <id nullFlavor="NA& quot; /> <code codeSystem="local" code="RDW" displayName="RDW Red Cell Distr Width" /> <statusCode code="completed" /> <effectiveTime value=" 627570513511" /> <value unit="%" xsi:type= "PQ" value="16.7" /> <interpretationCode codeSystem="local" code="H" /> < referenceRange><observationRange> <text>12.3-15.9&lt ;/text> </observationRange> </referenceRange&gt ; </observation> </component> <component> <observation moodCode="EVN" classCode="OBS"> &lt ;templateId root="2.16.840.1.312976.10.20.22.4.2" /> < id nullFlavor="NA" /> <code codeSystem="local&quot ; code="LYMPAB" displayName="Lymphocytes Absolute" /> <statusCode code="completed" /> <effectiveTime value="893240590389" /> <value unit="10*3/uL&quot ; xsi:type="PQ" value="0.5" /> < interpretationCode codeSystem="local" code="L" /> <referenceRange> <observationRange> < text>1.1-3.7</text> </observationRange> </ referenceRange> </observation> </component> < component> <observation moodCode="EVN" classCode="OBS&quot ;> <templateId root="2.16.840.1.473718.10..22.4.2" /& gt; <id nullFlavor="NA" /> <code codeSystem=& quot;local" code="MONOAB" displayName="Monocytes Absolute& quot; /> <statusCode code="completed" /> & lt;effectiveTime value="" /> <value unit=& quot;10*3/uL" xsi:type="PQ" value="0.6" /> <referenceRange> <observationRange> <text&gt ;0.3-0.9</text> </observationRange> </ referenceRange> </observation> </component> < component> <observation moodCode="EVN" classCode=" OBS"> <templateId root="2.16.840.1.017177.10.20.22.4.2& quot; /> <id nullFlavor="NA" /> <code codeSystem="local" code="EOSAB" displayName=" Eosinophils Absolute" /> <statusCode code="completed& quot; /> <effectiveTime value="" /> <value unit="10*3/uL" xsi:type="PQ" value="0.0 " /> <referenceRange> <observationRange&gt ; <text>0.0-0.5</text> </observationRange> </referenceRange> </observation> </component&gt ; <component> <observation moodCode="EVN" classCode="OBS"> <templateId root=" 2.16.840.1.905400.10..22.4.2" /> <id nullFlavor="NA& quot; /> <codecodeSystem="local" code="BASOAB&quot ; displayName="Basophils Absolute" /> <statusCode code= "completed" /> <effectiveTime value="954935298462& quot; /> <value unit="10*3/uL" xsi:type="PQ" value="0.0" /> <referenceRange> < observationRange> <text>0.0-0.1</text> & lt;/observationRange> </referenceRange> </observation& gt; </component> <component> <observation moodCode="EVN" classCode="OBS"> <templateId root="2.16.840.1.238836.10.20.22.4.2" /> <id nullFlavor ="NA" /> <code codeSystem="local" code=" NEUTRO" displayName="Neutrophils %" /> < statusCode code="completed" /> <effectiveTime value=& quot;" /> <value unit="%" xsi: type="PQ" value="90" /> <referenceRange> <observationRange> <text /> </ observationRange> </referenceRange> </observation&gt ; </component> <component> <observation moodCode ="EVN" classCode="OBS"> <templateId root=& quot;2.16.840.1.048361.10.20.22.4.2" /> <id nullFlavor=&quot ;NA" /> <code codeSystem="local" code="LYMP& quot; displayName="Lymphocytes %" /> < statusCode code="completed" /> <effectiveTime value=& quot;918350602365" /> <value unit="%" xsi:type=& quot;PQ" value="4" /> <referenceRange> <observationRange> <text /> </ observationRange> </referenceRange> </observation&gt ; </component> <component> <observation moodCode ="EVN" classCode="OBS"> <templateId root=& quot;2.16.840.1.316128.10..22.4.2" /> <id nullFlavor=&quot ;NA" /> <code codeSystem="local" code="MONO& quot; displayName="Monocytes %" /> <statusCode code="completed" /> <effectiveTime value=" " /> <value unit="%" xsi:type= "PQ" value="6" /> <referenceRange> < observationRange> <text /> </ observationRange> </referenceRange> </observation> & lt;/component> <component> <observation moodCode="EVN " classCode="OBS"> <templateIdroot=" 2.16.840.1.647279.10..22.4.2" /> <id nullFlavor="NA& quot; /> <code codeSystem="local" code="EOS" displayName="Eosinophils %" /> <statusCode code ="completed" /> <effectiveTime value=" " /> <value unit="%" xsi:type="PQ& quot; value="0" /> <referenceRange> < observationRange> <text /> </ observationRange> </referenceRange> </observation> </component> <component> <observation moodCode= "EVN" classCode="OBS"> <templateId root=&quot ;2.16.840.1.763547.10..22.4.2" /> <id nullFlavor="NA& quot; /> <code codeSystem="local" code="BASO&quot ; displayName="Basophils %" /> <statusCode code=" completed" /> <effectiveTime value="711946550183" /> <value unit="%" xsi:type="PQ" value="0" /> <referenceRange> < observationRange> <text /> </ observationRange> </referenceRange> </observation&gt ; </component> <component> <observation moodCode= "EVN" classCode="OBS"> <templateId root=&quot ;2.16.840.1.826666.10.20.22.4.2" /> <id nullFlavor="NA& quot; /> <code codeSystem="local" code="NEUTROAB& quot; displayName="Neutrophils Absolute" /> < statusCode code="completed" /> <effectiveTime value=& quot;" /><value unit="10*3/uL" xsi:type=" PQ" value="9.50" /> <interpretationCode codeSystem ="local" code="H" /> <referenceRange> <observationRange> <text>1.70-7.10</text&gt ; </observationRange> </referenceRange> & lt;/observation> </component> <component> < observation moodCode="EVN" classCode="OBS"> < templateId root="2.16.840.1.545634.10.20.22.4.2" /> < id nullFlavor="NA" /> <code codeSystem="local&quot ; code="MCH"displayName="MCH Mean Cell Hemoglobin" /> <statusCode code="completed" /> < effectiveTime value="" /> <value unit=&quot ;pg" xsi:type="PQ" value="28.1" /> < referenceRange> <observationRange> <text>26.7 -33.1</text> </observationRange> </ referenceRange> </observation> </component> < component> <observation moodCode="EVN" classCode=" OBS"> <templateId root="2.16.840.1.286298.10.20.22.4.2& quot; /> <id nullFlavor="NA" /> <code codeSystem="local" code="MCHC" displayName="MCHC Mean Cell Hgb Conc" /> <statusCode code="completed" /& gt; <effectiveTime value="801788908410" /> &lt ;value unit="g/dL" xsi:type="PQ" value="30.4" /&gt ; <interpretationCode codeSystem="local" code="L&quot ; /> <referenceRange> <observationRange> <text>31.1-35.3</text> </observationRange&gt ; </referenceRange> </observation> </component& gt; <component> <observation moodCode="EVN" classCode="OBS"> <templateId root=" 2.16.840.1.921235.10.20.22.4.2" /> <id nullFlavor="NA& quot;/> <code codeSystem="local" code="MCV" displayName="MCV MeanCell Volume" /> <statusCode code=& quot;completed" /> <effectiveTime value="& quot; /> <value unit="fL" xsi:type="PQ" value ="92" /> <referenceRange> < observationRange> <text>81-97</text> </ observationRange> </referenceRange> </observation&gt ; </component> <component> <observation moodCode ="EVN" classCode="OBS"> <templateId root=& quot;2.16.840.1.993612.10.20.22.4.2" /> <id nullFlavor=&quot ;NA" /> <code codeSystem="local" code="MPV& quot; displayName="MPV Mean Platelet Volume" /> < statusCode code="completed" /> <effectiveTime value=& quot;" /> <value unit="fL" xsi:type=& quot;PQ" value="9.7" /> <referenceRange> <observationRange> <text /> </observationRange& gt; </referenceRange> </observation> </ component> <component> <observation moodCode="EVN& quot; classCode="OBS"> <templateId root=" 2.16.840.1.405787.10..22.4.2" /> <id nullFlavor="NA& quot; /> <code codeSystem="local" code="PLT" displayName="Platelet Count" /> <statusCode code=" completed" /> <effectiveTime value="218071171573" /> <value unit="10*3/uL" xsi:type="PQ" value=" 250" /> <referenceRange> <observationRange& gt; <text>150-400</text> </ observationRange> </referenceRange> </observation&gt ; </component> <component> <observation moodCode=& quot;EVN" classCode="OBS"> <templateId root=" 2.16.840.1.927052.10.20.22.4.2" /> <id nullFlavor="NA& quot; /> <code codeSystem="local" code="RBC" displayName="RBC Red Blood Count" /> <statusCode code=& quot;completed" /> <effectiveTime value="& quot; /> <value unit="10*6/uL" xsi:type="PQ" value="3.03" /> <interpretationCode codeSystem=" local" code="L" /> <referenceRange> < observationRange> <text>4.11-5.63</text> </observationRange> </referenceRange> </ observation> </component> <component> < observation moodCode="EVN" classCode="OBS"> < templateId root="2.16.840.1.506289.10.20.22.4.2" /> < id nullFlavor="NA" /> <code codeSystem="local&quot ; code="WBC" displayName="WBC White Blood Count" /> <statusCode code="completed" /> <effectiveTime value="" /> <value unit="10*3/uL&quot ; xsi:type="PQ" value="10.6" /> < referenceRange> <observationRange> <text>3.7-11.1& lt;/text> </observationRange> </referenceRange& gt; </observation> </component> </organizer> & lt;/entry> <entry> <organizer moodCode="EVN" classCode ="BATTERY"> <templateId root=" 2.16.840.1.457857.10.20.22.4.1" /><id nullFlavor="NA" /&gt ; <code codeSystem="local" code="BNPPRO" displayName ="BNP PROBRAIN NATRIURETIC PEPTIDE" /> <statusCode code=& quot;completed" /> <component> <observation moodCode="EVN" classCode="OBS"> <templateId root="2.16.840.1.748036.10.20.22.4.2" /> <id nullFlavor=& quot;NA" /> <code codeSystem="local" code=" BNPPRO" displayName="BNP Pro Brain Natriuretic Peptide" /> <statusCode code="completed" /> < effectiveTime value="105293998284" /> <value unit="pg /mL" xsi:type="PQ" value="3171" /> < interpretationCode codeSystem="local" code="H" /> <referenceRange> <observationRange> < text><=125</text> </observationRange> </ referenceRange> </observation> </component> </ organizer> </entry> <entry> <organizer moodCode="EVN " classCode="BATTERY"> <templateId root=" 2.16.840.1.921352.10.20.22.4.1" /> <id nullFlavor="NA&quot ; /> <code codeSystem="local" code="RETIC" displayName="RETICULOCYTE COUNT" /> <statusCode code=" completed" /> <component> <observation moodCode=& quot;EVN" classCode="OBS"> <templateId root=" 2.16.840.1.546053.10.20.22.4.2" /> <id nullFlavor="NA& quot; /> <code codeSystem="local" code="RETICABS& quot; displayName="Reticulocyte Absolute" /> < statusCode code="completed" /> <effectiveTime value=& quot;199276393000" /> <value unit="10*9/L" xsi:type=& quot;PQ" value="120" /> <interpretationCode codeSystem="local" code="H" /> < referenceRange> <observationRange> <text> 20-94</text> </observationRange> </ referenceRange> </observation> </component> < component> <observation moodCode="EVN" classCode=" OBS"> <templateId root="2.16.840.1.651521.10.20.22.4.2& quot; /> <id nullFlavor="NA" /> <code codeSystem="local" code="RETIC%" displayName=" Reticulocyte %" /> <statusCode code="completed& quot; /> <effectiveTime value="341158760246" /> <valueunit="%" xsi:type="PQ" value=" 3.9" /> <interpretationCode codeSystem="local" code="H" /> <referenceRange> < observationRange> <text>0.5-1.6</text> & lt;/observationRange> </referenceRange> </ observation> </component> <component> < observation moodCode="EVN" classCode="OBS"> < templateId root="2.16.840.1.658696.10.20.22.4.2" /> < id nullFlavor="NA" /> <code codeSystem="local&quot ; code="IRF" displayName="Immature Reticulocyte Fraction" /& gt; <statusCode code="completed"/> < effectiveTime value="098319129127" /> <value unit=&quot ;" xsi:type="PQ" value="29.9" /> < interpretationCode codeSystem="local" code="H" /> <referenceRange> <observationRange> < text>5.0-18.0</text> </observationRange> </ referenceRange> </observation> </component> < component> <observation moodCode="EVN" classCode=" OBS"> <templateId root="2.16.840.1.298556.10.20.22.4.2& quot; /> <id nullFlavor="NA" /> <code codeSystem="local" code="2205519864" displayName=" Reticulocyte Hemoglobin" /> <statusCode code="completed " /> <effectiveTime value="762420619214" /> <value unit="pg" xsi:type="PQ" value="26.6& quot; /> <interpretationCode codeSystem="local" code=& quot;L" /> <referenceRange> < observationRange> <text>30.0-41.0</text> </ observationRange> </referenceRange> </observation&gt ; </component> </organizer> </entry> <entry> <organizer moodCode="EVN" classCode="BATTERY"> <templateId root="2.16.840.1.112936.10.20.22.4.1" /> < id nullFlavor="NA" /> <code codeSystem="local" code="GLUPOC" displayName="POC GLUCOMETER" /> < statusCode code="completed" /> <component>< observation moodCode="EVN" classCode="OBS"> < templateId root="2.16.840.1.775449.10.20.22.4.2" /> < id nullFlavor="NA" /> <code codeSystem="local" code ="9853042" displayName="Glucose Meter (POC)" /> <statusCode code="completed" /> <effectiveTime value ="182465364989" /> <value unit="mg/dL" xsi: type="PQ" value="330" /> <interpretationCode codeSystem="local" code="H" /> < referenceRange> <observationRange> <text> 70-99</text> </observationRange> </ referenceRange> </observation> </component> </ organizer> </entry> <entry> <organizer moodCode="EVN& quot; classCode="BATTERY"> <templateId root=" 2.16.840.1.117964.10.20.22.4.1" /> <id nullFlavor="NA&quot ; /> <code codeSystem="local" code="GLUPOC" displayName="POC GLUCOMETER" /> <statusCode code=" completed" /> <component> <observation moodCode=& quot;EVN" classCode="OBS"> <templateId root=" 2.16.840.1.247671.10.20.22.4.2" /> <id nullFlavor="NA& quot; /> <code codeSystem="local" code="8294836& quot; displayName="Glucose Meter (POC)" /> <statusCode code="completed" /> <effectiveTime value=" 018035400379" /> <value unit="mg/dL" xsi:type=& quot;PQ" value="207" /> <interpretationCode codeSystem="local" code="H" /> <referenceRange&gt ; <observationRange> <text>70-99</text&gt ; </observationRange> </referenceRange> & lt;/observation> </component> </organizer> </entry&gt ; <entry> <organizer moodCode="EVN" classCode=" BATTERY"> <templateId root="2.16.840.1.374831.10.20.22.4.1& quot; /> <id nullFlavor="NA" /> <code codeSystem ="local" code="GLUPOC" displayName="POC GLUCOMETER&quot ; /> <statusCode code="completed" /> <component& gt; <observation moodCode="EVN" classCode="OBS"&gt ; <templateId root="2.16.840.1.258546.10.20.22.4.2" /> <id nullFlavor="NA" /> <code codeSystem=& quot;local" code="6076530" displayName="Glucose Meter (POC)& quot; /> <statusCode code="completed" /> & lt;effectiveTime value="106087623280" /> <value unit=& quot;mg/dL" xsi:type="PQ" value="302" /> < interpretationCode codeSystem="local" code="H" /> <referenceRange> <observationRange> < text>70-99</text> </observationRange> </ referenceRange> </observation> </component> </ organizer> </entry> <entry> <organizer moodCode="EVN " classCode="BATTERY"> <templateId root=" 2.16.840.1.262948.10.20.22.4.1" /> <id nullFlavor="NA&quot ; /> <code codeSystem="local" code="GLUPOC" displayName="POC GLUCOMETER" /> <statusCode code=" completed" /> <component> <observation moodCode=& quot;EVN" classCode="OBS"> <templateId root=" 2.16.840.1.971252.10.20.22.4.2" /> <id nullFlavor="NA&quot ; /> <code codeSystem="local" code="7908090" displayName="Glucose Meter (POC)" /> <statusCode code=& quot;completed" /> <effectiveTime value="052716842130& quot; /> <value unit="mg/dL" xsi:type="PQ" value="208" /> <interpretationCode codeSystem=" local" code="H" /> <referenceRange> < observationRange> <text>70-99</text> < /observationRange> </referenceRange> </observation& gt; </component> </organizer> </entry> <entry&gt ; <organizer moodCode="EVN" classCode="BATTERY"> <templateId root="2.16.840.1.433392.10.20.22.4.1" /> <id nullFlavor="NA" /> <code codeSystem="local" code= "GLUPOC" displayName="POC GLUCOMETER" /> < statusCode code="completed" /> <component> < observation moodCode="EVN" classCode="OBS"> < templateId root="[id number]" /> < id nullFlavor="NA" /> <code codeSystem="local&quot ; code="6053718" displayName="Glucose Meter (POC)" /> <statusCode code="completed" /> < effectiveTime value="[id number]" /> <value unit=&quot ;mg/dL" xsi:type="PQ" value="279" /> < interpretationCode codeSystem="local" code="H" /> <referenceRange> <observationRange> < text>70-99</text> </observationRange> </ referenceRange> </observation> </component> </ organizer> </entry> <entry> <organizer moodCode="EVN& quot; classCode="BATTERY"> <templateId root=" 2.16.840.1.452895.10.20.22.4.1" /> <id nullFlavor="NA&quot ; /> <code codeSystem="local" code="[id number]" displayName="CBC WITH DIFFERENTIAL REFLEX MANUAL DIFF" /> < statusCode code="completed" /> <component> < observation moodCode="EVN" classCode="OBS"> < templateId root="2.16.840.1.817077.10.20.22.4.2" /><id nullFlavor="NA" /> <code codeSystem="local" code="HGB" displayName="Hemoglobin" /> < statusCode code="completed" /> <effectiveTime value=& quot;148499568391" /> <value unit="g/dL" xsi:type= "PQ" value="9.1" /> <interpretationCode codeSystem="local" code="L" /> < referenceRange> <observationRange> <text> 11.9-16.3</text> </observationRange> </ referenceRange> </observation> </component> < component> <observation moodCode="EVN" classCode=" OBS"> <templateId root="2.16.840.1.990251.10.20.22.4.2& quot; /> <id nullFlavor="NA" /> <code codeSystem="local" code="HCT" displayName="Hematocrit& quot; /> <statusCode code="completed" /> & lt;effectiveTime value="" /> <value unit=& quot;%" xsi:type="PQ" value="29.2" /> <interpretationCode codeSystem="local" code="L" /&gt ; <referenceRange> <observationRange> <text>37.0-47.7</text> </observationRange> </referenceRange> </observation> </component> <component> <observation moodCode="EVN" classCode="OBS"> <templateId root=" 2.16.840.1.631767.10.20.22.4.2" /> <id nullFlavor="NA& quot; /> <code codeSystem="local" code="RDW" displayName="RDW Red Cell Distr Width" /> <statusCode code= "completed" /> <effectiveTime value="653127529125& quot; /> <value unit="%" xsi:type="PQ&quot ; value="16.6" /> <interpretationCode codeSystem=" local" code="H" /> <referenceRange> & lt;observationRange> <text>12.3-15.9</text> </observationRange> </referenceRange> </ observation> </component> <component> < observation moodCode="EVN" classCode="OBS"> < templateId root="2.16.840.1.257929.10.20.22.4.2" /> < id nullFlavor="NA" /> <code codeSystem="local&quot ; code="LYMPAB" displayName="Lymphocytes Absolute" /> <statusCode code="completed" /> < effectiveTime value="638474598401" /> <value unit=&quot ;10*3/uL" xsi:type="PQ" value="0.4" /> < interpretationCode codeSystem="local" code="L" /> <referenceRange> <observationRange> < text>1.1-3.7</text> </observationRange> </ referenceRange> </observation> </component> < component> <observation moodCode="EVN" classCode=" OBS"> <templateId root="2.16.840.1.242903.10..22.4.2& quot; /> <id nullFlavor="NA" /> <code codeSystem= "local" code="MONOAB" displayName="Monocytes Absolute& quot; /> <statusCode code="completed" /> & lt;effectiveTime value="835642870426" /> <value unit=& quot;10*3/uL" xsi:type="PQ" value="0.7" /> <referenceRange> <observationRange> <text >0.3-0.9</text> </observationRange> </ referenceRange> </observation> </component> < component> <observation moodCode="EVN" classCode=" OBS"> <templateId root="2.16.840.1.120878.10.20.22.4.2& quot; /> <idnullFlavor="NA" /> <code codeSystem="local" code="EOSAB" displayName=" Eosinophils Absolute" /> <statusCode code="completed& quot; /> <effectiveTime value="690358990545" /> <value unit="10*3/uL" xsi:type="PQ" value="0.0 " /> <referenceRange> <observationRange> <text>0.0-0.5</text> </observationRange&gt ; </referenceRange> </observation> </ component> <component> <observation moodCode="EVN& quot; classCode="OBS"> <templateId root=" 2.16.840.1.119973.10.20.22.4.2" /> <id nullFlavor="NA& quot; /> <code codeSystem="local" code="BASOAB& quot; displayName="Basophils Absolute" /> <statusCode code="completed" /> <effectiveTime value=" 129575760074" /> <value unit="10*3/uL" xsi:type=& quot;PQ" value="0.0" /> <referenceRange> < observationRange> <text>0.0-0.1</text> & lt;/observationRange> </referenceRange> </ observation> </component> <component> < observation moodCode="EVN" classCode="OBS"> < templateId root="2.16.840.1.792335.10.20.22.4.2" /> < id nullFlavor="NA" /> <code codeSystem="local&quot ; code="NEUTRO" displayName="Neutrophils %" /> <statusCode code="completed" /> <effectiveTime value="457681744967" /> <value unit="%& quot; xsi:type="PQ" value="93" /> < referenceRange> <observationRange> <text /& gt; </observationRange> </referenceRange> </observation> </component> <component>< observation moodCode="EVN" classCode="OBS"> < templateId root="2.16.840.1.356385.10.20.22.4.2" /> < id nullFlavor="NA" /> <code codeSystem="local" code ="LYMP" displayName="Lymphocytes %" /> & lt;statusCode code="completed" /> <effectiveTime value= "552066957785" /> <value unit="%" xsi :type="PQ" value="3" /> <referenceRange> <observationRange> <text /> </ observationRange> </referenceRange> </observation> </component> <component> <observation moodCode=" EVN" classCode="OBS"> <templateId root=" 2.16.840.1.341724.10.20.22.4.2" /> <id nullFlavor="NA& quot; /> <code codeSystem="local" code="MONO&quot ; displayName="Monocytes %" /> <statusCode code ="completed" /> <effectiveTime value="866558336469 " /> <value unit="%" xsi:type="PQ& quot; value="4" /> <referenceRange> < observationRange> <text /> </observationRange& gt; </referenceRange> </observation></component& gt; <component> <observation moodCode="EVN" classCode="OBS"> <templateId root=" 2.16.840.1.657370.10.20.22.4.2" /> <id nullFlavor="NA" /> <code codeSystem="local" code="EOS" displayName="Eosinophils %" /> <statusCode code ="completed" /> <effectiveTime value="790418274944 " /> <value unit="%" xsi:type="PQ& quot; value="0" /> <referenceRange> < observationRange> <text /> </ observationRange> </referenceRange> </observation&gt ; </component> <component> <observation moodCode ="EVN" classCode="OBS"> <templateId root=" 2.16.840.1.136355.10.20.22.4.2" /> <id nullFlavor="NA& quot; /> <code codeSystem="local" code="BASO&quot ; displayName="Basophils %" /> <statusCode code ="completed" /> <effectiveTime value="066936680382" /& gt; <value unit="%" xsi:type="PQ" value= "0" /> <referenceRange> < observationRange> <text /> </ observationRange> </referenceRange> </observation&gt ; </component> <component> <observation moodCode ="EVN" classCode="OBS"> <templateId root=& quot;2.16.840.1.196854.10.20.22.4.2" /> <id nullFlavor=&quot ;NA" /><code codeSystem="local" code="NEUTROAB" displayName="Neutrophils Absolute" /> <statusCode code= "completed" /> <effectiveTime value="446153232171& quot; /> <value unit="10*3/uL" xsi:type="PQ" value="14.66" /> <interpretationCode codeSystem=" local" code="H" /> <referenceRange> <observationRange> <text>1.70-7.10</text> </observationRange> </referenceRange> </ observation> </component> <component> < observation moodCode="EVN" classCode="OBS"> < templateId root="2.16.840.1.449300.10.20.22.4.2" /> < id nullFlavor="NA" /> <code codeSystem="local&quot ; code="MCH" displayName="MCH Mean Cell Hemoglobin" /> <statusCode code="completed" /> <effectiveTime value="837615761417" /> <value unit="pg" xsi: type="PQ" value="28.2" /> <referenceRange&gt ; <observationRange> <text>26.7-33.1</ text> </observationRange> </referenceRange>& lt;/observation> </component> <component> < observation moodCode="EVN" classCode="OBS"> < templateId root="2.16.840.1.700843.10.20.22.4.2" /> < id nullFlavor="NA" /> <code codeSystem="local&quot ; code="MCHC" displayName="MCHC Mean Cell Hgb Conc" />&lt ;statusCode code="completed" /> <effectiveTime value=& quot;922651094544" /> <value unit="g/dL" xsi:type= "PQ" value="31.2" /> <referenceRange> <observationRange> <text>31.1-35.3</text&gt ; </observationRange> </referenceRange> & lt;/observation> </component> <component> < observation moodCode="EVN" classCode="OBS"> < templateId root="2.16.840.1.506986.10..22.4.2" /> < id nullFlavor="NA" /> <code codeSystem="local&quot ; code="MCV" displayName="MCV Mean Cell Volume" /> <statusCode code="completed" /> <effectiveTime value="047944290149" /> <value unit="fL" xsi: type="PQ" value="90" /><referenceRange> <observationRange> <text>81-97</text> </observationRange> </referenceRange> </ observation> </component> <component> < observation moodCode="EVN" classCode="OBS"> < templateId root="2.16.840.1.747372.10..22.4.2" /> <id nullFlavor="NA" /> <code codeSystem="local" code="MPV" displayName="MPV Mean Platelet Volume" /> <statusCode code="completed" /> < effectiveTime value="804267936554" /> <value unit=&quot ;fL" xsi:type="PQ" value="9.3" /> < referenceRange> <observationRange> <text /& gt; </observationRange> </referenceRange> </observation> </component><component> < observation moodCode="EVN" classCode="OBS"> < templateId root="2.16.840.1.307315.10..22.4.2" /> < id nullFlavor="NA" /> <code codeSystem="local&quot ; code="PLT" displayName="Platelet Count" /> &lt ;statusCode code="completed" /> <effectiveTime value=& quot;474472672766" /> <value unit="10*3/uL" xsi: type="PQ" value="292" /> <referenceRange> <observationRange> <text>150-400</text& gt; </observationRange> </referenceRange> < /observation> </component> <component> < observation moodCode="EVN" classCode="OBS"> < templateId root="2.16.840.1.830582.10..22.4.2" /> < id nullFlavor="NA" /> <code codeSystem="local&quot ; code="RBC" displayName="RBC Red Blood Count" /> <statusCode code="completed" /> <effectiveTime value="450277078758" /> <value unit="10*6/uL&quot ; xsi:type="PQ" value="3.23" /> < interpretationCode codeSystem="local" code="L" /> <referenceRange> <observationRange> <text>4.11 -5.63</text> </observationRange> </ referenceRange> </observation> </component> < component> <observation moodCode="EVN" classCode=" OBS"> <templateId root="2.16.840.1.578350.10.20.22.4.2& quot; /> <id nullFlavor="NA" /> <code codeSystem="local" code="WBC" displayName="WBC White Blood Count" /> <statusCode code="completed" /&gt ; <effectiveTime value="738816942190" /> < value unit="10*3/uL" xsi:type="PQ" value="15.8" /& gt; <interpretationCode codeSystem="local" code="H& quot; /> <referenceRange> <observationRange> <text>3.7-11.1</text> </observationRange > </referenceRange> </observation> </ component> </organizer> </entry> <entry> < organizer moodCode="EVN" classCode="BATTERY"> < templateId root="2.16.840.1.837264.10.20.22.4.1" /> <id nullFlavor="NA" /> <code codeSystem="local" code= "BNPPRO" displayName="BNP PROBRAIN NATRIURETIC PEPTIDE" /&gt ; <statusCode code="completed" /> <component> <observation moodCode="EVN" classCode="OBS"> <templateId root="2.16.840.1.237231.10.20.22.4.2" /> <id nullFlavor="NA" /> <code codeSystem=" local" code="BNPPRO" displayName="BNP Pro Brain Natriuretic Peptide" /> <statusCode code="completed" /> <effectiveTime value="147119041785" /> < value unit="pg/mL" xsi:type="PQ" value="2101" /&gt ; <interpretationCode codeSystem="local" code="H&quot ; /> <referenceRange> <observationRange> < text><=125</text> </observationRange> </referenceRange> </observation> </component> & lt;/organizer> </entry> <entry> <organizer moodCode=&quot ;EVN" classCode="BATTERY"> <templateId root=" 2.16.840.1.603644.10.20.22.4.1" /> <id nullFlavor="NA&quot ; /> <code codeSystem="local" code="GLUPOC" displayName="POC GLUCOMETER" /> <statusCode code=" completed" /> <component> <observation moodCode=& quot;EVN" classCode="OBS"> <templateId root=" 2.16.840.1.412815.10.20.22.4.2" /> <id nullFlavor="NA& quot; /> <code codeSystem="local" code="9071094" displayName="Glucose Meter (POC)" /> <statusCode code=& quot;completed" /> <effectiveTime value="896619932080& quot; /> <value unit="mg/dL" xsi:type="PQ" value="295" /> <interpretationCode codeSystem=" local" code="H" /> <referenceRange> <observationRange> <text>70-99</text> </observationRange> </referenceRange> </ observation> </component> </organizer> </entry> & lt;entry> <organizer moodCode="EVN" classCode="BATTERY& quot;> <templateId root="2.16.840.1.553275.10.20.22.4.1" /& gt; <id nullFlavor="NA" /> <code codeSystem=" local" code="GLUPOC" displayName="POC GLUCOMETER" /&gt ; <statusCode code="completed" /> <component> <observation moodCode="EVN" classCode="OBS"> <templateId root="2.16.840.1.990248.10.20.22.4.2" /> <id nullFlavor="NA" /> <code codeSystem=" local" code="4598340" displayName="Glucose Meter (POC)&quot ; /> <statusCode code="completed" /> < effectiveTime value="233895718307" /> <value unit=&quot ;mg/dL" xsi:type="PQ" value="252" /> < interpretationCode codeSystem="local" code="H" /> < referenceRange> <observationRange> <text> 70-99</text> </observationRange> </ referenceRange> </observation> </component> </ organizer> </entry> <entry> <organizer moodCode="EVN " classCode="BATTERY"> <templateId root=" 2.16.840.1.013277.10.20.22.4.1" /> <id nullFlavor="NA&quot ; /> <code codeSystem="local" code="GLUPOC" displayName="POC GLUCOMETER" /> <statusCode code=" completed" /> <component> <observation moodCode=& quot;EVN" classCode="OBS"> <templateId root=" 2.16.840.1.255107.10.20.22.4.2" /> <id nullFlavor="NA& quot; /> <code codeSystem="local" code="1494850& quot; displayName="Glucose Meter (POC)" /> <statusCode code="completed" /> <effectiveTime value=" 523202677820" /> <value unit="mg/dL" xsi:type=" PQ" value="283" /> <interpretationCode codeSystem=" local" code="H" /> <referenceRange> <observationRange> <text>70-99</text> </observationRange> </referenceRange> </ observation> </component> </organizer> </entry> & lt;entry> <organizer moodCode="EVN" classCode="BATTERY& quot;> <templateId root="2.16.840.1.009408.10.20.22.4.1" /& gt; <id nullFlavor="NA" /> <code codeSystem=" local" code="GLUPOC" displayName="POC GLUCOMETER" /&gt ; <statusCode code="completed" /> <component> <observation moodCode="EVN" classCode="OBS"> <templateId root="2.16.840.1.746029.10.20.22.4.2" /> & lt;id nullFlavor="NA" /> <code codeSystem="local& quot; code="7582407" displayName="Glucose Meter (POC)" /&gt ; <statusCode code="completed" /> < effectiveTime value="921486693102" /> <value unit=&quot ;mg/dL" xsi:type="PQ" value="112" /> < interpretationCode codeSystem="local" code="H" /> <referenceRange> <observationRange> <text>70 -99</text> </observationRange> </ referenceRange> </observation> </component> </ organizer> </entry> <entry> <organizer moodCode="EVN " classCode="BATTERY"> <templateId root=" 2.16.840.1.939890.10.20.22.4.1" /> <id nullFlavor="NA&quot ; /> <code codeSystem="local" code="[id number]" displayName="CBC WITH DIFFERENTIAL REFLEX MANUAL DIFF" /> < statusCode code="completed" /> <component> < observation moodCode="EVN" classCode="OBS"> < templateId root="2.16.840.1.029651.10.20.22.4.2" /> < id nullFlavor="NA" /> <code codeSystem="local&quot ; code="HGB" displayName="Hemoglobin" /> < statusCode code="completed" /> <effectiveTime value=& quot;888679711952" /> <value unit="g/dL" xsi:type= "PQ" value="9.2" /> <interpretationCode codeSystem="local" code="L" /> < referenceRange><observationRange> <text>11.9-16.3&lt ;/text> </observationRange> </referenceRange&gt ; </observation> </component> <component> <observation moodCode="EVN" classCode="OBS"> &lt ;templateId root="2.16.840.1.886912.10.20.22.4.2" /> < id nullFlavor="NA" /> <code codeSystem="local&quot ; code="HCT" displayName="Hematocrit" /> < statusCode code="completed" /> <effectiveTime value=& quot;089545623066" /> <value unit="%" xsi: type="PQ" value="29.9" /> < interpretationCode codeSystem="local" code="L" /> <referenceRange> <observationRange> <text& gt;37.0-47.7</text> </observationRange> </ referenceRange> </observation> </component> < component> <observation moodCode="EVN" classCode=" OBS"> <templateId root="2.16.840.1.145303.10.20.22.4.2& quot; /> <id nullFlavor="NA" /> <code codeSystem="local" code="RDW" displayName="RDW Red Cell Distr Width" /> <statusCode code="completed" /> <effectiveTime value="443510947392" /> & lt;value unit="%" xsi:type="PQ"value="16.7&quot ; /> <interpretationCode codeSystem="local" code=" H" /> <referenceRange> <observationRange&gt ; <text>12.3-15.9</text> </ observationRange> </referenceRange> </observation> </component> <component> <observation moodCode=& quot;EVN" classCode="OBS"> <templateId root=" 2.16.840.1.530904.10.20.22.4.2" /> <id nullFlavor="NA& quot; /> <code codeSystem="local" code="LYMPAB& quot; displayName="Lymphocytes Absolute" /> <statusCode code= "completed" /> <effectiveTime value="760710088235& quot; /> <value unit="10*3/uL" xsi:type="PQ" value="1.3" /> <referenceRange> < observationRange> <text>1.1-3.7</text> & lt;/observationRange> </referenceRange> </ observation> </component> <component> < observation moodCode="EVN" classCode="OBS"> < templateId root="2.16.840.1.201861.10.20.22.4.2" /> < id nullFlavor="NA" /> <code codeSystem="local&quot ; code="MONOAB" displayName="Monocytes Absolute" /> <statusCode code="completed" /> <effectiveTime value="529226592044" /> <value unit="10*3/uL&quot ; xsi:type="PQ" value="2.0" /> < interpretationCode codeSystem="local" code="H" /> <referenceRange> <observationRange> < text>0.3-0.9</text> </observationRange> </ referenceRange> </observation> </component> < component> <observation moodCode="EVN" classCode=" OBS"> <templateId root="2.16.840.1.760215.10.20.22.4.2& quot; /> <id nullFlavor="NA" /> <code codeSystem="local" code="EOSAB" displayName=" Eosinophils Absolute" /> <statusCode code="completed& quot; /> <effectiveTime value="689881261873" /> <value unit="10*3/uL" xsi:type="PQ" value="0.0 " /> <referenceRange> <observationRange&gt ; <text>0.0-0.5</text> </observationRange> </referenceRange> </observation> </component& gt; <component> <observation moodCode="EVN" classCode="OBS"> <templateId root=" 2.16.840.1.656580.10.20.22.4.2" /><id nullFlavor="NA" /&gt ; <code codeSystem="local" code="BASOAB" displayName="Basophils Absolute" /> <statusCode code=& quot;completed" /> <effectiveTime value="863232996733& quot; /> <value unit="10*3/uL" xsi:type="PQ" value="0.0" /> <referenceRange> < observationRange> <text>0.0-0.1</text> & lt;/observationRange> </referenceRange> </ observation> </component> <component> < observation moodCode="EVN" classCode="OBS"> < templateId root="2.16.840.1.529110.10.20.22.4.2" /> < id nullFlavor="NA" /> <code codeSystem="local&quot ; code="NEUTRO" displayName="Neutrophils %" /> <statusCode code="completed" /> < effectiveTime value="725600835101" /> <value unit=&quot ;%" xsi:type="PQ" value="79" /> &lt ;referenceRange> <observationRange> <text /& gt; </observationRange> </referenceRange> </observation> </component> <component> < observation moodCode="EVN" classCode="OBS"> < templateId root="2.16.840.1.421368.10.20.22.4.2" /> < id nullFlavor="NA" /> <code codeSystem="local&quot ; code="LYMP" displayName="Lymphocytes %" /> <statusCode code="completed" /> < effectiveTime value="058304673204" /> <value unit=&quot ;%" xsi:type="PQ" value="8" /> < referenceRange> <observationRange> <text /& gt; </observationRange> </referenceRange> </observation> </component> <component> &lt ;observation moodCode="EVN" classCode="OBS"> &lt ;templateId root="2.16.840.1.885066.10.20.22.4.2" /> < id nullFlavor="NA" /> <code codeSystem="local&quot ; code="MONO" displayName="Monocytes %" /> <statusCode code="completed" /> <effectiveTime value="908282597887" /> <value unit="%& quot; xsi:type="PQ" value="13" /> < referenceRange> <observationRange> <text /& gt; </observationRange> </referenceRange> </observation> </component> <component> &lt ;observation moodCode="EVN" classCode="OBS"> &lt ;templateId root="2.16.840.1.726255.10.20.22.4.2" /> < id nullFlavor="NA" /> <code codeSystem="local&quot ; code="EOS" displayName="Eosinophils %" /> <statusCode code="completed" /> <effectiveTime value="786262036697" /> <value unit="%" xsi:type="PQ" value="0" /> <referenceRange> <observationRange> <text /> </ observationRange> </referenceRange> </observation&gt ; </component> <component> <observation moodCode ="EVN" classCode="OBS"> <templateId root=& quot;09.17.840.1.182887.10.20.22.4.2" /> <id nullFlavor=&quot ;NA" /> <code codeSystem="local" code="BASO& quot; displayName="Basophils %" /> <statusCode code="completed" /> <effectiveTime value=" 918919766149" /> <value unit="%" xsi:type= "PQ" value="0" /> <referenceRange> <observationRange> <text /> </ observationRange> </referenceRange> </observation> </component> <component> <observation moodCode=& quot;EVN" classCode="OBS"> <templateId root=" 2840.1.633463.10.20.22.4.2" /> <id nullFlavor="NA& quot;/> <code codeSystem="local" code="NEUTROAB& quot; displayName="Neutrophils Absolute" /> < statusCode code="completed" /> <effectiveTime value=& quot;311730082153" /> <value unit="10*3/uL" xsi: type="PQ" value="12.02" /> < interpretationCode codeSystem="local" code="H" /> <referenceRange> <observationRange> <text >1.70-7.10</text> </observationRange> </ referenceRange> </observation> </component> < component> <observation moodCode="EVN" classCode=" OBS"> <templateId root="2.16.840.1.865157.10.20.22.4.2& quot; /> <id nullFlavor="NA" /><code codeSystem=& quot;local" code="MCH" displayName="MCH Mean Cell Hemoglobin " /> <statusCode code="completed" /> & lt;effectiveTime value="238459314551" /> <value unit=& quot;pg" xsi:type="PQ" value="28.2" /> < referenceRange> <observationRange> <text>26.7-33.1& lt;/text> </observationRange> </referenceRange& gt; </observation> </component> <component> <observation moodCode="EVN" classCode="OBS"> <templateId root="2.16.840.1.884868.10.20.22.4.2" /> <id nullFlavor="NA" /> <code codeSystem=&quot ;local" code="MCHC" displayName="MCHC Mean Cell Hgb Conc& quot;/> <statusCode code="completed" /> &lt ;effectiveTime value="597161459247" /> <value unit=& quot;g/dL" xsi:type="PQ" value="30.8" /> & lt;interpretationCode codeSystem="local" code="L" /> <referenceRange> <observationRange> & lt;text>31.1-35.3</text> </observationRange> </referenceRange> </observation> </component> <component> <observation moodCode="EVN" classCode=& quot;OBS"> <templateId root=" 2.16.840.1.787242.10.20.22.4.2" /> <id nullFlavor="NA& quot; /> <code codeSystem="local" code="MCV" displayName="MCV Mean Cell Volume" /> <statusCode code= "completed" /> <effectiveTime value="503411450659& quot; /> <value unit="fL" xsi:type="PQ" value ="92" /><referenceRange> <observationRange> <text>81-97</text> </observationRange&gt ; </referenceRange> </observation> </component > <component> <observation moodCode="EVN" classCode="OBS"> <templateId root=" 2.16.840.1.990457.10.20.22.4.2" /> <id nullFlavor="NA& quot; /> <code codeSystem="local" code="MPV" displayName="MPV Mean Platelet Volume" /> <statusCode code="completed" /> <effectiveTime value=" 529669574101" /> <value unit="fL" xsi:type=" PQ" value="9.3" /> <referenceRange> <observationRange> <text /> </ observationRange> </referenceRange> </observation&gt ; </component><component> <observation moodCode=&quot ;EVN" classCode="OBS"> <templateId root=" 2.16.840.1.819867.10.20.22.4.2" /> <id nullFlavor="NA& quot; /> <code codeSystem="local" code="PLT" displayName="Platelet Count" /> <statusCode code=" completed" /> <effectiveTime value="857123690024" /> <value unit="10*3/uL" xsi:type="PQ" value= "286" /> <referenceRange> < observationRange> <text>150-400</text> & lt;/observationRange> </referenceRange> </observation&gt ; </component> <component> <observation moodCode ="EVN" classCode="OBS"> <templateId root=& quot;2.16.840.1.539591.10.20.22.4.2" /> <id nullFlavor=&quot ;NA" /> <code codeSystem="local" code="RBC& quot; displayName="RBC Red Blood Count" /> <statusCode code="completed" /> <effectiveTime value=" 560931339754" /> <value unit="10*6/uL" xsi:type=& quot;PQ" value="3.26" /> <interpretationCode codeSystem="local" code="L" /> < referenceRange> <observationRange> <text>4.11-5.63& lt;/text> </observationRange> </referenceRange& gt; </observation> </component> <component> <observation moodCode="EVN" classCode="OBS"> <templateId root="2.16.840.1.646529.10.20.22.4.2" /> <id nullFlavor="NA" /> <code codeSystem=&quot ;local" code="WBC" displayName="WBC White Blood Count" /> <statusCode code="completed" /> < effectiveTime value="875507758676" /> <value unit=&quot ;10*3/uL" xsi:type="PQ" value="15.3" /> &lt ;interpretationCode codeSystem="local" code="H" /> <referenceRange> <observationRange> < text>3.7-11.1</text> </observationRange> < /referenceRange> </observation> </component> </ organizer> </entry> <entry> <organizer moodCode="EVN " classCode="BATTERY"> <templateId root=" 2.16.840.1.799900.10.20.22.4.1" /> <id nullFlavor="NA&quot ; /> <code codeSystem="local" code="BNPPRO" displayName="BNP PROBRAIN NATRIURETIC PEPTIDE" /> < statusCode code="completed" /> <component> < observation moodCode="EVN" classCode="OBS"> < templateId root="2.16.840.1.146308.10.20.22.4.2" /> < id nullFlavor="NA" /> <code codeSystem="local&quot ; code="BNPPRO" displayName="BNP Pro Brain Natriuretic Peptide& quot; /> <statusCode code="completed" /> & lt;effectiveTime value="536784927519" /> <value unit=& quot;pg/mL" xsi:type="PQ" value="1373" /> & lt;interpretationCode codeSystem="local" code="H" /> <referenceRange> <observationRange> <text>& amp;lt;=125</text> </observationRange> </ referenceRange> </observation> </component> </ organizer> </entry> <entry> <organizer moodCode="EVN " classCode="BATTERY"> <templateId root=" 2.16.840.1.086468.10.20.22.4.1" /> <id nullFlavor="NA&quot ; /> <code codeSystem="local" code="GLUPOC" displayName="POC GLUCOMETER" /> <statusCode code=" completed" /> <component> <observation moodCode=& quot;EVN" classCode="OBS"> <templateId root=" 2.16.840.1.387205.10.20.22.4.2" /> <id nullFlavor="NA& quot; /> <code codeSystem="local" code="[id number]" displayName="Glucose Meter (POC)" /> <statusCode code=& quot;completed" /> <effectiveTime value="292330604925& quot; /> <value unit="mg/dL" xsi:type="PQ" value="319" /> <interpretationCode codeSystem=" local" code="H" /> <referenceRange> <observationRange> <text>70-99</text> </observationRange> </referenceRange> </ observation> </component> </organizer> </entry> & lt;entry> <organizer moodCode="EVN" classCode="BATTERY& quot;> <templateId root="2.16.840.1.695189.10.20.22.4.1" /& gt; <id nullFlavor="NA" /> <code codeSystem=" local" code="GLUPOC" displayName="POC GLUCOMETER" /&gt ; <statusCode code="completed" /> <component> <observation moodCode="EVN" classCode="OBS"> <templateId root="2.16.840.1.651404.10.20.22.4.2" /> <id nullFlavor="NA" /> <code codeSystem=" local" code="[id number]" displayName="Glucose Meter (POC)&quot ; /> <statusCode code="completed" /> < effectiveTime value="404919370896" /> <value unit=&quot ;mg/dL" xsi:type="PQ" value="329" /> < interpretationCode codeSystem="local" code="H" /> < referenceRange> <observationRange> <text> 70-99</text> </observationRange> </ referenceRange> </observation> </component> </ organizer> </entry> <entry> <organizer moodCode="EVN " classCode="BATTERY"> <templateId root=" 2.16.840.1.244569.10.20.22.4.1" /> <id nullFlavor="NA&quot ; /> <code codeSystem="local" code="GLUPOC" displayName="POC GLUCOMETER" /> <statusCode code=" completed" /> <component> <observation moodCode=& quot;EVN" classCode="OBS"> <templateId root=" 2.16.840.1.509630.10.20.22.4.2" /> <id nullFlavor="NA& quot; /> <code codeSystem="local" code="[id number]& quot; displayName="Glucose Meter (POC)" /> <statusCode code="completed" /> <effectiveTime value=" 177273075394" /> <value unit="mg/dL" xsi:type=" PQ" value="400" /> <interpretationCode codeSystem=" local" code="HH" /> <referenceRange> <observationRange> <text>70-99</text></ observationRange> </referenceRange> </observation&gt ; </component> </organizer> </entry> <entry> <organizer moodCode="EVN" classCode="BATTERY"> <templateId root="2.16.840.1.433101.10.20.22.4.1" /> < id nullFlavor="NA" /> <code codeSystem="local" code="GLUPOC" displayName="POC GLUCOMETER" /> < statusCode code="completed" /> <component> < observation moodCode="EVN" classCode="OBS"> < templateId root="2.16.840.1.948179.10.20.22.4.2" /> <id nullFlavor="NA" /> <code codeSystem="local" code="8487317" displayName="Glucose Meter (POC)" /> <statusCode code="completed" /> <effectiveTime value="156714139358" /> <value unit="mg/dL" xsi:type="PQ" value="73" /> <referenceRange& gt; <observationRange> <text>70-99</text& gt; </observationRange> </referenceRange> </observation> </component> </organizer> </entry > <entry> <organizer moodCode="EVN" classCode=" BATTERY"> <templateId root="2.16.840.1.472404.10.20.22.4.1& quot; /> <id nullFlavor="NA" /> <code codeSystem ="local" code="[id number]" displayName="CBC WITH DIFFERENTIAL REFLEX MANUAL DIFF" /> <statusCode code=" completed" /> <component> <observation moodCode=& quot;EVN" classCode="OBS"> <templateId root=" 2.16.840.1.141078.10.20.22.4.2" /> <id nullFlavor="NA& quot; /> <code codeSystem="local" code="HGB" displayName="Hemoglobin" /> <statusCode code=" completed" /> <effectiveTime value="991942418399" /> <value unit="g/dL" xsi:type="PQ" value="8.7 " /> <interpretationCode codeSystem="local" code=& quot;L" /> <referenceRange> < observationRange> <text>11.9-16.3</text> </observationRange> </referenceRange> </ observation> </component> <component> < observation moodCode="EVN" classCode="OBS"> < templateId root="2.16.840.1.121166.10.20.22.4.2" /> < id nullFlavor="NA" /> <code codeSystem="local&quot ; code="HCT"displayName="Hematocrit" /> < statusCode code="completed" /> <effectiveTime value=" 942961877584" /> <value unit="%" xsi:type= "PQ" value="28.6" /> <interpretationCode codeSystem="local" code="L" /> < referenceRange> <observationRange> <text> 37.0-47.7</text> </observationRange> </ referenceRange> </observation> </component> < component> <observation moodCode="EVN" classCode=" OBS"> <templateId root="2.16.840.1.846738.10.20.22.4.2& quot; /> <id nullFlavor="NA" /> <code codeSystem="local" code="RDW" displayName="RDW Red Cell Distr Width" /> <statusCode code="completed" /> <effectiveTime value="461362759497" /> & lt;value unit="%" xsi:type="PQ" value="16.9& quot; /> <interpretationCode codeSystem="local" code=& quot;H" /> <referenceRange> < observationRange> <text>12.3-15.9</text> </ observationRange> </referenceRange> </observation&gt ; </component> <component> <observation moodCode ="EVN" classCode="OBS"> <templateId root=& quot;2.16.840.1.108849.10.20.22.4.2" /> <id nullFlavor=&quot ;NA" /> <code codeSystem="local" code="LYMPAB " displayName="Lymphocytes Absolute" /> < statusCode code="completed" /> <effectiveTime value=& quot;058149140944" /> <value unit="10*3/uL" xsi: type="PQ" value="1.3" /> <referenceRange> <observationRange> <text>1.1-3.7</text> </observationRange> </referenceRange> </ observation> </component> <component> < observation moodCode="EVN" classCode="OBS"> < templateId root="2.16.840.1.102345.10.20.22.4.2" /> < id nullFlavor="NA" /> <code codeSystem="local&quot ; code="MONOAB" displayName="Monocytes Absolute" /> <statusCode code="completed" /> <effectiveTime value="866196033664" /> <value unit="10*3/uL&quot ; xsi:type="PQ" value="1.8" /> < interpretationCode codeSystem="local" code="H" /> <referenceRange> <observationRange> < text>0.3-0.9</text> </observationRange> </ referenceRange> </observation> </component> < component> <observation moodCode="EVN" classCode=" OBS"> <templateId root="2.16.840.1.164718.10.20.22.4.2& quot; /> <id nullFlavor="NA" /> <code codeSystem="local" code="EOSAB" displayName=" Eosinophils Absolute" /> <statusCode code="completed& quot; /> <effectiveTime value="896982043273" /> <value unit="10*3/uL" xsi:type="PQ" value="0.0& quot; /> <referenceRange> <observationRange> <text>0.0-0.5</text> </observationRange> </referenceRange> </observation> </component& gt; <component> <observation moodCode="EVN" classCode="OBS"> <templateId root=" 2.16.840.1.011572.10.20.22.4.2"/> <id nullFlavor="NA& quot; /> <code codeSystem="local"code="BASOAB&quot ; displayName="Basophils Absolute" /> <statusCode code= "completed" /> <effectiveTime value="969427518834& quot; /> <value unit="10*3/uL" xsi:type="PQ" value=& quot;0.0" /> <referenceRange> < observationRange> <text>0.0-0.1</text> &lt ;/observationRange> </referenceRange> </observation& gt; </component> <component> <observation moodCode=& quot;EVN" classCode="OBS"> <templateId root=" 2.16.840.1.515118.10.20.22.4.2" /> <id nullFlavor="NA&quot ; /> <code codeSystem="local" code="NEUTRO" displayName="Neutrophils %" /> <statusCode code ="completed" /> <effectiveTime value="866740557355 " /> <value unit="%" xsi:type="PQ& quot; value="70" /> <referenceRange> < observationRange> <text /> </ observationRange> </referenceRange> </observation&gt ; </component> <component> <observation moodCode=& quot;EVN" classCode="OBS"> <templateId root=" 2.16.840.1.718568.10.20.22.4.2" /> <id nullFlavor="NA& quot; /> <code codeSystem="local" code="LYMP&quot ; displayName="Lymphocytes %" /> <statusCode code="completed" /> <effectiveTime value=" 787403721903" /> <value unit="%" xsi:type= "PQ" value="12" /> <referenceRange> < observationRange> <text /> </ observationRange></referenceRange> </observation> &lt ;/component> <component> <observation moodCode="EVN& quot; classCode="OBS"> <templateId root=" 2.16.840.1.946720.10.20.22.4.2" /> <id nullFlavor="NA& quot; /> <code codeSystem="local" code="MONO" displayName="Monocytes %" /> <statusCode code=& quot;completed" /> <effectiveTime value="797699221502& quot; /> <value unit="%" xsi:type="PQ&quot ; value="18" /> <referenceRange> < observationRange> <text /> </ observationRange> </referenceRange> </observation> </component> <component> <observation moodCode=& quot;EVN" classCode="OBS"> <templateId root=" 2.16.840.1.237049.10.20.22.4.2" /> <id nullFlavor="NA& quot; /> <code codeSystem="local" code="EOS" displayName="Eosinophils %" /> <statusCode code=" completed" /> <effectiveTime value="223199150776" /> <value unit="%" xsi:type="PQ" value="0" /> <referenceRange> < observationRange> <text /> </ observationRange> </referenceRange> </observation&gt ; </component> <component> <observation moodCode= "EVN" classCode="OBS"> <templateId root=&quot ;2.16.840.1.959629.10.20.22.4.2" /> <id nullFlavor="NA& quot; /> <code codeSystem="local" code="BASO&quot ; displayName="Basophils %" /> <statusCode code ="completed" /> <effectiveTime value="750082122454 " /> <value unit="%" xsi:type="PQ& quot; value="0" /> <referenceRange> < observationRange> <text /> </ observationRange> </referenceRange> </observation&gt ; </component> <component> <observation moodCode=& quot;EVN" classCode="OBS"> <templateId root=" 2.16.840.1.958592.10.20.22.4.2" /> <id nullFlavor="NA& quot; /> <code codeSystem="local" code="NEUTROAB& quot; displayName="Neutrophils Absolute" /> < statusCode code="completed" /> <effectiveTime value=& quot;519865649028" /> <value unit="10*3/uL" xsi: type="PQ" value="7.18" /> < interpretationCode codeSystem="local" code="H" /> <referenceRange> <observationRange> < text>1.70-7.10</text> </observationRange> </ referenceRange> </observation> </component> < component> <observation moodCode="EVN" classCode=" OBS"> <templateId root="2.16.840.1.058441.10.20.22.4.2& quot; /> <id nullFlavor="NA"/> <code codeSystem="local" code="MCH" displayName="MCH MeanCell Hemoglobin" /> <statusCode code="completed& quot; /> <effectiveTime value="341990283502" /> <value unit="pg" xsi:type="PQ" value="27.8& quot; /> <referenceRange> <observationRange> <text>26.7-33.1</text> </ observationRange> </referenceRange> </observation&gt ; </component> <component> <observation moodCode=& quot;EVN" classCode="OBS"> <templateId root=" 2.16.840.1.291192.10.20.22.4.2" /> <id nullFlavor="NA& quot; /> <code codeSystem="local" code="MCHC" displayName="MCHC Mean CellHgb Conc" /> <statusCode code="completed" /> <effectiveTime value=" 335345756754" /> <value unit="g/dL" xsi:type=&quot ;PQ" value="30.4" /> <interpretationCode codeSystem="local" code="L" /> < referenceRange> <observationRange> <text> 31.1-35.3</text> </observationRange> </ referenceRange> </observation> </component> < component> <observationmoodCode="EVN" classCode="OBS "> <templateId root="2.16.840.1.307717.10.20.22.4.2& quot; /> <id nullFlavor="NA" /> <code codeSystem="local" code="MCV" displayName="MCV Mean Cell Volume" /> <statusCode code="completed" /> <effectiveTime value="450579058615" /> < value unit="fL" xsi:type="PQ" value="91"/> <referenceRange> <observationRange> & lt;text>81-97</text> </observationRange> < /referenceRange> </observation> </component> &lt ;component> <observation moodCode="EVN" classCode=" OBS"> <templateId root="2.16.840.1.026946.10.20.22.4.2& quot; /> <id nullFlavor="NA" /> <code codeSystem="local" code="MPV" displayName="MPV Mean Platelet Volume" /> <statusCode code="completed" / > <effectiveTime value="805175476959" /> & lt;value unit="fL" xsi:type="PQ" value="9.1" /&gt ; <referenceRange> <observationRange> < text /></observationRange> </referenceRange> < /observation> </component> <component> < observation moodCode="EVN" classCode="OBS"> < templateId root="2.16.840.1.994616.10.20.22.4.2" /> < id nullFlavor="NA" /> <code codeSystem="local&quot ; code="PLT" displayName="Platelet Count" /> &lt ;statusCode code="completed" /> <effectiveTime value=& quot;038089496212" /> <value unit="10*3/uL" xsi: type="PQ" value="277" /> <referenceRange> <observationRange> <text>150-400</text> </observationRange> </referenceRange> </ observation> </component><component> <observation moodCode="EVN" classCode="OBS"> <templateId root=& quot;2.16.840.1.345662.10.20.22.4.2" /> <id nullFlavor=&quot ;NA" /> <code codeSystem="local" code="RBC& quot; displayName="RBC Red Blood Count" /> <statusCode code="completed" /> <effectiveTime value="261313654521& quot; /> <value unit="10*6/uL"xsi:type="PQ" value="3.13" /> <interpretationCode codeSystem=" local" code="L" /> <referenceRange> <observationRange> <text>4.11-5.63</text> </observationRange> </referenceRange> </ observation> </component> <component> < observation moodCode="EVN" classCode="OBS"> < templateId root="2.16.840.1.552161.10.20.22.4.2" /> < id nullFlavor="NA" /> <code codeSystem="local" code="WBC" displayName="WBC White Blood Count" /> <statusCode code="completed" /> < effectiveTimevalue="410282800511" /> <value unit=" 10*3/uL" xsi:type="PQ" value="10.3" /> < referenceRange> <observationRange> <text> 3.7-11.1</text> </observationRange> </ referenceRange> </observation> </component> </ organizer> </entry> <entry> <organizer moodCode="EVN " classCode="BATTERY"><templateId root=" 2.16.840.1.760213.10.20.22.4.1" /> <id nullFlavor="NA&quot ; /> <code codeSystem="local" code="COMP" displayName="COMPREHENSIVE METABOLIC PANEL" /> <statusCode code="completed" /> <component> <observation moodCode="EVN" classCode="OBS"> <templateId root="2.16.840.1.929960.10.20.22.4.2" /> <id nullFlavor ="NA" /> <code codeSystem="local" code=" BUNCREAT" displayName="BUN:Creatinine Ratio" /> < statusCode code="completed" /> <effectiveTime value=" 264728648795" /> <value unit="" xsi:type="PQ& quot; value="43" /> <interpretationCode codeSystem=& quot;local" code="H" /> <referenceRange> <observationRange> <text>6-25</text> & lt;/observationRange> </referenceRange> </ observation> </component> <component> < observation moodCode="EVN" classCode="OBS"> < templateId root="2.16.840.1.511617.10..22.4.2" /> < id nullFlavor="NA" /> <code codeSystem="local&quot ; code="GLOB" displayName="Globulin" /> < statusCode code="completed" /> <effectiveTime value=& quot;608178518955" /> <value unit="g/dL" xsi:type= "PQ" value="3.4" /> <referenceRange> <observationRange> <text>2.2-4.2</text> </observationRange> </referenceRange> < /observation> </component> <component> < observation moodCode="EVN" classCode="OBS"> < templateId root="2.16.840.1.654890.10.20.22.4.2" /> < id nullFlavor="NA" /> <code codeSystem="local&quot ; code="ANIONGAP" displayName="Anion Gap" /> &lt ;statusCode code="completed" /> <effectiveTime value=& quot;928862003092" /> <value unit="" xsi:type="PQ&quot ; value="14" /> <referenceRange> < observationRange> <text>6-18</text></ observationRange> </referenceRange> </observation&gt ; </component> <component> <observation moodCode ="EVN" classCode="OBS"> <templateId root=& quot;2.16.840.1.412010.10.20.22.4.2" /> <id nullFlavor=&quot ;NA" /> <code codeSystem="local" code="ALKP& quot; displayName="Alkaline Phosphatase" /> < statusCode code="completed" /> <effectiveTime value=& quot;602042768076" /> <value unit="U/L" xsi:type=& quot;PQ" value="73" /> <referenceRange> & lt;observationRange> <text>20-125</text> </observationRange> </referenceRange> </ observation> </component> <component> < observation moodCode="EVN" classCode="OBS"> < templateId root="2.16.840.1.869809.10..22.4.2" /> < id nullFlavor="NA" /> <code codeSystem="local&quot ; code="ALT" displayName="ALT Alanine Aminotransferase" /&gt ; <statusCode code="completed" /> < effectiveTime value="196155501772" /> <value unit=&quot ;U/L" xsi:type="PQ" value="42" /> < referenceRange> <observationRange> <text> 12-78</text> </observationRange> </ referenceRange> </observation> </component> < component> <observation moodCode="EVN" classCode=" OBS"> <templateId root="2.16.840.1.111665.10..22.4.2& quot; /> <id nullFlavor="NA" /> <code codeSystem="local" code="AST" displayName="AST Aspartate Amino Transferase" /> <statusCode code=" completed" /> <effectiveTime value="361632894480" /& gt; <value unit="U/L" xsi:type="PQ" value=" 29" /> <referenceRange> <observationRange& gt; <text>7-37</text> </observationRange& gt; </referenceRange> </observation> </ component> <component> <observation moodCode="EVN& quot; classCode="OBS"> <templateId root=" 2.16.840.1.980538.10.20.22.4.2" /> <id nullFlavor="NA& quot; /> <code codeSystem="local" code="BUN" displayName="BUN Urea Nitrogen" /> <statusCode code=& quot;completed" /> <effectiveTime value="167564676185& quot; /> <value unit="mg/dL" xsi:type="PQ" value="91" /> <interpretationCode codeSystem=" local" code="H" /> <referenceRange> <observationRange> <text>6-24</text> & lt;/observationRange> </referenceRange> </observation& gt; </component> <component> <observation moodCode="EVN" classCode="OBS"> <templateId root="2.16.840.1.003016.10.20.22.4.2" /> <id nullFlavor ="NA" /> <code codeSystem="local" code=" CO2" displayName="CO2 Carbon Dioxide" /> < statusCode code="completed" /> <effectiveTime value=& quot;171141829068" /> <value unit="mmol/L" xsi: type="PQ" value="27" /> <referenceRange> <observationRange> <text>20-30</text> </observationRange> </referenceRange> & lt;/observation> </component> <component> < observation moodCode="EVN" classCode="OBS"> < templateId root="2.16.840.1.405843.10.20.22.4.2" /> < id nullFlavor="NA" /> <code codeSystem="local&quot ; code="CREAT" displayName="Creatinine" /> < statusCode code="completed" /> <effectiveTime value=& quot;483294556287" /> <value unit="mg/dL" xsi:type ="PQ" value="2.13" /> <interpretationCode codeSystem="local" code="H" /> < referenceRange> <observationRange> <text> 0.53-1.26</text> </observationRange> </ referenceRange> </observation> </component> < component> <observation moodCode="EVN" classCode=" OBS"> <templateId root="2.16.840.1.562608.10.20.22.4.2& quot; /> <id nullFlavor="NA" /> <code codeSystem="local" code="TP" displayName="Protein Total " /> <statusCode code="completed" /> < effectiveTime value="655872742551" /> <value unit=&quot ;g/dL" xsi:type="PQ" value="6.8" /> < referenceRange> <observationRange> <text> 6.4-8.2</text> </observationRange> </ referenceRange> </observation> </component> < component> <observation moodCode="EVN" classCode=" OBS"> <templateId root="2.16.840.1.871777.10.20.22.4.2& quot; /> <id nullFlavor="NA" /> <code codeSystem="local" code="BILIT" displayName="Bilirubin Total" /> <statusCode code="completed" /> <effectiveTime value="205465349702" /> <value unit="mg/dL" xsi:type="PQ" value="0.3" /> <referenceRange> <observationRange> &lt ;text>0.2-1.2</text> </observationRange> < /referenceRange> </observation> </component> &lt ;component><observation moodCode="EVN" classCode="OBS" > <templateId root="2.16.840.1.056882.10.20.22.4.2" /& gt; <id nullFlavor="NA" /> <code codeSystem=&quot ;local" code="K" displayName="Potassium" /> <statusCode code="completed" /> <effectiveTime value ="052454150934" /> <value unit="mmol/L" xsi: type="PQ" value="4.7" /> <referenceRange> <observationRange> <text>3.5-5.1</text& gt; </observationRange> </referenceRange> < /observation> </component> <component> < observation moodCode="EVN" classCode="OBS"> < templateId root="2.16.840.1.661955.10.20.22.4.2" /> < id nullFlavor="NA" /> <code codeSystem="local&quot ; code="NA" displayName="Sodium" /> < statusCode code="completed" /> <effectiveTime value=& quot;026787733394" /> <value unit="mmol/L" xsi:type=& quot;PQ" value="142" /> <referenceRange> <observationRange> <text>136-145</text> </observationRange> </referenceRange> </ observation> </component> <component> < observation moodCode="EVN" classCode="OBS"> < templateId root="2.16.840.1.580082.10.20.22.4.2" /> <id nullFlavor="NA" /> <code codeSystem="local" code="CL" displayName="Chloride" /> < statusCode code="completed" /> <effectiveTime value=& quot;834167244850" /> <value unit="mmol/L" xsi: type="PQ" value="106" /> <referenceRange> <observationRange> <text>96-111</text> </observationRange> </referenceRange> &lt ;/observation> </component> <component> < observation moodCode="EVN" classCode="OBS"> < templateId root="2.16.840.1.050468.10.20.22.4.2" /> < id nullFlavor="NA" /> <code codeSystem="local&quot ; code="GLU" displayName="Glucose" /> < statusCode code="completed" /> <effectiveTime value=& quot;667824440522" /> <value unit="mg/dL" xsi:type ="PQ" value="104" /> <interpretationCode codeSystem="local" code="H" /> < referenceRange> <observationRange> <text>70-99& lt;/text> </observationRange> </referenceRange& gt; </observation> </component> <component> <observation moodCode="EVN" classCode="OBS"> <templateId root="2.16.840.1.745090.10.20.22.4.2" /> <id nullFlavor="NA" /> <code codeSystem=&quot ;local" code="CA" displayName="Calcium" /> <statusCode code="completed" /> <effectiveTime value ="502982865175" /> <value unit="mg/dL" xsi: type="PQ" value="9.0" /> <referenceRange> <observationRange> <text>8.3-10.1</text& gt; </observationRange> </referenceRange> </observation> </component> <component> &lt ;observation moodCode="EVN" classCode="OBS"> &lt ;templateId root="2.16.840.1.990333.10.20.22.4.2" /> < id nullFlavor="NA" /> <code codeSystem="local&quot ; code="GFR" displayName="GFR Glomerular Filtration Rate" /& gt; <statusCode code="completed" /> < effectiveTime value="690354406320" /> <value unit=&quot ;mL/min/1.73m*2" xsi:type="PQ" value="22.6" /> <interpretationCode codeSystem="local" code="L" /&gt ; <referenceRange> <observationRange> &lt ;text>>60.0</text> </observationRange> </referenceRange> </observation> </component> <component> <observation moodCode="EVN" classCode= "OBS"> <templateId root=" 2.16.840.1.068802.10.20.22.4.2" /> <id nullFlavor="NA& quot; /> <code codeSystem="local" code="ALB" displayName="Albumin" /> <statusCode code=" completed" /> <effectiveTime value="864889695142" /> <value unit="g/dL" xsi:type="PQ" value=& quot;3.4" /> <referenceRange> < observationRange> <text>3.2-4.6</text> & lt;/observationRange> </referenceRange> </ observation> </component> <component> < observation moodCode="EVN" classCode="OBS"> < templateId root="2.16.840.1.556255.10..22.4.2" /> < id nullFlavor="NA" /> <code codeSystem="local&quot ; code="AGRATIO" displayName="Albumin:Globulin Ratio" /> <statusCode code="completed" /> < effectiveTime value="626681135953" /> <value unit=&quot ;" xsi:type="PQ" value="1.0" /> < referenceRange> <observationRange> <text>0.8- 2.0</text> </observationRange> </ referenceRange> </observation> </component> </ organizer> </entry> <entry> <organizer moodCode="EVN " classCode="BATTERY"> <templateId root=" 2.16.840.1.408241.10.20.22.4.1" /> <id nullFlavor="NA" /> <code codeSystem="local" code="GLUPOC" displayName="POC GLUCOMETER" /> <statusCode code=" completed" /> <component> <observation moodCode=& quot;EVN" classCode="OBS"> <templateId root=" 2.16.840.1.505063.10.20.22.4.2" /> <idnullFlavor="NA& quot; /> <code codeSystem="local" code="2062025& quot; displayName="Glucose Meter (POC)" /> <statusCode code="completed" /> <effectiveTime value=" 404157294108" /> <value unit="mg/dL" xsi:type=& quot;PQ" value="229" /> <interpretationCode codeSystem="local" code="H" /> < referenceRange> <observationRange> <text> 70-99</text> </observationRange> </ referenceRange> </observation> </component> </ organizer> </entry> <entry> <organizer moodCode="EVN " classCode="BATTERY"> <templateId root=" 2.16.840.1.778530.10.20.22.4.1" /> <id nullFlavor="NA&quot ; /> <code codeSystem="local" code="GLUPOC" displayName="POC GLUCOMETER" /> <statusCode code=" completed" /> <component> <observation moodCode=& quot;EVN" classCode="OBS"> <templateId root=" 2.16.840.1.090873.10.20.22.4.2" /> <id nullFlavor="NA& quot; /> <code codeSystem="local" code="3134856& quot; displayName="Glucose Meter (POC)" /> <statusCode code="completed" /> <effectiveTime value="867797146197&quot ; /> <value unit="mg/dL" xsi:type="PQ" value= "179" /> <interpretationCode codeSystem="local& quot; code="H" /> <referenceRange> < observationRange> <text>70-99</text> < /observationRange> </referenceRange> </observation& gt; </component> </organizer> </entry> <entry&gt ; <organizer moodCode="EVN" classCode="BATTERY"> <templateId root="2.16.840.1.217435.10.20.22.4.1" /> & lt;id nullFlavor="NA" /> <code codeSystem="local&quot ; code="GLUPOC" displayName="POC GLUCOMETER" /> < statusCode code="completed" /> <component> < observation moodCode="EVN" classCode="OBS"> < templateId root="2.16.840.1.610253.10.20.22.4.2" /> < id nullFlavor="NA" /> <code codeSystem="local" code="2089204" displayName="Glucose Meter (POC)" /> <statusCode code="completed" /> <effectiveTime value="140742250530" /> <value unit="mg/dL" xsi:type="PQ" value="230" /> < interpretationCode codeSystem="local" code="H" /> <referenceRange> <observationRange> < text>70-99</text> </observationRange> </ referenceRange> </observation> </component> </ organizer> </entry> <entry> <organizer moodCode="EVN " classCode="BATTERY"> <templateId root=" 2.16.840.1.593639.10.20.22.4.1" /> <id nullFlavor="NA&quot ; /> <code codeSystem="local" code="GLUPOC" displayName="POC GLUCOMETER" /> <statusCode code=" completed" /> <component> <observation moodCode=& quot;EVN" classCode="OBS"> <templateId root=" 2.16.840.1.796695.10.20.22.4.2" /> <id nullFlavor="NA& quot; /> <code codeSystem="local" code="3258870& quot; displayName="Glucose Meter (POC)" /> <statusCode code="completed" /> <effectiveTime value=" 274161736395" /> <value unit="mg/dL" xsi:type=& quot;PQ" value="163" /> <interpretationCode codeSystem="local" code="H" /> <referenceRange > <observationRange> <text>70-99</text > </observationRange> </referenceRange> </observation> </component> </organizer> </ entry> <entry> <organizer moodCode="EVN" classCode=& quot;BATTERY"> <templateId root=" 2.16.840.1.193174.10.20.22.4.1" /> <id nullFlavor="NA&quot ; /> <code codeSystem="local" code="GLUPOC" displayName="POC GLUCOMETER" /> <statusCode code=" completed" /> <component> <observation moodCode=& quot;EVN" classCode="OBS"> <templateId root=" 2.16.840.1.145993.10.20.22.4.2" /> <id nullFlavor="NA& quot; /> <code codeSystem="local" code="8789310& quot; displayName="Glucose Meter (POC)" /> <statusCode code="completed" /> <effectiveTime value=" 852342975560" /> <value unit="mg/dL" xsi:type=& quot;PQ" value="160" /> <interpretationCode codeSystem="local" code="H" /> < referenceRange> <observationRange> <text> 70-99</text> </observationRange> </referenceRange&gt ; </observation> </component> </organizer> &lt ;/entry> <entry> <organizer moodCode="EVN" classCode=& quot;BATTERY"> <templateId root=" 2.16.840.1.643626.10.20.22.4.1" /> <id nullFlavor="NA&quot ; /> <code codeSystem="local" code="GLUPOC" displayName="POC GLUCOMETER" /> <statusCode code=" completed" /> <component> <observation moodCode=& quot;EVN" classCode="OBS"> <templateId root=" 2.16.840.1.068955.10.20.22.4.2" /> <id nullFlavor="NA& quot; /> <code codeSystem="local" code="5066390& quot; displayName="Glucose Meter (POC)" /> <statusCode code="completed" /> <effectiveTime value=" 486048396385" /> <value unit="mg/dL" xsi:type=& quot;PQ" value="169" /> <interpretationCode codeSystem="local" code="H" /> < referenceRange> <observationRange> <text>70- 99</text> </observationRange> </ referenceRange> </observation> </component> </ organizer> </entry> <entry> <organizer moodCode="EVN " classCode="BATTERY"> <templateId root=" 2.16.840.1.091344.10.20.22.4.1" /> <id nullFlavor="NA" / > <code codeSystem="local" code="GLUPOC" displayName="POC GLUCOMETER" /> <statusCode code=" completed"/> <component> <observation moodCode=& quot;EVN" classCode="OBS"> <templateId root=" 2.16.840.1.597911.10.20.22.4.2" /> <id nullFlavor="NA& quot; /> <code codeSystem="local" code="6747452& quot; displayName="Glucose Meter (POC)" /> <statusCode code="completed" /> <effectiveTime value=" 133663696855" /> <value unit="mg/dL" xsi:type=& quot;PQ" value="207" /> <interpretationCode codeSystem="local" code="H" /> < referenceRange> <observationRange> <text> 70-99</text> </observationRange> </referenceRange > </observation> </component> </organizer> </entry> <entry> <organizer moodCode="EVN" classCode="BATTERY"> <templateId root=" 2.16.840.1.205465.10.20.22.4.1" /> <id nullFlavor="NA&quot ; /> <code codeSystem="local" code="GLUPOC" displayName="POC GLUCOMETER" /> <statusCode code=" completed" /> <component> <observation moodCode=& quot;EVN" classCode="OBS"> <templateId root=" 2.16.840.1.731069.10.20.22.4.2" /> <id nullFlavor="NA& quot; /> <code codeSystem="local" code="0611859& quot; displayName="Glucose Meter (POC)" /> <statusCode code="completed" /><effectiveTime value="838970851709&quot ; /> <value unit="mg/dL" xsi:type="PQ" value= "157" /> <interpretationCode codeSystem="local& quot; code="H" /> <referenceRange> < observationRange> <text>70-99</text> </ observationRange> </referenceRange> </observation&gt ; </component> </organizer> </entry> <entry> <organizer moodCode="EVN" classCode="BATTERY"> <templateId root="2.16.840.1.605748.10.20.22.4.1" /> < id nullFlavor="NA" /> <code codeSystem="local" code="GLUPOC" displayName="POC GLUCOMETER" /> < statusCode code="completed" /> <component> < observation moodCode="EVN" classCode="OBS"> < templateId root="2.16.840.1.245347.10.20.22.4.2" /> < id nullFlavor="NA" /> <code codeSystem="local" code="2502949" displayName="Glucose Meter(POC)" /> <statusCode code="completed" /> <effectiveTime value="795653344705" /> <value unit="mg/dL" xsi:type="PQ" value="294" /> < interpretationCode codeSystem="local" code="H" /> <referenceRange> <observationRange> < text>70-99</text> </observationRange> </ referenceRange> </observation> </component> </ organizer> </entry> <entry> <organizer moodCode="EVN& quot; classCode="BATTERY"> <templateId root=" 2.16.840.1.214523.10.20.22.4.1" /> <id nullFlavor="NA&quot ; /> <code codeSystem="local" code="GLUPOC" displayName="POC GLUCOMETER" /> <statusCode code=" completed" /> <component> <observation moodCode=& quot;EVN" classCode="OBS"> <templateId root=" 2.16.840.1.883194.10.20.22.4.2" /> <id nullFlavor="NA& quot; /> <code codeSystem="local" code="2055633& quot; displayName="Glucose Meter (POC)" /> <statusCode code="completed" /> <effectiveTime value=" 541400224280" /> <value unit="mg/dL" xsi:type=& quot;PQ" value="109" /> <interpretationCode codeSystem="local" code="H" /> <referenceRange& gt; <observationRange> <text>70-99</text& gt; </observationRange> </referenceRange> </observation> </component> </organizer> </entry > <entry> <organizermoodCode="EVN" classCode=" BATTERY"> <templateId root="2.16.840.1.734680.10.20.22.4.1& quot; /> <id nullFlavor="NA" /> <code codeSystem ="local" code="GLUPOC" displayName="POC GLUCOMETER&quot ; /> <statusCode code="completed" /> <component& gt; <observation moodCode="EVN" classCode="OBS"&gt ; <templateId root="2.16.840.1.398475.10.20.22.4.2" /> <id nullFlavor="NA" /> <code codeSystem=& quot;local" code="2747507" displayName="Glucose Meter (POC)& quot; /> <statusCode code="completed" /> & lt;effectiveTime value="628459534075" /> <value unit=& quot;mg/dL" xsi:type="PQ" value="244" /> < interpretationCode codeSystem="local" code="H" /> <referenceRange> <observationRange> < text>70-99</text> </observationRange> </ referenceRange> </observation> </component> </ organizer> </entry> <entry> <organizer moodCode="EVN " classCode="BATTERY"> <templateId root=" 2.16.840.1.842965.10.20.22.4.1" /> <id nullFlavor="NA&quot ; /> <code codeSystem="local" code="GLUPOC" displayName="POC GLUCOMETER" /> <statusCode code=" completed" /> <component> <observation moodCode=& quot;EVN" classCode="OBS"> <templateId root=" 2.16.840.1.633826.10.20.22.4.2" /> <id nullFlavor="NA& quot; /> <code codeSystem="local" code="3007854& quot; displayName="Glucose Meter (POC)" /> <statusCode code="completed" /> <effectiveTime value=" 351172920244" /> <value unit="mg/dL" xsi:type=& quot;PQ" value="180" /> <interpretationCode codeSystem="local" code="H" /> < referenceRange> <observationRange> <text>70- 99</text> </observationRange> </ referenceRange> </observation> </component></ organizer> </entry> <entry> <organizer moodCode="EVN " classCode="BATTERY"> <templateId root=" 2.16.840.1.654760.10.20.22.4.1" /> <id nullFlavor="NA" /& gt; <code codeSystem="local" code="GLUPOC" displayName="POC GLUCOMETER" /> <statusCode code=" completed" /> <component> <observation moodCode=& quot;EVN" classCode="OBS"> <templateId root=" 2.16.840.1.095333.10.20.22.4.2" /> <id nullFlavor="NA& quot; /> <code codeSystem="local" code="0253719& quot; displayName="Glucose Meter (POC)" /> <statusCode code="completed" /> <effectiveTime value=" 970760942230" /> <value unit="mg/dL" xsi:type=& quot;PQ" value="259" /> <interpretationCode codeSystem="local" code="H" /> < referenceRange> <observationRange> <text> 70-99</text> </observationRange> </referenceRange& gt; </observation> </component> </organizer> & lt;/entry> <entry> <organizer moodCode="EVN" classCode ="BATTERY"> <templateId root=" 2.16.840.1.006124.10.20.22.4.1" /> <id nullFlavor="NA&quot ; /> <code codeSystem="local" code="GLUPOC" displayName="POC GLUCOMETER" /> <statusCode code=" completed" /> <component> <observation moodCode=& quot;EVN" classCode="OBS"> <templateId root=" 2.16.840.1.348213.10.20.22.4.2" /> <id nullFlavor="NA& quot; /> <code codeSystem="local" code="3010401& quot; displayName="Glucose Meter (POC)" /> <statusCode code="completed" /> <effectiveTime value=" 650007841908" /> <value unit="mg/dL" xsi:type=& quot;PQ" value="164" /> <interpretationCode codeSystem="local" code="H" /> < referenceRange> <observationRange> <text>70 -99</text> </observationRange> </ referenceRange> </observation> </component> </ organizer> </entry> <entry> <organizer moodCode="EVN " classCode="BATTERY"> <templateId root=" 2.16.840.1.844493.10.20.22.4.1" /> <id nullFlavor="NA&quot ; /> <code codeSystem="local" code="GLUPOC" displayName="POC GLUCOMETER" /> <statusCode code=" completed" /> <component> <observation moodCode="EVN& quot; classCode="OBS"> <templateId root=" 2.16.840.1.023447.10.20.22.4.2" /> <id nullFlavor="NA& quot; /> <code codeSystem="local" code="8733240" displayName="Glucose Meter (POC)" /> <statusCode code=& quot;completed" /> <effectiveTimevalue="407240348917& quot; /> <value unit="mg/dL" xsi:type="PQ" value="219" /> <interpretationCode codeSystem=" local" code="H" /> <referenceRange> <observationRange> <text>70-99</text> </observationRange> </referenceRange> </observation&gt ; </component> </organizer> </entry> <entry> <organizer moodCode="EVN" classCode="BATTERY"> & lt;templateId root="2.16.840.1.438366.10.20.22.4.1" /> <id nullFlavor="NA" /> <code codeSystem="local" code= "GLUPOC" displayName="POC GLUCOMETER" /> < statusCode code="completed" /> <component> < observationmoodCode="EVN" classCode="OBS"> < templateId root="2.16.840.1.497648.10.20.22.4.2" /> < id nullFlavor="NA" /> <code codeSystem="local&quot ; code="4744627" displayName="Glucose Meter (POC)" /> <statusCode code="completed" /> < effectiveTime value="089258187257" /> <value unit=&quot ;mg/dL" xsi:type="PQ" value="171" /> < interpretationCode codeSystem="local" code="H" /> & lt;referenceRange> <observationRange> <text& gt;70-99</text> </observationRange> </ referenceRange> </observation> </component> </ organizer> </entry> <entry> <organizer moodCode="EVN " classCode="BATTERY"> <templateId root=" 2.16.840.1.006212.10.20.22.4.1" /> <id nullFlavor="NA&quot ; /> <code codeSystem="local" code="GLUPOC" displayName="POC GLUCOMETER" /> <statusCode code=" completed" /> <component> <observation moodCode=& quot;EVN" classCode="OBS"> <templateId root=" 2.16.840.1.572741.10.20.22.4.2" /> <id nullFlavor="NA& quot; /> <code codeSystem="local" code="3676457& quot; displayName="Glucose Meter (POC)" /> <statusCode code="completed" /> <effectiveTime value=" 362334530607" /> <value unit="mg/dL" xsi:type=& quot;PQ" value="263" /> <interpretationCode codeSystem= "local" code="H" /> <referenceRange> <observationRange> <text>70-99</text> & lt;/observationRange> </referenceRange> </ observation> </component> </organizer> </entry> & lt;entry> <organizer moodCode="EVN" classCode="BATTERY& quot;> <templateId root="2.16.840.1.317284.10.20.22.4.1" /& gt; <id nullFlavor="NA" /> <code codeSystem=" local"code="GLUPOC" displayName="POC GLUCOMETER" /> <statusCode code="completed" /> <component> <observation moodCode="EVN" classCode="OBS"> <templateId root="2.16.840.1.723486.10.20.22.4.2" /> <id nullFlavor="NA" /> <code codeSystem=" local" code="3587435" displayName="Glucose Meter (POC)&quot ; /> <statusCode code="completed" /> < effectiveTime value="704978373112" /> <value unit=&quot ;mg/dL" xsi:type="PQ" value="118" /> < interpretationCode codeSystem="local" code="H" /> <referenceRange> <observationRange> <text& gt;70-99</text> </observationRange> </ referenceRange> </observation> </component> </ organizer> </entry> <entry> <organizer moodCode="EVN " classCode="BATTERY"> <templateId root=" 2.16.840.1.007909.10.20.22.4.1" /> <id nullFlavor="NA" /& gt; <code codeSystem="local" code="GLUPOC" displayName="POC GLUCOMETER" /> <statusCode code=" completed" /> <component> <observation moodCode=& quot;EVN" classCode="OBS"> <templateId root=" 2.16.840.1.741236.10.20.22.4.2" /> <id nullFlavor="NA& quot; /> <code codeSystem="local" code="0404356& quot;displayName="Glucose Meter (POC)" /> <statusCode code="completed"/> <effectiveTime value=" 520965833854" /> <value unit="mg/dL" xsi:type=& quot;PQ" value="241" /> <interpretationCode codeSystem="local" code="H" /> < referenceRange> <observationRange> <text> 70-99</text> </observationRange> </referenceRange& gt; </observation> </component> </organizer> & lt;/entry> <entry> <organizer moodCode="EVN" classCode ="BATTERY"> <templateId root=" 2.16.840.1.123416.10.20.22.4.1" /> <id nullFlavor="NA&quot ; /> <code codeSystem="local" code="GLUPOC" displayName="POC GLUCOMETER" /> <statusCode code=" completed" /> <component> <observation moodCode=& quot;EVN" classCode="OBS"> <templateId root=" 2.16.840.1.100984.10.20.22.4.2" /> <id nullFlavor="NA& quot; /> <code codeSystem="local" code="9233894& quot; displayName="Glucose Meter (POC)" /> <statusCode code="completed" /> <effectiveTime value=" 164182296175" /> <value unit="mg/dL" xsi:type=& quot;PQ" value="154" /> <interpretationCode codeSystem="local" code="H" /> < referenceRange> <observationRange> <text>70- 99</text> </observationRange> </ referenceRange> </observation> </component> </ organizer> </entry> <entry> <organizer moodCode="EVN& quot; classCode="BATTERY"> <templateId root=" 2.16.840.1.150453.10.20.22.4.1" /> <id nullFlavor="NA&quot ; /> <code codeSystem="local" code="GLUPOC" displayName="POC GLUCOMETER" /> <statusCode code=" completed" /> <component><observation moodCode="EVN& quot; classCode="OBS"> <templateId root=" 2.16.840.1.591623.10.20.22.4.2" /> <id nullFlavor="NA& quot; /> <code codeSystem="local" code="6919150" displayName="Glucose Meter (POC)" /> <statusCode code=& quot;completed" /> <effectiveTime value="339484312321& quot; /> <value unit="mg/dL" xsi:type="PQ" value="175" /> <interpretationCode codeSystem=" local" code="H" /> <referenceRange> <observationRange> <text>70-99</text> </observationRange> </referenceRange> </observation> </component> </organizer> </entry> <entry> & lt;organizer moodCode="EVN" classCode="BATTERY"> &lt ;templateId root="2.16.840.1.634920.10.20.22.4.1" /> <id nullFlavor="NA" /> <code codeSystem="local" code= "GLUPOC" displayName="POC GLUCOMETER" /> < statusCode code="completed" /> <component> < observation moodCode="EVN" classCode="OBS"> < templateId root="2.16.840.1.874674.10.20.22.4.2" /> < id nullFlavor="NA" /> <code codeSystem="local&quot ; code="3960331" displayName="Glucose Meter (POC)" /> <statusCode code="completed" /> <effectiveTime value="634037760638" /> <value unit="mg/dL" xsi:type="PQ" value="147" /> < interpretationCode codeSystem="local" code="H" /> & lt;referenceRange> <observationRange> <text& gt;70-99</text> </observationRange> </ referenceRange> </observation> </component> </ organizer> </entry> <entry> <organizer moodCode="EVN " classCode="BATTERY"> <templateId root=" 2.16.840.1.991190.10.20.22.4.1" /> <id nullFlavor="NA&quot ; /> <code codeSystem="local" code="GLUPOC" displayName="POC GLUCOMETER" /> <statusCode code=" completed" /> <component> <observation moodCode=& quot;EVN" classCode="OBS"> <templateId root=" 2.16.840.1.808944.10.20.22.4.2" /> <id nullFlavor="NA& quot; /> <code codeSystem="local" code="7935620& quot; displayName="Glucose Meter (POC)" /> <statusCode code="completed" /> <effectiveTime value=" 553864236093" /> <value unit="mg/dL" xsi:type=& quot;PQ" value="151" /> <interpretationCode codeSystem=& quot;local" code="H" /> <referenceRange> <observationRange> <text>70-99</text> < /observationRange> </referenceRange> </observation& gt; </component> </organizer> </entry> <entry&gt ; <organizer moodCode="EVN" classCode="BATTERY"> <templateId root="2.16.840.1.740317.10.20.22.4.1" /> & lt;id nullFlavor="NA" /> <code codeSystem="local&quot ; code="GLUPOC" displayName="POC GLUCOMETER" /> < statusCode code="completed" /> <component> < observation moodCode="EVN" classCode="OBS"> < templateId root="2.16.840.1.219795.10.20.22.4.2" /> <id nullFlavor="NA" /> <code codeSystem="local" code="9982663" displayName="Glucose Meter (POC)" /> <statusCode code="completed" /> <effectiveTime value="505336910556" /> <value unit="mg/dL" xsi:type="PQ" value="161" /> < interpretationCode codeSystem="local" code="H" /> <referenceRange> <observationRange> <text&gt ;70-99</text> </observationRange> </ referenceRange> </observation> </component> </ organizer> </entry> <entry> <organizer moodCode="EVN " classCode="BATTERY"> <templateId root=" 2.16.840.1.731330.10.20.22.4.1" /> <id nullFlavor="NA" /&gt ; <code codeSystem="local" code="COMP" displayName=& quot;COMPREHENSIVE METABOLIC PANEL" /> <statusCode code=" completed" /> <component> <observation moodCode=& quot;EVN" classCode="OBS"> <templateId root=" 2.16.840.1.395657.10.20.22.4.2" /> <id nullFlavor="NA" /& gt; <code codeSystem="local" code="BUNCREAT" displayName="BUN:Creatinine Ratio" /> <statusCode code= "completed" /> <effectiveTime value="033429602209& quot; /> <value unit="" xsi:type="PQ" value=& quot;25" /> <referenceRange> < observationRange> <text>6-25</text> </ observationRange> </referenceRange> </observation&gt ; </component> <component> <observation moodCode ="EVN" classCode="OBS"> <templateId root=& quot;2.16.840.1.815215.10.20.22.4.2" /> <id nullFlavor=&quot ;NA" /> <code codeSystem="local" code="GLOB& quot; displayName="Globulin" /> <statusCode code=" completed" /> <effectiveTime value="019463148637" /> <value unit="g/dL" xsi:type="PQ" value=& quot;3.7" /> <referenceRange> < observationRange> <text>2.2-4.2</text> & lt;/observationRange> </referenceRange> </observation> </component> <component> <observation moodCode=& quot;EVN" classCode="OBS"> <templateId root=" 2.16.840.1.421018.10.20.22.4.2" /> <id nullFlavor="NA& quot; /> <code codeSystem="local" code="ANIONGAP& quot; displayName="Anion Gap" /> <statusCode code=&quot ;completed" /> <effectiveTime value="472320052322&quot ; /> <value unit="" xsi:type="PQ" value=&quot ;13" /> <referenceRange> <observationRange& gt; <text>6-18</text> </observationRange> </referenceRange> </observation> </component> <component> <observation moodCode="EVN" classCode= "OBS"> <templateId root=" 2.16.840.1.434024.10.20.22.4.2" /> <id nullFlavor="NA& quot; /> <code codeSystem="local" code="ALKP&quot ; displayName="Alkaline Phosphatase" /> <statusCode code=& quot;completed" /> <effectiveTime value="405785317672& quot; /> <value unit="U/L" xsi:type="PQ" value="79"/> <referenceRange> < observationRange> <text>20-125</text> &lt ;/observationRange> </referenceRange> </observation& gt; </component> <component> <observation moodCode="EVN" classCode="OBS"> <templateId root="2.16.840.1.312970.10.20.22.4.2" /> <id nullFlavor ="NA" /> <code codeSystem="local" code=" ALT" displayName="ALT Alanine Aminotransferase" /> & lt;statusCode code="completed" /> <effectiveTime value= "251185278384" /> <value unit="U/L" xsi:type= "PQ" value="31" /> <referenceRange> <observationRange> <text>12-78</text> </observationRange> </referenceRange> </ observation> </component> <component> < observation moodCode="EVN" classCode="OBS"> < templateId root="2.16.840.1.858494.10.20.22.4.2" /> < id nullFlavor="NA" /> <code codeSystem="local&quot ; code="AST" displayName="AST Aspartate Amino Transferase" / > <statusCode code="completed" /> < effectiveTime value="399589985828" /> <value unit=&quot ;U/L" xsi:type="PQ" value="15" /> < referenceRange> <observationRange> <text> 7-37</text> </observationRange> </ referenceRange> </observation> </component> < component> <observation moodCode="EVN" classCode=" OBS"> <templateId root="2.16.840.1.077358.10.20.22.4.2& quot; /> <id nullFlavor="NA" /> <code codeSystem="local" code="BUN" displayName="BUN Urea Nitrogen" /> <statusCode code="completed" /> <effectiveTime value="448656822304" /> < value unit="mg/dL" xsi:type="PQ" value="39" /> <interpretationCode codeSystem="local" code="H&quot ; /> <referenceRange> <observationRange> <text>6-24</text> </observationRange> & lt;/referenceRange> </observation> </component> <component> <observation moodCode="EVN" classCode=& quot;OBS"> <templateId root="2.16.840.1.786634.10.20.22.4.2&quot ; /> <id nullFlavor="NA" /> <code codeSystem="local" code="CO2" displayName="CO2 Carbon Dioxide" /> <statusCode code="completed" /> <effectiveTime value="586694643792" /> < value unit="mmol/L" xsi:type="PQ" value="24" /&gt ; <referenceRange> <observationRange> <text>20-30</text> </observationRange> </ referenceRange> </observation> </component> < component> <observation moodCode="EVN" classCode="OBS "> <templateId root="2.16.840.1.016842.10.20.22.4.2& quot; /> <id nullFlavor="NA" /> <code codeSystem="local" code="CREAT" displayName="Creatinine " /> <statusCode code="completed" /> & lt;effectiveTime value="573786748377" /> <value unit=& quot;mg/dL" xsi:type="PQ" value="1.53" /> & lt;interpretationCode codeSystem="local" code="H" /> <referenceRange> <observationRange> & lt;text>0.53-1.26</text> </observationRange> </referenceRange> </observation> </component> < component> <observation moodCode="EVN" classCode=" OBS"> <templateId root="2.1[id number]& quot; /> <id nullFlavor="NA" /> <code codeSystem="local" code="TP" displayName="Protein Total " /> <statusCode code="completed" /> & lt;effectiveTime value="[id number]" /> <value unit=& quot;g/dL" xsi:type="PQ" value="6.8" /> < referenceRange> <observationRange> <text> 6.4-8.2</text> </observationRange> </ referenceRange> </observation> </component> < component> <observation moodCode="EVN" classCode=" OBS"> <templateId root="[id number]& quot; /> <id nullFlavor="NA" /> <code codeSystem="local" code="BILIT" displayName="Bilirubin Total" /> <statusCode code="completed" /> <effectiveTime value="394298120149" /> <value unit="mg/dL" xsi:type="PQ" value="0.4" /> <referenceRange> <observationRange> &lt ;text>0.2-1.2</text> </observationRange> </ referenceRange> </observation> </component> < component> <observation moodCode="EVN" classCode=" OBS"> <templateId root="2.16.840.1.274738.10.20.22.4.2& quot; /> <id nullFlavor="NA" /> <code codeSystem="local" code="K" displayName="Potassium&quot ; /> <statusCode code="completed" /> < effectiveTime value="416998154685" /> <value unit=&quot ;mmol/L" xsi:type="PQ" value="6.7" /> < interpretationCode codeSystem="local" code="HH" /> <referenceRange> <observationRange> < text>3.5-5.1</text> </observationRange> </ referenceRange> </observation> </component> < component> <observation moodCode="EVN" classCode="OBS& quot;> <templateIdroot="2.16.840.1.924219.10.20.22.4.2&quot ; /> <id nullFlavor="NA" /> <code codeSystem="local" code="NA" displayName="Sodium" /> <statusCode code="completed" /> < effectiveTime value="076310876889" /> <value unit=&quot ;mmol/L" xsi:type="PQ" value="136" /> < referenceRange> <observationRange> <text> 136-145</text> </observationRange> </ referenceRange> </observation> </component> < component> <observation moodCode="EVN" classCode=" OBS"> <templateId root="2.16.840.1.422681.10.20.22.4.2& quot; /> <id nullFlavor="NA" /> <code codeSystem="local" code="CL" displayName="Chloride&quot ; /> <statusCode code="completed" /> < effectiveTime value="890526877442" /> <value unit=&quot ;mmol/L" xsi:type="PQ" value="106" /> < referenceRange> <observationRange> <text> 96-111</text> </observationRange> </ referenceRange> </observation> </component> < component> <observation moodCode="EVN" classCode=" OBS"> <templateId root="2.16.840.1.250622.10.20.22.4.2& quot; /> <id nullFlavor="NA" /> <code codeSystem="local" code="GLU" displayName="Glucose&quot ; /> <statusCode code="completed" /> < effectiveTime value="524907475304" /> <value unit=&quot ;mg/dL" xsi:type="PQ" value="153" /> < interpretationCode codeSystem="local" code="H" /> <referenceRange> <observationRange> < text>70-99</text> </observationRange> </ referenceRange> </observation> </component> < component> <observation moodCode="EVN" classCode=" OBS"> <templateId root="2.16.840.1.383571.10.20.22.4.2& quot; /> <id nullFlavor="NA" /> <code codeSystem="local" code="CA" displayName="Calcium&quot ; /> <statusCode code="completed" /> < effectiveTime value="171609546177" /> <value unit=&quot ;mg/dL" xsi:type="PQ" value="8.7" /> < referenceRange> <observationRange> <text>8.3- 10.1</text> </observationRange> </ referenceRange> </observation> </component> < component> <observation moodCode="EVN" classCode=" OBS"> <templateId root="2.16.840.1.498834.10.20.22.4.2& quot; /> <id nullFlavor="NA" /> <code codeSystem="local" code="GFR" displayName="GFR Glomerular Filtration Rate" /> <statusCode code=" completed" /> <effectiveTime value="321571223255" /> <value unit="mL/min/1.73m*2" xsi:type="PQ&quot ; value="33.7" /> <interpretationCode codeSystem=" local" code="L" /> <referenceRange> <observationRange> <text>>60.0</text> &lt ;/observationRange> </referenceRange> </observation& gt; </component> <component> <observation moodCode="EVN" classCode="OBS"> <templateId root="2.16.840.1.574072.10.20.22.4.2" /> <id nullFlavor ="NA" /> <code codeSystem="local" code=" ALB" displayName="Albumin" /> <statusCode code=" completed" /> <effectiveTime value="172362380144" /> <value unit="g/dL" xsi:type="PQ" value=& quot;3.1" /> <interpretationCode codeSystem="local&quot ; code="L" /> <referenceRange> < observationRange> <text>3.2-4.6</text> & lt;/observationRange> </referenceRange> </ observation> </component> <component> < observation moodCode="EVN" classCode="OBS"> < templateId root="2.16.840.1.406146.10.20.22.4.2" /> <id nullFlavor="NA" /> <code codeSystem="local" code="AGRATIO" displayName="Albumin:Globulin Ratio" /> <statusCode code="completed" /> < effectiveTime value="550820418595" /><value unit="" xsi:type="PQ" value="0.8" /> <referenceRange& gt; <observationRange> <text>0.8-2.0</ text> </observationRange> </referenceRange> &lt ;/observation> </component> </organizer> </entry> <entry> <organizer moodCode="EVN" classCode=" BATTERY"> <templateId root="2.16.840.1.623043.10.20.22.4.1& quot; /> <id nullFlavor="NA" /> <code codeSystem ="local"code="171605" displayName="SMEAR REVIEW" / > <statusCode code="completed" /> <component&gt ; <observation moodCode="EVN" classCode="OBS"> <templateId root="2.16.840.1.698491.10.20.22.4.2" /> <id nullFlavor="NA" /> <code codeSystem=" local" code="PLTEST" displayName="Platelet Estimate" /& gt; <statusCode code="completed" /> < effectiveTime value="608660220363" /> <valueunit=" " xsi:type="PQ" value="Normal" /> < referenceRange> <observationRange> <text> Normal</text> </observationRange> </ referenceRange> </observation> </component> < component> <observation moodCode="EVN" classCode=" OBS"> <templateId root="2.16.840.1.497403.10.20.22.4.2& quot; /> <id nullFlavor="NA" /> <code codeSystem="local" code="ESTOMA"displayName=" Stomatocytes" /> <statusCode code="completed" /&gt ; <effectiveTime value="497752407156" /> < value unit="" xsi:type="PQ" value="1+" /> <interpretationCode codeSystem="local" code="A" /&gt ; <referenceRange> <observationRange> <text>(none)</text> </observationRange> </referenceRange> </observation> </component> <component> <observation moodCode="EVN" classCode ="OBS"> <templateId root=" 2.16.840.1.521116.10..22.4.2" /> <id nullFlavor="NA& quot; /> <code codeSystem="local" code="8302246" displayName="Platelet Morphology" /> <statusCode code=& quot;completed" /> <effectiveTime value="905581930550& quot; /> <value unit="" xsi:type="PQ" value=& quot;Normal" /> <referenceRange> < observationRange> <text /> </observationRange> </referenceRange> </observation> </component&gt ; <component> <observation moodCode="EVN" classCode="OBS"> <templateId root=" 2.16.840.1.117231.10.20.22.4.2" /> <id nullFlavor="NA& quot; /> <code codeSystem="local" code="1520108& quot; displayName="White Blood Count Morphology" /> < statusCode code="completed" /> <effectiveTime value=& quot;451927749696" /> <value unit="" xsi:type=& quot;PQ" value="Normal" /> <referenceRange> <observationRange> <text /> </ observationRange> </referenceRange> </observation&gt ; </component> <component> <observation moodCode=& quot;EVN" classCode="OBS"> <templateId root=" 2..840.1.702153.10.20.22.4.2" /> <id nullFlavor="NA&quot ; /> <code codeSystem="local" code="EELLIPTO&quot ; displayName="Elliptocytes" /> <statusCode code=" completed" /> <effectiveTime value="682266161569" /> <value unit="" xsi:type="PQ" value="1 +" /> <interpretationCode codeSystem="local" code= "A" /> <referenceRange> < observationRange> <text>(none)</text> &lt ;/observationRange> </referenceRange> </observation& gt; </component> </organizer> </entry> <entry&gt ; <organizer moodCode="EVN" classCode="BATTERY"> <templateId root="09.17.840.1.095726.10.20.22.4.1" /> & lt;id nullFlavor="NA" /> <code codeSystem="local&quot ; code="GLUPOC" displayName="POC GLUCOMETER" /> < statusCode code="completed" /> <component> < observation moodCode="EVN" classCode="OBS"> < templateId root="2.16.840.1.353012.10.20.22.4.2" /> < id nullFlavor="NA" /> <code codeSystem="local&quot ; code="0608083" displayName="Glucose Meter (POC)" /> <statusCode code="completed" /> <effectiveTime value="189915767393" /> <value unit="mg/dL" xsi:type="PQ" value="142" /> < interpretationCode codeSystem="local" code="H" /> <referenceRange> <observationRange> < text>70-99</text> </observationRange> </ referenceRange> </observation> </component> </ organizer> </entry> <entry> <organizer moodCode="EVN " classCode="BATTERY"> <templateId root=" 2.16.840.1.223471.10.20.22.4.1" /> <id nullFlavor="NA&quot ; /> <code codeSystem="local" code="K" displayName="POTASSIUM SERUM" /> <statusCode code=" completed" /> <component> <observation moodCode="EVN " classCode="OBS"> <templateId root=" 2.16.840.1.425904.10.20.22.4.2" /> <id nullFlavor="NA& quot; /> <code codeSystem="local" code="K" displayName="Potassium" /> <statusCode code=" completed" /> <effectiveTime value="187165958828" /> <value unit="mmol/L" xsi:type="PQ" value=& quot;5.7" /> <interpretationCode codeSystem="local&quot ; code="H" /> <referenceRange> < observationRange> <text>3.5-5.1</text> & lt;/observationRange> </referenceRange> </ observation> </component> </organizer> </entry> & lt;entry> <organizer moodCode="EVN" classCode="BATTERY& quot;> <templateId root="2.16.840.1.033364.10.20.22.4.1" /& gt; <id nullFlavor="NA" /> <code codeSystem=" local" code="GLUPOC" displayName="POC GLUCOMETER" /&gt ; <statusCode code="completed" /> <component> <observation moodCode="EVN" classCode="OBS"> <templateId root="2.16.840.1.424396.10.20.22.4.2" /> <id nullFlavor="NA" /> <code codeSystem=" local" code="1451544" displayName="Glucose Meter (POC)&quot ; /> <statusCode code="completed" /> < effectiveTime value="619177524417" /> <value unit=&quot ;mg/dL" xsi:type="PQ" value="139" /> < interpretationCode codeSystem="local" code="H" /> <referenceRange> <observationRange> < text>70-99</text> </observationRange> </ referenceRange> </observation> </component> </ organizer> </entry> <entry> <organizer moodCode="EVN " classCode="BATTERY"> <templateId root=" 2.16.840.1.995971.10.20.22.4.1" /> <id nullFlavor="NA&quot ; /> <code codeSystem="local" code="GLUPOC" displayName="POC GLUCOMETER" /> <statusCode code=" completed" /> <component> <observation moodCode=& quot;EVN" classCode="OBS"> <templateId root=" 2.16.840.1.835052.10.20.22.4.2" /> <id nullFlavor="NA& quot; /> <code codeSystem="local" code="7512614& quot; displayName="Glucose Meter (POC)" /> <statusCode code="completed" /> <effectiveTime value=" 229202791752" /><value unit="mg/dL" xsi:type="PQ&quot ; value="295" /> <interpretationCode codeSystem=" local" code="H" /> <referenceRange> <observationRange> <text>70-99</text> </observationRange> </referenceRange> </ observation> </component> </organizer> </entry> & lt;entry> <organizer moodCode="EVN" classCode="BATTERY& quot;> <templateId root="2.16.840.1.102510.10.20.22.4.1" /& gt; <id nullFlavor="NA" /> <code codeSystem=" local" code="GLUPOC" displayName="POC GLUCOMETER" /&gt ; <statusCode code="completed" /> <component> <observation moodCode="EVN" classCode="OBS"> <templateId root="2.16.840.1.387554.10.20.22.4.2" /> <id nullFlavor="NA" /> <code codeSystem=" local" code="9662357" displayName="Glucose Meter (POC)&quot ; /> <statusCode code="completed" /> < effectiveTime value="473053803438" /> <value unit=&quot ;mg/dL" xsi:type="PQ" value="63" /> < interpretationCode codeSystem="local" code="L" /> <referenceRange> <observationRange> < text>70-99</text> </observationRange> </ referenceRange> </observation> </component> </ organizer> </entry> <entry> <organizer moodCode="EVN " classCode="BATTERY"> <templateId root=" 2.16.840.1.060843.10.20.22.4.1" /> <id nullFlavor="NA&quot ; /> <code codeSystem="local" code="JHG2580C" displayName="CBC WITH DIFFERENTIAL REFLEX MANUAL DIFF" /> < statusCode code="completed" /> <component> < observation moodCode="EVN" classCode="OBS"> < templateId root="2.16.840.1.271767.10.20.22.4.2" /> <id nullFlavor="NA" /> <code codeSystem="local" code="HGB" displayName="Hemoglobin" /> < statusCode code="completed" /> <effectiveTime value=& quot;085993269078" /> <value unit="g/dL" xsi:type= "PQ" value="7.9" /> <interpretationCode codeSystem="local" code="L" /> < referenceRange> <observationRange> <text> 11.9-16.3</text> </observationRange> </ referenceRange> </observation> </component> < component> <observation moodCode="EVN" classCode=" OBS"> <templateId root="2.16.840.1.040741.10.20.22.4.2& quot; /> <id nullFlavor="NA" /> <code codeSystem="local" code="HCT" displayName="Hematocrit& quot; /> <statusCode code="completed" /> & lt;effectiveTimevalue="630558265452" /> <value unit=& quot;%" xsi:type="PQ" value="26.2" /> <interpretationCode codeSystem="local" code="L" /&gt ; <referenceRange> <observationRange><text&gt ;37.0-47.7</text> </observationRange> </ referenceRange> </observation> </component> < component> <observation moodCode="EVN" classCode=" OBS"> <templateId root="2.16.840.1.139210.10.20.22.4.2& quot; /> <id nullFlavor="NA" /> <code codeSystem="local" code="RDW" displayName="RDW Red Cell Distr Width" /> <statusCode code="completed" /> <effectiveTime value="171871823510" /> & lt;value unit="%" xsi:type="PQ" value="16.2& quot; /> <interpretationCode codeSystem="local" code=& quot;H" /> <referenceRange> < observationRange> <text>12.3-15.9</text> </observationRange> </referenceRange> </ observation> </component> <component> < observation moodCode="EVN" classCode="OBS"> < templateId root="2.16.840.1.963144.10.20.22.4.2" /> < id nullFlavor="NA" /> <code codeSystem="local&quot ; code="LYMPAB" displayName="Lymphocytes Absolute" /> <statusCode code="completed" /> < effectiveTime value="848253718260"/> <value unit=" 10*3/uL" xsi:type="PQ" value="1.1" /> < referenceRange> <observationRange> <text> 1.1-3.7</text> </observationRange> </ referenceRange> </observation> </component> < component> <observation moodCode="EVN" classCode=" OBS"> <templateId root="2.16.840.1.332623.10.20.22.4.2& quot; /> <id nullFlavor="NA" /> <code codeSystem="local" code="MONOAB" displayName=" Monocytes Absolute" /> <statusCode code="completed&quot ; /> <effectiveTime value="925728241036" /> & lt;value unit="10*3/uL" xsi:type="PQ" value="1.6" /> <interpretationCode codeSystem="local" code="H" /& gt; <referenceRange> <observationRange> <text>0.3-0.9</text> </observationRange> </ referenceRange> </observation> </component> < component> <observation moodCode="EVN" classCode=" OBS"> <templateId root="2.16.840.1.386707.10..22.4.2& quot; /> <id nullFlavor="NA" /> <code codeSystem="local" code="EOSAB" displayName=" Eosinophils Absolute" /> <statusCode code="completed& quot; /> <effectiveTime value="936554616379" /> <value unit="10*3/uL" xsi:type="PQ" value="0.1 " /> <referenceRange> <observationRange&gt ; <text>0.0-0.5</text> </observationRange > </referenceRange> </observation> </ component> <component> <observation moodCode="EVN& quot; classCode="OBS"> <templateId root=" 2.16.840.1.652336.10.20.22.4.2" /> <id nullFlavor="NA& quot; /> <code codeSystem="local" code="BASOAB& quot;displayName="Basophils Absolute" /> <statusCode code="completed" /> <effectiveTime value=" 010840204306" /> <value unit="10*3/uL" xsi:type=& quot;PQ" value="0.0" /> <referenceRange> & lt;observationRange> <text>0.0-0.1</text> </observationRange> </referenceRange> </ observation> </component> <component> < observation moodCode="EVN" classCode="OBS"> < templateId root="2.16.840.1.642601.10.20.22.4.2" /> < id nullFlavor="NA" /> <code codeSystem="local&quot ; code="NEUTRO" displayName="Neutrophils %" /> <statusCode code="completed" /> < effectiveTime value="725412368654" /> <value unit=&quot ;%" xsi:type="PQ" value="84" /> &lt ;referenceRange> <observationRange> <text /> </observationRange></referenceRange> </observation& gt; </component> <component> <observation moodCode= "EVN" classCode="OBS"> <templateId root=&quot ;2.16.840.1.421014.10..22.4.2" /> <id nullFlavor="NA& quot; /> <code codeSystem="local" code="LYMP" displayName="Lymphocytes %" /> <statusCode code ="completed" /> <effectiveTime value="650410836612 " /> <value unit="%" xsi:type="PQ& quot; value="7" /> <referenceRange> < observationRange> <text /> </ observationRange> </referenceRange> </observation> </component> <component> <observation moodCode= "EVN" classCode="OBS"> <templateId root=&quot ;2.16.840.1.705776.10..22.4.2" /> <id nullFlavor="NA& quot; /> <code codeSystem="local" code="MONO&quot ; displayName="Monocytes %" /> <statusCode code=" completed" /> <effectiveTime value="522044865377" /> <value unit="%" xsi:type="PQ" value="9" /> <referenceRange> < observationRange> <text /> </ observationRange> </referenceRange> </observation&gt ; </component> <component> <observation moodCode= "EVN" classCode="OBS"> <templateId root=&quot ;2.16.840.1.428902.10.20.22.4.2" /> <id nullFlavor="NA& quot; /> <code codeSystem="local" code="EOS" displayName="Eosinophils %" /> <statusCode code ="completed" /> <effectiveTime value="009460361992 " /> <value unit="%" xsi:type="PQ& quot; value="1" /> <referenceRange> < observationRange> <text /> </ observationRange> </referenceRange> </observation&gt ; </component> <component> <observation moodCode=& quot;EVN" classCode="OBS"> <templateId root=" 2.16.840.1.712618.10.20.22.4.2" /> <id nullFlavor="NA& quot; /> <code codeSystem="local" code="BASO&quot ; displayName="Basophils %" /> <statusCode code ="completed" /> <effectiveTime value="594928704609& quot; /> <value unit="%" xsi:type="PQ&quot ; value="0" /> <referenceRange> < observationRange> <text /> </ observationRange> </referenceRange> </observation&gt ; </component> <component> <observation moodCode=" EVN" classCode="OBS"> <templateId root=" 2.16.840.1.785043.10.20.22.4.2" /> <id nullFlavor="NA& quot; /> <code codeSystem="local" code="NEUTROAB" displayName="Neutrophils Absolute" /> <statusCode code= "completed" /> <effectiveTime value="755001222891& quot; /> <value unit="10*3/uL" xsi:type="PQ" value="14.46" /> <interpretationCode codeSystem=" local" code="H" /> <referenceRange> <observationRange> <text>1.70-7.10</text> </ observationRange> </referenceRange> </observation&gt ; </component> <component> <observation moodCode ="EVN" classCode="OBS"> <templateId root=& quot;2.16.840.1.855250.10.20.22.4.2" /> <id nullFlavor=&quot ;NA" /> <code codeSystem="local" code="MCH& quot; displayName="MCH Mean Cell Hemoglobin" /> < statusCode code="completed" /> <effectiveTime value=& quot;368731078974" /> <value unit="pg" xsi:type=& quot;PQ" value="27.6" /> <referenceRange> <observationRange> <text>26.7-33.1</text> </observationRange> </referenceRange> </ observation> </component> <component> < observation moodCode="EVN" classCode="OBS"> < templateId root="2.16.840.1.977875.10.20.22.4.2" /> < id nullFlavor="NA" /> <code codeSystem="local&quot ; code="MCHC" displayName="MCHC Mean Cell Hgb Conc" /> <statusCode code="completed" /> <effectiveTime value="939357805497" /> <value unit="g/dL" xsi:type="PQ" value="30.2" /> < interpretationCode codeSystem="local" code="L" /> < referenceRange> <observationRange> <text> 31.1-35.3</text> </observationRange> </ referenceRange> </observation> </component> < component> <observation moodCode="EVN"classCode="OBS "> <templateId root="2.16.840.1.530937.10.20.22.4.2& quot; /> <id nullFlavor="NA" /> <code codeSystem="local" code="MCV" displayName="MCV Mean Cell Volume" /> <statusCode code="completed" /&gt ; <effectiveTime value="536574479108" /> <value unit ="fL" xsi:type="PQ" value="92" /> < referenceRange> <observationRange> <text> 81-97</text> </observationRange> </referenceRange> </observation> </component> <component> <observation moodCode="EVN" classCode="OBS"> <templateId root="2.16.840.1.075161.10.20.22.4.2" /> <id nullFlavor="NA" /> <code codeSystem=" local" code="MPV" displayName="MPV Mean Platelet Volume&quot ; /> <statusCode code="completed" /> < effectiveTime value="850418438937" /> <value unit=&quot ;fL" xsi:type="PQ" value="9.7" /> < referenceRange> <observationRange> <text /& gt; </observationRange> </referenceRange> </observation> </component> <component> &lt ;observation moodCode="EVN" classCode="OBS"> &lt ;templateId root="2.16.840.1.265045.10.20.22.4.2" /> < id nullFlavor="NA" /> <code codeSystem="local&quot ; code="PLT" displayName="Platelet Count" /> &lt ;statusCode code="completed" /> <effectiveTime value=& quot;562785385688" /> <value unit="10*3/uL" xsi: type="PQ" value="219" /> <referenceRange> <observationRange> <text>150-400</text& gt; </observationRange> </referenceRange> </observation> </component> <component>< observation moodCode="EVN" classCode="OBS"> < templateId root="2.16.840.1.699516.10.20.22.4.2" /> < id nullFlavor="NA" /> <code codeSystem="local" code ="RBC" displayName="RBC Red Blood Count" /> < statusCode code="completed" /> <effectiveTime value=& quot;043069752248" /> <value unit="10*6/uL" xsi: type="PQ" value="2.86" /> < interpretationCode codeSystem="local" code="L" /> <referenceRange> <observationRange> < text>4.11-5.63</text> </observationRange> &lt ;/referenceRange> </observation> </component> < component> <observation moodCode="EVN" classCode=" OBS"> <templateId root="2.16.840.1.627328.10.20.22.4.2& quot; /> <id nullFlavor="NA" /> <code codeSystem="local" code="WBC" displayName="WBC White Blood Count" /> <statusCode code="completed" /> <effectiveTime value="386561363044" /> <value unit ="10*3/uL" xsi:type="PQ" value="17.3" /> <interpretationCode codeSystem="local" code="H" /&gt ; <referenceRange> <observationRange> < text>3.7-11.1</text> </observationRange> < /referenceRange> </observation> </component> </ organizer> </entry> <entry> <organizer moodCode="EVN " classCode="BATTERY"> <templateId root=" 2.16.840.1.237817.10.20.22.4.1" /> <id nullFlavor="NA&quot ; /> <code codeSystem="local" code="COMP" displayName="COMPREHENSIVE METABOLIC PANEL" /> <statusCode code= "completed" /> <component> <observation moodCode="EVN" classCode="OBS"> <templateId root="2.16.840.1.068978.10.20.22.4.2" /> <id nullFlavor ="NA" /> <code codeSystem="local" code=" BUNCREAT" displayName="BUN:Creatinine Ratio" /> < statusCode code="completed" /> <effectiveTime value=& quot;158096222251" /> <value unit="" xsi:type=& quot;PQ" value="23" /> <referenceRange> <observationRange> <text>6-25</text> </observationRange> </referenceRange> </ observation> </component> <component> < observation moodCode="EVN" classCode="OBS"> < templateId root="2.16.840.1.032344.10.20.22.4.2" /> < id nullFlavor="NA" /> <code codeSystem="local&quot ; code="GLOB" displayName="Globulin" /> < statusCode code="completed" /> <effectiveTime value=& quot;683636912339" /> <value unit="g/dL" xsi:type= "PQ" value="3.6" /> <referenceRange> <observationRange> <text>2.2-4.2</text> & lt;/observationRange> </referenceRange> </ observation> </component> <component> < observation moodCode="EVN" classCode="OBS"> < templateId root="2.16.840.1.715986.10.20.22.4.2" /> < id nullFlavor="NA" /> <code codeSystem="local&quot ; code="ANIONGAP" displayName="Anion Gap" /> &lt ;statusCode code="completed" /> <effectiveTime value=& quot;426876711037" /> <value unit="" xsi:type=& quot;PQ" value="10" /> <referenceRange> <observationRange> <text>6-18</text> </observationRange> </referenceRange> </ observation> </component> <component> < observation moodCode="EVN" classCode="OBS"> < templateId root="2.16.840.1.793372.10.20.22.4.2" /> < id nullFlavor="NA" /> <code codeSystem="local&quot ; code="ALKP" displayName="Alkaline Phosphatase" /> <statusCode code="completed" /> <effectiveTime value="914226788930" /> <value unit="U/L" xsi :type="PQ" value="69" /> <referenceRange> <observationRange> <text>20-125</text&gt ; </observationRange> </referenceRange> & lt;/observation> </component> <component> < observation moodCode="EVN" classCode="OBS"> < templateId root="2.16.840.1.659486.10.20.22.4.2" /> < id nullFlavor="NA" /> <code codeSystem="local" code="ALT" displayName="ALT Alanine Aminotransferase" /> <statusCode code="completed" /> < effectiveTime value="571699675643" /> <value unit=&quot ;U/L" xsi:type="PQ" value="29" /> < referenceRange> <observationRange> <text>12 -78</text> </observationRange> </ referenceRange> </observation> </component> < component> <observation moodCode="EVN" classCode=" OBS"> <templateId root="2.16.840.1.366052.10.20.22.4.2& quot; /> <id nullFlavor="NA" /> <code codeSystem="local" code="AST" displayName="AST Aspartate Amino Transferase" /> <statusCode code=" completed" /> <effectiveTimevalue="203390376920" / > <value unit="U/L" xsi:type="PQ"value=" 13" /> <referenceRange> <observationRange& gt; <text>7-37</text> </observationRange> </referenceRange> </observation> </component& gt; <component> <observation moodCode="EVN" classCode="OBS"> <templateId root=" 2.16.840.1.069371.10.20.22.4.2" /> <id nullFlavor="NA& quot; /> <codecodeSystem="local" code="BUN" displayName="BUN Urea Nitrogen" /> <statusCode code=" completed" /> <effectiveTime value="983835537251" /> <value unit="mg/dL" xsi:type="PQ" value=& quot;41" /> <interpretationCode codeSystem="local&quot ; code="H" /> <referenceRange> < observationRange> <text>6-24</text> </ observationRange> </referenceRange> </observation&gt ; </component> <component> <observation moodCode ="EVN" classCode="OBS"> <templateId root=& quot;2.16.840.1.645212.10.20.22.4.2" /> <id nullFlavor=&quot ;NA" /> <code codeSystem="local" code="CO2& quot; displayName="CO2 Carbon Dioxide" /> <statusCode code="completed" /> <effectiveTime value=" 006291703719" /> <value unit="mmol/L" xsi:type=& quot;PQ" value="28" /> <referenceRange> <observationRange> <text>20-30</text></ observationRange> </referenceRange> </observation&gt ; </component> <component> <observation moodCode ="EVN" classCode="OBS"> <templateId root=& quot;2.16.840.1.681290.10.20.22.4.2" /> <id nullFlavor=&quot ;NA" /> <code codeSystem="local" code="CREAT& quot; displayName="Creatinine" /> <statusCode code=& quot;completed" /> <effectiveTime value="939586740857& quot; /> <value unit="mg/dL" xsi:type="PQ" value="1.79" /> <interpretationCode codeSystem=" local" code="H" /> <referenceRange> <observationRange> <text>0.53-1.26</text> </observationRange> </referenceRange> </ observation> </component> <component> < observation moodCode="EVN" classCode="OBS"> < templateId root="2.16.840.1.134817.10.20.22.4.2" /> < id nullFlavor="NA" /> <code codeSystem="local&quot ; code="TP" displayName="Protein Total" /> < statusCode code="completed" /> <effectiveTime value=& quot;081566564021" /> <value unit="g/dL" xsi:type= "PQ" value="6.4" /> <referenceRange> <observationRange> <text>6.4-8.2</text> </observationRange> </referenceRange> </ observation> </component> <component> < observation moodCode="EVN" classCode="OBS"> < templateId root="2.16.840.1.393902.10.20.22.4.2" /> < id nullFlavor="NA" /> <code codeSystem="local&quot ; code="BILIT" displayName="Bilirubin Total" /> & lt;statusCode code="completed" /> <effectiveTime value= "990342284634" /> <value unit="mg/dL" xsi: type="PQ" value="0.3" /> <referenceRange> <observationRange> <text>0.2-1.2</text& gt; </observationRange> </referenceRange> </ observation> </component> <component> < observation moodCode="EVN" classCode="OBS"> < templateId root="2.16.840.1.763807.10.20.22.4.2" /> < id nullFlavor="NA" /> <code codeSystem="local&quot ; code="K" displayName="Potassium" /> < statusCode code="completed" /> <effectiveTime value=& quot;588991740309" /> <value unit="mmol/L" xsi:type=& quot;PQ" value="3.7" /> <referenceRange> <observationRange> <text>3.5-5.1</text> </observationRange> </referenceRange> </ observation> </component> <component> < observation moodCode="EVN" classCode="OBS"> < templateId root="2.16.840.1.719479.10.20.22.4.2" /> <id nullFlavor="NA" /> <code codeSystem="local" code="NA" displayName="Sodium" /> < statusCode code="completed" /> <effectiveTime value=& quot;805771080241" /> <value unit="mmol/L" xsi: type="PQ" value="140" /> <referenceRange> <observationRange> <text>136-145</text> </observationRange> </referenceRange> < /observation> </component> <component> < observation moodCode="EVN" classCode="OBS"> < templateId root="2.16.840.1.288276.10.20.22.4.2" /> < id nullFlavor="NA" /> <code codeSystem="local&quot ; code="CL" displayName="Chloride" /> < statusCode code="completed" /> <effectiveTime value=& quot;981453177074" /> <value unit="mmol/L" xsi: type="PQ" value="106" /> <referenceRange> <observationRange> <text>96-111</text&gt ; </observationRange> </referenceRange> & lt;/observation> </component> <component> < observation moodCode="EVN" classCode="OBS"> < templateId root="2.16.840.1.118735.10..22.4.2" /> < id nullFlavor="NA" /> <code codeSystem="local" code="GLU" displayName="Glucose" /> < statusCode code="completed" /> <effectiveTime value=& quot;019470934574" /> <value unit="mg/dL" xsi:type ="PQ" value="95" /> <referenceRange> <observationRange> <text>70-99</text> </observationRange> </referenceRange> </ observation> </component> <component> < observation moodCode="EVN" classCode="OBS"> < templateId root="2.16.840.1.608886.10.20.22.4.2" /> < id nullFlavor="NA" /> <code codeSystem="local&quot ; code="CA" displayName="Calcium" /> < statusCodecode="completed" /> <effectiveTime value=& quot;535156242029" /> <value unit="mg/dL" xsi:type=& quot;PQ" value="8.3" /> <referenceRange> <observationRange> <text>8.3-10.1</text> </observationRange> </referenceRange> < /observation> </component> <component> < observation moodCode="EVN" classCode="OBS"> < templateId root="2.16.840.1.874454.10.20.22.4.2" /> < id nullFlavor="NA" /> <code codeSystem="local&quot ; code="GFR" displayName="GFR Glomerular Filtration Rate" /& gt; <statusCodecode="completed" /> < effectiveTime value="718570563249" /> <value unit="mL/ min/1.73m*2" xsi:type="PQ" value="27.9" /> & lt;interpretationCode codeSystem="local" code="L" /> <referenceRange> <observationRange> & lt;text>>60.0</text> </observationRange> </referenceRange> </observation> </component> <component> <observation moodCode="EVN" classCode= "OBS"> <templateId root=" 2.16.840.1.676572.10.20.22.4.2" /> <id nullFlavor="NA& quot; /> <code codeSystem="local" code="ALB" displayName="Albumin" /> <statusCode code=" completed" /> <effectiveTime value="717874302299" /> <value unit="g/dL" xsi:type="PQ" value=& quot;2.8" /> <interpretationCode codeSystem="local&quot ; code="L" /> <referenceRange> < observationRange> <text>3.2-4.6</text> & lt;/observationRange> </referenceRange> </observation& gt; </component> <component> <observation moodCode="EVN" classCode="OBS"> <templateId root="2.16.840.1.272828.10.20.22.4.2" /> <id nullFlavor ="NA" /> <code codeSystem="local" code=" AGRATIO" displayName="Albumin:Globulin Ratio" /> < statusCode code="completed" /> <effectiveTime value=& quot;210595367309" /> <value unit="" xsi:type=& quot;PQ" value="0.8" /> <referenceRange> <observationRange> <text>0.8-2.0</text> </observationRange> </referenceRange> </ observation> </component> </organizer> </entry> & lt;entry> <organizer moodCode="EVN" classCode="BATTERY& quot;> <templateId root="2.16.840.1.152789.10.20.22.4.1" /& gt; <id nullFlavor="NA" /> <code codeSystem=" local" code="GLUPOC" displayName="POC GLUCOMETER" /&gt ; <statusCode code="completed" /> <component> <observation moodCode="EVN" classCode="OBS"> <templateId root="2.16.840.1.036869.10.20.22.4.2" /> <id nullFlavor="NA"/> <code codeSystem=" local" code="7893486" displayName="Glucose Meter (POC)&quot ; /> <statusCode code="completed" /> < effectiveTime value="700218910872" /> <value unit=&quot ;mg/dL" xsi:type="PQ" value="198" /> < interpretationCode codeSystem="local"code="H" /> <referenceRange> <observationRange> <text>70- 99</text> </observationRange> </ referenceRange> </observation> </component> </ organizer> </entry> <entry> <organizer moodCode="EVN " classCode="BATTERY"> <templateId root=" 2.16.840.1.397004.10.20.22.4.1" /> <id nullFlavor="NA&quot ; /> <code codeSystem="local" code="GLUPOC" displayName="POC GLUCOMETER" /> <statusCode code=" completed" /> <component> <observation moodCode=& quot;EVN" classCode="OBS"> <templateId root=" 2.16.840.1.054132.10.20.22.4.2" /> <id nullFlavor="NA& quot; /> <code codeSystem="local" code="1220874& quot; displayName="Glucose Meter (POC)" /> <statusCode code="completed" /> <effectiveTime value=" 576333561622" /> <value unit="mg/dL" xsi:type=& quot;PQ" value="93" /> <referenceRange> <observationRange> <text>70-99</text> </ observationRange> </referenceRange> </observation&gt ; </component> </organizer> </entry> <entry> <organizer moodCode="EVN" classCode="BATTERY"> <templateId root="2.16.840.1.114407.10.20.22.4.1" /> < id nullFlavor="NA" /> <code codeSystem="local" code= "GLUPOC" displayName="POC GLUCOMETER" /> < statusCode code="completed" /> <component> < observation moodCode="EVN" classCode="OBS"> < templateId root="2.16.840.1.755368.10.20.22.4.2" /> < id nullFlavor="NA" /> <code codeSystem="local&quot ; code="6659261" displayName="Glucose Meter (POC)" /> <statusCode code="completed" /> < effectiveTime value="880319256975" /> <value unit=&quot ;mg/dL" xsi:type="PQ" value="263" /> < interpretationCode codeSystem="local" code="H" /> <referenceRange> <observationRange> < text>70-99</text> </observationRange> </ referenceRange> </observation> </component> </ organizer> </entry> <entry> <organizer moodCode="EVN " classCode="BATTERY"> <templateId root=" 2.16.840.1.582071.10.20.22.4.1" /> <id nullFlavor="NA&quot ; /> <code codeSystem="local" code="GLUPOC" displayName="POC GLUCOMETER" /> <statusCode code=" completed" /> <component> <observation moodCode=& quot;EVN" classCode="OBS"> <templateId root=" 2.16.840.1.610319.10.20.22.4.2" /> <id nullFlavor="NA& quot; /> <code codeSystem="local" code="7427009& quot; displayName="Glucose Meter (POC)" /> <statusCode code="completed" /> <effectiveTime value=" 684731791158" /> <value unit="mg/dL" xsi:type=& quot;PQ" value="176" /> <interpretationCode codeSystem="local" code="H" /> < referenceRange> <observationRange> <text> 70-99</text> </observationRange> </ referenceRange> </observation> </component> </ organizer> </entry> <entry> <organizer moodCode="EVN " classCode="BATTERY"> <templateId root=" 2.16.840.1.717739.10.20.22.4.1" /> <id nullFlavor="NA&quot ; /> <code codeSystem="local" code="[id number]" displayName="CBC WITH DIFFERENTIAL REFLEX MANUAL DIFF" /> < statusCode code="completed" /> <component> < observation moodCode="EVN" classCode="OBS"> < templateId root="2.16.840.1.763354.10.20.22.4.2" /> < id nullFlavor="NA" /> <code codeSystem="local&quot ; code="HGB" displayName="Hemoglobin" /> < statusCode code="completed" /> <effectiveTime value=& quot;639603342688" /> <value unit="g/dL" xsi:type= "PQ" value="9.3" /> <interpretationCode codeSystem="local" code="L" /> < referenceRange> <observationRange> <text> 11.9-16.3</text> </observationRange> </ referenceRange> </observation> </component> < component> <observation moodCode="EVN" classCode=" OBS"> <templateId root="2.16.840.1.676084.10.20.22.4.2& quot; /> <id nullFlavor="NA" /> <code codeSystem="local" code="HCT" displayName="Hematocrit& quot; /> <statusCode code="completed" /> & lt;effectiveTime value="066613636277" /> <value unit=& quot;%" xsi:type="PQ" value="30.2" /> <interpretationCode codeSystem="local" code="L" /&gt ; <referenceRange> <observationRange> <text>37.0-47.7</text> </observationRange> </referenceRange> </observation> </component&gt ; <component> <observation moodCode="EVN" classCode="OBS"> <templateId root=" 2.16.840.1.958473.10.20.22.4.2" /> <id nullFlavor="NA& quot; /> <code codeSystem="local" code="RDW" displayName="RDW Red Cell Distr Width" /> <statusCode code="completed" /> <effectiveTime value="066314388806& quot; /> <value unit="%" xsi:type="PQ&quot ; value="15.9" /> <referenceRange> < observationRange> <text>12.3-15.9</text> </observationRange> </referenceRange> </ observation> </component> <component> < observation moodCode="EVN" classCode="OBS"> < templateId root="2.16.840.1.479533.10.20.22.4.2" /> < id nullFlavor="NA" /> <code codeSystem="local&quot ; code="LYMPAB" displayName="Lymphocytes Absolute" /> <statusCode code="completed" /> <effectiveTime value ="966461737442" /> <value unit="10*3/uL" xsi: type="PQ" value="1.0" /> <interpretationCode codeSystem="local" code="L" /> < referenceRange> <observationRange> <text> 1.1-3.7</text> </observationRange> </ referenceRange> </observation> </component> < component> <observation moodCode="EVN" classCode="OBS" > <templateId root="2.16.840.1.812263.10.20.22.4.2" /& gt; <id nullFlavor="NA" /> <code codeSystem=& quot;local" code="MONOAB" displayName="Monocytes Absolute& quot; /> <statusCode code="completed" /> & lt;effectiveTime value="307618069265" /> <value unit=& quot;10*3/uL" xsi:type="PQ" value="1.7" /> <interpretationCode codeSystem="local" code="H" /> <referenceRange> <observationRange> & lt;text>0.3-0.9</text> </observationRange> & lt;/referenceRange> </observation> </component> < component> <observation moodCode="EVN" classCode=" OBS"> <templateId root="2.16.840.1.602995.10.20.22.4.2& quot; /> <id nullFlavor="NA" /> <code codeSystem="local" code="EOSAB" displayName=" Eosinophils Absolute" /> <statusCode code="completed" /&gt ; <effectiveTime value="915605186973" /> < value unit="10*3/uL" xsi:type="PQ" value="0.1" /& gt; <referenceRange> <observationRange> <text>0.0-0.5</text> </observationRange> </referenceRange> </observation> </component&gt ; <component> <observation moodCode="EVN" classCode="OBS"> <templateId root=" 2.16.840.1.645553.10..22.4.2" /> <id nullFlavor="NA& quot; /> <code codeSystem="local" code="BASOAB& quot; displayName="Basophils Absolute" /> <statusCode code="completed" /> <effectiveTime value=" 473496561249" /> <value unit="10*3/uL" xsi:type=& quot;PQ" value="0.0" /> <referenceRange> <observationRange> <text>0.0-0.1</text> </observationRange> </referenceRange> </ observation> </component> <component> < observation moodCode="EVN" classCode="OBS"> < templateId root="2.16.840.1.031838.10..22.4.2" /> < id nullFlavor="NA" /> <code codeSystem="local&quot ; code="NEUTRO" displayName="Neutrophils %" /> <statusCode code="completed" /> < effectiveTime value="574329082857" /> <value unit=" %" xsi:type="PQ" value="81" /> < referenceRange> <observationRange> <text /& gt; </observationRange> </referenceRange> </ observation> </component> <component> < observation moodCode="EVN" classCode="OBS"> < templateId root="2.16.840.1.667709.10.20.22.4.2" /> < id nullFlavor="NA" /> <code codeSystem="local&quot ; code="LYMP" displayName="Lymphocytes %" /> <statusCode code="completed" /> < effectiveTime value="860260299624" /> <value unit=&quot ;%" xsi:type="PQ" value="7" /> < referenceRange> <observationRange> <text /& gt; </observationRange> </referenceRange> </observation> </component> <component> &lt ;observation moodCode="EVN" classCode="OBS"> &lt ;templateId root="2.16.840.1.785887.10..22.4.2" /> < id nullFlavor="NA" /> <code codeSystem="local&quot ; code="MONO" displayName="Monocytes %" /> <statusCode code="completed" /> <effectiveTime value="339885274968" /> <value unit="%& quot; xsi:type="PQ" value="11" /> < referenceRange> <observationRange> <text /& gt; </observationRange> </referenceRange> </observation> </component> <component> &lt ;observation moodCode="EVN" classCode="OBS"> &lt ;templateId root="2.16.840.1.957187...22.4.2" /> < id nullFlavor="NA" /> <code codeSystem="local&quot ; code="EOS" displayName="Eosinophils %" /> <statusCode code="completed" /> <effectiveTime value="783375590343" /> <value unit="%& quot; xsi:type="PQ" value="1" /> < referenceRange> <observationRange><text /> </observationRange> </referenceRange> </ observation> </component> <component> < observation moodCode="EVN" classCode="OBS"> < templateId root="2.16.840.1.001559.10..22.4.2" /> < id nullFlavor="NA" /> <code codeSystem="local&quot ; code="BASO" displayName="Basophils %" /> <statusCode code="completed" /> <effectiveTime value="790472447013" /> <value unit="%" xsi:type="PQ" value="0" /> <referenceRange> <observationRange> <text /> </ observationRange> </referenceRange> </observation&gt ; </component> <component> <observation moodCode ="EVN" classCode="OBS"> <templateId root=& quot;2.16.840.1.939984.10.22.4.2" /> <id nullFlavor=&quot ;NA" /> <code codeSystem="local" code=" NEUTROAB" displayName="Neutrophils Absolute" /> < statusCode code="completed" /> <effectiveTime value=& quot;319647428970" /> <value unit="10*3/uL" xsi: type="PQ" value="11.96" /> < interpretationCode codeSystem="local" code="H" /> <referenceRange> <observationRange> <text>1.70 -7.10</text> </observationRange> </ referenceRange> </observation> </component> < component> <observation moodCode="EVN" classCode=" OBS"> <templateId root="2.16.840.1.983318.10.20.22.4.2" / > <id nullFlavor="NA" /> <code codeSystem="local" code="MCH" displayName="MCH Mean Cell Hemoglobin" /> <statusCode code="completed" / > <effectiveTime value="412781734819" /> < value unit="pg" xsi:type="PQ" value="27.7" /> <referenceRange> <observationRange> <text>26.7-33.1</text> </observationRange> </referenceRange> </observation> </component> <component> <observation moodCode="EVN" classCode="OBS"> <templateId root=" 2.16.840.1.431860.10.20.22.4.2" /> <id nullFlavor="NA& quot; /> <code codeSystem="local" code="MCHC&quot ; displayName="MCHC Mean Cell Hgb Conc" /> <statusCode code="completed" /> <effectiveTime value=" 444589246744" /> <value unit="g/dL" xsi:type=&quot ;PQ" value="30.8" /> <interpretationCode codeSystem="local" code="L" /> < referenceRange> <observationRange> <text> 31.1-35.3</text> </observationRange> </ referenceRange> </observation> </component> < component> <observation moodCode="EVN" classCode=" OBS"> <templateId root="2.16.840.1.852982.10.20.22.4.2& quot; /> <id nullFlavor="NA" /> <code codeSystem= "local" code="MCV" displayName="MCV Mean Cell Volume& quot; /> <statusCode code="completed" /> & lt;effectiveTime value="893900017134" /> <value unit=& quot;fL" xsi:type="PQ" value="90" /> < referenceRange> <observationRange> <text> 81-97</text> </observationRange> </ referenceRange> </observation> </component> < component> <observation moodCode="EVN" classCode=" OBS"> <templateId root="2.16.840.1.304289.10.20.22.4.2& quot; /> <id nullFlavor="NA" /> <code codeSystem="local" code="MPV" displayName="MPV Mean Platelet Volume" /> <statusCode code="completed" /&gt ; <effectiveTime value="326700866911" /> < value unit="fL" xsi:type="PQ" value="9.7" /> <referenceRange> <observationRange> <text /> </observationRange> </referenceRange > </observation> </component> <component> <observation moodCode="EVN" classCode="OBS"> <templateId root="2.16.840.1.239805.10.20.22.4.2" /> <id nullFlavor="NA" /> <code codeSystem=" local" code="PLT" displayName="Platelet Count" /> <statusCode code="completed" /> < effectiveTime value="884177021791" /> <value unit=&quot ;10*3/uL" xsi:type="PQ" value="232" /> < referenceRange> <observationRange> <text> 150-400</text> </observationRange> </ referenceRange> </observation> </component> < component> <observation moodCode="EVN" classCode=" OBS"> <templateId root="2.16.840.1.156317.10.20.22.4.2& quot; /> <id nullFlavor="NA" /> <code codeSystem="local" code="RBC"displayName="RBC Red Blood Count" /> <statusCode code="completed"/> <effectiveTime value="116027251810" /> < value unit="10*6/uL" xsi:type="PQ" value="3.36" /& gt; <interpretationCode codeSystem="local" code="L& quot; /> <referenceRange> <observationRange> <text>4.11-5.63</text> </ observationRange> </referenceRange> </observation&gt ; </component> <component> <observation moodCode ="EVN" classCode="OBS"> <templateId root=& quot;2.16.840.1.795155.10.20.22.4.2" /> <id nullFlavor=&quot ;NA" /> <code codeSystem="local" code="WBC& quot; displayName="WBCWhite Blood Count" /> < statusCode code="completed" /> <effectiveTime value=& quot;237305282434" /> <value unit="10*3/uL" xsi: type="PQ" value="14.8" /> < interpretationCode codeSystem="local" code="H" /> <referenceRange> <observationRange> <text >3.7-11.1</text> </observationRange> </ referenceRange> </observation> </component> </ organizer> </entry> <entry> <organizer moodCode="EVN " classCode="BATTERY"> <templateId root=" 2.16.840.1.236444.10.20.22.4.1" /> <id nullFlavor="NA&quot ; /> <code codeSystem="local" code="BMP" displayName="BASIC METABOLIC PANEL" /> <statusCode code=& quot;completed" /> <component> <observation moodCode ="EVN" classCode="OBS"> <templateId root=& quot;2.16.840.1.675661.10.20.22.4.2" /> <id nullFlavor=&quot ;NA" /> <code codeSystem="local" code=" BUNCREAT" displayName="BUN:Creatinine Ratio" /> < statusCode code="completed" /> <effectiveTime value=& quot;224686666556" /> <value unit="" xsi:type=& quot;PQ" value="21" /> <referenceRange> <observationRange> <text>6-25</text> </observationRange> </referenceRange> </ observation> </component> <component> < observation moodCode="EVN" classCode="OBS"> < templateId root="2.16.840.1.380161.10.20.22.4.2" /> < id nullFlavor="NA" /> <code codeSystem="local&quot ; code="ANIONGAP" displayName="Anion Gap" /> < statusCode code="completed" /> <effectiveTime value=& quot;228959861546" /> <value unit="" xsi:type=& quot;PQ" value="11"/> <referenceRange> <observationRange> <text>6-18</text> </observationRange> </referenceRange> </ observation> </component> <component> < observation moodCode="EVN" classCode="OBS"> < templateId root="2.16.840.1.271086.10.20.22.4.2" /> < id nullFlavor="NA" /> <code codeSystem="local&quot ; code="BUN" displayName="BUN Urea Nitrogen" /> <statusCodecode="completed" /> <effectiveTime value= "028350148490" /> <value unit="mg/dL" xsi:type=& quot;PQ" value="41" /> <interpretationCode codeSystem="local" code="H" /> < referenceRange> <observationRange> <text> 6-24</text> </observationRange> </ referenceRange> </observation> </component> < component> <observation moodCode="EVN" classCode=" OBS"> <templateId root="2.16.840.1.958233.10.20.22.4.2& quot; /> <id nullFlavor="NA" /> <code codeSystem="local" code="CO2" displayName="CO2 Carbon Dioxide" /> <statusCode code="completed" /> <effectiveTime value="984566882325" /> < value unit="mmol/L" xsi:type="PQ" value="29" /&gt ; <referenceRange><observationRange> <text& gt;20-30</text> </observationRange> </ referenceRange> </observation> </component> < component> <observation moodCode="EVN" classCode=" OBS"> <templateId root="2.16.840.1.695906.10.20.22.4.2& quot; /> <id nullFlavor="NA" /> <code codeSystem="local" code="CREAT" displayName="Creatinine " /> <statusCode code="completed" /> & lt;effectiveTime value="170028377985" /> <value unit=& quot;mg/dL" xsi:type="PQ" value="1.98" /> & lt;interpretationCode codeSystem="local" code="H" /> <referenceRange> <observationRange> <text> 0.53-1.26</text> </observationRange> </ referenceRange> </observation> </component> < component> <observation moodCode="EVN" classCode=" OBS"> <templateId root="2.16.840.1.837121.10.20.22.4.2& quot; /> <id nullFlavor="NA" /> <code codeSystem="local" code="K" displayName="Potassium&quot ; /> <statusCode code="completed" /> < effectiveTime value="255242003379" /> <value unit=&quot ;mmol/L" xsi:type="PQ" value="3.5" /> < referenceRange> <observationRange> <text> 3.5-5.1</text> </observationRange> </ referenceRange> </observation> </component> < component> <observation moodCode="EVN" classCode=" OBS"> <templateId root="2.16.840.1.149335.10.20.22.4.2& quot; /> <id nullFlavor="NA" /> <code codeSystem="local" code="NA" displayName="Sodium" /> <statusCode code="completed" /> < effectiveTime value="454657283568" /> <value unit=&quot ;mmol/L" xsi:type="PQ" value="139" /> < referenceRange> <observationRange> <text> 136-145</text> </observationRange> </referenceRange> </observation> </component> <component> <observation moodCode="EVN" classCode="OBS"> <templateId root="2.16.840.1.476116.10..22.4.2" /> <id nullFlavor="NA" /> <code codeSystem=" local" code="CL" displayName="Chloride" /> <statusCode code="completed" /> <effectiveTime value=& quot;787439809334" /> <value unit="mmol/L" xsi: type="PQ" value="103" /> <referenceRange> <observationRange> <text>96-111</text&gt ; </observationRange> </referenceRange> & lt;/observation> </component> <component> < observation moodCode="EVN" classCode="OBS"> < templateId root="2.16.840.1.994087.10.20.22.4.2" /> < id nullFlavor="NA" /> <code codeSystem="local&quot ; code="GLU" displayName="Glucose" /> < statusCode code="completed" /> <effectiveTimevalue=& quot;691916121551" /> <value unit="mg/dL" xsi:type ="PQ" value="168" /> <interpretationCode codeSystem="local" code="H" /> < referenceRange> <observationRange> <text> 70-99</text> </observationRange> </ referenceRange> </observation> </component> < component> <observation moodCode="EVN" classCode=" OBS"> <templateId root="2.16.840.1.090841.10.20.22.4.2& quot; /> <id nullFlavor="NA" /> <code codeSystem="local" code="CA" displayName="Calcium&quot ; /> <statusCode code="completed" /> < effectiveTime value="697073293288" /> <value unit="mg/dL " xsi:type="PQ" value="8.5" /> < referenceRange> <observationRange> <text> 8.3-10.1</text> </observationRange> </ referenceRange> </observation> </component> < component> <observation moodCode="EVN" classCode=" OBS"> <templateId root="2.16.840.1.260424.10.20.22.4.2& quot; /> <id nullFlavor="NA" /> <code codeSystem="local" code="GFR" displayName="GFR Glomerular Filtration Rate" /> <statusCode code=" completed" /> <effectiveTime value="240013652616" /> <value unit="mL/min/1.73m*2" xsi:type="PQ" value ="24.7" /> <interpretationCode codeSystem="local&quot ; code="L" /> <referenceRange> < observationRange> <text>>60.0</text> </observationRange> </referenceRange> </ observation> </component> </organizer> </entry> < entry> <organizer moodCode="EVN" classCode="BATTERY&quot ;> <templateId root="2.16.840.1.545798.10.20.22.4.1" /> <id nullFlavor="NA" /> <code codeSystem=" local" code="GLUPOC" displayName="POC GLUCOMETER" /&gt ; <statusCode code="completed" /> <component> <observation moodCode="EVN"classCode="OBS"> <templateId root="2.16.840.1.788574.10..22.4.2" /> <id nullFlavor="NA" /> <code codeSystem=" local" code="2393597" displayName="Glucose Meter (POC)&quot ; /> <statusCode code="completed" /> < effectiveTime value="374348804217" /> <value unit="mg/dL " xsi:type="PQ" value="217" /> < interpretationCode codeSystem="local" code="H" /> <referenceRange> <observationRange> < text>70-99</text> </observationRange> </ referenceRange> </observation> </component> </ organizer> </entry> <entry> <organizer moodCode="EVN " classCode="BATTERY"> <templateId root=" 2.16.840.1.980967.10.20.22.4.1"/> <id nullFlavor="NA" /> <code codeSystem="local" code="GLUPOC" displayName="POC GLUCOMETER" /> <statusCode code=" completed" /> <component> <observation moodCode=& quot;EVN" classCode="OBS"> <templateId root=" 2.16.840.1.745964.10.20.22.4.2" /> <id nullFlavor="NA& quot; /> <code codeSystem="local" code="3539066& quot; displayName="Glucose Meter (POC)" /> <statusCode code="completed" /> <effectiveTime value=" 968155616113" /> <value unit="mg/dL" xsi:type=& quot;PQ" value="120" /> <interpretationCode codeSystem="local" code="H" /> < referenceRange> <observationRange> <text> 70-99</text> </observationRange> </ referenceRange> </observation> </component> </ organizer> </entry> <entry> <organizer moodCode="EVN " classCode="BATTERY"> <templateId root=" 2.16.840.1.550821.10.20.22.4.1" /> <id nullFlavor="NA&quot ; /> <code codeSystem="local" code="GLUPOC" displayName="POC GLUCOMETER" /> <statusCode code=" completed" /> <component> <observation moodCode=" EVN" classCode="OBS"> <templateId root=" 2.16.840.1.946490.10.20.22.4.2" /> <id nullFlavor="NA& quot; /> <code codeSystem="local" code="5301730& quot; displayName="Glucose Meter (POC)" /> <statusCode code="completed" /> <effectiveTime value=" 139905736744" /> <value unit="mg/dL" xsi:type=& quot;PQ" value="232" /> <interpretationCode codeSystem="local" code="H" /> < referenceRange> <observationRange> <text> 70-99</text> </observationRange> </ referenceRange> </observation> </component> </ organizer> </entry> <entry> <organizer moodCode="EVN " classCode="BATTERY"> <templateId root=" 2.16.840.1.076185.10.20.22.4.1" /> <id nullFlavor="NA&quot ; /> <code codeSystem="local" code="GLUPOC" displayName="POC GLUCOMETER" /> <statusCode code=" completed" /> <component> <observation moodCode=& quot;EVN" classCode="OBS"> <templateId root=" 2.16.840.1.975329.10.20.22.4.2" /> <id nullFlavor="NA& quot; /> <code codeSystem="local" code="0559825& quot; displayName="Glucose Meter (POC)" /> <statusCode code="completed" /> <effectiveTime value=" 905173986622" /> <value unit="mg/dL" xsi:type=& quot;PQ" value="145" /> <interpretationCode codeSystem="local" code="H" /> < referenceRange> <observationRange> <text>70-99</ text> </observationRange> </referenceRange> </observation> </component> </organizer> </ entry> <entry> <organizer moodCode="EVN" classCode=& quot;BATTERY"> <templateId root=" 2.16.840.1.167414.10.20.22.4.1" /> <id nullFlavor="NA&quot ; /> <code codeSystem="local" code="GLUPOC" displayName="POC GLUCOMETER" /> <statusCode code=" completed" /> <component> <observation moodCode=& quot;EVN" classCode="OBS"> <templateId root=" 2.16.840.1.034175.10.20.22.4.2" /> <id nullFlavor="NA& quot; /> <code codeSystem="local" code="3318311& quot; displayName="Glucose Meter (POC)" /> <statusCode code="completed" /> <effectiveTime value=" 841728370801" /> <value unit="mg/dL" xsi:type=& quot;PQ" value="365" /> <interpretationCode codeSystem="local" code="HH" /> < referenceRange> <observationRange> <text> 70-99</text> </observationRange> </ referenceRange> </observation> </component> </ organizer> </entry> <entry> <organizer moodCode="EVN " classCode="BATTERY"> <templateId root=" 2.16.840.1.835038.10.20.22.4.1" /> <id nullFlavor="NA&quot ; /> <code codeSystem="local" code="GLUPOC" displayName="POC GLUCOMETER" /> <statusCode code=" completed" /> <component> <observation moodCode=& quot;EVN" classCode="OBS"> <templateId root=" 2.16.840.1.076775.10.20.22.4.2" /> <id nullFlavor="NA& quot; /> <code codeSystem="local" code="6066498& quot; displayName="Glucose Meter (POC)" /> <statusCode code=& quot;completed" /> <effectiveTime value="727392032570& quot; /> <value unit="mg/dL" xsi:type="PQ" value="127" /> <interpretationCode codeSystem=" local" code="H" /> <referenceRange> <observationRange> <text>70-99</text> </observationRange> </referenceRange> </ observation> </component> </organizer> </entry> < entry> <organizer moodCode="EVN" classCode="BATTERY&quot ;> <templateId root="2.16.840.1.295150.10.20.22.4.1" /> <id nullFlavor="NA" /> <code codeSystem=" local" code="GLUPOC" displayName="POC GLUCOMETER" /&gt ; <statusCode code="completed" /> <component> <observation moodCode="EVN"classCode="OBS"> <templateId root="2.16.840.1.681664.10.20.22.4.2" /> <id nullFlavor="NA" /> <code codeSystem=" local" code="8099682" displayName="Glucose Meter (POC)&quot ; /> <statusCode code="completed" /> < effectiveTime value="142000840690" /> <value unit="mg/dL " xsi:type="PQ" value="159" /> < interpretationCode codeSystem="local" code="H" /> <referenceRange> <observationRange> < text>70-99</text> </observationRange> </ referenceRange> </observation> </component> </ organizer> </entry> <entry> <organizer moodCode="EVN " classCode="BATTERY"> <templateId root=" 2.16.840.1.770857.10.20.22.4.1"/> <id nullFlavor="NA" /> <code codeSystem="local" code="GLUPOC" displayName="POC GLUCOMETER" /> <statusCode code=" completed" /> <component> <observation moodCode=& quot;EVN" classCode="OBS"> <templateId root=" 2.16.840.1.168505.10.20.22.4.2" /> <id nullFlavor="NA& quot; /> <code codeSystem="local" code="7238517& quot; displayName="Glucose Meter (POC)" /> <statusCode code="completed" /> <effectiveTime value=" 630698657030" /> <value unit="mg/dL" xsi:type=& quot;PQ" value="284" /> <interpretationCode codeSystem="local" code="H" /> < referenceRange> <observationRange> <text> 70-99</text> </observationRange> </ referenceRange> </observation> </component> </ organizer> </entry> <entry> <organizer moodCode="EVN " classCode="BATTERY"> <templateId root=" 2.16.840.1.948459.10.20.22.4.1" /> <id nullFlavor="NA&quot ; /> <code codeSystem="local" code="GLUPOC" displayName="POC GLUCOMETER" /> <statusCode code=" completed" /> <component> <observation moodCode=" EVN" classCode="OBS"> <templateId root=" 2.16.840.1.928924.10.20.22.4.2" /> <id nullFlavor="NA& quot; /> <code codeSystem="local" code="2842186& quot; displayName="Glucose Meter (POC)" /> <statusCode code="completed" /> <effectiveTime value=" 966786527964" /> <value unit="mg/dL" xsi:type=& quot;PQ" value="187" /> <interpretationCode codeSystem="local" code="H" /> < referenceRange> <observationRange> <text> 70-99</text> </observationRange> </ referenceRange> </observation> </component> </ organizer> </entry> <entry> <organizer moodCode="EVN " classCode="BATTERY"> <templateId root=" 2.16.840.1.076270.10.20.22.4.1" /> <id nullFlavor="NA&quot ; /> <code codeSystem="local" code="GLUPOC" displayName="POC GLUCOMETER" /> <statusCode code=" completed" /> <component> <observation moodCode=& quot;EVN" classCode="OBS"> <templateId root=" 2.16.840.1.395851.10.20.22.4.2" /> <id nullFlavor="NA& quot; /> <code codeSystem="local" code="1976666& quot; displayName="Glucose Meter (POC)" /> <statusCode code="completed" /> <effectiveTime value=" 110439052470" /> <value unit="mg/dL" xsi:type=& quot;PQ" value="213" /> <interpretationCode codeSystem="local" code="H" /> < referenceRange> <observationRange> <text>70-99</ text> </observationRange> </referenceRange> </observation> </component> </organizer> </ entry> <entry> <organizer moodCode="EVN" classCode=& quot;BATTERY"> <templateId root=" 2.16.840.1.295982.10.20.22.4.1" /> <id nullFlavor="NA&quot ; /> <code codeSystem="local" code="GLUPOC" displayName="POC GLUCOMETER" /> <statusCode code=" completed" /> <component> <observation moodCode=& quot;EVN" classCode="OBS"> <templateId root=" 2.16.840.1.491776.10.20.22.4.2" /> <id nullFlavor="NA& quot; /> <code codeSystem="local" code="1594641& quot; displayName="Glucose Meter (POC)" /> <statusCode code="completed" /> <effectiveTime value=" 035564362515" /> <value unit="mg/dL" xsi:type=& quot;PQ" value="160" /> <interpretationCode codeSystem="local" code="H"/> <referenceRange > <observationRange> <text>70-99</text > </observationRange> </referenceRange> </observation> </component> </organizer> </ entry> <entry> <organizer moodCode="EVN" classCode=& quot;BATTERY"> <templateId root=" 2.16.840.1.096912.10.20.22.4.1" /> <id nullFlavor="NA&quot ; /> <code codeSystem="local" code="GLUPOC" displayName="POC GLUCOMETER" /> <statusCode code=" completed" /> <component> <observation moodCode=& quot;EVN" classCode="OBS"> <templateId root=" 2.16.840.1.302123.10.20.22.4.2" /> <id nullFlavor="NA& quot; /> <code codeSystem="local" code="3217717& quot; displayName="Glucose Meter (POC)" /><statusCode code=&quot ;completed" /> <effectiveTime value="308589285760&quot ; /> <value unit="mg/dL" xsi:type="PQ" value= "255" /> <interpretationCode codeSystem="local& quot; code="H" /> <referenceRange> < observationRange> <text>70-99</text> </ observationRange> </referenceRange> </observation&gt ; </component> </organizer> </entry> <entry> & lt;organizer moodCode="EVN" classCode="BATTERY"> &lt ;templateId root="2.16.840.1.600639.10.20.22.4.1" /> <id nullFlavor="NA" /> <code codeSystem="local" code= "GLUPOC" displayName="POC GLUCOMETER" /> < statusCode code="completed" /> <component> < observation moodCode="EVN" classCode="OBS"> < templateId root="2.16.840.1.770170.10.20.22.4.2"/> <id nullFlavor="NA" /> <code codeSystem="local" code="3895406" displayName="Glucose Meter (POC)" /> <statusCode code="completed" /> <effectiveTime value="198430255371" /> <value unit="mg/dL" xsi:type ="PQ" value="155" /> <interpretationCode codeSystem="local" code="H" /> < referenceRange> <observationRange> <text> 70-99</text> </observationRange> </ referenceRange> </observation> </component> </ organizer> </entry> <entry> <organizer moodCode="EVN " classCode="BATTERY"> <templateId root=" 2.16.840.1.596010.10.20.22.4.1" /> <id nullFlavor="NA&quot ; /> <code codeSystem="local" code="GLUPOC" displayName="POC GLUCOMETER" /> <statusCode code=" completed" /> <component> <observation moodCode=& quot;EVN" classCode="OBS"> <templateId root=" 2.16.840.1.417758.10.20.22.4.2" /> <id nullFlavor="NA& quot; /> <code codeSystem="local" code="4407406& quot; displayName="Glucose Meter (POC)" /> <statusCode code="completed" /> <effectiveTime value=" 295414566577" /> <value unit="mg/dL" xsi:type=& quot;PQ" value="288" /> <interpretationCode codeSystem="local" code="H" /> < referenceRange> <observationRange> <text> 70-99</text> </observationRange> </ referenceRange> </observation> </component> </ organizer> </entry> <entry> <organizer moodCode="EVN " classCode="BATTERY"> <templateId root=" 2.16.840.1.589273.10.20.22.4.1" /> <idnullFlavor="NA" /> <code codeSystem="local" code="GLUPOC" displayName="POC GLUCOMETER" /> <statusCode code=" completed" /><component> <observation moodCode="EVN " classCode="OBS"> <templateId root=" 2.16.840.1.786112.10.20.22.4.2" /> <id nullFlavor="NA& quot; /> <code codeSystem="local" code="0886248& quot; displayName="Glucose Meter (POC)" /> <statusCode code="completed" /> <effectiveTime value="342888046124 " /> <value unit="mg/dL" xsi:type="PQ" value="205" /> <interpretationCode codeSystem=" local" code="H" /> <referenceRange> <observationRange> <text>70-99</text> </observationRange> </referenceRange> </ observation> </component> </organizer> </entry> & lt;entry> <organizer moodCode="EVN" classCode="BATTERY& quot;> <templateId root="2.16.840.1.014777.10.20.22.4.1" /&gt ; <id nullFlavor="NA" /> <code codeSystem=" local" code="GLUPOC" displayName="POC GLUCOMETER" /&gt ; <statusCode code="completed" /> <component> <observation moodCode="EVN" classCode="OBS"> <templateId root="2.16.840.1.562007.10.20.22.4.2" /> <id nullFlavor="NA" /> <code codeSystem=" local" code="6951799" displayName="GlucoseMeter (POC)" /> <statusCode code="completed" /> < effectiveTime value="661656272459" /> <value unit=&quot ;mg/dL" xsi:type="PQ" value="300" /> < interpretationCode codeSystem="local" code="H" /> <referenceRange> <observationRange> <text>70-99 </text> </observationRange> </referenceRange& gt; </observation> </component> </organizer> & lt;/entry> <entry> <organizer moodCode="EVN" classCode ="BATTERY"> <templateId root=" 2.16.840.1.370540.10.20.22.4.1" /> <id nullFlavor="NA&quot ; /> <code codeSystem="local" code="GLUPOC" displayName="POC GLUCOMETER" /> <statusCode code=" completed" /> <component> <observation moodCode=& quot;EVN" classCode="OBS"> <templateId root=" 2.16.840.1.878465.10.20.22.4.2" /> <id nullFlavor="NA& quot; /> <code codeSystem="local" code="1493502& quot; displayName="Glucose Meter (POC)" /> <statusCode code="completed" /> <effectiveTime value=" 346424371917" /> <value unit="mg/dL" xsi:type=& quot;PQ" value="243" /> <interpretationCode codeSystem="local" code="H" /> < referenceRange> <observationRange> <text> 70-99</text> </observationRange> </ referenceRange> </observation> </component> </ organizer> </entry> <entry> <organizer moodCode="EVN " classCode="BATTERY"> <templateId root=" 2.16.840.1.500400.10.20.22.4.1" /> <id nullFlavor="NA&quot ; /> <code codeSystem="local" code="GLUPOC" displayName="POC GLUCOMETER" /> <statusCode code=" completed" /> <component> <observation moodCode=& quot;EVN" classCode="OBS"> <templateId root=" 2.16.840.1.782155.10.20.22.4.2" /> <id nullFlavor="NA& quot; /> <code codeSystem="local" code="1760250& quot; displayName="Glucose Meter (POC)" /> <statusCode code="completed" /> <effectiveTime value=" 243478000562" /> <value unit="mg/dL" xsi:type=& quot;PQ" value="239" /> <interpretationCode codeSystem="local" code="H" /> < referenceRange> <observationRange> <text> 70-99</text> </observationRange> </ referenceRange> </observation> </component> </ organizer> </entry> <entry> <organizer moodCode="EVN " classCode="BATTERY"> <templateId root=" 2.16.840.1.274058.10.20.22.4.1" /> <id nullFlavor="NA&quot ; /> <code codeSystem="local" code="GLUPOC" displayName="POC GLUCOMETER" /> <statusCode code=" completed" /> <component> <observation moodCode=& quot;EVN" classCode="OBS"> <templateId root=" 2.16.840.1.623614.10.20.22.4.2" /> <id nullFlavor="NA& quot; /> <code codeSystem="local" code="3997475& quot; displayName="Glucose Meter (POC)" /> <statusCode code="completed" /> <effectiveTime value=" 600165787696" /> <value unit="mg/dL" xsi:type="PQ& quot; value="280" /> <interpretationCode codeSystem=& quot;local" code="H" /> <referenceRange> <observationRange> <text>70-99</text> </observationRange> </referenceRange> </ observation> </component> </organizer> </entry> & lt;entry> <organizer moodCode="EVN" classCode="BATTERY& quot;> <templateId root="2.16.840.1.413767.10.20.22.4.1" /& gt; <id nullFlavor="NA" /> <code codeSystem=" local" code="[id number]" displayName="CBC WITH DIFFERENTIAL REFLEX MANUAL DIFF" /> <statusCode code="completed" /& gt; <component> <observation moodCode="EVN" classCode="OBS"> <templateId root=" 2.16.840.1.379938.10.20.22.4.2" /> <id nullFlavor="NA& quot; /> <code codeSystem="local" code="HGB" displayName="Hemoglobin" /> <statusCode code=" completed" /> <effectiveTime value="433203270410" /><value unit="g/dL" xsi:type="PQ" value="10.0& quot; /> <interpretationCode codeSystem="local" code=& quot;L" /> <referenceRange> < observationRange> <text>11.9-16.3</text> </observationRange> </referenceRange> </ observation> </component> <component> < observation moodCode="EVN" classCode="OBS"> < templateId root="2.16.840.1.836140.10.20.22.4.2" /> < id nullFlavor="NA" /> <code codeSystem="local&quot ; code="HCT" displayName="Hematocrit" /> < statusCode code="completed" /> <effectiveTime value=" 448763329134" /> <value unit="%" xsi:type= "PQ" value="32.4" /> <interpretationCode codeSystem="local" code="L" /> < referenceRange> <observationRange> <text> 37.0-47.7</text> </observationRange> </referenceRange& gt; </observation> </component> <component> <observation moodCode="EVN" classCode="OBS"> <templateIdroot="2.16.840.1.498525.10.20.22.4.2" /> <id nullFlavor="NA" /> <code codeSystem=" local" code="RDW" displayName="RDW Red Cell Distr Width&quot ; /> <statusCode code="completed" /> < effectiveTime value="449037697772" /> <value unit=&quot ;%" xsi:type="PQ" value="15.6" /> & lt;referenceRange> <observationRange> <text& gt;12.3-15.9</text> </observationRange> </ referenceRange> </observation> </component> < component> <observation moodCode="EVN" classCode="OBS& quot;> <templateIdroot="2.16.840.1.158114.10.20.22.4.2&quot ; /> <id nullFlavor="NA" /> <code codeSystem="local" code="LYMPAB" displayName=" Lymphocytes Absolute" /> <statusCode code="completed& quot; /> <effectiveTime value="236641961623" /> <value unit="10*3/uL" xsi:type="PQ" value="0.9 " /> <interpretationCode codeSystem="local" code=& quot;L" /> <referenceRange> < observationRange> <text>1.1-3.7</text> </ observationRange> </referenceRange> </observation&gt ; </component> <component> <observation moodCode ="EVN" classCode="OBS"> <templateId root=& quot;2.16.840.1.241454.10.20.22.4.2" /> <id nullFlavor=&quot ;NA" /> <code codeSystem="local" code="MONOAB " displayName="Monocytes Absolute" /> <statusCode code="completed" /> <effectiveTime value=" 396562545049" /> <value unit="10*3/uL" xsi:type=& quot;PQ" value="1.1" /> <interpretationCode codeSystem="local" code="H" /> <referenceRange& gt; <observationRange> <text>0.3-0.9</ text> </observationRange> </referenceRange> </observation> </component> <component> <observation moodCode="EVN" classCode="OBS"> <templateId root="2.16.840.1.245259.10..22.4.2" /> <id nullFlavor="NA" /> <code codeSystem=" local" code="EOSAB" displayName="Eosinophils Absolute" /> <statusCode code="completed" /> < effectiveTime value="057093867275" /> <value unit="10* 3/uL" xsi:type="PQ" value="0.1" /> < referenceRange> <observationRange> <text> 0.0-0.5</text> </observationRange> </ referenceRange> </observation> </component> < component> <observation moodCode="EVN" classCode=" OBS"> <templateId root="2.16.840.1.497198.10.20.22.4.2& quot; /> <id nullFlavor="NA" /> <code codeSystem="local" code="BASOAB" displayName=" Basophils Absolute" /> <statusCode code="completed&quot ; /> <effectiveTime value="527759703784" /> <value unit="10*3/uL" xsi:type="PQ" value="0.0& quot; /> <referenceRange> <observationRange> <text>0.0-0.1</text> </observationRange> </referenceRange> </observation> </ component> <component> <observation moodCode="EVN& quot; classCode="OBS"> <templateId root=" 2.16.840.1.703820.10.20.22.4.2" /> <id nullFlavor="NA" / > <code codeSystem="local" code="NEUTRO" displayName="Neutrophils %" /> <statusCode code ="completed" /> <effectiveTime value="223002980584 " /> <value unit="%" xsi:type="PQ& quot; value="84" /> <referenceRange> < observationRange> <text /> </ observationRange> </referenceRange> </observation&gt ; </component> <component> <observation moodCode=& quot;EVN" classCode="OBS"> <templateId root=" 2.16.840.1.920469.10..22.4.2" /> <id nullFlavor="NA& quot; /> <code codeSystem="local" code="LYMP&quot ; displayName="Lymphocytes %" /> <statusCode code="completed" /> <effectiveTime value="677268984341 " /> <value unit="%" xsi:type="PQ& quot; value="7" /> <referenceRange> < observationRange> <text /> </ observationRange> </referenceRange> </observation&gt ; </component> <component> <observation moodCode=" EVN" classCode="OBS"> <templateId root=" 2.16.840.1.099660.10..22.4.2" /> <id nullFlavor="NA& quot; /> <code codeSystem="local" code="MONO" displayName="Monocytes %" /> <statusCode code=& quot;completed" /> <effectiveTime value="341292121131& quot; /> <value unit="%" xsi:type="PQ&quot ; value="8" /> <referenceRange> < observationRange> <text /> </observationRange&gt ; </referenceRange></observation> </component> <component> <observation moodCode="EVN" classCode ="OBS"> <templateId root=" 2.16.840.1.614916.10.20.22.4.2" /> <id nullFlavor="NA& quot; /> <code codeSystem="local" code="EOS" displayName="Eosinophils %" /> <statusCode code ="completed" /> <effectiveTime value="808526079772 " /> <value unit="%" xsi:type="PQ& quot; value="1" /> <referenceRange> < observationRange> <text /> </observationRange& gt; </referenceRange> </observation></component& gt; <component> <observation moodCode="EVN" classCode="OBS"> <templateId root=" 2.16.840.1.142219.10.20.22.4.2" /> <id nullFlavor="NA" /> <code codeSystem="local" code="BASO" displayName="Basophils %" /> <statusCode code=& quot;completed" /> <effectiveTime value="980641289321& quot; /> <valueunit="%" xsi:type="PQ&quot ; value="0" /> <referenceRange> < observationRange> <text /> </ observationRange> </referenceRange> </observation&gt ; </component> <component> <observation moodCode ="EVN" classCode="OBS"> <templateId root=" 2.16.840.1.822764.10.20.22.4.2" /> <id nullFlavor="NA& quot; /> <code codeSystem="local" code="NEUTROAB& quot; displayName="Neutrophils Absolute" /> < statusCode code="completed" /> <effectiveTime value=" 923945365629" /> <value unit="10*3/uL" xsi:type=& quot;PQ" value="11.27" /> <interpretationCode codeSystem="local" code="H" /> < referenceRange> <observationRange> <text> 1.70-7.10</text> </observationRange> </referenceRange > </observation> </component> <component> <observation moodCode="EVN" classCode="OBS"> <templateId root="2.16.840.1.437581.10.20.22.4.2" /> <id nullFlavor="NA" /> <code codeSystem=&quot ;local" code="MCH" displayName="MCH Mean Cell Hemoglobin& quot; /> <statusCode code="completed" /> & lt;effectiveTime value="468300087350" /> <value unit=& quot;pg" xsi:type="PQ" value="27.0" /> < referenceRange> <observationRange> <text> 26.7-33.1</text> </observationRange> </ referenceRange> </observation> </component> < component><observation moodCode="EVN" classCode="OBS"& gt; <templateId root="2.16.840.1.844167.10.20.22.4.2" /&gt ; <id nullFlavor="NA" /> <code codeSystem=" local" code="MCHC" displayName="MCHC Mean Cell HgbConc&quot ; /> <statusCode code="completed" /> < effectiveTimevalue="600477089726" /> <value unit=" g/dL" xsi:type="PQ" value="30.9" /> < interpretationCode codeSystem="local" code="L" /> <referenceRange> <observationRange> < text>31.1-35.3</text> </observationRange> &lt ;/referenceRange> </observation> </component> < component> <observation moodCode="EVN" classCode=" OBS"> <templateId root="[id number]& quot; /> <id nullFlavor="NA" /> <code codeSystem="local" code="MCV" displayName="MCV Mean Cell Volume" /> <statusCode code="completed" /> <effectiveTime value="[id number]" /> <value unit="fL" xsi:type="PQ" value="88" /> <referenceRange> <observationRange> <text >81-97</text> </observationRange> </ referenceRange> </observation> </component> < component> <observation moodCode="EVN" classCode=" OBS"> <templateId root="2.16.840.1.937950.10.20.22.4.2& quot; /> <id nullFlavor="NA" /> <code codeSystem="local" code="MPV" displayName="MPV Mean Platelet Volume" /> <statusCode code="completed" / > <effectiveTime value="591908745817" /> &lt ;value unit="fL" xsi:type="PQ" value="9.2" /> <referenceRange> <observationRange> <text /> </observationRange> </ referenceRange> </observation> </component> < component> <observation moodCode="EVN" classCode=" OBS"> <templateId root="2.16.840.1.408155.10.20.22.4.2& quot; /> <id nullFlavor="NA" /> <code codeSystem="local" code="PLT" displayName="Platelet Count" /> <statusCode code="completed" /> <effectiveTime value="360956977360" /> <value unit="10*3/uL" xsi:type="PQ" value="309" /> <referenceRange><observationRange> <text> 150-400</text> </observationRange> </ referenceRange> </observation> </component> < component> <observation moodCode="EVN" classCode=" OBS"><templateId root="2.16.840.1.355534.10.20.22.4.2" /&gt ; <id nullFlavor="NA" /> <code codeSystem=& quot;local" code="RBC" displayName="RBC Red Blood Count&quot ; /> <statusCode code="completed" /> < effectiveTime value="898747224550" /> <value unit=&quot ;10*6/uL" xsi:type="PQ" value="3.70" /> &lt ;interpretationCode codeSystem="local" code="L" /> <referenceRange> <observationRange> < text>4.11-5.63</text> </observationRange> &lt ;/referenceRange> </observation> </component> & lt;component> <observation moodCode="EVN" classCode=&quot ;OBS"> <templateId root="2.16.840.1.163353.10.20.22.4.2 " /> <id nullFlavor="NA" /> <code codeSystem="local" code="WBC" displayName="WBC White Blood Count" /> <statusCode code="completed" /&gt ; <effectiveTime value="157667512580" /> < value unit="10*3/uL" xsi:type="PQ"value="13.4" /& gt; <interpretationCode codeSystem="local" code="H& quot; /> <referenceRange> <observationRange> <text>3.7-11.1</text> </observationRange > </referenceRange> </observation> </ component> </organizer> </entry> <entry> < organizer moodCode="EVN" classCode="BATTERY"> < templateId root="2.16.840.1.821572.10.20.22.4.1" /> <id nullFlavor="NA" /> <code codeSystem="local" code= "COMP" displayName="COMPREHENSIVE METABOLIC PANEL" /> <statusCode code="completed" /> <component> <observation moodCode="EVN" classCode="OBS"> <templateId root="2.16.840.1.002976.10.20.22.4.2" /> <id nullFlavor="NA" /> <code codeSystem="local&quot ; code="BUNCREAT" displayName="BUN:Creatinine Ratio" /> <statusCode code="completed" /> < effectiveTimevalue="614910109889" /> <value unit=" " xsi:type="PQ" value="24" /> < referenceRange> <observationRange> <text>6-25</ text> </observationRange> </referenceRange> </observation> </component> <component> <observationmoodCode="EVN" classCode="OBS"> <templateId root="2.16.840.1.577671.10.20.22.4.2" /> <id nullFlavor="NA" /> <code codeSystem=" local" code="GLOB" displayName="Globulin" /> <statusCode code="completed" /> <effectiveTime value="428322117661"/> <value unit="g/dL" xsi :type="PQ" value="4.5" /> <interpretationCode codeSystem="local" code="H" /> < referenceRange> <observationRange> <text> 2.2-4.2</text> </observationRange> </ referenceRange> </observation> </component> < component> <observation moodCode="EVN" classCode=" OBS"> <templateId root="2.16.840.1.040085.10.20.22.4.2& quot; /> <id nullFlavor="NA" /> <code codeSystem="local" code="ANIONGAP" displayName="Anion Gap" /> <statusCode code="completed" /> <effectiveTime value="847995612470" /> <value unit="" xsi:type="PQ" value="13" /> & lt;referenceRange> <observationRange> <text>6-18& lt;/text> </observationRange> </referenceRange& gt; </observation> </component> <component> <observation moodCode="EVN" classCode="OBS">&lt ;templateId root="2.16.840.1.473830.10..22.4.2" /> < id nullFlavor="NA" /> <code codeSystem="local&quot ; code="ALKP" displayName="Alkaline Phosphatase" /> <statusCode code="completed" /><effectiveTime value=& quot;659161497816" /> <value unit="U/L" xsi:type=& quot;PQ" value="80" /> <referenceRange> <observationRange> <text>20-125</text> </observationRange> </referenceRange> </ observation> </component> <component> < observation moodCode="EVN" classCode="OBS"> < templateId root="2.16.840.1.206357.10.20.22.4.2" /> < id nullFlavor="NA" /> <code codeSystem="local&quot ; code="ALT" displayName="ALT Alanine Aminotransferase" /&gt ; <statusCode code="completed" /> < effectiveTime value="809741690950" /> <value unit=&quot ;U/L" xsi:type="PQ" value="10" /> < interpretationCode codeSystem="local" code="L" /> <referenceRange> <observationRange> <text>12- 78</text> </observationRange> </ referenceRange> </observation> </component> < component> <observationmoodCode="EVN" classCode="OBS "> <templateId root="2.16.840.1.625782.10.20.22.4.2& quot; /> <id nullFlavor="NA" /> <code codeSystem="local" code="AST" displayName="AST Aspartate Amino Transferase" /> <statusCode code=" completed" /> <effectiveTime value="362495919115" /> <value unit="U/L" xsi:type="PQ" value=& quot;17" /> <referenceRange> < observationRange> <text>7-37</text> </ observationRange> </referenceRange> </observation> </component> <component> <observation moodCode=& quot;EVN" classCode="OBS"> <templateId root=" 2.16.840.1.372189.10.20.22.4.2" /> <id nullFlavor="NA& quot; /> <code codeSystem="local" code="BUN" displayName="BUN Urea Nitrogen" /> <statusCode code=& quot;completed" /> <effectiveTime value="351815861688& quot; /> <value unit="mg/dL" xsi:type="PQ" value="66" /> <interpretationCode codeSystem="local " code="H" /> <referenceRange> < observationRange> <text>6-24</text> </ observationRange> </referenceRange> </observation&gt ; </component> <component> <observation moodCode ="EVN" classCode="OBS"> <templateId root=& quot;2.16.840.1.911399.10.20.22.4.2" /> <id nullFlavor="NA&quot ; /> <code codeSystem="local" code="CO2" displayName="CO2 Carbon Dioxide" /> <statusCode code=& quot;completed" /> <effectiveTime value="120865131103& quot; /> <value unit="mmol/L" xsi:type="PQ" value="32" /> <interpretationCode codeSystem=" local" code="H" /> <referenceRange> <observationRange> <text>20-30</text> </observationRange> </referenceRange> </ observation> </component> <component> < observation moodCode="EVN" classCode="OBS"> < templateId root="2.16.840.1.629177.10.20.22.4.2" /> < id nullFlavor="NA" /> <code codeSystem="local&quot ; code="CREAT" displayName="Creatinine" /> < statusCode code="completed" /> <effectiveTime value=& quot;479992605421" /> <value unit="mg/dL" xsi:type ="PQ" value="2.76" /> <interpretationCode codeSystem="local" code="H" /> < referenceRange> <observationRange><text>0.53-1.26</ text> </observationRange> </referenceRange> </observation> </component> <component> <observation moodCode="EVN" classCode="OBS"> <templateId root="2.16.840.1.565405.10.20.22.4.2" /> <id nullFlavor="NA" /> <code codeSystem=" local" code="TP" displayName="Protein Total" /> <statusCode code="completed" /> < effectiveTime value="472129174930" /> <value unit=&quot ;g/dL" xsi:type="PQ" value="7.4" /> < referenceRange> <observationRange> <text> 6.4-8.2</text> </observationRange> </ referenceRange> </observation> </component> < component> <observation moodCode="EVN" classCode=" OBS"> <templateId root="2.16.840.1.692743.10.20.22.4.2& quot; /> <id nullFlavor="NA" /> <code codeSystem="local" code="BILIT" displayName="Bilirubin Total" /> <statusCode code="completed" /> <effectiveTime value="329224662744" /> <value unit=& quot;mg/dL" xsi:type="PQ" value="0.3" /> & lt;referenceRange> <observationRange> <text& gt;0.2-1.2</text> </observationRange> </ referenceRange> </observation> </component> < component> <observation moodCode="EVN" classCode=" OBS"> <templateId root="2.16.840.1.547244.10.20.22.4.2& quot; /> <id nullFlavor="NA" /> <code codeSystem="local" code="K" displayName="Potassium&quot ; /> <statusCode code="completed" /> < effectiveTime value="070691226592" /> <value unit=&quot ;mmol/L" xsi:type="PQ" value="3.8" /> < referenceRange> <observationRange> <text>3.5- 5.1</text> </observationRange> </ referenceRange> </observation> </component> < component> <observation moodCode="EVN" classCode=" OBS"> <templateId root="2.16.840.1.906139.10.20.22.4.2& quot; /> <id nullFlavor="NA" /> <code codeSystem="local" code="NA" displayName="Sodium" /> <statusCode code="completed" /> < effectiveTime value="404574291220" /> <value unit=&quot ;mmol/L" xsi:type="PQ" value="134" /> < interpretationCode codeSystem="local" code="L" /> <referenceRange> <observationRange> <text> 136-145</text> </observationRange> </ referenceRange> </observation> </component> < component> <observation moodCode="EVN" classCode=" OBS"> <templateId root="2.16.840.1.287243.10.20.22.4.2& quot; /> <id nullFlavor="NA" /> <code codeSystem="local" code="CL" displayName="Chloride&quot ; /> <statusCode code="completed" /> < effectiveTime value="173718654970" /> <value unit=&quot ;mmol/L" xsi:type="PQ" value="93" /> < interpretationCode codeSystem="local" code="L" /> <referenceRange> <observationRange> < text>96-111</text> </observationRange> </ referenceRange> </observation> </component> < component> <observation moodCode="EVN" classCode=" OBS"> <templateId root="2.16.840.1.410591.10.20.22.4.2& quot; /> <id nullFlavor="NA" /> <code codeSystem="local" code="GLU" displayName="Glucose&quot ; /> <statusCode code="completed"/> < effectiveTime value="392400137950" /> <value unit=&quot ;mg/dL" xsi:type="PQ" value="298" /> < interpretationCode codeSystem="local" code="H" /> <referenceRange> <observationRange> < text>70-99</text> </observationRange> </ referenceRange> </observation> </component> < component> <observation moodCode="EVN" classCode=" OBS"> <templateId root="2.16.840.1.731222.10.20.22.4.2& quot; /> <id nullFlavor="NA" /> <code codeSystem="local" code="CA" displayName="Calcium&quot ; /> <statusCode code="completed" /> < effectiveTime value="221282462332" /> <value unit=&quot ;mg/dL" xsi:type="PQ" value="9.1" /> < referenceRange> <observationRange> <text>8.3-10.1</ text> </observationRange> </referenceRange> </observation> </component> <component> <observation moodCode="EVN" classCode="OBS"> <templateId root="2.16.840.1.459687.10.20.22.4.2" /> <id nullFlavor="NA" /> <code codeSystem=" local" code="GFR" displayName="GFR Glomerular Filtration Rate" /> <statusCode code="completed" /> <effectiveTime value="714324266229" /> <value unit="mL/min/1.73m*2" xsi:type="PQ" value="16.5" / > <interpretationCode codeSystem="local" code="L& quot; /> <referenceRange> <observationRange> <text>>60.0</text> </ observationRange> </referenceRange> </observation&gt ; </component> <component> <observationmoodCode= "EVN" classCode="OBS"> <templateId root=&quot ;2.16.840.1.628331.10.20.22.4.2" /> <id nullFlavor="NA& quot; /> <code codeSystem="local" code="ALB" displayName="Albumin" /> <statusCode code=" completed" /> <effectiveTime value="066713704679" /> <value unit="g/dL" xsi:type="PQ" value=& quot;2.9" /> <interpretationCode codeSystem="local" code="L" /> <referenceRange> < observationRange> <text>3.2-4.6</text> </ observationRange> </referenceRange> </observation&gt ; </component> <component> <observation moodCode ="EVN" classCode="OBS"> <templateId root=& quot;216.840.1.157109.10.20.22.4.2" /> <id nullFlavor="NA&quot ; /> <code codeSystem="local" code="AGRATIO" displayName="Albumin:Globulin Ratio" /> <statusCode code="completed" /> <effectiveTime value=" 552396838494" /> <value unit="" xsi:type="PQ& quot; value="0.6" /> <interpretationCode codeSystem=& quot;local" code="L" /> <referenceRange> <observationRange> <text>0.8-2.0</text> </observationRange> </referenceRange> </ observation> </component> </organizer> </entry> & lt;entry> <organizer moodCode="EVN" classCode="BATTERY& quot;> <templateId root="2.16.840.1.565546.10.20.22.4.1" /& gt; <id nullFlavor="NA" /> <code codeSystem=" local" code="GLUPOC" displayName="POC GLUCOMETER" /&gt ; <statusCode code="completed" /> <component> <observation moodCode="EVN" classCode="OBS"> <templateId root="2.16.840.1.055685.10.20.22.4.2" /> & lt;id nullFlavor="NA" /> <code codeSystem="local& quot; code="9441705" displayName="Glucose Meter (POC)" /&gt ; <statusCode code="completed" /> < effectiveTime value="835693455093" /> <value unit=&quot ;mg/dL" xsi:type="PQ" value="213" /> < interpretationCode codeSystem="local" code="H" /> <referenceRange> <observationRange> < text>70-99</text> </observationRange> </ referenceRange> </observation> </component> </ organizer> </entry> <entry> <organizer moodCode="EVN " classCode="BATTERY"> <templateId root=" 2.16.840.1.743082.10.20.22.4.1" /> <id nullFlavor="NA&quot ; /> <code codeSystem="local" code="GLUPOC" displayName="POC GLUCOMETER" /> <statusCode code=" completed" /> <component> <observation moodCode=& quot;EVN" classCode="OBS"> <templateId root=" 2.16.840.1.544352.10.20.22.4.2" /> <id nullFlavor="NA& quot;/> <code codeSystem="local" code="7912959& quot; displayName="Glucose Meter (POC)" /> <statusCode code="completed" /> <effectiveTime value=" 197956355428" /> <value unit="mg/dL" xsi:type=& quot;PQ" value="152" /> <interpretationCode codeSystem="local"code="H" /> <referenceRange > <observationRange> <text>70-99</text> </observationRange> </referenceRange> </ observation> </component> </organizer> </entry> & lt;entry> <organizer moodCode="EVN" classCode="BATTERY& quot;> <templateId root="2.16.840.1.415785.10.20.22.4.1" /& gt; <id nullFlavor="NA" /> <code codeSystem=" local" code="GLUPOC" displayName="POC GLUCOMETER" /&gt ; <statusCode code="completed" /> <component> <observation moodCode="EVN" classCode="OBS"> <templateId root="2.16.840.1.058356.10.20.22.4.2" /> <id nullFlavor="NA" /> <code codeSystem=" local" code="0495851" displayName="Glucose Meter (POC)&quot ; /> <statusCode code="completed" /> < effectiveTime value="447186988922" /> <value unit=&quot ;mg/dL" xsi:type="PQ" value="378" /> < interpretationCode codeSystem="local" code="HH" /> <referenceRange> <observationRange> < text>70-99</text> </observationRange> </ referenceRange> </observation> </component> </ organizer> </entry> <entry> <organizer moodCode="EVN " classCode="BATTERY"> <templateId root=" 2.16.840.1.277243.10.20.22.4.1" /> <id nullFlavor="NA&quot ; /> <code codeSystem="local" code="GLUPOC" displayName="POC GLUCOMETER" /> <statusCode code="completed " /> <component> <observation moodCode="EVN& quot; classCode="OBS"> <templateId root=" 2.16.840.1.605796.10.20.22.4.2" /> <id nullFlavor="NA& quot; /> <code codeSystem="local" code="7324215& quot; displayName="Glucose Meter (POC)" /> <statusCode code=& quot;completed" /> <effectiveTime value="689250734682& quot; /> <value unit="mg/dL" xsi:type="PQ" value="168" /> <interpretationCode codeSystem=" local" code="H" /> <referenceRange> < observationRange> <text>70-99</text> < /observationRange> </referenceRange> </observation& gt; </component> </organizer> </entry> <entry> <organizer moodCode="EVN" classCode="BATTERY"> <templateId root="2.16.840.1.272011.10.20.22.4.1" /> &lt ;id nullFlavor="NA" /> <code codeSystem="local" code="GLUPOC" displayName="POC GLUCOMETER" /> < statusCode code="completed" /> <component> < observation moodCode="EVN" classCode="OBS"> < templateId root="2.16.840.1.436714.10.20.22.4.2" /> < id nullFlavor="NA" /> <code codeSystem="local&quot ; code="8707675" displayName="Glucose Meter (POC)" /> <statusCode code="completed" /> < effectiveTime value="576190438634" /> <value unit="mg/ dL" xsi:type="PQ" value="31" /> < interpretationCode codeSystem="local" code="LL" /> <referenceRange> <observationRange> < text>70-99</text> </observationRange> </ referenceRange> </observation> </component> </ organizer> </entry> <entry> <organizer moodCode="EVN " classCode="BATTERY"> <templateId root=" 2.16.840.1.552973.10.20.22.4.1" /> <id nullFlavor="NA&quot ; /> <code codeSystem="local" code="GLUPOC" displayName="POC GLUCOMETER" /> <statusCode code=" completed" /> <component> <observation moodCode=& quot;EVN" classCode="OBS"> <templateId root=" 2.16.840.1.988023.10.20.22.4.2" /> <id nullFlavor="NA" /&gt ; <code codeSystem="local" code="6079381" displayName="Glucose Meter (POC)" /> <statusCode code=& quot;completed" /> <effectiveTime value="648839477693& quot; /> <value unit="mg/dL" xsi:type="PQ" value="113" /> <interpretationCode codeSystem=" local" code="H" /> <referenceRange> < observationRange> <text>70-99</text> < /observationRange> </referenceRange> </observation& gt; </component> </organizer> </entry> <entry&gt ; <organizer moodCode="EVN" classCode="BATTERY"> <templateId root="2.16.840.1.625264.10.20.22.4.1" /> & lt;id nullFlavor="NA" /> <code codeSystem="local&quot ; code="GLUPOC" displayName="POC GLUCOMETER" /> < statusCode code="completed" /> <component> < observation moodCode="EVN" classCode="OBS"> < templateId root="2.16.840.1.001467.10.20.22.4.2" /> < id nullFlavor="NA" /> <code codeSystem="local&quot ; code="6873725" displayName="Glucose Meter (POC)" /> <statusCode code="completed" /> < effectiveTime value="728125427609" /> <value unit=&quot ;mg/dL" xsi:type="PQ" value="145" /> < interpretationCode codeSystem="local" code="H" /> <referenceRange> <observationRange> < text>70-99</text> </observationRange> </ referenceRange> </observation> </component> </ organizer> </entry> <entry> <organizer moodCode="EVN " classCode="BATTERY"> <templateId root=" 2.16.840.1.954614.10.20.22.4.1" /> <id nullFlavor="NA&quot ; /> <code codeSystem="local" code="GLUPOC" displayName="POC GLUCOMETER" /> <statusCode code=" completed" /> <component> <observation moodCode=& quot;EVN" classCode="OBS"> <templateId root=" 2.16.840.1.208601.10.20.22.4.2" /> <id nullFlavor="NA& quot;/> <code codeSystem="local" code="9967793& quot; displayName="Glucose Meter (POC)" /> <statusCode code="completed" /> <effectiveTime value=" 118581853316" /> <value unit="mg/dL" xsi:type=& quot;PQ" value="334" /> <interpretationCode codeSystem="local"code="H" /> <referenceRange > <observationRange> <text>70-99</text> </observationRange> </referenceRange> </ observation> </component> </organizer> </entry> & lt;entry> <organizer moodCode="EVN" classCode="BATTERY& quot;> <templateId root="2.16.840.1.391643.10.20.22.4.1" /& gt; <id nullFlavor="NA" /> <code codeSystem=" local" code="GLUPOC" displayName="POC GLUCOMETER" /&gt ; <statusCode code="completed" /> <component> <observation moodCode="EVN" classCode="OBS"> <templateId root="2.16.840.1.847879.10.20.22.4.2" /> <id nullFlavor="NA" /> <code codeSystem=" local" code="6432969" displayName="Glucose Meter (POC)&quot ; /> <statusCode code="completed" /> < effectiveTime value="765306247058" /> <value unit=&quot ;mg/dL" xsi:type="PQ" value="263" /> < interpretationCode codeSystem="local" code="H" /> <referenceRange> <observationRange> < text>70-99</text> </observationRange> </ referenceRange> </observation> </component> </ organizer> </entry> <entry> <organizer moodCode="EVN " classCode="BATTERY"> <templateId root=" 2.16.840.1.313523.10.20.22.4.1" /> <id nullFlavor="NA&quot ; /> <code codeSystem="local" code="GLUPOC" displayName="POC GLUCOMETER" /><statusCode code="completed& quot; /> <component> <observation moodCode="EVN& quot; classCode="OBS"> <templateId root=" 2.16.840.1.368481.10.20.22.4.2" /> <id nullFlavor="NA& quot; /> <code codeSystem="local" code="8656557& quot; displayName="Glucose Meter (POC)" /> <statusCode code=& quot;completed" /> <effectiveTime value="004155059371& quot; /> <value unit="mg/dL" xsi:type="PQ" value="266"/> <interpretationCode codeSystem=" local" code="H" /><referenceRange> < observationRange> <text>70-99</text> < /observationRange> </referenceRange> </observation& gt; </component> </organizer> </entry> <entry> <organizer moodCode="EVN" classCode="BATTERY"> <templateId root="2.16.840.1.139917.10.20.22.4.1" /> < id nullFlavor="NA" /> <code codeSystem="local" code="GLUPOC" displayName="POC GLUCOMETER" /> < statusCode code="completed" /> <component> < observation moodCode="EVN" classCode="OBS"> < templateId root="2.16.840.1.275552.10.20.22.4.2" /> < id nullFlavor="NA" /> <code codeSystem="local&quot ; code="6119995" displayName="Glucose Meter (POC)" /> <statusCodecode="completed" /> < effectiveTime value="696806882151" /> <value unit="mg/ dL" xsi:type="PQ" value="198" /> < interpretationCode codeSystem="local" code="H" /> <referenceRange> <observationRange> < text>70-99</text> </observationRange> </ referenceRange> </observation> </component> </ organizer> </entry> <entry> <organizer moodCode="EVN "classCode="BATTERY"> <templateId root=" 2.16.840.1.956495.10.20.22.4.1" /> <id nullFlavor="NA&quot ; /> <code codeSystem="local" code="GLUPOC" displayName="POC GLUCOMETER" /> <statusCode code=" completed" /> <component> <observation moodCode=& quot;EVN" classCode="OBS"> <templateId root=" 2.16.840.1.647479.10.20.22.4.2" /><id nullFlavor="NA" /&gt ; <code codeSystem="local" code="7373311" displayName="Glucose Meter (POC)" /> <statusCode code=& quot;completed" /> <effectiveTime value="518749402913& quot; /> <value unit="mg/dL" xsi:type="PQ" value="183" /> <interpretationCode codeSystem=" local" code="H" /> <referenceRange>< observationRange> <text>70-99</text> < /observationRange> </referenceRange> </observation& gt; </component> </organizer> </entry> <entry&gt ; <organizer moodCode="EVN" classCode="BATTERY"> <templateId root="2.16.840.1.645427.10.20.22.4.1" /> & lt;id nullFlavor="NA" /> <code codeSystem="local&quot ; code="BMP" displayName="BASIC METABOLIC PANEL" /> <statusCode code="completed" /> <component> & lt;observation moodCode="EVN" classCode="OBS"> & lt;templateId root="2.16.840.1.171353.10.20.22.4.2" /> &lt ;id nullFlavor="NA" /> <code codeSystem="local& quot; code="BUNCREAT" displayName="BUN:Creatinine Ratio" /& gt; <statusCode code="completed" /> < effectiveTime value="484957991334" /> <value unit=&quot ;" xsi:type="PQ" value="30" /> < interpretationCode codeSystem="local" code="H" /> <referenceRange> <observationRange> < text>6-25</text> </observationRange> </ referenceRange> </observation> </component> < component> <observation moodCode="EVN" classCode="OBS" > <templateId root="2.16.840.1.522148.10.20.22.4.2" /& gt; <id nullFlavor="NA" /> <code codeSystem=& quot;local" code="ANIONGAP" displayName="Anion Gap" /& gt; <statusCode code="completed" /> < effectiveTime value="279487111238" /> <value unit=&quot ;" xsi:type="PQ" value="9" /> < referenceRange> <observationRange> <text> 6-18</text> </observationRange> </ referenceRange></observation> </component> < component> <observation moodCode="EVN" classCode=" OBS"> <templateId root="2.16.840.1.700723.10.20.22.4.2& quot; /> <id nullFlavor="NA" /> <code codeSystem="local" code="BUN" displayName="BUN Urea Nitrogen" /> <statusCode code="completed" /> <effectiveTime value="704225414163" /> < value unit="mg/dL" xsi:type="PQ" value="84" /> <interpretationCode codeSystem="local" code="H" /&gt ; <referenceRange> <observationRange> <text>6-24</text> </observationRange> </ referenceRange> </observation> </component> < component> <observation moodCode="EVN" classCode=" OBS"> <templateId root="2.16.840.1.984516.10.20.22.4.2& quot; /> <id nullFlavor="NA" /> <code codeSystem="local" code="CO2" displayName="CO2 Carbon Dioxide" /> <statusCode code="completed" /> <effectiveTime value="369134226449" /> < value unit="mmol/L" xsi:type="PQ" value="33" /&gt ; <interpretationCode codeSystem="local" code="H&quot ; /> <referenceRange> <observationRange> <text>20-30</text> </observationRange> </referenceRange> </observation> </component&gt ; <component> <observation moodCode="EVN" classCode="OBS"> <templateId root=" 2.16.840.1.386723.10.20.22.4.2" /> <id nullFlavor="NA& quot; /> <code codeSystem="local" code="CREAT&quot ; displayName="Creatinine" /> <statusCode code=" completed" /> <effectiveTimevalue="377815064708" / > <value unit="mg/dL" xsi:type="PQ" value=& quot;2.81" /> <interpretationCode codeSystem="local& quot; code="H" /> <referenceRange> < observationRange> <text>0.53-1.26</text> </observationRange> </referenceRange> </ observation> </component> <component> < observation moodCode="EVN" classCode="OBS"> < templateId root="2.16.840.1.080554.10.20.22.4.2" /> < id nullFlavor="NA" /> <code codeSystem="local&quot ; code="K" displayName="Potassium" /> < statusCode code="completed" /> <effectiveTime value=& quot;119869066450" /> <value unit="mmol/L" xsi: type="PQ" value="3.5" /> <referenceRange> <observationRange> <text>3.5-5.1</text> </observationRange> </referenceRange> </ observation> </component> <component> < observation moodCode="EVN" classCode="OBS"> < templateId root="2.16.840.1.356952.10.20.22.4.2"/> <id nullFlavor="NA" /> <code codeSystem="local" code="NA" displayName="Sodium" /> < statusCode code="completed" /> <effectiveTime value=& quot;308930088968" /> <value unit="mmol/L" xsi: type="PQ" value="135" /> <interpretationCode codeSystem="local" code="L" /> < referenceRange> <observationRange> <text> 136-145</text> </observationRange> </ referenceRange> </observation> </component> < component> <observation moodCode="EVN" classCode=" OBS"> <templateId root="2.16.840.1.007815.10.20.22.4.2& quot; /> <id nullFlavor="NA" /> <code codeSystem="local" code="CL" displayName="Chloride&quot ; /> <statusCode code="completed" /> < effectiveTime value="970510820444" /> <value unit=&quot ;mmol/L" xsi:type="PQ" value="97" /> < referenceRange> <observationRange> <text>96 -111</text> </observationRange> </ referenceRange> </observation> </component> < component> <observation moodCode="EVN" classCode=" OBS"> <templateId root="2.16.840.1.262527.10.20.22.4.2& quot; /> <id nullFlavor="NA" /> <code codeSystem="local" code="GLU" displayName="Glucose&quot ; /> <statusCode code="completed" /> < effectiveTime value="470623274772" /> <value unit=&quot ;mg/dL" xsi:type="PQ" value="168" /> < interpretationCode codeSystem="local" code="H" /> < referenceRange> <observationRange> <text> 70-99</text> </observationRange> </ referenceRange> </observation> </component> < component> <observation moodCode="EVN" classCode=" OBS"> <templateId root="2.16.840.1.419419.10.20.22.4.2& quot; /> <id nullFlavor="NA" /> <code codeSystem="local" code="CA" displayName="Calcium&quot ; /> <statusCode code="completed" /> < effectiveTime value="614343024580" /> <value unit=&quot ;mg/dL" xsi:type="PQ" value="9.1" /> < referenceRange> <observationRange> <text>8.3- 10.1</text> </observationRange> </ referenceRange> </observation> </component> < component> <observation moodCode="EVN" classCode=" OBS"> <templateId root="2.16.840.1.915481.10.20.22.4.2& quot; /> <id nullFlavor="NA" /> <code codeSystem="local" code="GFR" displayName="GFR Glomerular Filtration Rate" /> <statusCode code=" completed" /> <effectiveTime value="984093652989" /> <value unit="mL/min/1.73m*2" xsi:type="PQ&quot ; value="16.2" /> <interpretationCode codeSystem=" local" code="L" /> <referenceRange> < observationRange> <text>>60.0</text> </observationRange> </referenceRange> </ observation> </component> </organizer> </entry> &lt ;entry> <organizer moodCode="EVN" classCode="BATTERY& quot;> <templateId root="2.16.840.1.320468.10.20.22.4.1" /& gt; <id nullFlavor="NA" /> <code codeSystem=" local" code="464497" displayName="SMEAR REVIEW" /> <statusCode code="completed" /> <component> <observation moodCode="EVN" classCode="OBS"> <templateId root="2.16.840.1.850835.10.20.22.4.2" /> <id nullFlavor="NA" /> <code codeSystem=" local" code="PLTEST"displayName="Platelet Estimate" /& gt; <statusCode code="completed" /> < effectiveTime value="644493649031" /> <value unit=&quot ;" xsi:type="PQ" value="Normal" /> < referenceRange> <observationRange> <text>Normal</ text> </observationRange> </referenceRange> </observation> </component> <component> <observation moodCode="EVN" classCode="OBS">< templateId root="2.16.840.1.267783.10.20.22.4.2" /> < id nullFlavor="NA" /> <code codeSystem="local&quot ; code="EHYPSEG" displayName="Hypersegmented Neutrophils" /& gt; <statusCode code="completed" /> < effectiveTime value="702501614666" /> <value unit=&quot ;"xsi:type="PQ" value="" /> < referenceRange> <observationRange> <text> (none)</text> </observationRange> </ referenceRange> </observation> </component> < component> <observation moodCode="EVN" classCode=" OBS"> <templateId root="2.16.840.1.000998.10.20.22.4.2& quot; /> <id nullFlavor="NA"/> <code codeSystem="local" code="EPOLY" displayName=" Polychromasia" /> <statusCode code="completed" /& gt; <effectiveTime value="146065924364" /> &lt ;value unit="" xsi:type="PQ" value="Present" /&gt ; <interpretationCode codeSystem="local" code="A&quot ; /> <referenceRange> <observationRange> <text>(none)</text> </observationRange> </referenceRange> </observation> </component&gt ; <component> <observation moodCode="EVN" classCode="OBS"> <templateId root=" 2.16.840.1.126617.10.20.22.4.2" /> <id nullFlavor="NA& quot; /> <code codeSystem="local" code="ESTOMA& quot; displayName="Stomatocytes" /> <statusCode code=& quot;completed" /> <effectiveTime value="669384233281& quot;/> <value unit="" xsi:type="PQ" value=& quot;1+" /> <interpretationCode codeSystem="local" code=& quot;A" /> <referenceRange> < observationRange> <text>(none)</text> </ observationRange> </referenceRange> </observation&gt ; </component> <component> <observation moodCode ="EVN" classCode="OBS"> <templateId root=& quot;2.16.840.1.404121.10.20.22.4.2" /> <id nullFlavor=&quot ;NA" /> <code codeSystem="local" code="ETARG& quot; displayName="Target Cells" /> <statusCode code=& quot;completed" /> <effectiveTime value="093054309978& quot; /> <value unit="" xsi:type="PQ" value=& quot;1+" /> <interpretationCode codeSystem="local&quot ; code="A" /> <referenceRange> < observationRange> <text>(none)</text> &lt ;/observationRange> </referenceRange> </observation& gt; </component> <component> <observation moodCode=& quot;EVN" classCode="OBS"> <templateId root=" 2.16.840.1.134598.10.20.22.4.2" /> <id nullFlavor="NA& quot; /> <code codeSystem="local" code="ETEARDROP&quot ; displayName="Teardrops" /> <statusCode code=" completed" /> <effectiveTime value="718415037089" /> <value unit="" xsi:type="PQ" value="& quot; /> <referenceRange> <observationRange> <text>(none)</text> </observationRange& gt; </referenceRange> </observation> </component& gt; <component> <observation moodCode="EVN" classCode="OBS"> <templateId root=" 2.16.840.1.231417.10.20.22.4.2" /> <id nullFlavor="NA& quot; /> <code codeSystem="local" code="[id number]& quot; displayName="White Blood Count Morphology" /> < statusCode code="completed" /> <effectiveTime value=& quot;754497961927" /> <value unit="" xsi:type=& quot;PQ" value="Normal" /> <referenceRange> <observationRange> <text /> </ observationRange> </referenceRange> </observation&gt ; </component> <component> <observation moodCode ="EVN" classCode="OBS"> <templateId root=& quot;2.16.840.1.277355.10.20.22.4.2"/> <id nullFlavor=" NA" /> <code codeSystem="local"code="EMICRO& quot; displayName="Microcytes" /> <statusCode code=& quot;completed" /> <effectiveTime value="240015968986& quot; /> <value unit="" xsi:type="PQ" value=& quot;2+" /> <interpretationCode codeSystem="local&quot ; code="A" /> <referenceRange> < observationRange> <text>(none)</text> &lt ;/observationRange> </referenceRange> </observation& gt; </component> <component> <observation moodCode="EVN" classCode="OBS"> <templateId root="2.16.840.1.448722.10..22.4.2" /> <id nullFlavor ="NA" /> <code codeSystem="local" code=" EPLTL" displayName="Enlarged Platelets" /> < statusCode code="completed" /> <effectiveTime value=& quot;420415743870" /> <value unit="" xsi:type=& quot;PQ" value="Present" /> <interpretationCode codeSystem="local" code="A" /> < referenceRange> <observationRange> <text>(none )</text> </observationRange> </referenceRange > </observation> </component> </organizer> </entry><entry> <organizer moodCode="EVN" classCode= "BATTERY"> <templateId root=" 2.16.840.1.235220.10.20.22.4.1" /> <id nullFlavor="NA" /> <code codeSystem="local" code="RENAL" displayName="RENAL FUNCTION PANEL" /> <statusCode code=& quot;completed" /> <component> <observation moodCode=& quot;EVN" classCode="OBS"> <templateId root=" 2.16.840.1.271642.10.20.22.4.2" /> <id nullFlavor="NA& quot; /> <code codeSystem="local" code="BUNCREAT& quot; displayName="BUN:Creatinine Ratio" /> < statusCode code="completed" /> <effectiveTime value=& quot;205861337950" /> <value unit="" xsi:type=& quot;PQ" value="32" /> <interpretationCode codeSystem="local" code="H" /> < referenceRange> <observationRange> <text> 6-25</text> </observationRange> </ referenceRange></observation> </component> < component> <observation moodCode="EVN" classCode=" OBS"> <templateId root="2.16.840.1.309321.10.20.22.4.2& quot; /> <id nullFlavor="NA" /> <code codeSystem="local" code="ANIONGAP" displayName="Anion Gap" /> <statusCode code="completed" /> <effectiveTime value="536297125073" /> <value unit="" xsi:type="PQ" value="11" /> & lt;referenceRange> <observationRange> <text& gt;6-18</text> </observationRange> </ referenceRange> </observation></component> < component> <observation moodCode="EVN" classCode=" OBS"> <templateId root="2.16.840.1.220663.10.20.22.4.2& quot; /> <id nullFlavor="NA" /> <code codeSystem="local" code="BUN" displayName="BUN Urea Nitrogen" /> <statusCode code="completed" /> <effectiveTime value="773776102714" /> < value unit="mg/dL" xsi:type="PQ" value="63" /> <interpretationCode codeSystem="local" code="H&quot ; /> <referenceRange> <observationRange> <text>6-24</text> </observationRange> </referenceRange> </observation> </component& gt; <component> <observation moodCode="EVN" classCode="OBS"> <templateId root=" 2.16.840.1.931223.10.20.22.4.2" /> <id nullFlavor="NA& quot; /> <code codeSystem="local" code="CO2" displayName="LH6Sqpshg Dioxide" /> <statusCode code=& quot;completed" /> <effectiveTime value="962176806770& quot; /> <value unit="mmol/L" xsi:type="PQ" value="30" /> <referenceRange> < observationRange> <text>20-30</text> < /observationRange> </referenceRange> </observation& gt; </component> <component> <observation moodCode=& quot;EVN" classCode="OBS"> <templateId root=" 2.16.840.1.387726.10.20.22.4.2" /> <id nullFlavor="NA& quot; /> <code codeSystem="local" code="CREAT" displayName="Creatinine"/> <statusCode code=" completed" /> <effectiveTime value="902923042759" /> <value unit="mg/dL" xsi:type="PQ" value=& quot;1.94" /> <interpretationCode codeSystem="local& quot; code="H" /> <referenceRange> < observationRange> <text>0.53-1.26</text> </observationRange> </referenceRange> </ observation> </component> <component> < observation moodCode="EVN" classCode="OBS"> < templateId root="2.16.840.1.085976.10.20.22.4.2" /> < id nullFlavor="NA" /> <code codeSystem="local&quot ; code="K" displayName="Potassium" /> < statusCode code="completed" /> <effectiveTime value=& quot;198286043357" /> <value unit="mmol/L" xsi: type="PQ" value="4.7" /> <referenceRange> <observationRange> <text>3.5-5.1</text& gt; </observationRange> </referenceRange> &lt ;/observation> </component> <component> < observation moodCode="EVN" classCode="OBS"> < templateId root="2.16.840.1.213352.10.20.22.4.2" /> <id nullFlavor="NA" /> <code codeSystem="local" code="NA" displayName="Sodium" /> < statusCode code="completed" /> <effectiveTime value=& quot;574378407974" /> <value unit="mmol/L" xsi: type="PQ" value="137" /> <referenceRange> <observationRange> <text>136-145</text> </observationRange> </referenceRange> </ observation> </component> <component> < observation moodCode="EVN" classCode="OBS"> < templateId root="2.16.840.1.425154.10.20.22.4.2" /> < id nullFlavor="NA" /> <code codeSystem="local&quot ; code="CL" displayName="Chloride" /> < statusCode code="completed" /> <effectiveTime value=& quot;971656381079" /> <value unit="mmol/L" xsi: type="PQ" value="101" /> <referenceRange> <observationRange> <text>96-111</text&gt ; </observationRange> </referenceRange> & lt;/observation> </component> <component> < observation moodCode="EVN" classCode="OBS"> < templateId root="2.16.840.1.155476.10.20.22.4.2" /> < id nullFlavor="NA" /> <code codeSystem="local" code= "PHOS" displayName="Phosphorous" /> < statusCode code="completed" /> <effectiveTime value=& quot;831293534715" /> <value unit="mg/dL" xsi:type ="PQ" value="3.3" /> <referenceRange> <observationRange> <text>2.5-4.9</text> </observationRange> </referenceRange> </ observation> </component> <component> < observation moodCode="EVN" classCode="OBS"> < templateId root="2.16.840.1.183914.10..22.4.2" /> < id nullFlavor="NA" /> <code codeSystem="local&quot ; code="GLU" displayName="Glucose" /> < statusCode code="completed" /> <effectiveTime value=& quot;503862295915" /> <value unit="mg/dL" xsi:type= "PQ" value="184" /> <interpretationCode codeSystem=& quot;local" code="H" /> <referenceRange> <observationRange> <text>70-99</text></ observationRange> </referenceRange> </observation&gt ; </component> <component> <observation moodCode ="EVN" classCode="OBS"> <templateId root=& quot;2.16.840.1.533349.10.20.22.4.2" /> <id nullFlavor=&quot ;NA" /> <code codeSystem="local" code="CA& quot; displayName="Calcium" /> <statusCode code=" completed" /> <effectiveTime value="514527237175" /> <value unit="mg/dL"xsi:type="PQ" value=" 9.0" /> <referenceRange> <observationRange& gt; <text>8.3-10.1</text> </ observationRange> </referenceRange> </observation&gt ; </component> <component> <observation moodCode ="EVN" classCode="OBS"> <templateId root=& quot;2.16.840.1.618461.10.20.22.4.2" /> <id nullFlavor=&quot ;NA" /> <code codeSystem="local" code="GFR& quot; displayName="GFRGlomerular Filtration Rate" /> < statusCode code="completed" /> <effectiveTime value=" 001032319500" /> <value unit="mL/min/1.73m*2" xsi: type="PQ" value="25.3" /> < interpretationCode codeSystem="local" code="L" /> <referenceRange> <observationRange> < text>>60.0</text> </observationRange> </referenceRange> </observation> </component> <component> <observation moodCode="EVN" classCode=& quot;OBS"> <templateId root=" 2.16.840.1.549861.10.20.22.4.2" /> <id nullFlavor="NA& quot; /> <code codeSystem="local" code="ALB" displayName="Albumin" /> <statusCode code=" completed" /> <effectiveTime value="872830701827" /> <value unit="g/dL" xsi:type="PQ" value=& quot;3.0" /> <interpretationCode codeSystem="local&quot ; code="L" /> <referenceRange> < observationRange> <text>3.2-4.6</text> & lt;/observationRange> </referenceRange> </observation> </component> </organizer> </entry> <entry> &lt ;organizer moodCode="EVN" classCode="BATTERY"> < templateId root="2.16.840.1.865671.10.20.22.4.1" /> <id nullFlavor="NA" /> <code codeSystem="local" code= "YLV6510" displayName="CBC WITH DIFFERENTIAL REFLEX MANUAL DIFF& quot; /> <statusCode code="completed" /> < component> <observation moodCode="EVN" classCode=" OBS"> <templateId root="2..840.1.363567.10.20.22.4.2& quot; /> <id nullFlavor="NA" /> <code codeSystem="local" code="HGB" displayName="Hemoglobin& quot; /> <statusCode code="completed" /> & lt;effectiveTime value="083845971037" /> <value unit=& quot;g/dL" xsi:type="PQ" value="8.3" /> &lt ;interpretationCode codeSystem="local" code="L" /> <referenceRange> <observationRange> < text>11.9-16.3</text> </observationRange> &lt ;/referenceRange> </observation> </component> < component> <observation moodCode="EVN" classCode=" OBS"> <templateId root="2.16.840.1.144520.10.20.22.4.2& quot; /> <id nullFlavor="NA" /> <code codeSystem="local" code="HCT" displayName="Hematocrit& quot; /> <statusCode code="completed" /> & lt;effectiveTime value="653546975751" /> <value unit=&quot ;%" xsi:type="PQ" value="28.4" /> < interpretationCode codeSystem="local" code="L" /> <referenceRange> <observationRange> < text>37.0-47.7</text> </observationRange> </ referenceRange> </observation> </component> < component> <observation moodCode="EVN" classCode=" OBS"> <templateId root="2.16.840.1.090452.10.20.22.4.2& quot; /> <id nullFlavor="NA" /> <code codeSystem="local" code="RDW" displayName="RDW Red Cell Distr Width" /> <statusCode code="completed" /> <effectiveTime value="366648152080" /> & lt;value unit="%" xsi:type="PQ" value="16.6& quot; /> <interpretationCode codeSystem="local" code=& quot;H" /> <referenceRange> <observationRange& gt; <text>12.3-15.9</text> </ observationRange> </referenceRange> </observation&gt ; </component> <component> <observation moodCode ="EVN" classCode="OBS"> <templateId root=& quot;2.16.840.1.497395.10.20.22.4.2" /> <id nullFlavor=&quot ;NA" /> <code codeSystem="local" code="LYMPAB " displayName="Lymphocytes Absolute" /> < statusCode code="completed" /> <effectiveTime value=& quot;725785119936" /> <value unit="10*3/uL" xsi: type="PQ" value="1.6" /> <referenceRange> <observationRange> <text>1.1-3.7</text> </observationRange> </referenceRange> </ observation> </component> <component> < observation moodCode="EVN" classCode="OBS"> < templateId root="2.16.840.1.147424.10.20.22.4.2" /> < id nullFlavor="NA" /> <code codeSystem="local&quot ; code="MONOAB" displayName="Monocytes Absolute" /> <statusCode code="completed" /> <effectiveTime value ="260158817232" /> <value unit="10*3/uL" xsi: type="PQ" value="1.2" /> <interpretationCode codeSystem="local" code="H" /> < referenceRange> <observationRange> <text> 0.3-0.9</text> </observationRange> </ referenceRange> </observation> </component> < component> <observation moodCode="EVN" classCode="OBS& quot;> <templateId root="2.16.840.1.157070.10.20.22.4.2&quot ; /> <id nullFlavor="NA" /> <code codeSystem="local" code="EOSAB" displayName=" Eosinophils Absolute" /> <statusCode code="completed& quot; /> <effectiveTime value="570044872541" /> <value unit="10*3/uL" xsi:type="PQ" value="0.3 " /> <referenceRange> <observationRange&gt ; <text>0.0-0.5</text> </observationRange& gt; </referenceRange> </observation> </ component> <component> <observation moodCode="EVN& quot; classCode="OBS"> <templateId root=" 2.16.840.1.791364.10.20.22.4.2" /> <id nullFlavor="NA& quot; /><code codeSystem="local" code="BASOAB" displayName="Basophils Absolute" /> <statusCode code=& quot;completed" /> <effectiveTime value="467523710181& quot; /> <value unit="10*3/uL" xsi:type="PQ" value="0.0" /> <referenceRange> < observationRange> <text>0.0-0.1</text> </ observationRange> </referenceRange> </observation&gt ; </component> <component> <observation moodCode ="EVN" classCode="OBS"> <templateId root=& quot;2.16.840.1.006957.10.20.22.4.2" /> <id nullFlavor=&quot ;NA" /> <code codeSystem="local" code="NEUTRO " displayName="Neutrophils %" /> < statusCode code="completed" /> <effectiveTime value=& quot;273069595586" /> <value unit="%" xsi: type="PQ" value="65" /> <referenceRange> <observationRange> <text /> </ observationRange> </referenceRange> </observation&gt ; </component> <component> <observation moodCode ="EVN" classCode="OBS"> <templateId root=& quot;2.16.840.1.726060.10.20.22.4.2" /> <id nullFlavor=&quot ;NA" /> <code codeSystem="local" code="LYMP& quot; displayName="Lymphocytes %" /> < statusCode code="completed" /> <effectiveTime value=& quot;437445976350" /> <value unit="%" xsi: type="PQ" value="19" /> <referenceRange> <observationRange> <text /> </ observationRange> </referenceRange> </observation&gt ; </component> <component> <observation moodCode ="EVN" classCode="OBS"> <templateId root=& quot;2.16.840.1.884967.10..22.4.2" /> <id nullFlavor=&quot ;NA" /> <code codeSystem="local" code="MONO& quot; displayName="Monocytes %" /> <statusCode code="completed" /> <effectiveTime value=" 102675465902" /> <value unit="%" xsi:type= "PQ" value="13" /> <referenceRange> <observationRange> <text /> </ observationRange> </referenceRange> </observation&gt ; </component> <component> <observation moodCode ="EVN" classCode="OBS"> <templateId root=& quot;2.16.840.1.425544.10.20.22.4.2" /> <id nullFlavor=&quot ;NA" /> <code codeSystem="local" code="EOS& quot; displayName="Eosinophils %" /> < statusCode code="completed" /> <effectiveTime value=& quot;165238050396" /> <value unit="%" xsi: type="PQ" value="3" /> <referenceRange> <observationRange> <text /> </ observationRange> </referenceRange> </observation&gt ; </component> <component> <observation moodCode ="EVN" classCode="OBS"> <templateId root=& quot;2.16.840.1.022498.10.20.22.4.2" /> <id nullFlavor=&quot ;NA" /> <code codeSystem="local" code="BASO& quot; displayName="Basophils %" /> <statusCode code="completed" /> <effectiveTime value=" 151893697289" /> <value unit="%" xsi:type= "PQ" value="1" /> <referenceRange> <observationRange> <text /> </ observationRange> </referenceRange> </observation&gt ; </component> <component> <observation moodCode ="EVN" classCode="OBS"> <templateId root=& quot;2.16.840.1.513689.10..22.4.2" /> <id nullFlavor=&quot ;NA" /> <code codeSystem="local" code=" NEUTROAB" displayName="Neutrophils Absolute" /> < statusCode code="completed" /> <effectiveTime value=& quot;030633039025" /> <value unit="10*3/uL" xsi: type="PQ" value="5.64" /> <referenceRange> <observationRange> <text>1.70-7.10</text& gt; </observationRange> </referenceRange> </observation> </component> <component> &lt ;observation moodCode="EVN" classCode="OBS"> &lt ;templateId root="2.16.840.1.357279.10..22.4.2" /> < id nullFlavor="NA" /> <code codeSystem="local&quot ; code="MCH" displayName="MCH Mean Cell Hemoglobin" /> <statusCode code="completed" /> < effectiveTime value="198188884811" /> <value unit=" pg" xsi:type="PQ" value="25.9" />< interpretationCode codeSystem="local" code="L" /> <referenceRange> <observationRange> < text>26.7-33.1</text> </observationRange> </ referenceRange> </observation> </component> < component> <observation moodCode="EVN" classCode=" OBS"> <templateId root="2.16.840.1.323537.10.20.22.4.2& quot; /> <id nullFlavor="NA" /> <code codeSystem="local" code="MCHC" displayName="MCHC Mean Cell Hgb Conc" /> <statusCode code="completed" /& gt; <effectiveTime value="288675996856" /> &lt ;value unit="g/dL" xsi:type="PQ" value="29.2" /&gt ; <interpretationCode codeSystem="local" code="L&quot ; /> <referenceRange> <observationRange> <text>31.1-35.3</text> </observationRange&gt ; </referenceRange> </observation> </ component> <component> <observation moodCode="EVN& quot; classCode="OBS"> <templateId root=" 2.16.840.1.502667.10.20.22.4.2" /> <id nullFlavor="NA& quot; /> <code codeSystem="local" code="MCV" displayName="MCV Mean Cell Volume" /> <statusCode code= "completed" /><effectiveTime value="081815581499" /&gt ; <value unit="fL" xsi:type="PQ" value="89& quot; /> <referenceRange> <observationRange> <text>81-97</text> </observationRange&gt ;</referenceRange> </observation> </component> <component> <observation moodCode="EVN" classCode=& quot;OBS"> <templateId root=" 2.16.840.1.981240.10.20.22.4.2" /> <id nullFlavor="NA& quot; /> <code codeSystem="local" code="MPV" displayName="MPV Mean Platelet Volume" /> <statusCode code="completed" /> <effectiveTime value=" 556368660018" /> <value unit="fL" xsi:type=" PQ" value="8.7" /> <referenceRange> <observationRange> <text /> </ observationRange> </referenceRange> </observation> </component> <component> <observation moodCode=& quot;EVN" classCode="OBS"> <templateId root=" 2.16.840.1.194404.10.20.22.4.2" /> <id nullFlavor="NA& quot; /> <code codeSystem="local" code="PLT" displayName="Platelet Count" /> <statusCode code=" completed" /> <effectiveTime value="021356281363" /> <value unit="10*3/uL" xsi:type="PQ" value= "314" /> <referenceRange> < observationRange> <text>150-400</text> & lt;/observationRange> </referenceRange> </ observation> </component> <component> < observation moodCode="EVN" classCode="OBS"> < templateId root="2.16.840.1.355407.10.20.22.4.2" /> < id nullFlavor="NA" /> <code codeSystem="local&quot ; code="RBC" displayName="RBC Red Blood Count" /> <statusCode code="completed" /> <effectiveTime value="496650688250" /> <value unit="10*6/uL" xsi: type="PQ" value="3.20" /> < interpretationCode codeSystem="local" code="L" /> <referenceRange> <observationRange> < text>4.11-5.63</text> </observationRange> </ referenceRange> </observation> </component> < component> <observation moodCode="EVN" classCode=" OBS"> <templateId root="2.16.840.1.981566.10.20.22.4.2& quot; /> <id nullFlavor="NA" /> <code codeSystem="local" code="WBC" displayName="WBC White Blood Count" /> <statusCode code="completed" /&gt ; <effectiveTime value="901007648990" /> < value unit="10*3/uL" xsi:type="PQ" value="8.7" /& gt; <referenceRange> <observationRange> <text>3.7-11.1</text> </observationRange> </referenceRange> </observation> </component& gt; </organizer> </entry> <entry> <organizer moodCode="EVN" classCode="BATTERY"> <templateId root="2.16.840.1.093960.10.20.22.4.1" /> <id nullFlavor=& quot;NA" /> <code codeSystem="local" code="COMP& quot; displayName="COMPREHENSIVE METABOLIC PANEL" /> < statusCode code="completed" /> <component> < observation moodCode="EVN" classCode="OBS"> < templateId root="2.16.840.1.980670.10.20.22.4.2" /> < id nullFlavor="NA" /> <code codeSystem="local&quot ; code="BUNCREAT" displayName="BUN:Creatinine Ratio" /> <statusCode code="completed" /> < effectiveTime value="142847145555" /> <value unit="" xsi:type="PQ" value="21" /> <referenceRange& gt; <observationRange> <text>6-25</text& gt;</observationRange> </referenceRange> </ observation> </component> <component> < observation moodCode="EVN" classCode="OBS"> < templateId root="2.16.840.1.924292.10.20.22.4.2" /> < id nullFlavor="NA" /> <code codeSystem="local&quot ; code="GLOB" displayName="Globulin" /> < statusCode code="completed" /> <effectiveTime value=" 490588211455" /> <value unit="g/dL" xsi:type=&quot ;PQ" value="4.1" /> <referenceRange> <observationRange> <text>2.2-4.2</text> </observationRange> </referenceRange> </ observation> </component> <component> < observation moodCode="EVN" classCode="OBS"> < templateId root="2.16.840.1.146847.10.20.22.4.2" /> < id nullFlavor="NA" /> <code codeSystem="local&quot ; code="ANIONGAP" displayName="Anion Gap" /> &lt ;statusCode code="completed" /> <effectiveTime value=& quot;371952885106" /> <value unit="" xsi:type=& quot;PQ" value="13" /> <referenceRange> <observationRange> <text>6-18</text> </observationRange> </referenceRange> </ observation> </component> <component> < observation moodCode="EVN" classCode="OBS"> < templateId root="2.16.840.1.724597.10.20.22.4.2" /> < id nullFlavor="NA" /> <code codeSystem="local&quot ; code="ALKP" displayName="Alkaline Phosphatase" /> <statusCode code="completed" /> <effectiveTime value="990360247426" /> <value unit="U/L" xsi :type="PQ" value="86" /> <referenceRange> <observationRange> <text>20-125</text&gt ; </observationRange> </referenceRange> </ observation> </component> <component> < observation moodCode="EVN" classCode="OBS"> < templateId root="2.16.840.1.946654.10..22.4.2" /> < id nullFlavor="NA" /> <code codeSystem="local&quot ; code="ALT" displayName="ALT Alanine Aminotransferase" /&gt ; <statusCode code="completed" /> < effectiveTime value="439490536052" /> <value unit=&quot ;U/L" xsi:type="PQ" value="27" /> < referenceRange> <observationRange> <text> 12-78</text> </observationRange> </ referenceRange> </observation> </component> < component> <observation moodCode="EVN" classCode=" OBS"> <templateId root="2.16.840.1.771090.10..22.4.2& quot; /> <id nullFlavor="NA" /> <code codeSystem="local" code="AST" displayName="AST Aspartate Amino Transferase" /> <statusCode code="completed& quot; /> <effectiveTime value="120456491823" /> <value unit="U/L" xsi:type="PQ" value="19&quot ; /> <referenceRange> <observationRange> <text>7-37</text> </observationRange> </referenceRange> </observation> </component& gt; <component> <observation moodCode="EVN" classCode="OBS"> <templateId root=" 2.16.840.1.266608.10.20.22.4.2" /> <id nullFlavor="NA& quot; /> <code codeSystem="local" code="BUN" displayName="BUN Urea Nitrogen" /> <statusCode code=& quot;completed" /> <effectiveTime value="594035479019& quot; /> <value unit="mg/dL" xsi:type="PQ" value=& quot;38" /> <interpretationCode codeSystem="local&quot ; code="H" /> <referenceRange> < observationRange> <text>6-24</text> </ observationRange> </referenceRange> </observation&gt ; </component> <component> <observation moodCode ="EVN" classCode="OBS"> <templateId root=& quot;2.16.840.1.562583.10.20.22.4.2" /> <id nullFlavor=&quot ;NA" /> <code codeSystem="local" code="CO2& quot; displayName="CO2 Carbon Dioxide" /> <statusCode code="completed" /> <effectiveTime value=" 132950015327" /> <value unit="mmol/L" xsi:type=& quot;PQ" value="23" /> <referenceRange> <observationRange> <text>20-30</text> </observationRange> </referenceRange> </ observation> </component> <component> < observation moodCode="EVN" classCode="OBS"> < templateId root="2.16.840.1.017576.10.20.22.4.2" /> < id nullFlavor="NA" /> <code codeSystem="local&quot ; code="CREAT" displayName="Creatinine" /> < statusCode code="completed" /> <effectiveTime value=& quot;689285874432" /> <value unit="mg/dL" xsi:type ="PQ" value="1.83" /> <interpretationCode codeSystem="local" code="H" /> < referenceRange> <observationRange><text>0.53-1.26</ text> </observationRange> </referenceRange> </observation> </component> <component> <observation moodCode="EVN" classCode="OBS"> <templateId root="2.16.840.1.974979.10.20.22.4.2" /> <id nullFlavor="NA" /> <code codeSystem=" local" code="TP" displayName="Protein Total" /> <statusCode code="completed" /> < effectiveTime value="636487236099" /> <value unit=&quot ;g/dL" xsi:type="PQ" value="7.1" /> < referenceRange> <observationRange> <text> 6.4-8.2</text> </observationRange> </ referenceRange> </observation> </component> < component> <observation moodCode="EVN" classCode=" OBS"> <templateId root="2.16.840.1.263457.10.20.22.4.2& quot; /> <id nullFlavor="NA" /> <code codeSystem="local" code="BILIT" displayName="Bilirubin Total" /> <statusCode code="completed" /> <effectiveTime value="937233814223" /> <value unit=& quot;mg/dL" xsi:type="PQ" value="0.2" /> & lt;referenceRange> <observationRange> <text& gt;0.2-1.2</text> </observationRange> </ referenceRange> </observation> </component> < component> <observation moodCode="EVN" classCode=" OBS"> <templateId root="2.16.840.1.509021.10.20.22.4.2& quot; /> <id nullFlavor="NA" /> <code codeSystem="local" code="K" displayName="Potassium&quot ; /> <statusCode code="completed" /> < effectiveTime value="507877009481" /> <value unit=&quot ;mmol/L" xsi:type="PQ" value="4.7" /> < referenceRange> <observationRange> <text>3.5- 5.1</text> </observationRange> </ referenceRange> </observation> </component> < component> <observation moodCode="EVN" classCode=" OBS"> <templateId root="2.16.840.1.660085.10.20.22.4.2& quot; /> <id nullFlavor="NA" /> <code codeSystem="local" code="NA" displayName="Sodium" /> <statusCode code="completed" /> < effectiveTime value="012975868182" /> <value unit=&quot ;mmol/L" xsi:type="PQ" value="139" /> < referenceRange> <observationRange> <text> 136-145</text> </observationRange> </ referenceRange> </observation> </component> < component> <observation moodCode="EVN" classCode="OBS& quot;> <templateId root="2.16.840.1.996532.10.20.22.4.2&quot ; /> <id nullFlavor="NA" /> <code codeSystem="local" code="CL" displayName="Chloride&quot ; /> <statusCode code="completed" /> < effectiveTime value="119687332544" /> <value unit=&quot ;mmol/L" xsi:type="PQ" value="108" /> < referenceRange> <observationRange> <text> 96-111</text> </observationRange> </ referenceRange> </observation> </component> < component> <observation moodCode="EVN" classCode=" OBS"> <templateId root="2.16.840.1.772467.10.20.22.4.2& quot; /> <id nullFlavor="NA" /> <code codeSystem="local" code="GLU" displayName="Glucose&quot ; /> <statusCode code="completed" /> < effectiveTime value="315673259096" /> <value unit=" mg/dL" xsi:type="PQ" value="144" /> < interpretationCode codeSystem="local" code="H" /> <referenceRange> <observationRange> < text>70-99</text></observationRange> </referenceRange > </observation> </component> <component> <observation moodCode="EVN" classCode="OBS"> <templateId root="2.16.840.1.718380.10.20.22.4.2" /> <id nullFlavor="NA" /> <code codeSystem=& quot;local" code="CA" displayName="Calcium" /> <statusCode code="completed" /> <effectiveTime value= "851900528935" /> <value unit="mg/dL"xsi:type ="PQ" value="8.7" /> <referenceRange> <observationRange> <text>8.3-10.1</text> </observationRange> </referenceRange> & lt;/observation> </component> <component> < observation moodCode="EVN" classCode="OBS"> < templateId root="2.16.840.1.488555.10.20.22.4.2" /> < id nullFlavor="NA" /> <code codeSystem="local&quot ; code="GFR" displayName="GFRGlomerular Filtration Rate" /& gt; <statusCode code="completed" /> < effectiveTime value="262688711818" /> <value unit=&quot ;mL/min/1.73m*2" xsi:type="PQ" value="27.2" /> <interpretationCode codeSystem="local" code="L" /&gt ; <referenceRange> <observationRange> <text>>60.0</text> </observationRange> </referenceRange> </observation> </component > <component> <observation moodCode="EVN" classCode="OBS"> <templateId root=" 2.16.840.1.374629.10.20.22.4.2" /> <id nullFlavor="NA& quot; /> <code codeSystem="local" code="ALB" displayName="Albumin" /> <statusCode code=" completed" /> <effectiveTime value="183618621620" /> <value unit="g/dL" xsi:type="PQ" value=& quot;3.0" /> <interpretationCode codeSystem="local&quot ; code="L" /> <referenceRange> < observationRange> <text>3.2-4.6</text> & lt;/observationRange> </referenceRange> </observation> </component> <component> <observation moodCode=& quot;EVN" classCode="OBS"> <templateId root=" 2.16.840.1.598597.10.20.22.4.2" /> <id nullFlavor="NA& quot; /> <code codeSystem="local" code="AGRATIO& quot; displayName="Albumin:Globulin Ratio" /> <statusCode code ="completed" /> <effectiveTime value="417210016829 " /> <value unit="" xsi:type="PQ" value= "0.7" /> <interpretationCode codeSystem="local& quot; code="L" /> <referenceRange> < observationRange> <text>0.8-2.0</text> &lt ;/observationRange> </referenceRange> </observation& gt; </component> </organizer> </entry> <entry> <organizer moodCode="EVN" classCode="BATTERY"> & lt;templateId root="2.16.840.1.046120.10.20.22.4.1" /> <id nullFlavor="NA" /> <code codeSystem="local" code= "PTH" displayName="PTH, INTACT WHOLE MOLECULE" /> & lt;statusCode code="completed" /> <component> &lt ;observation moodCode="EVN" classCode="OBS"> &lt ;templateId root="2.16.840.1.365245.10.20.22.4.2" /> < id nullFlavor="NA" /> <code codeSystem="local&quot ; code="PTH" displayName="PTH Parathyroid Hormone" /> <statusCode code="completed" /> < effectiveTime value="933889962071" /> <value unit=&quot ;pg/mL" xsi:type="PQ" value="187.6" /> < interpretationCode codeSystem="local" code="H" /> <referenceRange> <observationRange> < text>9.0-78.0</text> </observationRange> </ referenceRange> </observation> </component> </ organizer> </entry> <entry> <organizer moodCode="EVN " classCode="BATTERY"> <templateId root=" 2.16.840.1.715681.10.20.22.4.1" /> <id nullFlavor="NA&quot ; /> <code codeSystem="local" code="EWX235" displayName="VITAMIN D 25 HYDROXY" /> <statusCode code=& quot;completed" /> <component> <observation moodCode="EVN" classCode="OBS"> <templateId root="2.16.840.1.762454.10.20.22.4.2" /> <id nullFlavor ="NA" /> <code codeSystem="local" code=" 25VDTOT" displayName="Vitamin D 25-Hydroxy Total" /> <statusCode code="completed" /> <effectiveTime value ="523256158329" /> <value unit="ng/mL" xsi: type="PQ" value="28" /> <interpretationCode codeSystem="local" code="L" /> < referenceRange> <observationRange> <text> >29</text> </observationRange> </ referenceRange> </observation> </component> </ organizer> </entry> <entry> <organizer moodCode="EVN " classCode="BATTERY"> <templateId root=" 2.16.840.1.279468.10.20.22.4.1" /> <id nullFlavor="NA&quot ; /> <code codeSystem="local" code="UC" displayName="CULTURE URINE" /> <statusCode code=" completed" /> <component> <observation moodCode=& quot;EVN" classCode="OBS"> <templateId root=" 2.16.840.1.207832.10.20.22.4.2" /> <id nullFlavor="NA&quot ; /> <code codeSystem="local" code="MB" displayName="Microbiology" /> <statusCode code=" completed" /> <effectiveTime value="573161379910" /> <value xsi:type="ST" value="<pre><b&gt ;CULTURE URINE</b> [facility] [id number] [facility], [place] [address]YMB [id number] [facility], [place] [address]Mylbe Culture Culture Reincubated< /pre>" /> <referenceRange> < observationRange> <text /> </observationRange> </referenceRange> </observation> </component> </organizer> </entry> <entry> <organizer moodCode= "EVN" classCode="BATTERY"> <templateId root=&quot ;2.16.840.1.099375.10.20.22.4.1" /> <id nullFlavor="NA&quot ; /> <code codeSystem="local" code="EKY0125I" displayName="CBC WITH DIFFERENTIAL REFLEX MANUAL DIFF" /> < statusCode code="completed" /> <component> < observation moodCode="EVN" classCode="OBS"> < templateId root="2.16.840.1.184826.10.20.22.4.2" /> < id nullFlavor="NA" /> <code codeSystem="local" code="HGB" displayName="Hemoglobin"/> < statusCode code="completed" /> <effectiveTime value=& quot;778576947248" /> <value unit="g/dL" xsi:type= "PQ" value="8.0" /> <interpretationCode codeSystem="local" code="L" /> < referenceRange> <observationRange> <text> 11.9-16.3</text> </observationRange> </ referenceRange> </observation> </component> < component> <observation moodCode="EVN" classCode=" OBS"> <templateId root="2.16.840.1.528091.10.20.22.4.2& quot; /> <id nullFlavor="NA" /> <code codeSystem="local" code="HCT" displayName="Hematocrit& quot; /> <statusCode code="completed" /> & lt;effectiveTime value="144898163002" /><value unit="&# 37;" xsi:type="PQ" value="27.4" /> < interpretationCode codeSystem="local" code="L" /> <referenceRange> <observationRange> < text>37.0-47.7</text></observationRange> </ referenceRange> </observation> </component> < component> <observation moodCode="EVN" classCode=" OBS"> <templateId root="2.16.840.1.307670.10.20.22.4.2& quot; /> <id nullFlavor="NA" /> <code codeSystem="local" code="RDW" displayName="RDW Red Cell Distr Width" /> <statusCode code="completed" /> <effectiveTime value="004767673779" /> & lt;value unit="%" xsi:type="PQ" value="17.4& quot; /> <interpretationCode codeSystem="local" code=& quot;H" /> <referenceRange> <observationRange> <text>12.3-15.9</text> </observationRange& gt; </referenceRange> </observation> </ component><component> <observation moodCode="EVN" classCode="OBS"> <templateId root=" 2.16.840.1.865563.10.20.22.4.2" /> <id nullFlavor="NA& quot; /> <code codeSystem="local" code="LYMPAB& quot; displayName="Lymphocytes Absolute" /> < statusCode code="completed" /> <effectiveTime value=" 095602697867" /> <value unit="10*3/uL" xsi:type=& quot;PQ" value="1.7" /> <referenceRange> <observationRange> <text>1.1-3.7</text> </observationRange> </referenceRange> </ observation> </component> <component> < observation moodCode="EVN" classCode="OBS"> < templateId root="2.16.840.1.241438.10.20.22.4.2" /> < id nullFlavor="NA" /> <code codeSystem="local&quot ; code="MONOAB" displayName="Monocytes Absolute" /> <statusCode code="completed" /> <effectiveTime value="964341676259" /> <value unit="10*3/uL&quot ; xsi:type="PQ" value="1.0" /> < interpretationCode codeSystem="local" code="H" /> <referenceRange> <observationRange> < text>0.3-0.9</text> </observationRange> </ referenceRange> </observation> </component> < component> <observation moodCode="EVN" classCode=" OBS"> <templateId root="2.16.840.1.210868.10..22.4.2& quot; /> <id nullFlavor="NA" /><code codeSystem=& quot;local" code="EOSAB" displayName="Eosinophils Absolute& quot; /> <statusCode code="completed" /> & lt;effectiveTime value="644669983422" /> <value unit=& quot;10*3/uL" xsi:type="PQ" value="0.2" /> <referenceRange> <observationRange> <text>0.0- 0.5</text> </observationRange> </ referenceRange> </observation> </component> < component> <observation moodCode="EVN" classCode=" OBS"> <templateId root="2.16.840.1.528647.10.20.22.4.2& quot; /> <id nullFlavor="NA" /> <code codeSystem="local" code="BASOAB" displayName=" Basophils Absolute" /> <statusCode code="completed&quot ; /> <effectiveTime value="740299935902" /> <value unit="10*3/uL" xsi:type="PQ" value="0.1& quot; /> <referenceRange> <observationRange> <text>0.0-0.1</text> </observationRange& gt; </referenceRange> </observation> </ component> <component> <observation moodCode="EVN& quot; classCode="OBS"> <templateId root=" 2.16.840.1.311224.10.20.22.4.2" /> <id nullFlavor="NA& quot; /> <code codeSystem="local" code="NEUTRO& quot; displayName="Neutrophils %" /> <statusCode code="completed" /> <effectiveTime value=" 372717636501" /> <value unit="%" xsi:type= "PQ" value="66" /> <referenceRange> <observationRange> <text /> </ observationRange> </referenceRange> </observation&gt ; </component> <component> <observation moodCode ="EVN"classCode="OBS"> <templateId root=&quot ;2.16.840.1.445246.10..22.4.2" /> <id nullFlavor="NA& quot; /> <code codeSystem="local" code="LYMP&quot ; displayName="Lymphocytes %" /> <statusCode code="completed" /> <effectiveTime value=" 188584112928" /> <value unit="%" xsi:type=" PQ" value="20" /> <referenceRange> & lt;observationRange> <text /> </ observationRange> </referenceRange> </observation&gt ; </component> <component> <observation moodCode ="EVN" classCode="OBS"> <templateId root=& quot;2.16.840.1.594244.10..22.4.2" /> <id nullFlavor=&quot ;NA" /> <code codeSystem="local" code="MONO& quot; displayName="Monocytes %" /> <statusCode code="completed" /> <effectiveTime value=" 376062872551" /> <value unit="%" xsi:type= "PQ" value="11" /> <referenceRange> <observationRange> <text /> </ observationRange> </referenceRange> </observation> </component> <component> <observation moodCode=& quot;EVN" classCode="OBS"> <templateId root=" 2.16.840.1.697883.10.20.22.4.2" /> <id nullFlavor="NA& quot; /> <code codeSystem="local" code="EOS" displayName="Eosinophils %" /> <statusCode code ="completed" /> <effectiveTime value="845141964901 " /> <value unit="%" xsi:type="PQ& quot; value="3" /> <referenceRange> < observationRange> <text /> </ observationRange> </referenceRange> </observation&gt ; </component> <component> <observationmoodCode= "EVN" classCode="OBS"> <templateId root=&quot ;2.16.840.1.164015.10.20.22.4.2" /> <id nullFlavor="NA& quot; /> <code codeSystem="local" code="BASO&quot ; displayName="Basophils %" /> <statusCode code=& quot;completed" /> <effectiveTime value="362498805772& quot; /> <value unit="%" xsi:type="PQ&quot ; value="1" /> <referenceRange> < observationRange> <text /> </ observationRange> </referenceRange> </observation&gt ; </component> <component> <observation moodCode ="EVN" classCode="OBS"> <templateId root=& quot;2.16.840.1.073346.10.20.22.4.2" /> <id nullFlavor=&quot ;NA" /> <code codeSystem="local" code=" NEUTROAB" displayName="Neutrophils Absolute" /> < statusCode code="completed" /> <effectiveTime value=& quot;873774096067" /> <value unit="10*3/uL" xsi:type=& quot;PQ" value="5.68" /><referenceRange> < observationRange> <text>1.70-7.10</text> </observationRange> </referenceRange> </ observation> </component> <component> < observation moodCode="EVN" classCode="OBS"> < templateId root="2.16.840.1.733512.10.20.22.4.2" /> < id nullFlavor="NA" /> <code codeSystem="local&quot ; code="MCH" displayName="MCH Mean Cell Hemoglobin" /> <statusCode code="completed" /> < effectiveTime value="431850184332" /> <value unit="pg&quot ; xsi:type="PQ" value="25.9" /> < interpretationCode codeSystem="local" code="L" /> <referenceRange> <observationRange> < text>26.7-33.1</text> </observationRange> &lt ;/referenceRange> </observation> </component> & lt;component> <observation moodCode="EVN" classCode=&quot ;OBS"> <templateId root="2.16.840.1.042448.10.20.22.4.2 " /> <id nullFlavor="NA" /> <code codeSystem="local" code="MCHC" displayName="MCHC Mean Cell Hgb Conc" /> <statusCode code="completed" /& gt; <effectiveTime value="702821050655" /> &lt ;value unit="g/dL" xsi:type="PQ" value="29.2" /&gt ; <interpretationCode codeSystem="local" code="L&quot ; /> <referenceRange> <observationRange> <text>31.1-35.3</text> </observationRange&gt ; </referenceRange> </observation> </ component> <component> <observation moodCode="EVN& quot; classCode="OBS"> <templateId root=" 2.16.840.1.919314.10.20.22.4.2" /> <id nullFlavor="NA& quot; /> <code codeSystem="local" code="MCV" displayName="MCV Mean Cell Volume" /> <statusCode code= "completed" /> <effectiveTime value="339428709401& quot; /> <value unit="fL" xsi:type="PQ" value ="89" /> <referenceRange> < observationRange> <text>81-97</text> < /observationRange> </referenceRange> </observation& gt; </component> <component> <observation moodCode="EVN" classCode="OBS"> <templateId root="2.16.840.1.510958.10..22.4.2" /> <id nullFlavor ="NA" /> <code codeSystem="local" code="MPV&quot ; displayName="MPV Mean Platelet Volume" /> < statusCode code="completed" /> <effectiveTime value=& quot;093287563511" /> <value unit="fL" xsi:type=& quot;PQ" value="8.0" /> <referenceRange> <observationRange> <text /> </ observationRange> </referenceRange> </observation&gt ; </component> <component> <observation moodCode ="EVN" classCode="OBS"> <templateId root=& quot;2.16.840.1.518307.10.20.22.4.2" /> <id nullFlavor=&quot ;NA" /> <code codeSystem="local" code="PLT& quot; displayName="Platelet Count" /> <statusCode code= "completed" /> <effectiveTime value="747792258538& quot; /> <value unit="10*3/uL" xsi:type="PQ" value="250" /> <referenceRange> < observationRange> <text>150-400</text> & lt;/observationRange> </referenceRange> </ observation> </component> <component> < observation moodCode="EVN" classCode="OBS"> < templateId root="2.16.840.1.981208.10.20.22.4.2" /> < id nullFlavor="NA" /> <code codeSystem="local&quot ; code="RBC" displayName="RBC Red Blood Count" /> <statusCode code="completed" /> <effectiveTime value="156570060015" /> <value unit="10*6/uL&quot ; xsi:type="PQ" value="3.09" /> < interpretationCode codeSystem="local" code="L" /> <referenceRange> <observationRange> < text>4.11-5.63</text> </observationRange> &lt ;/referenceRange> </observation> </component> & lt;component> <observation moodCode="EVN" classCode=&quot ;OBS"> <templateId root="2.16.840.1.105358.10..22.4.2 " /> <id nullFlavor="NA" /> <code codeSystem="local" code="WBC" displayName="WBC White Blood Count" /> <statusCode code="completed" /&gt ; <effectiveTime value="770381370422" /> < value unit="10*3/uL" xsi:type="PQ" value="8.6" /& gt; <referenceRange> <observationRange> & lt;text>3.7-11.1</text> </observationRange> & lt;/referenceRange> </observation> </component></ organizer> </entry> <entry> <organizer moodCode="EVN " classCode="BATTERY"> <templateId root=" 2.16.840.1.588459.10.20.22.4.1" /> <id nullFlavor="NA" /& gt; <code codeSystem="local" code="[id number]" displayName="CBC WITH DIFFERENTIAL REFLEX MANUAL DIFF" /> < statusCodecode="completed" /> <component> < observation moodCode="EVN" classCode="OBS"> < templateId root="2..840.1.192247.10.20.22.4.2" /> < id nullFlavor="NA" /> <code codeSystem="local&quot ; code="HGB" displayName="Hemoglobin" /> < statusCode code="completed" /> <effectiveTime value=& quot;671101549928" /> <value unit="g/dL" xsi:type= "PQ" value="7.9" /> <interpretationCode codeSystem="local" code="L" /> < referenceRange> <observationRange> <text>11.9- 16.3</text> </observationRange> </ referenceRange> </observation> </component> < component> <observation moodCode="EVN" classCode=" OBS"> <templateId root="2.16.840.1.277938.10.20.22.4.2& quot; /> <id nullFlavor="NA" /> <code codeSystem="local" code="HCT" displayName="Hematocrit& quot; /> <statusCode code="completed" /> & lt;effectiveTime value="338466845393" /> <value unit=& quot;%" xsi:type="PQ" value="27.1" /> <interpretationCode codeSystem="local" code="L" /&gt ; <referenceRange> <observationRange> <text>37.0-47.7</text> </observationRange> </referenceRange> </observation> </component&gt ; <component> <observation moodCode="EVN" classCode="OBS"> <templateId root=" 2.16.840.1.799036.10.20.22.4.2" /> <id nullFlavor="NA& quot; /> <code codeSystem="local" code="RDW" displayName="RDW Red Cell Distr Width" /> <statusCode code="completed" /> <effectiveTime value=" 716535868581" /> <value unit="%" xsi:type= "PQ" value="19.9" /> <interpretationCode codeSystem="local" code="H" /> < referenceRange> <observationRange> <text> 12.3-15.9</text> </observationRange> </ referenceRange> </observation> </component> < component> <observationmoodCode="EVN" classCode="OBS "> <templateId root="2.16.840.1.767183.10.20.22.4.2& quot; /> <id nullFlavor="NA" /> <code codeSystem="local" code="LYMPAB" displayName=" Lymphocytes Absolute" /> <statusCode code="completed& quot; /> <effectiveTime value="358402276146" /> <value unit="10*3/uL" xsi:type="PQ" value="1.4 " /> <referenceRange> <observationRange&gt ; <text>1.1-3.7</text> </observationRange > </referenceRange> </observation> </ component> <component> <observation moodCode="EVN& quot; classCode="OBS"> <templateId root=" 2.16.840.1.976821.10.20.22.4.2" /> <id nullFlavor="NA& quot; /> <code codeSystem="local" code="MONOAB& quot; displayName="Monocytes Absolute" /> <statusCode code=&quot ;completed" /> <effectiveTime value="137376897575&quot ; /> <value unit="10*3/uL" xsi:type="PQ" value="0.9" /> <referenceRange> < observationRange> <text>0.3-0.9</text> & lt;/observationRange> </referenceRange> </ observation> </component> <component> < observation moodCode="EVN" classCode="OBS"> < templateId root="2.16.840.1.864890.10.20.22.4.2" /> < id nullFlavor="NA" /> <code codeSystem="local&quot ; code="EOSAB" displayName="Eosinophils Absolute" /> <statusCode code="completed" /> < effectiveTime value="962421093772" /> <value unit=&quot ;10*3/uL" xsi:type="PQ" value="0.2" /> < referenceRange> <observationRange> <text> 0.0-0.5</text> </observationRange> </ referenceRange> </observation> </component> < component> <observation moodCode="EVN" classCode=" OBS"> <templateId root="2.16.840.1.055303.10.20.22.4.2& quot; /> <id nullFlavor="NA" /> <code codeSystem="local" code="BASOAB" displayName=" Basophils Absolute" /> <statusCode code="completed&quot ; /> <effectiveTime value="481045817372" /> &lt ;value unit="10*3/uL" xsi:type="PQ" value="0.1" /& gt; <referenceRange> <observationRange> < text>0.0-0.1</text> </observationRange> </ referenceRange> </observation> </component> < component> <observation moodCode="EVN" classCode=" OBS"> <templateId root="2.16.840.1.910346.10.20.22.4.2& quot; /> <id nullFlavor="NA" /> <code codeSystem="local" code="NEUTRO" displayName=" Neutrophils %" /> <statusCode code="completed& quot; /> <effectiveTime value="621722202051" /> < value unit="%" xsi:type="PQ" value="74" /& gt; <referenceRange> <observationRange> <text /> </observationRange> </ referenceRange> </observation> </component> < component> <observation moodCode="EVN" classCode=" OBS"> <templateId root="2.16.840.1.181565.10.20.22.4.2& quot; /> <id nullFlavor="NA" /> <code codeSystem="local" code="LYMP" displayName=" Lymphocytes %" /> <statusCode code="completed& quot; /> <effectiveTime value="203467534095" /> <value unit="%" xsi:type="PQ" value=" 14" /> <referenceRange> <observationRange> <text /> </observationRange> </ referenceRange> </observation> </component> < component> <observation moodCode="EVN" classCode=" OBS"> <templateId root="2.16.840.1.805529.10.20.22.4.2& quot; /> <id nullFlavor="NA" /> <code codeSystem="local" code="MONO" displayName="Monocytes & amp;#37;" /> <statusCode code="completed" /> <effectiveTime value="430613889655" /> < value unit="%" xsi:type="PQ" value="9" /& gt; <referenceRange> <observationRange> <text /> </observationRange> </ referenceRange> </observation> </component> < component> <observation moodCode="EVN" classCode=" OBS"> <templateId root="2.16.840.1.371376.10.20.22.4.2& quot; /> <id nullFlavor="NA" /> <code codeSystem="local" code="EOS" displayName="Eosinophils %" /> <statusCode code="completed" /> <effectiveTime value="087800858454" /> <value unit="%" xsi:type="PQ" value="2" /> <referenceRange> <observationRange> & lt;text /> </observationRange> </referenceRange& gt; </observation> </component> <component> <observation moodCode="EVN" classCode="OBS"> <templateId root="16.840.1.839833.10.20.22.4.2" /> <id nullFlavor="NA" /> <code codeSystem=&quot ;local" code="BASO" displayName="Basophils %" / > <statusCode code="completed" /> < effectiveTime value="687756351029" /> <value unit=&quot ;%" xsi:type="PQ" value="1" /> < referenceRange> <observationRange> <text /& gt; </observationRange> </referenceRange> </observation> </component> <component> &lt ;observation moodCode="EVN" classCode="OBS"> &lt ;templateId root="2.16.840.1.882237.10.20.22.4.2" /> < id nullFlavor="NA" /> <code codeSystem="local&quot ; code="NEUTROAB" displayName="Neutrophils Absolute" /> <statusCode code="completed" /> < effectiveTime value="728337993266" /> <value unit=&quot ;10*3/uL" xsi:type="PQ" value="6.97" /> &lt ;referenceRange> <observationRange> <text>1.70 -7.10</text> </observationRange> </ referenceRange> </observation> </component> < component> <observation moodCode="EVN" classCode=" OBS"> <templateId root="2.16.840.1.433922.10.20.22.4.2& quot; /> <id nullFlavor="NA" /> <code codeSystem="local" code="MCH" displayName="MCH Mean Cell Hemoglobin" /> <statusCode code="completed" / > <effectiveTime value="031127549583" /> & lt;value unit="pg" xsi:type="PQ" value="26.8" /&gt ; <referenceRange><observationRange> <text& gt;26.7-33.1</text> </observationRange> </ referenceRange> </observation> </component> < component> <observation moodCode="EVN" classCode=" OBS"> <templateId root="2.16.840.1.701142.10.20.22.4.2" /& gt; <id nullFlavor="NA" /> <code codeSystem ="local" code="MCHC" displayName="MCHC Mean Cell Hgb Conc" /> <statusCode code="completed" /> & lt;effectiveTime value="286401181702" /> <value unit=& quot;g/dL"xsi:type="PQ" value="29.2" /> &lt ;interpretationCode codeSystem="local" code="L" /> <referenceRange> <observationRange> < text>31.1-35.3</text> </observationRange> &lt ;/referenceRange> </observation> </component> & lt;component> <observation moodCode="EVN" classCode="OBS& quot;> <templateId root="2.16.840.1.946492.10.20.22.4.2&quot ; /> <id nullFlavor="NA" /> <code codeSystem="local" code="MCV" displayName="MCV Mean Cell Volume" /> <statusCode code="completed" /&gt ; <effectiveTime value="592892509568" /> < value unit="fL" xsi:type="PQ" value="92" /> <referenceRange> <observationRange> <text& gt;81-97</text> </observationRange> </ referenceRange> </observation> </component> < component> <observation moodCode="EVN" classCode=" OBS"> <templateId root="2.16.840.1.165423.10.20.22.4.2& quot; /> <id nullFlavor="NA" /> <code codeSystem="local" code="MPV" displayName="MPV Mean Platelet Volume" /> <statusCode code="completed" / > <effectiveTime value="381129625351" /> & lt;value unit="fL" xsi:type="PQ" value="9.1" /&gt ; <referenceRange> <observationRange> <text /> </observationRange> </ referenceRange> </observation> </component> < component> <observation moodCode="EVN" classCode=" OBS"> <templateId root="2.16.840.1.065548.10..22.4.2& quot;/> <id nullFlavor="NA" /> <code codeSystem="local"code="PLT" displayName="Platelet Count" /> <statusCode code="completed" /> <effectiveTime value="119041189343" /> <value unit="10*3/uL" xsi:type="PQ" value="269" /> <referenceRange> <observationRange> & lt;text>150-400</text> </observationRange> </ referenceRange> </observation> </component> < component> <observation moodCode="EVN" classCode=" OBS"> <templateId root="2.16.840.1.111766.10.20.22.4.2& quot; /><id nullFlavor="NA" /> <code codeSystem=& quot;local" code="RBC" displayName="RBC Red Blood Count&quot ; /> <statusCode code="completed" /> < effectiveTime value="705570701996" /> <value unit=&quot ;10*6/uL" xsi:type="PQ" value="2.95" /> &lt ;interpretationCode codeSystem="local" code="L" /> <referenceRange> <observationRange> < text>4.11-5.63</text> </observationRange> &lt ;/referenceRange> </observation> </component> & lt;component> <observation moodCode="EVN" classCode=&quot ;OBS"> <templateId root="2.16.840.1.720219.10.20.22.4.2" /& gt; <id nullFlavor="NA" /> <code codeSystem ="local" code="WBC" displayName="WBC White Blood Count& quot; /> <statusCode code="completed" /> < effectiveTime value="065382113768" /> <value unit=&quot ;10*3/uL" xsi:type="PQ" value="9.5" /> < referenceRange> <observationRange> <text> 3.7-11.1</text> </observationRange> </ referenceRange> </observation> </component> </ organizer> </entry> <entry> <organizer moodCode="EVN " classCode="BATTERY"> <templateId root=" 2.16.840.1.186183.10.20.22.4.1" /> <id nullFlavor="NA&quot ; /> <code codeSystem="local" code="RENAL" displayName="RENAL FUNCTION PANEL" /> <statusCode code=& quot;completed" /> <component> <observation moodCode=& quot;EVN" classCode="OBS"> <templateId root=" 2.16.840.1.398484.10.20.22.4.2" /> <id nullFlavor="NA& quot; /> <code codeSystem="local" code="BUNCREAT& quot; displayName="BUN:Creatinine Ratio" /> < statusCode code="completed" /> <effectiveTime value=& quot;053704001282" /> <value unit="" xsi:type=& quot;PQ" value="33" /> <interpretationCode codeSystem="local" code="H" /> < referenceRange> <observationRange> <text> 6-25</text> </observationRange> </ referenceRange> </observation> </component> < component> <observation moodCode="EVN" classCode=" OBS"> <templateId root="2.16.840.1.167091.10.20.22.4.2& quot; /> <id nullFlavor="NA" /> <code codeSystem ="local" code="ANIONGAP" displayName="Anion Gap" / > <statusCode code="completed" /> < effectiveTime value="839046317756" /> <value unit=&quot ;" xsi:type="PQ" value="14" /> < referenceRange> <observationRange> <text> 6-18</text> </observationRange> </ referenceRange> </observation> </component> < component> <observation moodCode="EVN" classCode=" OBS"> <templateId root="2.16.840.1.549070.10.20.22.4.2& quot; /> <id nullFlavor="NA" /> <code codeSystem="local" code="BUN" displayName="BUN Urea Nitrogen" /> <statusCode code="completed" /> <effectiveTime value="657104485443" /> < value unit="mg/dL" xsi:type="PQ" value="80" /> <interpretationCode codeSystem="local" code="H" /> <referenceRange> <observationRange> <text>6-24</text></observationRange> </ referenceRange> </observation> </component> < component> <observation moodCode="EVN" classCode=" OBS"> <templateId root="2.16.840.1.688794.10.20.22.4.2& quot; /> <id nullFlavor="NA" /> <code codeSystem="local" code="CO2" displayName="CO2 Carbon Dioxide" /> <statusCode code="completed" /> <effectiveTime value="444073298755" /> < value unit="mmol/L" xsi:type="PQ" value="22" /&gt ; <referenceRange> <observationRange> &lt ;text>20-30</text> </observationRange> </ referenceRange> </observation> </component>< component> <observation moodCode="EVN" classCode=" OBS"> <templateId root="2.16.840.1.286946.10.20.22.4.2" /> <id nullFlavor="NA" /> <code codeSystem="local" code="CREAT" displayName="Creatinine " /> <statusCode code="completed" /> & lt;effectiveTime value="720171262773" /> <value unit=& quot;mg/dL" xsi:type="PQ" value="2.42" /> & lt;interpretationCode codeSystem="local" code="H" /> <referenceRange> <observationRange> < text>0.53-1.26</text> </observationRange> &lt ;/referenceRange> </observation> </component> & lt;component> <observation moodCode="EVN" classCode=&quot ;OBS"> <templateId root="2.16.840.1.207514.10.20.22.4.2 " /> <id nullFlavor="NA" /> <code codeSystem="local" code="K" displayName="Potassium&quot ; /> <statusCode code="completed" /> < effectiveTime value="572516771754" /> <value unit=&quot ;mmol/L" xsi:type="PQ" value="5.8" /> < interpretationCode codeSystem="local" code="H" /> < referenceRange> <observationRange> <text> 3.5-5.1</text> </observationRange> </ referenceRange> </observation> </component> < component> <observation moodCode="EVN" classCode=" OBS"> <templateId root="2.16.840.1.806087.10.20.22.4.2& quot; /> <id nullFlavor="NA" /> <code codeSystem="local" code="NA" displayName="Sodium" /> <statusCode code="completed" /> < effectiveTime value="333545827465" /> <value unit=&quot ;mmol/L" xsi:type="PQ" value="137" /> < referenceRange> <observationRange> <text> 136-145</text> </observationRange> </ referenceRange> </observation> </component> < component> <observation moodCode="EVN" classCode=" OBS"> <templateId root="2.16.840.1.758629.10.20.22.4.2& quot; /> <id nullFlavor="NA" /> <code codeSystem="local" code="CL" displayName="Chloride&quot ; /> <statusCode code="completed" /> < effectiveTime value="180010483558" /> <value unit=&quot ;mmol/L" xsi:type="PQ" value="107" /> < referenceRange> <observationRange> <text> 96-111</text> </observationRange> </referenceRange& gt; </observation> </component> <component> <observation moodCode="EVN" classCode="OBS"> <templateId root="2.16.840.1.890360.10.20.22.4.2" /> <id nullFlavor="NA" /> <code codeSystem=&quot ;local" code="PHOS" displayName="Phosphorous" /> <statusCode code="completed" /> < effectiveTime value="036734650173" /> <value unit=&quot ;mg/dL" xsi:type="PQ" value="5.3" /> < interpretationCode codeSystem="local" code="H" /> <referenceRange> <observationRange> < text>2.5-4.9</text> </observationRange> </ referenceRange></observation> </component> < component> <observation moodCode="EVN" classCode=" OBS"> <templateId root="2.16.840.1.679201.10.20.22.4.2& quot; /> <id nullFlavor="NA" /> <code codeSystem="local" code="GLU" displayName="Glucose&quot ; /> <statusCode code="completed" /> < effectiveTime value="236421946131" /> <value unit="mg/dL& quot; xsi:type="PQ" value="179" /> < interpretationCode codeSystem="local" code="H" /> <referenceRange> <observationRange> < text>70-99</text> </observationRange> </ referenceRange> </observation> </component> < component> <observation moodCode="EVN" classCode=" OBS"> <templateId root="2.16.840.1.257885.10.20.22.4.2& quot; /> <id nullFlavor="NA" /> <code codeSystem="local" code="CA" displayName="Calcium&quot ; /> <statusCode code="completed" /> < effectiveTime value="825464734551" /> <value unit=&quot ;mg/dL" xsi:type="PQ" value="8.8" /> < referenceRange> <observationRange> <text> 8.3-10.1</text> </observationRange> </ referenceRange> </observation> </component> < component> <observation moodCode="EVN" classCode=" OBS"> <templateId root="2.16.840.1.311165.10.20.22.4.2& quot; /> <id nullFlavor="NA" /> <code codeSystem="local" code="GFR" displayName="GFR Glomerular Filtration Rate" /> <statusCode code=" completed" /> <effectiveTime value="401969605434" /> <value unit="mL/min/1.73m*2" xsi:type="PQ&quot ; value="19.4" /> <interpretationCode codeSystem=" local" code="L" /> <referenceRange> <observationRange> <text>>60.0</text> </observationRange> </referenceRange> </ observation> </component> <component> < observation moodCode="EVN" classCode="OBS"> < templateId root="2.16.840.1.817557.10.20.22.4.2" /> < id nullFlavor="NA" /> <code codeSystem="local&quot ; code="ALB" displayName="Albumin" /> < statusCode code="completed" /> <effectiveTime value=& quot;568641330535" /> <value unit="g/dL" xsi:type= "PQ" value="3.5" /> <referenceRange> <observationRange> <text>3.2-4.6</text> < /observationRange> </referenceRange> </observation& gt; </component> </organizer> </entry> <entry&gt ; <organizer moodCode="EVN" classCode="BATTERY"> <templateId root="2.16.840.1.441482.10.20.22.4.1" /> & lt;id nullFlavor="NA" /> <code codeSystem="local" code="IRON" displayName="IRON" /> <statusCode code=& quot;completed" /> <component> <observation moodCode="EVN" classCode="OBS"> <templateId root="2.16.840.1.693347.10.20.22.4.2" /> <id nullFlavor ="NA" /> <code codeSystem="local" code=" IRON" displayName="Iron Level" /> <statusCode code ="completed" /> <effectiveTime value="022220152030 " /> <value unit="ug/dL" xsi:type="PQ" value="31" /> <referenceRange> < observationRange> <text>21-156</text> &lt ;/observationRange> </referenceRange> </observation& gt; </component> </organizer> </entry> <entry&gt ; <organizer moodCode="EVN" classCode="BATTERY"> <templateId root="2.16.840.1.235423.10.20.22.4.1" /> & lt;id nullFlavor="NA" /> <code codeSystem="local&quot ; code="[id number]" displayName="CBC WITH DIFFERENTIAL REFLEX MANUAL DIFF" /> <statusCode code="completed" /> <component> <observation moodCode="EVN" classCode=& quot;OBS"> <templateId root=" 2.16.840.1.608068.10.20.22.4.2" /> <id nullFlavor="NA& quot; /> <code codeSystem="local" code="HGB" displayName="Hemoglobin" /> <statusCode code=" completed" /> <effectiveTime value="937468559411" /> <value unit="g/dL" xsi:type="PQ" value=& quot;8.0" /> <interpretationCode codeSystem="local&quot ; code="L" /> <referenceRange> < observationRange> <text>11.9-16.3</text> </observationRange> </referenceRange> </ observation> </component> <component> < observation moodCode="EVN"classCode="OBS"> < templateId root="2.16.840.1.763094.10.20.22.4.2" /> < id nullFlavor="NA" /> <code codeSystem="local&quot ; code="HCT" displayName="Hematocrit" /> < statusCode code="completed" /> <effectiveTime value=& quot;754930262624" /> <value unit="%" xsi: type="PQ" value="28.0" /> < interpretationCode codeSystem="local" code="L" /> <referenceRange> <observationRange> <text& gt;37.0-47.7</text> </observationRange> </ referenceRange> </observation> </component> < component> <observation moodCode="EVN" classCode=" OBS"> <templateId root="2.16.840.1.454199.10.20.22.4.2& quot; /> <id nullFlavor="NA" /> <code codeSystem="local" code="RDW" displayName="RDW Red Cell Distr Width" /> <statusCode code="completed" /> <effectiveTime value="261053896572" /> & lt;value unit="%" xsi:type="PQ" value="22.0& quot; /> <interpretationCode codeSystem="local" code=& quot;H" /> <referenceRange> < observationRange> <text>12.3-15.9</text> </observationRange> </referenceRange> </ observation> </component> <component> < observation moodCode="EVN" classCode="OBS"> < templateId root="2.16.840.1.781050.10.20.22.4.2" /> < id nullFlavor="NA" /> <code codeSystem="local&quot ; code="LYMPAB" displayName="Lymphocytes Absolute" /> <statusCode code="completed" /> < effectiveTime value="774830734958" /> <value unit=&quot ;10*3/uL" xsi:type="PQ" value="1.7" /> < referenceRange> <observationRange> <text> 1.1-3.7</text> </observationRange> </ referenceRange> </observation> </component> < component> <observation moodCode="EVN" classCode=" OBS"> <templateId root="2.16.840.1.016840.10.20.22.4.2& quot; /> <id nullFlavor="NA" /> <code codeSystem="local" code="MONOAB" displayName=" Monocytes Absolute" /> <statusCode code="completed&quot ; /> <effectiveTime value="835330807513" /> <value unit="10*3/uL" xsi:type="PQ" value="1.0& quot; /> <interpretationCode codeSystem="local" code=& quot;H" /> <referenceRange> < observationRange> <text>0.3-0.9</text> </ observationRange> </referenceRange> </observation&gt ; </component> <component> <observation moodCode ="EVN" classCode="OBS"> <templateId root=& quot;2.16.840.1.471221.10.20.22.4.2" /> <id nullFlavor=&quot ;NA" /> <codecodeSystem="local" code="EOSAB& quot; displayName="Eosinophils Absolute" /> < statusCode code="completed" /> <effectiveTime value=& quot;581887648564" /> <value unit="10*3/uL" xsi: type="PQ" value="0.3" /> <referenceRange> <observationRange> <text>0.0-0.5</text& gt; </observationRange> </referenceRange> & lt;/observation> </component> <component> < observation moodCode="EVN" classCode="OBS"> < templateId root="2.16.840.1.209443.10.20.22.4.2" /> < id nullFlavor="NA" /> <code codeSystem="local&quot ; code="BASOAB" displayName="Basophils Absolute" /> &lt ;statusCode code="completed" /> <effectiveTime value=& quot;768812523457" /> <value unit="10*3/uL" xsi: type="PQ" value="0.1" /> <referenceRange> <observationRange> <text>0.0-0.1</text& gt; </observationRange> </referenceRange> </observation> </component> <component> &lt ;observation moodCode="EVN" classCode="OBS"> &lt ;templateId root="2.16.840.1.835086.10.20.22.4.2" /> < id nullFlavor="NA" /> <code codeSystem="local&quot ; code="NEUTRO" displayName="Neutrophils %" /> <statusCode code="completed" /> < effectiveTime value="020942833053" /> <value unit=&quot ;%" xsi:type="PQ" value="70" /> &lt ;referenceRange> <observationRange> <text /& gt; </observationRange> </referenceRange> </observation> </component> <component> < observation moodCode="EVN" classCode="OBS"> < templateId root="2.16.840.1.807627.10.20.22.4.2" /> <id nullFlavor="NA" /> <code codeSystem="local" code="LYMP" displayName="Lymphocytes %" /> <statusCode code="completed" /> <effectiveTime value="979112613256" /> <value unit="%& quot; xsi:type="PQ" value="17" /> < referenceRange> <observationRange> <text /& gt; </observationRange> </referenceRange> </observation> </component> <component> < observation moodCode="EVN" classCode="OBS"> < templateId root="2.16.840.1.283148.10.20.22.4.2" /> < id nullFlavor="NA" /> <code codeSystem="local&quot ; code="MONO" displayName="Monocytes %" /> <statusCode code="completed" /> <effectiveTime value= "718060308448" /> <value unit="%" xsi :type="PQ" value="10" /> <referenceRange> <observationRange> <text /> < /observationRange> </referenceRange> </observation& gt; </component> <component> <observation moodCode=& quot;EVN" classCode="OBS"> <templateId root=" 2.16.840.1.099681.10.20.22.4.2" /> <id nullFlavor="NA& quot; /> <code codeSystem="local" code="EOS" displayName="Eosinophils %" /> <statusCode code ="completed" /> <effectiveTime value="219843537860 " /> <value unit="%" xsi:type="PQ& quot; value="3" /> <referenceRange> < observationRange> <text /> </observationRange&gt ; </referenceRange> </observation> </component> <component> <observation moodCode="EVN" classCode="OBS"> <templateId root=" 2.16.840.1.451775.10.20.22.4.2" /> <id nullFlavor="NA& quot; /> <code codeSystem="local" code="BASO&quot ; displayName="Basophils %" /> <statusCode code ="completed" /> <effectiveTime value="288461268302 " /> <value unit="%" xsi:type="PQ& quot; value="1" /> <referenceRange> < observationRange> <text /> </observationRange& gt; </referenceRange> </observation></component& gt; <component> <observation moodCode="EVN" classCode="OBS"> <templateId root=" 2.16.840.1.822022.10.20.22.4.2" /> <id nullFlavor="NA" /> <code codeSystem="local" code="NEUTROAB" displayName="Neutrophils Absolute" /> <statusCode code= "completed" /> <effectiveTime value="065511857748& quot; /> <value unit="10*3/uL" xsi:type="PQ" value="6.93" /> <referenceRange> < observationRange> <text>1.70-7.10</text> < /observationRange> </referenceRange> </observation& gt; </component> <component> <observation moodCode="EVN" classCode="OBS"> <templateId root="2.16.840.1.067995.10.20.22.4.2" /> <id nullFlavor=&quot ;NA" /> <code codeSystem="local" code="MCH& quot; displayName="MCH Mean Cell Hemoglobin" /> < statusCode code="completed" /> <effectiveTime value=& quot;350748883812" /> <value unit="pg" xsi:type=& quot;PQ" value="27.1" /> <referenceRange> <observationRange> <text>26.7-33.1</text> </observationRange> </referenceRange> </ observation> </component> <component> < observation moodCode="EVN" classCode="OBS"> < templateId root="2.16.840.1.396135.10.20.22.4.2" /> < id nullFlavor="NA" /> <code codeSystem="local&quot ; code="MCHC" displayName="MCHC Mean Cell Hgb Conc" /> <statusCode code="completed" /> < effectiveTime value="110297804262" /> <value unit=&quot ;g/dL" xsi:type="PQ" value="28.6" /> < interpretationCode codeSystem="local" code="L" /> <referenceRange> <observationRange> < text>31.1-35.3</text> </observationRange> &lt ;/referenceRange> </observation> </component> & lt;component> <observation moodCode="EVN" classCode=&quot ;OBS"><templateId root="2.16.840.1.226171.10.20.22.4.2" /& gt; <id nullFlavor="NA" /> <code codeSystem ="local" code="MCV" displayName="MCV Mean Cell Volume& quot; /> <statusCode code="completed" /> & lt;effectiveTime value="657327462471" /> <value unit=& quot;fL" xsi:type="PQ" value="95" /> < referenceRange> <observationRange> <text> 81-97</text> </observationRange> </ referenceRange> </observation> </component> < component> <observation moodCode="EVN" classCode="OBS& quot;> <templateId root="2.16.840.1.279025.10.20.22.4.2&quot ; /> <id nullFlavor="NA" /> <code codeSystem="local" code="MPV" displayName="MPV Mean Platelet Volume" /> <statusCode code="completed" / > <effectiveTime value="249499846208" /> & lt;value unit="fL" xsi:type="PQ" value="8.6" /&gt ; <referenceRange> <observationRange> <text /> </observationRange> </referenceRange > </observation> </component> <component> <observation moodCode="EVN" classCode="OBS"> <templateId root="[id number]" /> <id nullFlavor="NA" /> <code codeSystem=" local" code="PLT" displayName="Platelet Count" /> <statusCode code="completed" /> < effectiveTime value="[id number]" /> <value unit=&quot ;10*3/uL" xsi:type="PQ" value="256" /> < referenceRange> <observationRange> <text> 150-400</text> </observationRange> </ referenceRange> </observation> </component> < component> <observation moodCode="EVN" classCode=" OBS"> <templateId root="[id number]& quot; /> <id nullFlavor="NA" /> <code codeSystem="local" code="RBC" displayName="RBC Red Blood Count" /> <statusCode code="completed" /&gt ; <effectiveTime value="[id number]" /> <value unit="10*6/uL" xsi:type="PQ" value="2.95" /> <interpretationCode codeSystem="local" code="L" / > <referenceRange> <observationRange> <text>4.11-5.63</text></observationRange> < /referenceRange> </observation> </component> &lt ;component> <observation moodCode="EVN" classCode=" OBS"> <templateId root="[id number]& quot; /> <id nullFlavor="NA" /> <code codeSystem="local" code="WBC" displayName="WBC White Blood Count" /> <statusCode code="completed" /&gt ; <effectiveTime value="[id number]" /> < value unit="10*3/uL" xsi:type="PQ" value="10.0" /& gt; <referenceRange> <observationRange> <text>3.7-11.1</text> </observationRange> </referenceRange> </observation> </component& gt; </organizer> </entry></section> Encounters ACCT No. Visit Discharge Status Pt. Type Provider Facility Loc./Unit Complaint Date/Time [id number] 10/29/2015 10/29/2015 [id number] 08/27/2015 [facility] OFFICE [id number] 14:04:00 23:59:59 sammy [facility] [id number] 08/20/2015 08/20/2015 [facility] OFFICE [id number] 14:44:00 23[facility]59:[id number] 08/05/2015 08/05/2015 [facility] VISIT 6419 15:46:00 23[facility]59:[id number] 07[facility]02[facility]2015 [facility] 10:42:00 23:59:59 [facility] [id number] 04/23/2015 04/23/[facility] 15:08:00 23:59:59 nt [facility] [id number] 02/26/2015 02/26/2015 [facility] 10:41:00 23:59:59 MD [facility] [id number] 04/03/2015 Document 6922 06:41:00 Registra tion [id number] 04/11/2016 Document 1309 13:09:00 Registra tion [id number] 04/13/2016 Document 0701 15:23:01 Registra tion [id number] 10/11/2017 10/11/2017 DIS Outpatie Javi Ollie BWHINF 1 08:30:00 00:00:00 [facility] [id number] 10/11/2017 10/11/2017 DIS Outpatie Javi Ollie [facility]LAB 8 08:15:00 00:00:00 [facility] [id number] 10/04/2017 10/04/2017 DIS Outpatie Javi Ollie [facility]INF 6 08:45:00 00:00:00 [facility] [id number] 10/04/2017 10/04/2017 DIS Outpatie Javi Ollie [facility] 6 08:30:00 00:00:00 [facility] [id number] 09/27/2017 09/27/2017 DIS Outpatie Javi Ollie [facility]INF 6 09:15:00 00:00:00 [facility] [id number] 09/27/2017 09/27/2017 DIS Outpatie Javi Ollie [facility] 3 08:45:00 00:00:00 [facility] [id number] 09/20/2017 09/20/2017 DIS Outpatie Javi Ollie [facility]INF 9 09:15:00 00:00:00 [facility] [id number] 09/20/2017 09/20/2017 DIS Outpatie Javi Ollie [facility] 3 08:45:00 00:00:00 [facility] [id number] 09/13/2017 09/13/2017 DIS Outpatie Javi Ollie [facility]INF 6 10:00:00 00:00:00 [facility] [id number] 09/13/2017 09/13/2017 DIS Outpatie Javi Ollie [facility] 5 09:30:00 00:00:00 [facility] [id number] 08/24/2017 09/08/2017 DIS Inpatien Javi RENDON BWHMS Chronic 1 08:45:00 10:17:00 ada JOHN [facility] obstructive pulmonary disease with (acute) exacerbation ([facility]) [id number] 08/19/2017 08/24/2017 DIS InpatiJavi Garcia BWHMS [employer] 8 21:54:00 08:44:00 ada JOHN [facility] (current) use of insulin ([facility]) [id number] 08/11/2017 08/11/2017 DIS Outpatie Javi Ollie [facility]INF 9 08:45:00 00:00:00 [facility] [id number] 08/11/2017 08/11/2017 DIS Outpatie Javi Ollie [facility] 7 08:00:00 00:00:00 [facility] [id number] 08/04/2017 08/04/2017 DIS Outpatie Javi Ollie [facility]INF 9 09:00:00 00:00:00 [facility] [id number] 08/04/2017 08/04/2017 DIS Outpatie Javi Ollie [facility] 3 07:45:00 00:00:00 [facility] [id number] 07/28/2017 07/28/2017 DIS Outpatie Javi Ollie [facility] 2 08:15:00 00:00:00 [facility] [id number] 07/28/2017 07/28/2017 DIS Outpatie Javi Ollie [facility]INF 8 08:00:00 00:00:00 [facility] [id number] 07/20/2017 07/20/2017 DIS Outpatie Javi Ollie [facility] 5 12:45:00 00:00:00 [facility] [id number] 07/16/2017 07/16/2017 DIS Outpatie Javi Ollie [facility] 7 08:45:00 00:00:00 [facility] [id number] 06/10/2017 06/10/2017 DIS Outpatie Javi Ollie [facility]INF 8 08:45:00 00:00:00 [facility] [id number] 06/10/2017 06/10/2017 DIS Outpatie Javi Ollie [facility] 5 08:15:00 00:00:00 [facility] [id number] 06/03/2017 06/03/2017 DIS Outpatie Javi Ollie [facility]INF 0 08:30:00 23:59:59 [facility] [id number] 05/27/2017 05/27/2017 DIS Outpatie Javi Ollie [facility]INF 0 16:30:00 23:59:59 [facility] [id number] 05/27/2017 05/27/2017 DIS Outpatie Javi Ollie [facility] 9 08:00:00 23:59:59 [facility] [id number] 05/20/2017 05/20/2017 DIS Outpatie Javi Ollie [facility]INF 5 08:15:00 23:59:59 [facility] [id number] 05/13/2017 05/13/2017 DIS Outpatie Javi Ollie [facility] 5 08:15:00 23:59:59 [facility] [id number] 05/13/2017 05/13/2017 DIS Outpatie Javi Ollie [facility] 4 07:45:00 23:59:59 [facility] [id number] 04/29/2017 04/29/2017 DIS Outpatie Javi Ollie [facility] 1 08:15:00 23:59:59 [facility] [id number] 04/15/2017 04/15/2017 DIS Outpatie Javi Ollie [facility] 0 08:30:00 23:59:59 [facility] [id number] 04/08/2017 04/08/2017 DIS Outpatie Javi Ollie [facility]INF 1 08:30:00 23:59:59 [facility] [id number] 04/01/2017 04/01/2017 DIS Outpatie Javi Ollie [facility] 6 09:00:00 23:59:59 [facility] [id number] 04/01/2017 04/01/2017 DIS Outpatie Javi Ollie [facility] 2 08:00:00 23:59:59 [facility] [id number] 03/26/2017 03/26/2017 DIS Outpatie Javi Ollie [facility]INF 3 08:30:00 23:59:59 [facility] [id number] 03/19/2017 03/19/2017 CLS Outpatie Javi Ollie [facility]INF 2 09:45:00 23:59:59 [facility] [id number] 03/19/2017 03/19/2017 DIS Outpatie Javi Ollie [facility] 2 08:15:00 23:59:59 [facility] [id number] 03/05/2017 03/05/2017 DIS Outpatie Javi Levin [facility] 1 08:15:00 23:59:59 [facility] [id number] 02/19/2017 02/19/2017 DIS Outpatie Javi Levin [facility] 5 07:30:00 23:59:59 [facility] [id number] 02/05/2017 02/05/2017 CLS Outpatie Javi Levin [facility] 2 08:30:00 23:59:59 [facility] [id number] 09/24/2017 Document 7 00:00:00 Registra tion [id number] 09/11/2016 Document 1312 13:12:00 Registra tion [id number] 03/19/2017 03/19/2017 CLS Outpatie KCOPSER 2 09:45:00 23:59:59
[2018-01-13] MEDS ORDERED: SALINE FLUSH 10ml SYRINGE IVF PRN (13:43)
[2018-01-13] MEDS ORDERED: NS 500 ML IV ONE (13:43)
--- NOTE | 2018-01-13 13:51 | Emergency Department Report ---
General Adult HPI - General Chief complaint: Recheck/Abnormal Lab/Rx Stated complaint: Low Potassium Time Seen by Provider: 01/13/18 13:29 - History of Present Illness HPI narrative: 72-year-old female presents with elevated potassium. She is sent over by Dr. Pina, nephrology, because of an elevated potassium of 6.3. She has had elevated potassium in the past and has not managed appropriately. She was on benazepril, he stopped this, but potassium is still come up over the last few days. She is diabetic but is not consistent with her insulin. On arrival here she states that she thinks her blood sugar is low and on further questioning states that she went in and took her insulin on the way in so that she could tell us that she was taking it, but did not eat. - Related Data Home Medications Medication Instructions Recorded Confirmed Acetaminophen [Acetaminophen Extra 1,000 mg PO Q6H PRN 01/13/18 01/13/18 Strength] Arformoterol Neb [Brovana Neb] 15 mcg AEROSOL BID 01/13/18 01/13/18 Ascorbic Acid [Vitamin C] 1,000 mg PO BID 01/13/18 01/13/18 B-Complex with Vitamin C [Super B 1 cap PO BID 01/13/18 01/13/18 with Vit C] Budesonide [Budesonide] 0.5 mg INH BID 01/13/18 01/13/18 Bumetanide [Bumetanide] 2 mg AEROSOL BID 01/13/18 01/13/18 Calcitriol [Rocaltrol] 0.25 mcg PO 3XW 01/13/18 01/13/18 Carvedilol [Carvedilol] 3.125 mg PO DAILY 01/13/18 01/13/18 Cholecalciferol (Vitamin D3) 2,000 unit PO DAILY 01/13/18 01/13/18 [Vitamin D3] GlyBURIDE [Micronase] 5 mg PO BID 01/13/18 01/13/18 Insulin Glargine,Hum.rec.anlog 40 unit SQ DAILY 01/13/18 01/13/18 [Toujeo Max Solostar] Insulin Lispro [Humalog Kwikpen 1 - 15 unit SQ TIDWM 01/13/18 01/13/18 U-100] Isosorbide Dinitrate [Isordil] 10 mg PO DAILY 01/13/18 01/13/18 Melatonin [Melatonin] 5 mg PO HS PRN 01/13/18 01/13/18 Pravastatin [Pravachol] 10 mg PO HS 01/13/18 01/13/18 Ropinirole [Requip] 3 mg PO HS 01/13/18 01/13/18 raNITIdine HCl [Ranitidine HCl] 300 mg PO DAILY 01/13/18 01/13/18 Allergies Allergy/AdvReac Type Severity Reaction Status Date / Time cephalexin [From Keflex] Allergy Intermediate Rash Verified 01/13/18 13:25 Penicillins Allergy Intermediate Rash Verified 01/13/18 13:25 bupropion AdvReac Intermediate Shakiness Verified 01/13/18 13:25 Review of Systems All systems: reviewed and negative except as stated PFSH Patient Stated Medical History Coronary Artery Disease Yes Chronic Obstructive Pulmonary Yes Disease (COPD) - Social History Smoking status: Never smoker Physical Exam - Limitations Limitations: no limitations - General General appearance: lethargic - Normal Exams: Head:: Normocephalic without trauma Chest/Respirations:: Clear all lofton, with good airflow, and symmetry bilaterally Cardiovascular:: Regular rate and rhythm, without murmur or gallop, Pulses 2+ all extremities, capillary refill, <2 seconds all extremities Abdomen:: Bowel sounds positive, soft, non-tender, non-distended, no hepatosplenomegaly, masses or bruits noted Neurological:: and oriented, cranial nerves, motor/sensory/cerebellar, exams w/ o gross deficits, to observation - Eye Eye exam: Present: PERRL, EOMI Course Vital Signs Temperature 98 F 01/13/18 13:15 Pulse Rate 45 L 01/13/18 13:15 Respiratory Rate 28 H 01/13/18 13:15 Blood Pressure 200/83 H 01/13/18 13:15 Pulse Oximetry 96 01/13/18 13:15 Temperature 98 F 01/13/18 13:15 Pulse Rate 46 L 01/13/18 13:30 Respiratory Rate 28 H 01/13/18 13:15 Blood Pressure 193/81 H 01/13/18 13:30 Pulse Oximetry 98 01/13/18 13:30 Disposition Prescriptions: No Action Arformoterol Neb [Brovana Neb] 15 mcg AEROSOL BID Insulin Lispro [Humalog Kwikpen U-100] 1 - 15 unit SQ TIDWM Insulin Glargine,Hum.rec.anlog [Stas Hernandezostar] 40 unit SQ DAILY Ascorbic Acid [Vitamin C] 1,000 mg PO BID Cholecalciferol (Vitamin D3) [Vitamin D3] 2,000 unit PO DAILY Budesonide [Budesonide] 0.5 mg INH BID Isosorbide Dinitrate [Isordil] 10 mg PO DAILY Carvedilol [Carvedilol] 3.125 mg PO DAILY raNITIdine HCl [Ranitidine HCl] 300 mg PO DAILY Pravastatin [Pravachol] 10 mg PO HS Melatonin [Melatonin] 5 mg PO HS PRN PRN Reason: Insomnia Ropinirole [Requip] 3 mg PO HS Calcitriol [Rocaltrol] 0.25 mcg PO 3XW Acetaminophen [Acetaminophen Extra Strength] 1,000 mg PO Q6H PRN PRN Reason: Pain Bumetanide [Bumetanide] 2 mg AEROSOL BID B-Complex with Vitamin C [Super B with Vit C] 1 cap PO BID GlyBURIDE [Micronase] 5 mg PO BID Referrals: [facility] [Primary Care Provider] -
--- NOTE | 2018-01-13 14:53 | XRay Report ---
INDICATION: dyspnea PROCEDURE: CHEST 2-VIEWS UPRIGHT (PA & LAT) Encounter: Initial COMPARISON: None FINDINGS: Increased interstitial markings bilaterally with hazy basilar infiltrates. No significant pleural fluid. No pneumothorax. Prior CABG with mild enlargement of the cardiac silhouette. Prominence of the central pulmonary vasculature. Impression: Findings most consistent with mild to moderate pulmonary edema, possibly from CHF. .
[2018-01-13] MEDS ORDERED: SALINE FLUSH 10ml SYRINGE IV PRN (16:20)
[2018-01-13] MEDS ORDERED: ACETAMINOPHEN 500 MG TABLET PO PRN (16:23)
[2018-01-13] MEDS ORDERED: MELATONIN 5 MG TABLET PO PRN (16:23)
[2018-01-13] MEDS ORDERED: ALBUTEROL/IPRATROPIUM 2.5mg-0.5mg/3ml NEB AEROSOL PRN (16:25)
[2018-01-13] MEDS ORDERED: GLUCOSE ORAL GEL 40% 37.5gm PO PRN (16:28)
[2018-01-13] MEDS ORDERED: DEXTROSE 50% SYRINGE 50ml (1 AMP) IVP PRN (16:28)
[2018-01-13 16:34] VITALS: BMI 35.1
--- NOTE | 2018-01-13 16:46 | History & Physical Report ---
History of Present Illness Date: 01/13/18 (PCP: None ) Chief complaint: High potassium HPI: Frances is a very pleasant 72 yo WF who was seen in the ER today at her process checker's direction due to high potassium. She has a long standing history of multiple medical conditions, and has recently moved from [place] to [place], so is in the process of establishing with new providers in the area. She does not have a current PCP, but has an appt to establish care with Dr. Taylor. She has been seen by [facility], but did not like the front desk specialist staff, so opted not to return there. She has seen a MLP in Dr. Londono's office, and has an appt to return in 3 months to have an echo done. She has not had a recent echo. Was previously seen by Dr. Napoles, and then a general clerk in [place] that has left the area. Endorses a prior history of CAD, CABG and CHF, but does not know prior EF. She has established recently with Dr. Elliott Pina, who requested today's labs. She also has COPD. Wears O2 at 4L/NC at baseline. Has never been seen by pulmonology. Has been told that she likely has sleep apnea, but has never undergone a sleep study. She is not willing to wear a BiPAP or CPAP mask. She uses nebulized meds at home. She has been diabetic since 1994. Reports that she has been on insulin for some time. Her last two A1c have been 5.3 and 6.0. She reports that she always takes her insulin as directed and is very diligent with her DM2. She has been on Glipizide for some time, but is willing to use only insulin to manage her DM2. She has not been seen by endocrinology. Again- she was scheduled to have labs done by Dr. Pina today. She was found to have a markedly elevated potassium, and was directed to come to the ER for further assessment. Her potassium was mildly improved in the ER, but it was felt she should be admitted for further evaluation and treatment. Review of Systems All systems PM: 10-point ROS was reviewed, no additional remarkable complaints except Review of systems: Positive for acute on chronic shortness of air, dyspnea on exertion, and peripheral edema. Positive for orthopnea. No abdominal distention. No nausea or vomiting. Denies early satiety. Eating without difficulty. Again, she does have chronic edema, with left greater than the right due to past vascular grafting. She denies any headache. She is consistent with O2 at 4 L. She denies any fever or chills. All other systems reviewed, found to be negative. Past Medical History Medical History Updates: Diabetes mellitus type 2, 1994. CKD. COPD. Chronic O2 use at 4 L. Coronary artery disease. Possible sleep apnea. Hyperlipidemia. Heart failure, ejection fraction unknown. Chronic anemia. Chronic blood loss from stomach Surgical History: CABG 2008- vessel. EGD with colonoscopy. Laparoscopic cholecystectomy. Appendectomy. . Cataract Family History: 10 siblings Brother 2 with leukemia Sr. 2 with coronary artery disease Sr. 1 with multiple types of cancer Sister 1 healthy Brother x3 old age Sr. x1 stillborn Father [place] Mother kidney failure Family History: As Above - Social History Smoking status: Former smoker (1-2 ppd x 55 years.) Quit date: 06/02/17 Substance use type: does not use Alcohol intake frequency: does not drink Housing: house Current occupational status: retired Medications Home Medications Medication Instructions Recorded Confirmed Type Acetaminophen [Acetaminophen Extra 1,000 mg PO Q6H PRN 01/13/18 01/13/18 History Strength] Arformoterol Neb [Brovana Neb] 15 mcg AEROSOL BID 01/13/18 01/13/18 History Ascorbic Acid [Vitamin C] 1,000 mg PO BID 01/13/18 01/13/18 History B-Complex with Vitamin C [Super B 1 cap PO BID 01/13/18 01/13/18 History with Vit C] Budesonide [Budesonide] 0.5 mg INH BID 01/13/18 01/13/18 History Bumetanide [Bumetanide] 2 mg AEROSOL BID 01/13/18 01/13/18 History Calcitriol [Rocaltrol] 0.25 mcg PO 3XW 01/13/18 01/13/18 History Carvedilol [Carvedilol] 3.125 mg PO DAILY 01/13/18 01/13/18 History Cholecalciferol (Vitamin D3) 2,000 unit PO DAILY 01/13/18 01/13/18 History [Vitamin D3] GlyBURIDE [Micronase] 5 mg PO BID 01/13/18 01/13/18 History Insulin Glargine,Hum.rec.anlog 40 unit SQ DAILY 01/13/18 01/13/18 History [[place]anaudileep Hernandezostmario] Insulin Lispro [Humalog Kwikpen 1 - 15 unit SQ TIDWM 01/13/18 01/13/18 History U-100] Isosorbide Dinitrate [Isordil] 10 mg PO DAILY 01/13/18 01/13/18 History Melatonin [Melatonin] 5 mg PO HS PRN 01/13/18 01/13/18 History Pravastatin [Pravachol] 10 mg PO HS 01/13/18 01/13/18 History Ropinirole [Requip] 3 mg PO HS 01/13/18 01/13/18 History raNITIdine HCl [Ranitidine HCl] 300 mg PO DAILY 01/13/18 01/13/18 History Allergies Allergy/AdvReac Type Severity Reaction Status Date / Time cephalexin [From Keflex] Allergy Intermediate Rash Verified 01/13/18 13:25 Penicillins Allergy Intermediate Rash Verified 01/13/18 13:25 bupropion AdvReac Intermediate Shakiness Verified 01/13/18 13:25 Exam Vital Signs: Temperature 98 F 01/13/18 13:15 Pulse Rate 50 L 01/13/18 15:15 Respiratory Rate 25 H 01/13/18 15:00 Blood Pressure 157/70 H 01/13/18 15:15 Pulse Oximetry 98 01/13/18 15:15 Telemetry Rhythm: Sinus Bradycardia Telemetry Ectopy: Bundle Branch Block (Prolonged QT) Height/Weight/BMI: Height 1.68 m Weight 98.6 kg Body Mass Index 35.1 - Constitutional Present: moderate distress (SOA at rest), obese, cooperative - Routine HEENT Exam Head: Present: normocephalic, atraumatic Eye: Present: EOMI, PERRL ENT: Present: mucous membranes moist - Routine Neck Exam Present: supple, full ROM. Absent: normal carotid upstroke (Elevated carotid upstroke), thyromegaly, tenderness - Routine Chest/Breast/Axilla Exam Chest wall: Absent: tenderness, pacemaker - Routine Respiratory Exam Present: accessory muscle use, dyspnea, decreased breath sounds, crackles ( Faint crackles in bilateral bases. ), diminished air movement - Routine Cardiovascular Exam Present: RRR, S1, S2, no murmur, bradycardia. Absent: JVD - Routine Abdominal Exam Present: soft, normoactive bowel sounds, non distended, non tender - Routine Extremities Exam Present: edema (Left > Right. +Pitting edema. ), full ROM, normal capillary refill. Absent: calf tenderness, Martin's sign - Routine Skin Exam Present: intact, dry, warm - Routine Neurological Exam Present: alert, oriented X3, moving all extremities - Routine Psychiatric Exam Present: normal affect, normal thought process, cooperative Results - Labs CBC & Chem 7: 01/13/18 13:57 01/13/18 20:15 Labs: Potassium 6.3 ---> 5.8 SCr 1.8---> 1.6 - Imaging and Cardiology Chest x-ray Status: image reviewed by me Additional comments: Impression: Findings most consistent with mild to moderate pulmonary edema, possibly from CHF. . Assessment and Plan (1) Hyperkalemia Current visit: Yes Status: Acute Assessment and Plan: Impression: 1. Hyperkalemia 2. Atrial bradycardia with bundle branch block and prolonged QT 3. Heart failure, ejection fraction unknown, acute on chronic. 4. Pulmonary edema. 5. Acute on chronic respiratory failure, hypoxemic 6. COPD 7. Coronary artery disease with history of CABG 8. Acute on chronic kidney disease, unknown baseline creatinine 9. Diabetes mellitus type 2, well-controlled 10. Restless leg syndrome 11. Chronic anemia, with report of slow GI bleeding 12. Hypoglycemia, induced Plan: 01/13/18 Admit inpatient hospitalist service. Expected length of stay for monitoring and medical management is expected to exceed 2 midnights. Patient plans to establish with Dr. Taylor. We'll consult Dr. Londono for further evaluation, and order a 2-D echocardiogram. The patient does have significant hyperkalemia with arrhythmia, and needs close monitoring of lab and telemetry. Hold carvedilol due to bradycardia/arrhythmia. We'll start IV loop diuretics for both diuresis and reduction in potassium. Will order repeat EKG this evening for stability. Continue isosorbide due to history of coronary artery disease. Order serial troponin for monitoring. Order BNP now and in a.m. CALILE-I are discontinued secondary to chronic kidney disease with hyperkalemia. Continue O2 at 4 L per nasal cannula. Continue Brovana, order DuoNeb. Consider referral to pulmonology. Patient reports chronic anemia with slow GI bleed. She has been on high-dose H2 receptor blockers. We will discontinue those due to chronic kidney disease, and start low-dose PPI for GI protection. Anemia also is likely secondary to severity of chronic kidney disease. Patient was admitted with hypoglycemia, she did take her insulin on the way to the hospital, but has not eaten. We will ask nursing to recheck as soon as patient is admitted. Start routine blood glucose monitoring, when necessary medications for hypoglycemia. Hold insulin tonight, and plan to restart in the morning. Stop glipizide due to chronic kidney disease. Would recommend management of her diabetes at this point with insulin only. We'll continue home medications for restless leg syndrome. DVT prophylaxis: Renal dose Lovenox. 01/13/2018-10 PM-I examined the patient independently. I reviewed this chart, the patient history, and the COLLARETTE SEPARATOR's/PA's documented findings as above. We discussed and formulated the assessment and plan as above with the additions below.-Dr. Garnett Patient was seen earlier this evening in her room. She states she has been in her normal state of health but was told to come in because of high potassium. Her potassium this morning was 6.3 done as an outpatient. She was told to come into the emergency room, but before she did she gave herself some insulin. In the ER her potassium was 5.8 and blood sugar was 33. She was given some glucose and something to eat and blood sugar did improve. On admission her blood pressure was elevated at 200/83 and she had a heart rate of 45. She has recently stopped benazepril because of elevated potassium. She is supposed to follow a low potassium diet but has been drinking prune juice every morning for constipation even though she knows it does have at least a moderate amount of potassium. Despite her elevated blood pressure, she denies any headache or chest pain at this time. She states she has occasional burning in her chest in the mornings but states it does not feel like heartburn. She states getting up and moving around makes it better. She states she is chronically short of breath and is chronically on 4 L of oxygen for COPD. The patient states when she checks her oxygen she often notes that her heart rate is low, sometimes in the 30s. On exam the patient is alert and oriented 3 and in no acute distress. HEENT reveals sclerae to be anicteric and pupils are equal. Oropharynx is moist. Neck is supple. Chest is clear to auscultation. Cardiovascular reveals a borderline bradycardic rate with irregular rhythm. Abdomen is soft and nontender. Extremities reveal +1 lower extremity edema. Skin is warm and dry. Chest x-ray done in the emergency room reveals mild to moderate pulmonary edema EKG revealed ectopic atrial bradycardia. She had been taking Coreg for blood pressure in the mornings. Repeat basic metabolic profile this evening reveals BUN of 54, creatinine 1.7, potassium 7.0 and it was not hemolyzed. Impression Hyperkalemia Chronic kidney disease Poorly controlled hypertension with recently controlled benazepril. We'll also need to discontinue Coreg due to bradycardia. Bradycardia-asymptomatic CHF on chest [id number] ejection fraction Type 2 diabetes mellitus Hypoglycemia this morning-resolved Chronic hypoxic respiratory failure on 4 L of oxygen chronically Obesity Anemia Reported history of GI bleed with EGD and colonoscopy not revealing the source Plan I did talk with the patient's process checker, Dr. Pina prior to her repeat basic metabolic profile. He did recommend initiation of Kayexalate which she has just received. With her increase in potassium level, will give calcium gluconate 1 g IV now. We'll give 500 ML's of D10W with 15 units of insulin IV over 1 hour. Will repeat Bumex 1 mg IV 1 now.-Plans discussed with the patient' s nurse was evening. Repeat basic metabolic profile at 2 AM-discussed with the nurse and she will call results to the on-call physician. Continue to monitor on telemetry and call with any changes Consult Dr. Londono regarding bradycardia-discussed with him this evening and he recommends discontinuation of Coreg Start Norvasc 5 mg once daily for hypertension. Consider adding doxazosin at night time for blood pressure control Start MiraLAX for constipation Discontinue prune juice Low potassium diet Dietary consult for low potassium diet SCDs for DVT prophylaxis, avoid Lovenox or heparin at this time because of history of GI bleed Check iron studies, B-12, folate and Hemoccult stools regarding anemia DVT Prophylaxis: SCD's Resuscitation Status: Full Code - Physician Narrative Narrative: Date: 01/13/18 Time: 1634 Hospital Course Summary Disclaimer: The visit summary below is not to be considered part of the above Progress Note. Hospital Course: Impression: 1. Hyperkalemia 2. Atrial bradycardia with bundle branch block and prolonged QT 3. Heart failure, ejection fraction unknown, acute on chronic. 4. Pulmonary edema. 5. Acute on chronic respiratory failure, hypoxemic 6. COPD 7. Coronary artery disease with history of CABG 8. Acute on chronic kidney disease, unknown baseline creatinine 9. Diabetes mellitus type 2, well-controlled 10. Restless leg syndrome 11. Chronic anemia, with report of slow GI bleeding 12. Hypoglycemia, induced Plan: 01/13/18 Admit inpatient hospitalist service. Expected length of stay for monitoring and medical management is expected to exceed 2 midnights. Patient plans to establish with Dr. Taylor. We'll consult Dr. Londono for further evaluation, and order a 2-D echocardiogram. The patient does have significant hyperkalemia with arrhythmia, and needs close monitoring of lab and telemetry. Hold carvedilol due to bradycardia/arrhythmia. We'll start IV loop diuretics for both diuresis and reduction in potassium. Will order repeat EKG this evening for stability. Continue isosorbide due to history of coronary artery disease. Order serial troponin for monitoring. Order BNP now and in a.m. CALLIE-I are discontinued secondary to chronic kidney disease with hyperkalemia. Continue O2 at 4 L per nasal cannula. Continue Brovana, order DuoNeb. Consider referral to pulmonology. Patient reports chronic anemia with slow GI bleed. She has been on high-dose H2 receptor blockers. We will discontinue those due to chronic kidney disease, and start low-dose PPI for GI protection. Anemia also is likely secondary to severity of chronic kidney disease. Patient was admitted with hypoglycemia, she did take her insulin on the way to the hospital, but has not eaten. We will ask nursing to recheck as soon as patient is admitted. Start routine blood glucose monitoring, when necessary medications for hypoglycemia. Hold insulin tonight, and plan to restart in the morning. Stop glipizide due to chronic kidney disease. Would recommend management of her diabetes at this point with insulin only. We'll continue home medications for restless leg syndrome. DVT prophylaxis: Renal dose Lovenox.
[2018-01-13] MEDS ORDERED: SODIUM POLYSTYRENE SULFONATE 15 GM/60 ML BOTTLE PO ONE (19:57)
[2018-01-13] MEDS ORDERED: AMLODIPINE 5 MG TABLET PO SCH (19:58)
[2018-01-13] MEDS: PRAVASTATIN 10 MG TABLET PO SCH (20:49)
[2018-01-13] MEDS: POLYETHYL GLYCOL 3350 17gm PACKET PO SCH (20:49)
[2018-01-13] MEDS: ROPINIROLE 1 MG TABLET PO SCH (20:49)
[2018-01-13] MEDS: ARFORMOTEROL NEB 15mcg/2ml AEROSOL SCH (20:51)
[2018-01-13] MEDS: BUDESONIDE INH.SOLN 0.5mg/2ml NEB AEROSOL SCH (20:51)
[2018-01-13] MEDS: INSULIN ASPART 100unit/ml INJECTION SQ PRN (21:27)
[2018-01-13] MEDS ORDERED: CALCIUM GLUCONATE 1,000 MG in NS 100 ML IV ONE (21:46)
[2018-01-13] MEDS ORDERED: HUMAN IV SCH (21:48)
[2018-01-13] MEDS ORDERED: D10W IV SCH (21:48)
[2018-01-13] MEDS ORDERED: INSULIN REGULAR IV SCH (21:48)
[2018-01-14] MEDS: OMEPRAZOLE 20 MG CAPSULE PO SCH (06:42)
[2018-01-14] MEDS ORDERED: ISOSORBIDE DINITRATE 10 MG TABLET PO SCH (07:00)
[2018-01-14] MEDS: ARFORMOTEROL NEB 15mcg/2ml AEROSOL SCH ×2 (07:49→19:50)
[2018-01-14] MEDS: BUDESONIDE INH.SOLN 0.5mg/2ml NEB AEROSOL SCH ×2 (07:49→19:50)
[2018-01-14] MEDS: ISOSORBIDE DINITRATE 10 MG TABLET PO SCH (08:01)
[2018-01-14] MEDS ORDERED: ENOXAPARIN 30 MG/0.3 ML INJECTION SQ SCH (09:00)
[2018-01-14] MEDS: POLYETHYL GLYCOL 3350 17gm PACKET PO SCH (09:10)
--- NOTE | 2018-01-14 10:35 | Cardiology Consult Note ---
<No Spencer - Last Filed: 01/14/18 16:46> History of Present Illness Consult date: 01/13/18 Requesting physician: Polly Garnett Consult reason: congestive heart failure Chief complaint: elevated potassium History of present illness: Frances is a 72 year old female who is known to Dr. Londono' practice with a history of CAD with CABG, HTN, HLD, DM type II, bradycardia, COPD, O2 dependant , and CKD who presented to the ED yesterday as directed by her director and professor due to high potassium. She has recently moved from [place] to [place], so is in the process of establishing with new providers in the area. She does not have a current PCP, but has an appt to establish care with Dr. Taylor. She has established recently with Dr. Elliott Pina, who requested today's labs. K+ was 5.8 in the ED. She was admitted in the care of the hospitalist for observation and management of elevated potassium. Dr. Londono is consulted for evaluation of CHF and we appreciate the consult. Review of Systems - Constitutional Constitutional: Absent: chills, fatigue, fever(s), weakness - EENMT Eyes: Absent: blurry vision Balance: Absent: vertigo Mouth/Throat: Absent: sore throat - Cardiovascular Cardiovascular: Present: dyspnea on exertion, orthopnea, edema. Absent: chest pain, palpitations, syncope Rhythm: Absent: abnormal rhythm Vascular: Present: pedal edema (L>R) - Respiratory Respiratory: Present: dyspnea on exertion. Absent: wheezing - Gastrointestinal Gastrointestinal: Absent: abdominal pain, diarrhea, nausea, vomiting - Genitourinary Genitourinary: Absent: dysuria - Integumentary/Breasts Integumentary: Present: rash - Neurological Neurological: Present: dizziness - Endocrine Endocrine: Present: palpitations PFSH Patient Stated Medical History Cataracts Yes: SURGERY DONE Coronary Artery Disease Yes Hypertension Yes Chronic Obstructive Pulmonary Yes Disease (COPD) Diabetes Mellitus Type 1 Yes Other Musculoskeletal Yes: RESTLESS LEG SUNDROME Post Menopausal Yes Medical History Updates: Diabetes mellitus type 2, 1994. CKD. COPD. Chronic O2 use at 4 L. Coronary artery disease. Possible sleep apnea. Hyperlipidemia. Heart failure, ejection fraction unknown. Chronic anemia. Chronic blood loss from stomach Surgical History: CABG vessel. EGD with colonoscopy. Laparoscopic cholecystectomy. Appendectomy. . Cataract Family History: 10 siblings Brother 2 with leukemia Sister 2 with coronary artery disease Sister 1 with multiple types of cancer Sister 1 healthy Brother x3 old age Sister x1 stillborn Father [place] Mother kidney failure - Social History Smoking status: Former smoker (1-2 ppd x 55 years.) Quit date: 06/02/17 Substance use type: does not use Alcohol intake frequency: does not drink Housing: house Current occupational status: retired Current residence: Apartment/Private Home Medications Home Medications Medication Instructions Recorded Confirmed Type Acetaminophen [Acetaminophen Extra 1,000 mg PO Q6H PRN 01/13/18 01/13/18 History Strength] Arformoterol Neb [Brovana Neb] 15 mcg AEROSOL BID 01/13/18 01/13/18 History Ascorbic Acid [Vitamin C] 1,000 mg PO BID 01/13/18 01/13/18 History B-Complex with Vitamin C [Super B 1 cap PO BID 01/13/18 01/13/18 History with Vit C] Budesonide 0.5 mg INH BID 01/13/18 01/13/18 History Calcitriol [Rocaltrol] 0.25 mcg PO 3XW 01/13/18 01/13/18 History Cholecalciferol (Vitamin D3) 2,000 unit PO DAILY 01/13/18 01/13/18 History [Vitamin D3] Insulin Glargine,Hum.rec.anlog 40 unit SQ DAILY 01/13/18 01/13/18 History [Toujeo Max Solostar] Insulin Lispro [Humalog Kwikpen 1 - 15 unit SQ TIDWM 01/13/18 01/13/18 History U-100] Melatonin 5 mg PO HS PRN 01/13/18 01/13/18 History Pravastatin [Pravachol] 10 mg PO HS 01/13/18 01/13/18 History Ropinirole [Requip] 3 mg PO HS 01/13/18 01/13/18 History raNITIdine HCl [Ranitidine HCl] 300 mg PO DAILY 01/13/18 01/13/18 History Amlodipine [Norvasc] 10 mg PO HS #30 tab 01/15/18 Rx Bumetanide 2 mg PO BID #60 01/15/18 01/13/18 Rx Isosorbide Mononitrate ER [Imdur] 60 mg PO DAILY #30 tab 01/15/18 Rx PEG 3350 17gm PACKET [Miralax] 17 gm PO DAILY packet 01/15/18 Rx Allergies Allergy/AdvReac Type Severity Reaction Status Date / Time cephalexin [From Keflex] Allergy Intermediate Rash Verified 01/13/18 13:25 Penicillins Allergy Intermediate Rash Verified 01/13/18 13:25 bupropion AdvReac Intermediate Shakiness Verified 01/13/18 13:25 Exam Vital signs: Temperature 97.1 F 01/14/18 07:56 Pulse Rate 53 L 01/14/18 07:56 Respiratory Rate 14 01/14/18 07:56 Blood Pressure 167/68 H 01/14/18 07:56 Pulse Oximetry 100 01/14/18 07:56 - Constitutional no acute distress, obese, cooperative - Routine HEENT Exam Head: Present: normocephalic ENT: Present: mucous membranes moist - Routine Neck Exam Absent: JVD, carotid bruit - Routine Chest/Breast/Axilla Exam Chest wall: Absent: tenderness - Routine Respiratory Exam Present: diminished air movement (bases). Absent: dyspnea - Routine Cardiovascular Exam Present: no murmur, bradycardia - Routine Abdominal Exam Present: soft, non tender - Routine Extremities Exam Present: edema - Routine Skin Exam Present: intact, dry, warm - Routine Neurological Exam Present: alert, oriented X3 - Routine Psychiatric Exam Present: normal affect, normal thought process Results 01/14/18 02:33 01/14/18 02:33 Cardiac Enzymes 01/13/18 01/14/18 Range/Units 20:15 02:33 Troponin I 0.098 0.107 (0-0.12) ng/ml CBC 01/14/18 Range/Units 02:33 WBC 9.4 (4.5-11.0) T/MM3 RBC 3.23 L (4.00-5.20) M/MM3 Hgb 9.0 L (12-16) GM/DL Hct 29.8 L (36-46) % Plt Count 170 (130-400) T/MM3 Neut # (Auto) 6.3 (1.8-7.7) T/MM3 Lymph # (Auto) 1.7 (1-4.8) T/MM3 Milam # (Auto) 1.1 H (0-0.8) T/MM3 Eos # (Auto) 0.3 (0-0.5) T/MM3 Baso # (Auto) 0.0 (0-0.2) T/MM3 Comprehensive Metabolic Panel 01/13/18 01/14/18 Range/Units 20:15 02:33 Sodium 143 144 (136-146) MEQ/L Potassium 7.0 H* D 5.3 H D (3.6-5) MEQ/L Chloride 105 105 (98-107) MEQ/L Carbon Dioxide 27 28 (22-30) MEQ/L BUN 54.0 H* 50.0 H (7-17) MG/DL Creatinine 1.7 H D 1.6 H (0.7-1.2) mg/dL Glucose 210 H 79 (65-110) MG/DL Calcium 9.2 9.3 (8.4-10.2) MG/DL Albumin 4.4 4.0 (3.5-5.0) g/dL Intake and Output 01/13/18 01/14/18 01/14/18 22:59 06:59 14:59 Intake Total 500 / 1000 600.15 / 600.15 Output Total 500 / 500 600 / 600 250 / 250 Balance 0 / 500 0.15 / 0.15 -250 / -250 Intake: IV 600.15 / 600.15 Calcium Gluconate 1,000 mg In 100 / 100 Ns 100 ml @ 50 mls/hr IV O ONE Rx#:[id number] Insulin Regular, Human 15 unit 500.15 / 500.15 In D10w 500 ml @ 500 mls/hr IV .Q1H1M EUNICE Rx#:[id number] Oral 500 / 500 Output: Urine 500 / 500 600 / 600 250 / 250 Other: Urine Appearance Clear Clear Clear Urine Color Yellow Yellow Pale Yellow Urine Odor Strong Strong Stool Characteristics Normal for Patient Stool Color Brown Stool Consistency Soft Formed Size of Bowel Movement Small # Voids 1 1 # Bowel Movements 1 Weight 217 lb 6.012 oz 212 lb 8.41 oz Patient Weight 01/15/18 06:59 Weight 212 lb 8.41 oz - Imaging and Cardiology Imaging & Cardiology Narrative: Date of Exam: 01/13/18 Ordering Provider: Flip Godinez MD Type of Exam(s): XR chest 2V Reason for Exam(s): dyspnea INDICATION: dyspnea PROCEDURE: CHEST 2-VIEWS UPRIGHT (PA & LAT) Encounter: Initial COMPARISON: None FINDINGS: Increased interstitial markings bilaterally with hazy basilar infiltrates. No significant pleural fluid. No pneumothorax. Prior CABG with mild enlargement of the cardiac silhouette. Prominence of the central pulmonary vasculature. Impression: Findings most consistent with mild to moderate pulmonary edema, possibly from CHF. 01/14/18 11:16 EKG interpretations - EKG EKG shows: bradycardia - Dysrhythmias Supraventricular dysrhythmia: ectopic atrial rhythm - Blocks, axis, hypertrophy, ST abn AV and intraventricular conduction: right bundle branch block (fixed/ intermittent, complete/incomplete) Assessment and Plan - Assessment and Plan (1) Hyperkalemia Status: Acute 5.8 on admit, 5.3 today - Continue diuresis at Bumex 1mg IV Q8H - Monitor cardiac telemetry (2) Bradycardia Status: Chronic HR 36-48 - Holding Coreg for now (3) CHF (congestive heart failure) Status: Acute Acute on chronic - Unknown EF, 2D echo pending - Continue current diuresis (4) Atherosclerosis of coronary artery bypass graft without angina pectoris Status: Chronic Continue isosorbide for CAD (5) Mixed hyperlipidemia Status: Chronic Continue pravastatin, PCP manages (6) Essential (primary) hypertension Status: Chronic Started Norvasc 5mg daily yesterday -increase to 10mg daily for better bp control (7) Type 2 diabetes mellitus without complications Status: Chronic per attending (8) CKD (chronic kidney disease) Status: Chronic per attending - holding CALLIE/ARB - Assessment and Plan Hyperkalemia Current visit: Yes Status: Acute - 5.8 on admit, 5.3 today - Continue diuresis at Bumex 1mg IV Q8H - Monitor cardiac telemetry Bradycardia Current visit: Yes Status: Chronic - HR 36-48 - Holding Coreg for now Congestive heart failure Current visit: Yes Status: Acute on Chronic - Acute on chronic - Unknown EF, 2D echo pending - Continue current diuresis Atherosclerosis of coronary artery bypass graft without angina pectoris Current visit: Yes Status: Chronic - Continue isosorbide for CAD Mixed hyperlipidemia Current visit: Yes Status: Chronic - Continue pravastatin, PCP manages Essential (primary) hypertension Current visit: Yes Status: Chronic -Started Norvasc 5mg daily yesterday -increase to 10mg daily for better bp control Type 2 diabetes mellitus without complications Current visit: Yes Status: Chronic - per attending Chronic Kidney disease Current:yes Status: Chronic - per attending - holding CALLIE/ARB Thank you for allowing us to participate in the care of this patient. Patient is examined by me and finding were discussed with Dr. Londono and together we formulated the plan of care. Hospital Course Summary Disclaimer: The visit summary below is not to be considered part of the above Progress Note. Hospital Course: Impression: 1. Hyperkalemia 2. Atrial bradycardia with bundle branch block and prolonged QT 3. Heart failure, ejection fraction unknown, acute on chronic. 4. Pulmonary edema. 5. Acute on chronic respiratory failure, hypoxemic 6. COPD 7. Coronary artery disease with history of CABG 8. Acute on chronic kidney disease, unknown baseline creatinine 9. Diabetes mellitus type 2, well-controlled 10. Restless leg syndrome 11. Chronic anemia, with report of slow GI bleeding 12. Hypoglycemia, induced Plan: 01/13/18 Admit inpatient hospitalist service. Expected length of stay for monitoring and medical management is expected to exceed 2 midnights. Patient plans to establish with Dr. Taylor. We'll consult Dr. Londono for further evaluation, and order a 2-D echocardiogram. The patient does have significant hyperkalemia with arrhythmia, and needs close monitoring of lab and telemetry. Hold carvedilol due to bradycardia/arrhythmia. We'll start IV loop diuretics for both diuresis and reduction in potassium. Will order repeat EKG this evening for stability. Continue isosorbide due to history of coronary artery disease. Order serial troponin for monitoring. Order BNP now and in a.m. CALLIE-I are discontinued secondary to chronic kidney disease with hyperkalemia. Continue O2 at 4 L per nasal cannula. Continue Brovana, order DuoNeb. Consider referral to pulmonology. Patient reports chronic anemia with slow GI bleed. She has been on high-dose H2 receptor blockers. We will discontinue those due to chronic kidney disease, and start low-dose PPI for GI protection. Anemia also is likely secondary to severity of chronic kidney disease. Patient was admitted with hypoglycemia, she did take her insulin on the way to the hospital, but has not eaten. We will ask nursing to recheck as soon as patient is admitted. Start routine blood glucose monitoring, when necessary medications for hypoglycemia. Hold insulin tonight, and plan to restart in the morning. Stop glipizide due to chronic kidney disease. Would recommend management of her diabetes at this point with insulin only. We'll continue home medications for restless leg syndrome. DVT prophylaxis: Renal dose Lovenox. <Fabrizio Londono - Last Filed: 01/20/18 14:52> [facility] Patient Stated Medical History Cataracts Yes: SURGERY DONE Coronary Artery Disease Yes Hypertension Yes Chronic Obstructive Pulmonary Yes Disease (COPD) Diabetes Mellitus Type 1 Yes Other Musculoskeletal Yes: RESTLESS LEG SUNDROME Post Menopausal Yes Exam Vital signs: Temperature 96.7 F L 01/15/18 08:52 Pulse Rate 67 01/15/18 14:42 Respiratory Rate 20 01/15/18 08:52 Blood Pressure 170/70 H 01/15/18 14:42 Pulse Oximetry 99 01/15/18 14:42 Results 01/15/18 04:21 01/15/18 04:21 Assessment and Plan - Attestation Attestation Narrative: I agree with the above and I am involved in the formulation of the patient's plan of care. - Assessment and Plan (1) Hyperkalemia Status: Resolved (2) Atherosclerosis of coronary artery bypass graft without angina pectoris Status: Chronic (3) Mixed hyperlipidemia Status: Chronic (4) Essential (primary) hypertension Status: Chronic (5) Type 2 diabetes mellitus without complications Status: Chronic (6) Bradycardia Status: Chronic (7) CHF (congestive heart failure) Status: Chronic (8) CKD (chronic kidney disease) Status: Chronic Hospital Course Summary Disclaimer: The visit summary below is not to be considered part of the above Progress Note.
[2018-01-14] MEDS: INSULIN ASPART 100unit/ml INJECTION SQ PRN ×3 (10:44→22:40)
[2018-01-14] MEDS ORDERED: IRON - PHARMACY CONSULT MC ONE (14:04)
[2018-01-14] MEDS ORDERED: FERRIC CARBOXYMALTOSE 750 MG in NS 250ml 250 ML IV SCH (14:30)
--- NOTE | 2018-01-14 15:22 | Ultrasound Report ---
Indication: CKD PROCEDURE: US renal BI: Encounter: Initial Comparison: None Technique: Grayscale and color Doppler sonographic imaging of both kidneys was performed. FINDINGS: Both kidneys are present with normal cortical thickness and echogenicity. No evidence for collecting system dilatation, contour deforming mass, nephrolithiasis, or abnormal perinephric fluid collection. The right kidney measures 12.1 cm in length, and the left kidney measures 11.2 cm in length. IMPRESSION: Normal renal sonogram. .
--- NOTE | 2018-01-14 16:44 | Progress Note ---
- Date 01/14/18 Subjective: Mrs. Batres reports that dyspnea has improved as has exertional dyspnea. She denies wheezing, cough, chest pain, or palpitations. She reports having a large bowel movement overnight and urinating frequently without dysuria. She denies diarrhea and has had no nausea or vomiting. She denies having fevers, lightheadedness, or pain. She indicated that she has not had a renal sonogram in some time. Objective Vital signs: Temperature 96.5 F L 01/14/18 14:52 Pulse Rate 46 L 01/14/18 16:03 Respiratory Rate 14 01/14/18 15:00 Blood Pressure 157/68 H 01/14/18 15:00 Pulse Oximetry 99 01/14/18 15:00 I/O 1600/1100 Weight down 2.2 kg NAD, alert, fluent speech Conjunctiva clear, sclera anicteric, oropharynx clear Respirations nonlabored, good airflow, bibasilar crackles Regular cardiac rhythm, S1-S2, 2/6 systolic murmur left sternal border Abdomen is soft, moderately obese, nontender, with good bowel sounds Trace edema left lower extremities; moderate bruising dorsal hands and forearms Pleasant, calm, cooperative Rhythm: Sinus Bradycardia (versus ectopic atrial rhythm with bradycardia and RBBB) Height/Weight/BMI: Height 1.68 m Weight 96.4 kg Body Mass Index 35.1 Results - Labs CBC & Chem 7: 01/14/18 02:33 01/14/18 02:33 Labs: ProBNP 1730 Troponin 0.118-0.098-0.107 Iron 33, TIBC 414, iron saturation 8; ferritin 9.6 yesterday morning prior to admission B-12 739, folic acid > 20 - Imaging and Cardiology renal sonogram Status: image reviewed by me (right kidney 12.1 cm in length, left kidney 11.2 cm in length; no evidence of obstruction or nephrolithiasis. Normal cortical thickness and echogenicity described by radiology.) Assessment and Plan (1) Hyperkalemia Current visit: Yes Status: Acute Assessment and Plan: Impression: Hyperkalemia Atrial bradycardia with bundle branch block and prolonged QT Heart failure, EF 55%. Pulmonary edema. Acute on chronic respiratory failure, hypoxemic COPD Coronary artery disease with history of CABG Acute on chronic kidney disease, unknown baseline creatinine Diabetes mellitus type 2, well-controlled Restless leg syndrome Chronic anemia, with report of slow GI bleeding Hypoglycemia, induced Iron deficiency anemia Plan: Clinically improving after potassium lowered with Kayexalate and Bumex diuresis. Patient feels she can improve her diet significantly to minimize recurrent hyperkalemia after speaking with enrollment specialist. Continue Bumex for CHF; EF 55%, IVC enlarged per preliminary report-full report of echo pending. Chronically on 4 mg Bumex daily, may require slightly higher dose than she is on currently but weight is down-continue to monitor. Chest x-ray in a.m. Oxygenating well while awake on 4 L (chronically on 4 L), titrate to 3 and reassess but will use 4 L at night. Carvedilol on hold-heart rate slightly improved. Amlodipine increased to 10 mg for blood pressure control, may require a second agent (?doxazosin). Minor elevation in troponins consistent with CKD, no chest pain. Renal sonogram obtained at request of Dr. Pina who I discussed case with earlier today-study unremarkable. Iron deficiency anemia-discussed with Dr. Pina; patient will receive IV iron replacement with 2 doses of Injectafer. Check Hemoccults; patient reports having had EGD/colonoscopy a couple years ago at which time nothing was found although the patient's impression was that she may have had bleeding from her stomach despite the absence of ulcers being identified. No recurrent hypoglycemia after patient took insulin prior to admission to assist in management of hyperkalemia. Glipizide discontinued. Discussed with Dr. Silvana Grady APRN; renal sonogram reviewed by myself. Resuscitation Status: Full Code - Physician Narrative Narrative: Date: 01/14/18 Time: 1640 Hospital Course Summary Disclaimer: The visit summary below is not to be considered part of the above Progress Note. Hospital Course: Impression: 1. Hyperkalemia 2. Atrial bradycardia with bundle branch block and prolonged QT 3. Heart failure, ejection fraction unknown, acute on chronic. 4. Pulmonary edema. 5. Acute on chronic respiratory failure, hypoxemic 6. COPD 7. Coronary artery disease with history of CABG 8. Acute on chronic kidney disease, unknown baseline creatinine 9. Diabetes mellitus type 2, well-controlled 10. Restless leg syndrome 11. Chronic anemia, with report of slow GI bleeding 12. Hypoglycemia, induced Plan: 01/13/18 Admit inpatient hospitalist service. Expected length of stay for monitoring and medical management is expected to exceed 2 midnights. Patient plans to establish with Dr. Taylor. We'll consult Dr. Londono for further evaluation, and order a 2-D echocardiogram. The patient does have significant hyperkalemia with arrhythmia, and needs close monitoring of lab and telemetry. Hold carvedilol due to bradycardia/arrhythmia. We'll start IV loop diuretics for both diuresis and reduction in potassium. Will order repeat EKG this evening for stability. Continue isosorbide due to history of coronary artery disease. Order serial troponin for monitoring. Order BNP now and in a.m. CALLIE-I are discontinued secondary to chronic kidney disease with hyperkalemia. Continue O2 at 4 L per nasal cannula. Continue Brovana, order DuoNeb. Consider referral to pulmonology. Patient reports chronic anemia with slow GI bleed. She has been on high-dose H2 receptor blockers. We will discontinue those due to chronic kidney disease, and start low-dose PPI for GI protection. Anemia also is likely secondary to severity of chronic kidney disease. Patient was admitted with hypoglycemia, she did take her insulin on the way to the hospital, but has not eaten. We will ask nursing to recheck as soon as patient is admitted. Start routine blood glucose monitoring, when necessary medications for hypoglycemia. Hold insulin tonight, and plan to restart in the morning. Stop glipizide due to chronic kidney disease. Would recommend management of her diabetes at this point with insulin only. We'll continue home medications for restless leg syndrome. DVT prophylaxis: Renal dose Lovenox. 01/14/18 Clinically improving after potassium lowered with Kayexalate and Bumex diuresis. Patient feels she can improve her diet significantly to minimize recurrent hyperkalemia after speaking with enrollment specialist. Continue Bumex for CHF; EF 55%, IVC enlarged per preliminary report-full report of echo pending. Chronically on 4 mg Bumex daily, may require slightly higher dose than she is on currently but weight is down-continue to monitor. Chest x-ray in a.m. Oxygenating well while awake on 4 L (chronically on 4 L), titrate to 3 and reassess but will use 4 L at night. Carvedilol on hold-heart rate slightly improved. Amlodipine increased to 10 mg for blood pressure control, may require a second agent (?doxazosin). Minor elevation in troponins consistent with CKD, no chest pain. Renal sonogram obtained at request of Dr. Pina who I discussed case with earlier today-study unremarkable. Iron deficiency anemia-discussed with Dr. Pina; patient will receive IV iron replacement with 2 doses of Injectafer. Check Hemoccults; patient reports having had EGD/colonoscopy a couple years ago at which time nothing was found although the patient's impression was that she may have had bleeding from her stomach despite the absence of ulcers being identified. No recurrent hypoglycemia after patient took insulin prior to admission to assist in management of hyperkalemia. Glipizide discontinued.
[2018-01-14] MEDS: ROPINIROLE 1 MG TABLET PO SCH (20:24)
[2018-01-14] MEDS: PRAVASTATIN 10 MG TABLET PO SCH (20:36)
[2018-01-14] MEDS ORDERED: AMLODIPINE 10 MG TABLET PO SCH (21:00)
[2018-01-15] MEDS: OMEPRAZOLE 20 MG CAPSULE PO SCH (06:42)
[2018-01-15] MEDS: ISOSORBIDE DINITRATE 10 MG TABLET PO SCH (06:43)
[2018-01-15] MEDS: BUDESONIDE INH.SOLN 0.5mg/2ml NEB AEROSOL SCH (08:10)
[2018-01-15] MEDS: ARFORMOTEROL NEB 15mcg/2ml AEROSOL SCH (08:10)
[2018-01-15] MEDS: POLYETHYL GLYCOL 3350 17gm PACKET PO SCH (08:47)
[2018-01-15 08:53] VITALS: RESP 20; TEMP 96.7
[2018-01-15] MEDS: INSULIN ASPART 100unit/ml INJECTION SQ PRN ×2 (10:28→15:37)
[2018-01-15 14:45] VITALS: BP 170/70; PULSE 67; O2SAT 99
[2018-01-15] MEDS ORDERED: BUMETANIDE 1 MG TABLET PO SCH (17:00)
--- NOTE | 2018-01-15 17:32 | Cardiology Progress Note ---
<Chelsie Frazier K - Last Filed: 01/15/18 17:46> Subjective Principal diagnosis: Acute Heart Failure Interval history: Pt lying in bed. Denies CP, palpitations, n/v, diaphoresis, dizziness, or increased soa. Verbalizes readiness for discharge. Exam Vital signs: Temperature 96.7 F L 01/15/18 08:52 Pulse Rate 67 01/15/18 14:42 Respiratory Rate 20 01/15/18 08:52 Blood Pressure 170/70 H 01/15/18 14:42 Pulse Oximetry 99 01/15/18 14:42 Inpatient Medications: Discontinued Medications Generic Name Dose Route Start Last Admin Trade Name Freq PRN Reason Stop Dose Admin Acetaminophen 1,000 mg 01/13/18 16:23 01/15/18 01:16 Tylenol PO 1,000 mg Q6H PRN Administration Pain Albuterol/Ipratropium 3 ml 01/13/18 16:25 Duoneb AEROSOL RTQID PRN Wheezing Amlodipine Besylate 5 mg 01/13/18 19:58 01/13/18 20:48 Norvasc PO 5 mg HS EUNICE Administration Amlodipine Besylate 10 mg 01/14/18 21:00 01/14/18 20:23 Norvasc PO 10 mg HS EUNICE Administration Arformoterol Tartrate 15 mcg 01/13/18 21:00 01/15/18 08:10 Brovana Neb AEROSOL 15 mcg BID EUNICE Administration Budesonide 0.5 mg 01/13/18 21:00 01/15/18 08:10 Pulmicort Inhalation AEROSOL 0.5 mg BID EUNICE Administration Bumetanide 1 mg 01/13/18 16:30 01/15/18 08:47 Bumex 1 Mg/4 Ml Inj. IVP 1 mg Q8H EUNICE Administration Bumetanide 1 mg 01/13/18 21:51 01/13/18 22:16 Bumex 1 Mg/4 Ml Inj. IVP 01/13/18 21:52 1 mg O ONE Administration Bumetanide 2 mg 01/15/18 17:00 Bumex 1 Mg Tab PO [id number] EUNICE Dextrose 10 ml 01/13/18 16:28 D50%W IVP PRN PRN Hypoglycemia Enoxaparin Sodium 30 mg 01/14/18 09:00 Lovenox SQ DAILY EUNICE Glucose 37.5 gm 01/13/18 16:28 Glutose 15 PO PRN PRN Hypoglycemia Sodium Chloride 500 mls @ 1,000 mls/hr 01/13/18 13:43 01/13/18 15:10 Normal Saline IV 01/13/18 14:12 Infused .Q30M ONE Infusion Calcium Gluconate 1,000 mg/ 110 mls @ 50 mls/hr 01/13/18 21:46 01/14/18 03:00 Sodium Chloride IV 01/14/18 00:09 Infused O ONE Infusion Insulin Human Regular 15 unit/ 500.15 mls @ 500 mls/hr 01/13/18 21:48 00:18 Dextrose IV 01/13/18 22:48 Infused .Q1H1M EUNICE Infusion Ferric Carboxymaltose 750 mg/ 265 mls @ 500 mls/hr 01/14/18 14:30 01/14/18 15 :47 Sodium Chloride IV 01/21/18 15:02 Infused Q7D EUNICE Infusion Insulin Aspart 1 - 5 unit 01/13/18 19:12 01/15/18 15:37 Novolog SQ 1 unit SS PRN Administration Hyperglycemia Protocol Iron Dextran 1 each 01/14/18 14:04 01/14/18 15:08 Pharmacy Consult - Iron 01/14/18 14:05 Not Given O ONE Isosorbide Dinitrate 10 mg 01/14/18 07:00 01/14/18 07:46 Isordil PO 10 mg 0700 EUNICE Administration Isosorbide Dinitrate 10 mg 01/14/18 07:30 01/15/18 06:43 Isordil PO 10 mg 0630 EUNICE Administration Melatonin 5 mg 01/13/18 16:23 01/14/18 20:24 Melatonin PO 5 mg HS PRN Administration Insomnia Omeprazole 20 mg 01/14/18 06:30 01/15/18 06:42 Prilosec PO 20 mg ACB EUNICE Administration Polyethylene Glycol 17 gm 01/13/18 20:15 01/15/18 08:47 Miralax PO Not Given DAILY EUNICE Pravastatin Sodium 10 mg 01/13/18 21:00 01/14/18 20:36 Pravachol PO 10 mg HS EUNICE Administration Ropinirole HCl 3 mg 01/13/18 21:00 01/14/18 20:24 Requip PO 3 mg HS EUNICE Administration Sodium Chloride 10 - 80 ml 01/13/18 13:43 01/13/18 14:06 Iv Flush IVF 10 ml PRN PRN Administration Flushing Sodium Chloride 10 ml 01/13/18 16:20 01/13/18 22:16 Iv Flush IV 10 ml PRN PRN Administration Flushing Sodium Polystyrene Sulfonate 30 gm 01/13/18 19:57 01/13/18 20:49 Kayexelate PO 01/13/18 19:58 30 gm O ONE Administration - Constitutional no acute distress, well nourished, well developed, obese - Routine HEENT Exam Head: Present: normocephalic, atraumatic Eye: Present: PERRL ENT: Present: mucous membranes moist - Routine Neck Exam Present: supple, trachea midline. Absent: JVD, carotid bruit - Routine Respiratory Exam Present: decreased breath sounds. Absent: rhonchi, wheezes, crackles - Routine Cardiovascular Exam Present: RRR, S1, S2. Absent: JVD - Routine Abdominal Exam Present: soft, non distended, non tender - Routine Extremities Exam Present: edema, pulses intact. Absent: cyanosis, clubbing - Routine Skin Exam Present: intact, dry, warm. Absent: cyanosis - Routine Neurological Exam Present: alert, oriented X3, moving all extremities - Routine Psychiatric Exam Present: normal affect, cooperative Results 01/15/18 04:21 01/15/18 04:21 CBC 01/15/18 Range/Units 04:21 WBC 9.3 (4.5-11.0) T/MM3 RBC 3.43 L (4.00-5.20) M/MM3 Hgb 9.6 L (12-16) GM/DL Hct 31.5 L (36-46) % Plt Count 171 (130-400) T/MM3 Neut # (Auto) 6.2 (1.8-7.7) T/MM3 Lymph # (Auto) 1.6 (1-4.8) T/MM3 [place] # (Auto) 1.1 H (0-0.8) T/MM3 Eos # (Auto) 0.3 (0-0.5) T/MM3 Baso # (Auto) 0.0 (0-0.2) T/MM3 Comprehensive Metabolic Panel 01/14/18 01/15/18 Range/Units 16:55 04:21 Sodium 145 143 (136-146) MEQ/L Potassium 4.9 5.0 (3.6-5) MEQ/L Chloride 105 104 (98-107) MEQ/L Carbon Dioxide 28 28 (22-30) MEQ/L BUN 52.0 H* 52.0 H* (7-17) MG/DL Creatinine 1.6 H 1.6 H (0.7-1.2) mg/dL Glucose 139 H 139 H (65-110) MG/DL Calcium 9.0 9.4 (8.4-10.2) MG/DL Albumin 4.0 (3.5-5.0) g/dL Intake and Output 01/15/18 01/15/18 01/15/18 06:59 14:59 22:59 Intake Total 360 / 360 Output Total 900 / 900 500 / 500 Balance -900 / -900 -140 / -140 Intake: Oral 360 / 360 Output: Urine 900 / 900 500 / 500 Other: Urine Appearance Clear Clear Urine Color Yellow Pale Yellow Weight 96.5 kg Patient Weight 01/16/18 06:59 Weight 96.5 kg - Imaging and Cardiology Echo: pending EKG results: report reviewed - EKG Interpretation EKG shows: bradycardia Assessment and Plan - Assessment and Plan (1) Hyperkalemia Status: Resolved (2) Atherosclerosis of coronary artery bypass graft without angina pectoris Status: Chronic (3) Mixed hyperlipidemia Status: Chronic (4) Essential (primary) hypertension Status: Chronic (5) Type 2 diabetes mellitus without complications Status: Chronic (6) Bradycardia Status: Chronic (7) CHF (congestive heart failure) Status: Chronic (8) CKD (chronic kidney disease) Status: Chronic - Assessment and Plan Hyperkalemia Current visit: Yes Status: Acute - 5.8 on admit, 5.3 today - Continue diuresis at Bumex 1mg IV Q8H - Monitor cardiac telemetry Bradycardia Current visit: Yes Status: Chronic - HR 36-48 - Unable to tolerate BB d/t bradycardia Congestive heart failure Current visit: Yes Status: Acute on Chronic - Acute on chronic - Preliminary EF 55%, IVC dilation, pulmonary hypertension, Official 2D echo results pending - Continue current diuresis Atherosclerosis of coronary artery bypass graft without angina pectoris Current visit: Yes Status: Chronic - Continue isosorbide for CAD Mixed hyperlipidemia Current visit: Yes Status: Chronic - Continue pravastatin, PCP manages Essential (primary) hypertension Current visit: Yes Status: Chronic -Continue Norvasc 10mg daily -Start doxazosin for better BP control Type 2 diabetes mellitus without complications Current visit: Yes Status: Chronic - per attending Chronic Kidney disease Current:yes Status: Chronic - per attending - holding CALLIE/ARB Thank you for allowing us to participate in the care of this patient. Michelle Frazier APRN saw patient independently. Full assessment and plan of care verbally discussed with Dr. Londono who is in agreement with the above. Hospital Course Summary Disclaimer: The visit summary below is not to be considered part of the above Progress Note. Hospital Course: Impression: 1. Hyperkalemia 2. Atrial bradycardia with bundle branch block and prolonged QT 3. Heart failure, ejection fraction unknown, acute on chronic. 4. Pulmonary edema. 5. Acute on chronic respiratory failure, hypoxemic 6. COPD 7. Coronary artery disease with history of CABG 8. Acute on chronic kidney disease, unknown baseline creatinine 9. Diabetes mellitus type 2, well-controlled 10. Restless leg syndrome 11. Chronic anemia, with report of slow GI bleeding 12. Hypoglycemia, induced Plan: 01/13/18 Admit inpatient hospitalist service. Expected length of stay for monitoring and medical management is expected to exceed 2 midnights. Patient plans to establish with Dr. Taylor. We'll consult Dr. Londono for further evaluation, and order a 2-D echocardiogram. The patient does have significant hyperkalemia with arrhythmia, and needs close monitoring of lab and telemetry. Hold carvedilol due to bradycardia/arrhythmia. We'll start IV loop diuretics for both diuresis and reduction in potassium. Will order repeat EKG this evening for stability. Continue isosorbide due to history of coronary artery disease. Order serial troponin for monitoring. Order BNP now and in a.m. CALLIE-I are discontinued secondary to chronic kidney disease with hyperkalemia. Continue O2 at 4 L per nasal cannula. Continue Brovana, order DuoNeb. Consider referral to pulmonology. Patient reports chronic anemia with slow GI bleed. She has been on high-dose H2 receptor blockers. We will discontinue those due to chronic kidney disease, and start low-dose PPI for GI protection. Anemia also is likely secondary to severity of chronic kidney disease. Patient was admitted with hypoglycemia, she did take her insulin on the way to the hospital, but has not eaten. We will ask nursing to recheck as soon as patient is admitted. Start routine blood glucose monitoring, when necessary medications for hypoglycemia. Hold insulin tonight, and plan to restart in the morning. Stop glipizide due to chronic kidney disease. Would recommend management of her diabetes at this point with insulin only. We'll continue home medications for restless leg syndrome. DVT prophylaxis: Renal dose Lovenox. 01/14/18 Clinically improving after potassium lowered with Kayexalate and Bumex diuresis. Patient feels she can improve her diet significantly to minimize recurrent hyperkalemia after speaking with trade sales assistant. Continue Bumex for CHF; EF 55%, IVC enlarged per preliminary report-full report of echo pending. Chronically on 4 mg Bumex daily, may require slightly higher dose than she is on currently but weight is down-continue to monitor. Chest x-ray in a.m. Oxygenating well while awake on 4 L (chronically on 4 L), titrate to 3 and reassess but will use 4 L at night. Carvedilol on hold-heart rate slightly improved. Amlodipine increased to 10 mg for blood pressure control, may require a second agent (?doxazosin). Minor elevation in troponins consistent with CKD, no chest pain. Renal sonogram obtained at request of Dr. Pina who I discussed case with earlier today-study unremarkable. Iron deficiency anemia-discussed with Dr. Pina; patient will receive IV iron replacement with 2 doses of Injectafer. Check Hemoccults; patient reports having had EGD/colonoscopy a couple years ago at which time nothing was found although the patient's impression was that she may have had bleeding from her stomach despite the absence of ulcers being identified. No recurrent hypoglycemia after patient took insulin prior to admission to assist in management of hyperkalemia. Glipizide discontinued. <Fabrizio Londono - Last Filed: 01/18/18 13:24> Exam Vital signs: Temperature 96.7 F L 01/15/18 08:52 Pulse Rate 67 01/15/18 14:42 Respiratory Rate 20 01/15/18 08:52 Blood Pressure 170/70 H 01/15/18 14:42 Pulse Oximetry 99 01/15/18 14:42 Inpatient Medications: Discontinued Medications Generic Name Dose Route Start Last Admin Trade Name Freq PRN Reason Stop Dose Admin Acetaminophen 1,000 mg 01/13/18 16:23 01/15/18 01:16 Tylenol PO 1,000 mg Q6H PRN Administration Pain Albuterol/Ipratropium 3 ml 01/13/18 16:25 Duoneb AEROSOL RTQID PRN Wheezing Amlodipine Besylate 5 mg 01/13/18 19:58 01/13/18 20:48 Norvasc PO 5 mg HS EUNICE Administration Amlodipine Besylate 10 mg 01/14/18 21:00 01/14/18 20:23 Norvasc PO 10 mg HS EUNICE Administration Arformoterol Tartrate 15 mcg 01/13/18 21:00 01/15/18 08:10 Brovana Neb AEROSOL 15 mcg BID EUNICE Administration Budesonide 0.5 mg 01/13/18 21:00 01/15/18 08:10 Pulmicort Inhalation AEROSOL 0.5 mg BID EUNICE Administration Bumetanide 1 mg 01/13/18 16:30 01/15/18 08:47 Bumex 1 Mg/4 Ml Inj. IVP 1 mg Q8H EUNICE Administration Bumetanide 1 mg 01/13/18 21:51 01/13/18 22:16 Bumex 1 Mg/4 Ml Inj. IVP 01/13/18 21:52 1 mg O ONE Administration Bumetanide 2 mg 01/15/18 17:00 Bumex 1 Mg Tab PO [id number] EUNICE Dextrose 10 ml 01/13/18 16:28 D50%W IVP PRN PRN Hypoglycemia Enoxaparin Sodium 30 mg 01/14/18 09:00 Lovenox SQ DAILY [facility] Glucose 37.5 gm 01/13/18 16:28 Glutose 15 PO PRN PRN Hypoglycemia Sodium Chloride 500 mls @ 1,000 mls/hr 01/13/18 13:43 01/13/18 15:10 Normal Saline IV 01/13/18 14:12 Infused .Q30M ONE Infusion Calcium Gluconate 1,000 mg/ 110 mls @ 50 mls/hr 01/13/18 21:46 01/14/18 03:00 Sodium Chloride IV 01/14/18 00:09 Infused O ONE Infusion Insulin Human Regular 15 unit/ 500.15 mls @ 500 mls/hr 01/13/18 21:48 00:18 Dextrose IV 01/13/18 22:48 Infused .Q1H1M EUNICE Infusion Ferric Carboxymaltose 750 mg/ 265 mls @ 500 mls/hr 01/14/18 14:30 01/14/18 15 :47 Sodium Chloride IV 01/21/18 15:02 Infused Q7D EUNICE Infusion Insulin Aspart 1 - 5 unit 01/13/18 19:12 01/15/18 15:37 Novolog SQ 1 unit SS PRN Administration Hyperglycemia Protocol Iron Dextran 1 each 01/14/18 14:04 01/14/18 15:08 Pharmacy Consult - Iron 01/14/18 14:05 Not Given O ONE Isosorbide Dinitrate 10 mg 01/14/18 07:00 01/14/18 07:46 Isordil PO 10 mg 0700 EUNICE Administration Isosorbide Dinitrate 10 mg 01/14/18 07:30 01/15/18 06:43 Isordil PO 10 mg 0630 EUNICE Administration Melatonin 5 mg 01/13/18 16:23 01/14/18 20:24 Melatonin PO 5 mg HS PRN Administration Insomnia Omeprazole 20 mg 01/14/18 06:30 01/15/18 06:42 Prilosec PO 20 mg ACB EUNICE Administration Polyethylene Glycol 17 gm 01/13/18 20:15 01/15/18 08:47 Miralax PO Not Given DAILY EUNICE Pravastatin Sodium 10 mg 01/13/18 21:00 01/14/18 20:36 Pravachol PO 10 mg HS EUNICE Administration Ropinirole HCl 3 mg 01/13/18 21:00 01/14/18 20:24 Requip PO 3 mg HS EUNICE Administration Sodium Chloride 10 - 80 ml 01/13/18 13:43 01/13/18 14:06 Iv Flush IVF 10 ml PRN PRN Administration Flushing Sodium Chloride 10 ml 01/13/18 16:20 01/13/18 22:16 Iv Flush IV 10 ml PRN PRN Administration Flushing Sodium Polystyrene Sulfonate 30 gm 01/13/18 19:57 01/13/18 20:49 Kayexelate PO 01/13/18 19:58 30 gm O ONE Administration Results 01/15/18 04:21 01/15/18 04:21 Assessment and Plan - Assessment and Plan (1) Hyperkalemia Status: Resolved (2) Atherosclerosis of coronary artery bypass graft without angina pectoris Status: Chronic (3) Mixed hyperlipidemia Status: Chronic (4) Essential (primary) hypertension Status: Chronic (5) Type 2 diabetes mellitus without complications Status: Chronic (6) Bradycardia Status: Chronic (7) CHF (congestive heart failure) Status: Chronic (8) CKD (chronic kidney disease) Status: Chronic - Attestation Attestation Narrative: I agree with the above and I am involved in the formulation of the patient's plan of care. 01/18/18 13:23 Hospital Course Summary Disclaimer: The visit summary below is not to be considered part of the above Progress Note.
--- NOTE | 2018-01-15 18:56 | Discharge Summary ---
Discharge Information Date of admission: 01/13/18 16:20 Anticipated date of discharge: 01/15/18 Attending Physician: Rosina Alvarez MD Primary care physician: [facility] Consults: Consulting Provider: Fabrizio Londono Reason For Exam: CHF with exacerbation Dietary Consult [CONS] Routine Comment: Low potassium diet - Discharge Diagnosis (1) Hyperkalemia Status: Resolved Hyperkalemia Atrial bradycardia with bundle branch block and prolonged QT Heart failure, EF 55%. Pulmonary edema. Acute on chronic respiratory failure, hypoxemic COPD Coronary artery disease with history of CABG Acute on chronic kidney disease, unknown baseline creatinine Diabetes mellitus type 2, well-controlled Restless leg syndrome Chronic anemia, with report of slow GI bleeding Hypoglycemia, induced Iron deficiency anemia - Procedures Procedures: Echocardiogram on 01/13/18-preliminary report indicated ejection fraction preserved at 55% and IVC enlarged; formal report pending - Laboratory Labs: On admission (01/13/18) initial potassium in the hospital was 5.8 increasing to 7.0 several hours later. Creatinine was 1.6 with BUN 53. Hemoglobin 9.6 with MCV 93.2. ProBNP 1360, troponin 0.118-0.098-0.107; CPK 26 Serum iron 33, TIBC 414, iron saturation 8%, B-12 739, folic acid > 20; ferritin 9.66 on the morning of hospitalization. Hemoccult 1 negative. TSH 1.76 01/15/18 04:21 01/15/18 04:21 - Radiology Radiology: Chest x-ray on 01/13/18 revealed prior CABG with mild enlargement of the cardiac silhouette. Central vasculature was prominent consistent with CHF. Repeat chest x-ray on 01/15 was grossly unchanged. Report pending. ----- Renal sonogram on 01/14/18: Both kidneys are present with normal cortical thickness and echogenicity. No evidence for collecting system dilatation, contour deforming mass, nephrolithiasis, or abnormal perinephric fluid collection. The right kidney measures 12.1 cm in length, and the left kidney measures 11.2 cm in length. IMPRESSION: Normal renal sonogram. History of Present Illness HPI: Frances is a very pleasant 72 yo WF who was seen in the ER today at her training and development officer's direction due to high potassium. She has a long standing history of multiple medical conditions, and has recently moved from [place] to [place], so is in the process of establishing with new providers in the area. She does not have a current PCP, but has an appt to establish care with Dr. Taylor. She has been seen by [facility], but did not like the front office manager staff, so opted not to return there. She has seen a MLP in Dr. Londono's office, and has an appt to return in 3 months to have an echo done. She has not had a recent echo. Was previously seen by Dr. Napoles, and then a impregnating machine operator in [place] that has left the area. Endorses a prior history of CAD, CABG and CHF, but does not know prior EF. She has established recently with Dr. Elliott Pina, who requested today's labs. She also has COPD. Wears O2 at 4L/NC at baseline. Has never been seen by pulmonology. Has been told that she likely has sleep apnea, but has never undergone a sleep study. She is not willing to wear a BiPAP or CPAP mask. She uses nebulized meds at home. She has been diabetic since 1994. Reports that she has been on insulin for some time. Her last two A1c have been 5.3 and 6.0. She reports that she always takes her insulin as directed and is very diligent with her DM2. She has been on Glipizide for some time, but is willing to use only insulin to manage her DM2. She has not been seen by endocrinology. Again- she was scheduled to have labs done by Dr. Pina today. She was found to have a markedly elevated potassium, and was directed to come to the ER for further assessment. Her potassium was mildly improved in the ER, but it was felt she should be admitted for further evaluation and treatment. Objective Vital signs: Temperature 96.7 F L 01/15/18 08:52 Pulse Rate 67 01/15/18 14:42 Respiratory Rate 20 01/15/18 08:52 Blood Pressure 170/70 H 01/15/18 14:42 Pulse Oximetry 99 01/15/18 14:42 NAD, alert, fluent speech Respirations nonlabored with good airflow, faint inspiratory/expiratory crackles at the bases bilaterally posteriorly Regular rhythm, S1-S2 Trace-+1 edema bilateral lower extremities with stasis changes Height/Weight/BMI: Height 1.68 m Weight 96.5 kg Body Mass Index 35.1 Hospital Course This is a general summary of the patient's hospital course. For more details refer to the complete medical record. Hospital course: Impression: 1. Hyperkalemia 2. Atrial bradycardia with bundle branch block and prolonged QT 3. Heart failure, ejection fraction unknown, acute on chronic. 4. Pulmonary edema. 5. Acute on chronic respiratory failure, hypoxemic 6. COPD 7. Coronary artery disease with history of CABG 8. Acute on chronic kidney disease, unknown baseline creatinine 9. Diabetes mellitus type 2, well-controlled 10. Restless leg syndrome 11. Chronic anemia, with report of slow GI bleeding 12. Hypoglycemia, induced 13. Plan: 01/13/18 Admit inpatient hospitalist service. Expected length of stay for monitoring and medical management is expected to exceed 2 midnights. Patient plans to establish with Dr. Taylor. We'll consult Dr. Londono for further evaluation, and order a 2-D echocardiogram. The patient does have significant hyperkalemia with arrhythmia, and needs close monitoring of lab and telemetry. Hold carvedilol due to bradycardia/arrhythmia. We'll start IV loop diuretics for both diuresis and reduction in potassium. Will order repeat EKG this evening for stability. Continue isosorbide due to history of coronary artery disease. Order serial troponin for monitoring. Order BNP now and in a.m. CALLIE-I are discontinued secondary to chronic kidney disease with hyperkalemia. Continue O2 at 4 L per nasal cannula. Continue Brovana, order DuoNeb. Consider referral to pulmonology. Patient reports chronic anemia with slow GI bleed. She has been on high-dose H2 receptor blockers. We will discontinue those due to chronic kidney disease, and start low-dose PPI for GI protection. Anemia also is likely secondary to severity of chronic kidney disease. Patient was admitted with hypoglycemia, she did take her insulin on the way to the hospital, but has not eaten. We will ask nursing to recheck as soon as patient is admitted. Start routine blood glucose monitoring, when necessary medications for hypoglycemia. Hold insulin tonight, and plan to restart in the morning. Stop glipizide due to chronic kidney disease. Would recommend management of her diabetes at this point with insulin only. We'll continue home medications for restless leg syndrome. DVT prophylaxis: Renal dose Lovenox. 01/14/18 Clinically improving after potassium lowered with Kayexalate and Bumex diuresis. Patient feels she can improve her diet significantly to minimize recurrent hyperkalemia after speaking with operational review sergeant. Continue Bumex for CHF; EF 55%, IVC enlarged per preliminary report-full report of echo pending. Chronically on 4 mg Bumex daily, may require slightly higher dose than she is on currently but weight is down-continue to monitor. Chest x-ray in a.m. Oxygenating well while awake on 4 L (chronically on 4 L), titrate to 3 and reassess but will use 4 L at night. Carvedilol on hold-heart rate slightly improved. Amlodipine increased to 10 mg for blood pressure control, may require a second agent (?doxazosin). Minor elevation in troponins consistent with CKD, no chest pain. Renal sonogram obtained at request of Dr. Pina who I discussed case with earlier today-study unremarkable. Iron deficiency anemia-discussed with Dr. Pina; patient will receive IV iron replacement with 2 doses of Injectafer. Check Hemoccults; patient reports having had EGD/colonoscopy a couple years ago at which time nothing was found although the patient's impression was that she may have had bleeding from her stomach despite the absence of ulcers being identified. No recurrent hypoglycemia after patient took insulin prior to admission to assist in management of hyperkalemia. Glipizide discontinued. 01/15/18-discharge Patient reports significant improvement in dyspnea; anxious to discharge home. Weight down 2.1 kg with discharge weight 96.5 kg today. Converted back to 2 mg Bumex po twice a day. Potassium restrictions reviewed with patient. Creatinine stable with diuresis; will need electrolytes/renal function reassessed next week. Blood sugar stable/slightly elevated today off of glipizide; home doses of insulin held while hospitalized as well due to presenting hypoglycemia but will be resumed at discharge. Oxygenating well at rest on 2 L oxygen; patient advised she can use 2-3 at rest but should resume 4 L at bedtime. Blood pressure modestly elevated with readings of 156/66 and 170/70 today. Following discharge patient called to let me know that she takes isosorbide dinitrate 60 mg daily instead of isosorbide mononitrate 10 mg daily as was initially recorded in home medication list. Discharge medication list has been revised to reflect correct nitrate dose and the patient will resume isosorbide dinitrate 60 mg at home in conjunction with amlodipine started during the hospitalization. Carvedilol was discontinued due to bradycardia. Heart rate generally improved off beta eduar although occasionally dropped into the 40s and possibly 39 while sleeping. She was instructed to monitor blood pressures fairly regularly to determine if additional medication will need to be considered. Doxazosin qhs was entertained as add on for HTN but not started during admission. 1 of 2 doses IV iron was given on 01/14 and the second will be given in the infusion center a week later. Prescription was sent to the infusion center prior to discharge. Cause of iron deficiency is unclear although patient is known to have had a GI bleed in the past with EGD and colonoscopy within several years although results of those studies are uncertain. Patient will follow up with Dr. Taylor next week as scheduled. Resuscitation Status: Full Code Discharge Plan - Discharge Disposition Discharge Date: 01/15/18 Disposition: Discharged Home, Self-Care *Condition: Stable Reason For Visit (Visit label in EMR): Acute CHF, Hyperkalemia - Discharge Medications *Discharge Medications: New Amlodipine [Norvasc] 10 mg PO HS #30 tab PEG 3350 17gm PACKET [Miralax] 17 gm PO DAILY packet Isosorbide Mononitrate ER [Imdur] 60 mg PO DAILY #30 tablet Continue Arformoterol Neb [Brovana Neb] 15 mcg AEROSOL BID Insulin Lispro [Humalog Kwikpen U-100] 1 - 15 unit SQ TIDWM Insulin Glargine,Hum.rec.anlog [Toujeo Max Solostar] 40 unit SQ DAILY Ascorbic Acid [Vitamin C] 1,000 mg PO BID Cholecalciferol (Vitamin D3) [Vitamin D3] 2,000 unit PO DAILY Budesonide 0.5 mg INH BID raNITIdine HCl [Ranitidine HCl] 300 mg PO DAILY Pravastatin [Pravachol] 10 mg PO HS Melatonin 5 mg PO HS PRN PRN Reason: Insomnia Ropinirole [Requip] 3 mg PO HS Calcitriol [Rocaltrol] 0.25 mcg PO 3XW Acetaminophen [Acetaminophen Extra Strength] 1,000 mg PO Q6H PRN PRN Reason: Pain B-Complex with Vitamin C [Super B with Vit C] 1 cap PO BID Changed Bumetanide 2 mg PO BID #60 Discontinued Isosorbide Dinitrate [Isordil] 10 mg PO DAILY Carvedilol [Carvedilol] 3.125 mg PO DAILY GlyBURIDE [Micronase] 5 mg PO BID - Discharge Packet/Instructions *Diet: Diabetic, low potassium *Activity: As tolerate, elevate legs as much as possible *Pain Management/Treatment: Tylenol as noted on medication list *Wound Care: Not applicable Additional Instructions: 1. Monitor your blood pressure at least once a week, preferably more frequently. 2. Check your weight daily and notify your physician if it increases by 3 pounds in 24 hours or 5 pounds in a week. 3. Use MiraLAX 1 scoop daily in water or other liquid to avoid constipation; can increase to 2 or 3 scoops daily if needed. This can be purchased over-the- counter. Alternate fiber supplements like sugar-free Metamucil or Benefiber can be tried. Senokot can be added if needed. 4. Start amlodipine 10 mg daily for your blood pressure. 5. Discontinue carvedilol and glyburide. 6. Monitor blood sugars regularly and take readings to your appointment with Dr. Taylor. 7. Second dose of IV iron will be given at the infusion center at [facility] next Wednesday or Wednesday depending on your schedule. The infusion center is on the surgical floor; check in at registration and they will direct you to the right place. *Expected Signs/Symptoms: Shortness of breath with activities, some swelling in her legs *Notify Physician if: Your weight is increasing as noted above, blood sugars are below 50, dizziness *During Business Hours Contact: Dr. Taylor, Dr. Pina, or Dr. Londono *After Business Hours Contact: Call [facility] at [phone] and ask that the on-call physician be paged *Pending Lab/Results: Follow up w/Provider - Referrals/Follow Up - Patient Handouts Patient Handouts: [facility] Congestive Heart Failure, Hyperkalemia (GEN) - Dismissal Complete Discharge Instructions are:: Complete Physician Narrative - Narrative Attestation Narrative: Date: 01/15/18 Time: 1851
--- NOTE | 2018-01-16 11:47 | XRay Report ---
INDICATION: CHF PROCEDURE: CHEST 2-VIEWS UPRIGHT (PA & LAT) Encounter: Initial COMPARISON: 01/13/2018 FINDINGS: Interstitial prominence throughout both lungs is not significantly changed. No gross pleural effusion. No pneumothorax. Heart size and mediastinal contours are stable. Prior CABG. Impression: Continued findings suggesting mild CHF. .
--- NOTE | 2018-01-18 10:34 | Echocardiogram ---
DATE OF PROCEDURE January 13, 2018 REFERRING PHYSICIAN Polly Garnett MD This is a two-dimensional echo with spectral Doppler, color-flow and M-mode. It was obtained in a patient with congestive heart failure. Left atrium is dilated. Left ventricle end-diastolic dimension is normal. Left ventricle wall thickness is increased. LV systolic function is normal with ejection fraction of about 55%. Right atrium is dilated. Right ventricle is normal. Aortic root dimension is normal. Mitral annulus is calcified. Mitral valve leaflets are sclerotic with no stenosis. Trace of mitral regurgitation is present. Aortic valve shows fibrocalcific changes with no stenosis or insufficiency. Tricuspid valve shows mild tricuspid regurgitation with moderate pulmonary hypertension with estimated pulmonary artery systolic pressure of 46. Pulmonary valve shows mild pulmonary insufficiency. There is no pericardial effusion. IMPRESSION 1. Normal LV systolic function with ejection fraction of 55%. 2. Biatrial dilation. 3. Left ventricular hypertrophy. 4. Mitral annulus calcification with mitral sclerosis and trace of mitral regurgitation. 5. Aortic sclerosis. 6. Mild tricuspid regurgitation with moderate pulmonary hypertension with estimated pulmonary artery systolic pressure of 46. 7. Mild pulmonary insufficiency. MTDD
== END 2018-01-15 15:53 | disposition home or self-care (01) | DRG 640 ==
LOC: EDHOLD 13:06 → ED 13:06 → MED 16:13 → SUATTDRO 16:20
PROVIDERS: ADMIT Internal Medicine; ATTEND Internal Medicine